=== PATIENT | female | born 1950 | race Caucasian/White ===

== ENCOUNTER 2024-09-28 15:17 | Emergency (ER) | payer MEDICARE, SELFPAY ==
[2024-09-28] VITALS (11 sets, daily range): BP systolic 123–166; BP diastolic 60–83; PULSE 79–91; RESP 11–20; TEMP 36.7; O2SAT 98–100
--- NOTE | ~2024-09-28 | CT_ITS ---
EXAMINATION: CT cervical spine wo con DATE: 09/28/2024 17:10 INDICATION: Fall. Neck/back pain TECHNIQUE: Computed tomography (CT) of the cervical spine was performed without intravenous contrast. COMPARISON: None FINDINGS: Cervical vertebral body heights and alignment are within normal limits. No compression fracture in the cervical spine. Moderate joint space narrowing at the C6-C7 level. Grade 1 anterolisthesis of C6 on C7. Bones appear osteopenic. Evaluation of the spinal canal contents and bilateral neural foramen is limited due to CT technique. Predental space is within normal limits. No prevertebral soft tissue swelling. There is an indeterminate 2.6 x 2.3 cm irregular density in the right lung apex. A chest CT is recommended for further assessment. IMPRESSION: 1. There is an indeterminate 2.6 x 2.3 cm irregular density in the right lung apex. In addition, there are a few small patchy opacities in the visualized lung apices. A chest CT is recommended for further assessment. 2. No compression fracture in the cervical spine. 3. Moderate joint space narrowing at the C6-C7 level. 4. Grade 1 anterolisthesis of C6 on C7. If symptoms persist or worsen, consider an MRI of the cervical spine for further assessment. Reviewed, dictated and finalized at location Q. IMPRESSION: 1. There is an indeterminate 2.6 x 2.3 cm irregular density in the right lung a pex. In addition, there are a few small patchy opacities in the visualized lung apices. A chest CT is recommended for further assessment. 2. No compression fracture in the cervical spine. 3. Moderate joint space narrowing at the C6-C7 level. 4. Grade 1 anterolisthesis of C6 on C7. If symptoms persist or worsen, consider an MRI of the cervical spine for furthe r assessment.
--- NOTE | ~2024-09-28 | XR_ITS ---
EXAMINATION: XR pelvis 1-2V DATE: 09/28/2024 16:41 INDICATION: Buttock pain post fall TECHNIQUE: An anteroposterior view of the pelvis was obtained. COMPARISON: None. FINDINGS: Bone alignment is normal. No fracture. Evaluation of the inferior sacrum is limited by colonic stool. Bilateral hip and sacroiliac joint spaces appear relatively preserved. 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 Surgical clips in pelvis suggestive of prior pelvic lymph node di ssection. IMPRESSION: 1. No acute osseous abnormality with limited assessment of the inferior sacrum due to superimposed colonic stool. Reviewed, dictated and finalized at location A.
--- NOTE | ~2024-09-28 | CT_ITS ---
EXAMINATION: CT brain wo con DATE: 09/28/2024 16:01 INDICATION: Fall. Hit head. TECHNIQUE: Computed tomography (CT) of the head was performed without intravenous contrast. The dose-length product was 681.00 mGy-cm. COMPARISON: None FINDINGS: Small subarachnoid hemorrhage in the left parietal lobe near the vertex. No mass effect. No midline shift. No hydrocephalus. No skull fracture. Visualized paranasal sinuses and mastoid air cells are clear. IMPRESSION: 1. Small subarachnoid hemorrhage in the left parietal lobe near the vertex. The emergency room physician taking care of the patient, Dr. Sifuentes, was identified about the findings on 09/28/2024 at 4:[address] Caraballo. Reviewed, dictated and finalized at location Q. IMPRESSION: 1. Small subarachnoid hemorrhage in the left parietal lobe near the vertex. The emergency room physician taking care of the patient, Dr. Sifuentes, was ident ified about the findings on 09/28/2024 at 4:[address] Caraballo.
--- OUTSIDE RECORDS SUMMARY | 2024-09-28 15:21 | XMS_ITS | Encounter Summary ---
Author Organization [facility] Address [address] [place] [address] Care Team Providers Care Back End Developer Name Role Phone Uriel Mott MD Primary Care Provider [phone] Encounter Details Date Type Department Care Team (Latest Contact Info) Description 11/08/2006 Outpatient Historical [facility] Medicine Christine Wang [address] [employer] [address] [employer] [facility] [address] [place] [address] [place] [address] [employer] [address] [employer] [facility] [place] [address] Other Nonspecific Abnormal Serum Enzyme Levels (Primary Dx) Social History Tobacco Use Types Packs/Day Years Used Date Smoking Tobacco: Never Assessed Comments Unknown Sex and Gender Information Value Date Recorded Sex Assigned at Not on file Legal Sex Female 3:07 AM DAY WORKER Gender Identity Not on file Sexual Orientation Not on file documented as of this encounter Plan of Treatment Upcoming Encounters Date Type Department Care Team (Late st Contact Info) Description 10/15/2024 8:00 AM CDT Appointment [facility] Medicine Christine Wang [address] [employer] [facility] [address] [place] [address] [place] [address] [facility] [place] [address] 12/07/2024 8:00 AM CDT Procedure visit [facility] Neurology [address] [facility] [address] [place] [address] Shashank Moore MD [address] [facility] [address] [place] [address] 01/17/2025 8:20 AM DAY WORKER Appointment [facility] Medicine Christine Piña [address] [facility] [address] [place] [address] [place] [address] [facility] [place] [address] 03/08/2025 8:00 AM DAY WORKER Procedure visit [facility] Neurology [address] [facility] [address] [place] [address] Shashank Moore MD [address] [facility] [address] [place] [address] documented as of this encounter Procedures Procedure Name Priority Date/Time Associated Diagnosis Comments HEPATITIS B CORE AB TOTAL Routine 11/08/2006 2:49 PM CDT HEPATITIS C AB W/CONFIRMATION Routine 11/08/2006 2:49 PM CDT HEPATITIS A IGM Routine 11/08/2006 2:49 PM CDT GGT Routine 11/08/2006 2:49 PM CDT documented in this encounter Results * HEPATITIS B CORE AB TOTAL (11/08/2006 2:49 PM CDT) HEPATITIS B CORE AB NON-REACTI VE NON-REACT JESUS INTERFACE SYSTEM Comment: Lab test performed by: [employer] [facility] [address] [place] [address] EDMUND ZHENG MD 11/08/2006 2:49 PM CDT Uriel Mott MD CHEMISTRY ORDERABLES Edited INTERFACE SYSTEM Refer to clinic/hospital department * HEPATITIS A IGM (11/08/2006 2:49 PM CDT) HEPATITIS A IGM NON-REACTI VE NON-REACT JESUS INTERFACE SYSTEM Comment: Lab test performed by: [employer] [id number] [employer] [place] [address] EDMUND ZHENG MD 11/08/2006 2:49 PM CDT Uriel Mott MD CHEMISTRY ORDERABLES Edited Performing Organization Address [facility] Phone Number INTERFACE SYSTEM Refer to clinic/hospital department * HEPATITIS C AB WITH CONFIRMATION BY RIBA (11/08/2006 2:49 PM CDT) Pathologist [facility] HEPATITIS C AB NON-REACTI VE NON-REACT JESUS INTERFACE SYSTEM SIGNAL TO CUT OFF 0.76 <1.00 INTERFACE SYSTEM Comment: Lab test performed by: [employer] [id number] [address] [employer] [place] [address] EDMUND ZHENG MD 11/08/2006 2:49 PM CDT Uriel Mott MD CHEMISTRY ORDERABLES Edited Performing Organization Address [facility] Phone Number INTERFACE SYSTEM Refer to clinic/hospital department * GGT (11/08/2006 2:49 PM CDT) Pathologist [facility] GGT 16 5 - 36 U/L INTERFACE SYSTEM 11/08/2006 2:49 PM CDT Uriel Mott MD CHEMISTRY ORDERABLES Edited Performing Organization Address [facility] Phone Number INTERFACE SYSTEM Refer to clinic/hospital department documented in this encounter Visit Diagnoses Diagnosis Other nonspecific abnormal serum enzyme levels- Primary documented in this encounter Additional Health Concerns Infection Onset Date Last Indicated Resolved Time R/O COVID-19 11/06/2019 11/06/2019 11/06/2019 8:56 AM CDT R/O COVID-19 12/29/2020 12/29/2020 12/29/2020 1:27 PM DAY WORKER COVID-19 12/29/2020 12/29/202001/18/2021 1:16 AM DAY WORKER documented as of this encounter Care Teams Back End Developer Relationship Specialty [place] [address] [facility] [place] [address] PCP - General 07/29/00 documented as of this encounter
--- OUTSIDE RECORDS SUMMARY | 2024-09-28 15:21 | XMS_ITS | Encounter Summary ---
Author Organization [facility] Address [address] [place] [address] Care Team Providers Care Hostess Party Sales Representative Name Role Phone Uriel Mott MD Primary Care Provider [phone] Encounter Details Date Type Department Care Team (Latest Contact Info) Description 09/20/2005 Outpatient Historical [facility] Medicine Christine Wang [address] [facility] [address] [place] [address] [place] [address] [address] [facility]. [address] [place] [address] Rheumatoid Arthritis (CMS/HCC) (Primary Dx) Social History Tobacco Use Types Packs/Day Years Used Date Smoking Tobacco: Never Assessed Comments Unknown Sex and Gender Information Value Date Recorded Sex Assigned at Not on file Legal Sex Female 3:07 AM WEDDING DECORATOR Gender Identity Not on file Sexual Orientation Not on file documented as of this encounter Plan of Treatment Upcoming Encounters Date Type Department Care Team (Late st Contact Info) Description 10/15/2024 8:00 AM CDT Appointment [facility] Medicine Christine Wang [address] [facility] [address] [place] [address] [place] [address] [facility] [place] [address] 12/07/2024 8:00 AM CDT Procedure visit [facility] Neurology [address] [facility] [address] [place] [address] Shashank Moore MD [address] [facility] [address] [place] [address] 01/17/2025 8:20 AM WEDDING DECORATOR Appointment [facility] Family Medicine Christine Piña [address] [place] [facility] [address] [place] [address] [place] [address] [place] [facility]. [address] [place] [address] 03/08/2025 8:00 AM WEDDING DECORATOR Procedure visit [facility] Neurology [address] [facility] [address] [place] [address] Shashank Moore MD [address] [facility] [address] [place] [address] documented as of this encounter Procedures Procedure Name Priority Date/Time Associated Diagnosis Comments CBC WITH DIFFERENTIAL Routine 09/20/2005 11:11 AM CDT CBC WITH DIFFERENTIAL Routine 09/20/2005 11:11 AM CDT LIPID PANEL Routine 09/20/2005 11:11 AM CDT documented in this encounter Results * (ABNORMAL) LIPID PANEL (09/20/2005 11:11 AM CDT) CHOLESTEROL 175 100 - 199 mg/dL INTERFACE SYSTEM TRIGLYCERIDE 72 10 - 149 mg/dL INTERFACE SYSTEM HDL 84(H) 40 - 59 mg/dL INTERFACE SYSTEM CHOL/HDL RATIO 2.1 2.0 - 5.0 INTER FACE SYSTEM LDL CALCULATED 77 <=99 mg/dL INTERFACE SYSTEM LIPID PANEL COMMENT See Below INTERFACE SYSTEM Comment: The adult ATP and pediatric NCEP classifications for lipids are available on the [facility] Intranet at: [email or web address] Select: Lab Policies and Procedures Select: Reference Ranges - Lipids 09/20/2005 11:1 1 AM CDT us Uriel Mott MD CHEMISTRY ORDERABLES Final R esult Performing Organization Address [facility] Co de Phone Number INTERFACE SYSTEM Refer to clinic/hospital department * CBC WITH DIFFERENTIAL (09/20/2005 11:11 AM CDT) NEUTROPHILS 56 45 - 70 % INTERFAC E SYSTEM LYMPHOCYTES 34 16 - 45 % INTERFAC E SYSTEM MONOCYTES 7 3 - 13 % INTERFACE SYSTEM EOSINOPHILS 3 0 - 7 % INTERFAC E SYSTEM BASOPHILS 1 0 - 2 % INTERFACE SYSTEM NEUTROPHIL ABSOLUTE 4.69 1.90 - 7.00 K/uL INTERFACE SYSTEM LYMPHOCYTE ABSOLUTE 2.84 0.70 - 4.50 K/uL INTERFACE SYSTEM MONOCYTE ABSOLUTE 0.57 0.10 - 1.30 K/uL INTERFACE SYSTEM EOSINOPHIL ABSOLUTE 0.27 0.00 - 0.70 K/uL INTERFACE SYSTEM BASOPHILS ABSOLUTE 0.04 0.00 - 0.20 K/uL INTERFACE SYSTEM 09/20/2005 11:1 1 AM CDT Uriel Mott MD HEMATOLOGY ORDERABLES Final Result Performing Organization Address [facility] de Phone Number INTERFACE SYSTEM Refer to clinic/hospital department * CBC WITH DIFFERENTIAL (09/20/2005 11:11 AM CDT) WBC 8.4 4.0 - 9.8 K/uL INTERFACE SYSTEM RBC 4.52 3.90 - 4.90 M/uL INTERFACE SYSTEM HEMOGLOBIN 13.4 11.8 - 14.8 g/dL INTERFACE SYSTEM HEMATOCRIT 39.7 35.5 - 44.0 % INTERFACE SYSTEM MCV 87.8 82.0 - 99.0 fL INTERFACE SYSTEM MCH 29.6 27.2 - 32.6 pg INTERFACE SYSTEM MCHC 33.8 31.5 - 35.5 % INTERFACE SYSTEM RDW 13.1 11.5 - 14.5 % INTERFACE SYSTEM RDW-STDEV 42.0 37.1 - 48.7 fL INTERFACE SYSTEM PLATELETS 250 140 - 350 K/uL INTERFACE SYSTEM MPV 10.6 9.3 - 12.4 fL INTERFACE SYSTEM 09/20/2005 11:1 1 AM CDT Result [facility] Uriel Mott MD HEMATOLOGY ORDERABLES Final Result INTERFACE SYSTEM Refer to clinic/hospital department documented in this encounter Visit Diagnoses Diagnosis Rheumatoid arthritis(714.0) (CMS/[facility])- Primary Rheumatoid arthritis documented in this encounter Additional Health Concerns Infection Onset Date Last Indicated Resolved Time R/O COVID-19 11/06/2019 11/06/2019 11/06/2019 8:56 AM CDT R/O COVID-19 12/29/2020 12/29/2020 12/29/2020 1:27 PM WEDDING DECORATOR COVID-19 12/29/2020 12/29/2020 01/18/2021 1:16 AM WEDDING DECORATOR documented as of this encounter Care Teams Hostess Party Sales Representative Relationship Specialty [place] [address] [facility] [address] [place] [address] PCP - General 07/29/00 documented as of this encounter
--- OUTSIDE RECORDS SUMMARY | 2024-09-28 15:21 | XMS_ITS | Encounter Summary ---
Author Organization [facility] Address [address] [place] [address] Care Team Providers Care Mortgage Loan Interviewer Name Role Phone Uriel Mott MD Primary Care Provider [phone] Encounter Details Date Type Department Care Team (Late st Contact Info) Description 03/26/2002 Outpatient Historical [facility] Medicine [place] Wang [address] [address] Ivana Quintana MD NO ADDRESS ON FILE Social History Tobacco Use Types Packs/Day Years Used Date Smoking Tobacco: Never Assessed Comments Unknown Sex and Gender Information Value Date Recorded Sex Assigned at Not on file Legal Sex Female 3:07 AM HOTEL NIGHT AUDITOR Gender Identity Not on file Sexual Orientation Not on file documented as of this encounter Plan of Treatment Upcoming Encounters Date Type Department Care Team (Late st Contact Info) Description 10/15/2024 8:00 AM CDT Appointment [facility] Christine Piña [address] [facility] [address] [place] [address] [place] [address] [facility] [place] [address] 12/07/2024 8:00 AM CDT Procedure visit [facility] Neurology [address] [facility] [address] [place] [address] Shashank Moore MD [address] [facility] [address] [place] [address] 01/17/2025 8:20 AM HOTEL NIGHT AUDITOR Appointment [facility] Wang [address] [facility] [address] [place] [address] [place] [address] [facility] [place] [address] 03/08/2025 8:00 AM HOTEL NIGHT AUDITOR Procedure visit [facility] Neurology [address] [facility] [address] [place] [address] Shashank Moore MD [address] [facility] [address] [place] [address] documented as of this encounter Visit Diagnoses Not on filedocumented in this encounter Additional Health Concerns Infection Onset Date Last Indicated Resolved Time R/O COVID-19 11/06/2019 11/06/2019 11/06/2019 8:56 AM CDT R/O COVID-19 12/29/2020 12/29/2020 12/29/2020 1:27 PM HOTEL NIGHT AUDITOR COVID-19 12/29/2020 12/29/2020 01/18/2021 1:16 AM HOTEL NIGHT AUDITOR documented as of this encounter Care Teams Mortgage Loan Interviewer Relationship Specialty [place] [address] [facility] [place] [address] PCP - General 07/29/00 documented as of this encounter
--- OUTSIDE RECORDS SUMMARY | 2024-09-28 15:21 | XMS_ITS | Encounter Summary ---
Author Organization [facility] Address [address] [place] [address] Care Team Providers Care Round Boner Name Role Phone Uriel Mott MD Primary Care Provider [phone] Encounter Details Date Type Department Care Team (Latest Contact Info) Description 05/30/2003 Inpatient Historical [facility] [place] [address] [address] [facility]. [address] [place] [address] DIS PORPHYRIN METABOLISM (Primary Dx) Social History Tobacco Use Types Packs/Day Years Used Date Smoking Tobacco: Never Assessed Comments Unknown Sex and Gender Information Value Date Recorded Sex Assigned at Not on file Legal Sex Female 3:07 AM PLANNER/SCHEDULER Gender Identity Not on file Sexual Orientation Not on file documented as of this encounter Plan of Treatment Upcoming Encounters Date Type Department Care Team (Late st Contact Info) Description 10/15/2024 8:00 AM CDT Appointment [facility] Family Medicine Christine Piña [address] [facility] [address] [place] [address] [place] [address] [facility] [place] [address] 12/07/2024 8:00 AM CDT Procedure visit [facility] Neurology [address] [facility] [address] [place] [address] Shashank Moore MD [address] [facility] [address] [place] [address] 01/17/2025 8:20 AM PLANNER/SCHEDULER Appointment [facility] Medicine Christine Piña [address] [facility] [address] [place] [address] [place] [address] [facility] [place] [address] 03/08/2025 8:00 AM PLANNER/SCHEDULER Procedure visit [facility] Neurology [address] [facility] [address] [place] [address] Shashank Moore MD [address] [facility] [address] [place] [address] documented as of this encounter Visit Diagnoses Diagnosis Disorders of porphyrin metabolism- Primary documented in this encounter Additional Health Concerns Infection Onset Date Last Indicated Resolved Time R/O COVID-19 11/06/2019 11/06/2019 11/06/2019 8:56 AM CDT R/O COVID-19 12/29/2020 12/29/2020 12/29/2020 1:27 PM PLANNER/SCHEDULER COVID-19 12/29/2020 12/29/2020 01/18/2021 1:16 AM PLANNER/SCHEDULER documented as of this encounter Care Teams Round Boner Relationship Specialty [place] [address] [facility] [address] [place] [address] PCP - General 07/29/00 documented as of this encounter
--- OUTSIDE RECORDS SUMMARY | 2024-09-28 15:21 | XMS_ITS | Encounter Summary ---
Author Organization [facility] Address [address] [place] [address] Care Team Providers Care Knitting Machine Fixer Name Role Phone Uriel Mott MD Primary Care Provider [phone] Encounter Details Date Type Department Care Team (Late st Contact Info) Description 05/30/2003 Outpatient Historical [facility] ([facility]) [address] [place] [address] Sonam Ramos MD Social History Tobacco Use Types Packs/Day Years Used Date Smoking Tobacco: Never Assessed Comments Unknown Sex and Gender Information Value Date Recorded Sex Assigned at Not on file Legal Sex Female 3:07 AM MOUNTED POLICE OFFICER Gender Identity Not on file Sexual Orientation Not on file documented as of this encounter Plan of Treatment Upcoming Encounters Date Type Department Care Team (Late st Contact Info) Description 10/15/2024 8:00 AM CDT Appointment [facility] Medicine Christine Wang [address] [facility] [address] [place] [address] [place] [address] [facility] [place] [address] 12/07/2024 8:00 AM CDT Procedure visit [facility] Neurology [address] [facility] [address] [place] [address] Shashank Moore MD [address] [facility] [address] [place] [address] 01/17/2025 8:20 AM MOUNTED POLICE OFFICER Appointment [facility] Medicine Christine Piña [address] [facility] [address] [place] [address] [place] [address] [facility] [place] [address] 03/08/2025 8:00 AM MOUNTED POLICE OFFICER Procedure visit [facility] Neurology [address] [facility] [address] [place] [address] Shashank Moore MD [address] [facility] [address] [place] [address] documented as of this encounter Visit Diagnoses Not on filedocumented in this encounter Additional Health Concerns Infection Onset Date Last Indicated Resolved Time R/O COVID-19 11/06/2019 11/06/2019 11/06/2019 8:56 AM CDT R/O COVID-19 12/29/2020 12/29/2020 12/29/2020 1:27 PM MOUNTED POLICE OFFICER COVID-19 12/29/2020 12/29/2020 01/18/2021 1:16 AM MOUNTED POLICE OFFICER documented as of this encounter Care Teams Knitting Machine Fixer Relationship Specialty [place] [address] [facility] [address] [place] [address] PCP - General 07/29/00 documented as of this encounter
--- OUTSIDE RECORDS SUMMARY | 2024-09-28 15:21 | XMS_ITS | Encounter Summary ---
Author Organization [facility] Address [address] [place] [address] Care Team Providers Care Potato Grader Name Role Phone Uriel Mott MD Primary Care Provider [phone] Encounter Details Date Type Department Care Team (Late st Contact Info) Description 06/26/2002 Outpatient Historical [facility] Christine Piña [address] [facility] [address] [place] [address] [place] [address] [facility]. [address] [address] Social History Tobacco Use Types Packs/Day Years Used Date Smoking Tobacco: Never Assessed Comments Unknown Sex and Gender Information Value Date Recorded Sex Assigned at Not on file Legal Sex Female 3:07 AM DIRECTOR OF MANUFACTURING OPERATIONS Gender Identity Not on file Sexual Orientation Not on file documented as of this encounter Plan of Treatment Upcoming Encounters Date Type Department Care Team (Late st Contact Info) Description 10/15/2024 8:00 AM CDT Appointment [facility] Christine Wang [address] [place] [facility] [address] [place] [address] [place] [address] [facility] [place] [address] 12/07/2024 8:00 AM CDT Procedure visit [facility] Neurology [address] [facility] [address] [place] [address] Shashank Moore MD [address] [facility] [address] [place] [address] 01/17/2025 8:20 AM DIRECTOR OF MANUFACTURING OPERATIONS Appointment [facility] Medicine Christine Piña [address] [facility] [address] [place] [address] [place] [address] [facility] [address] [place] [address] 03/08/2025 8:00 AM DIRECTOR OF MANUFACTURING OPERATIONS Procedure visit [facility] Neurology [address] [facility] [address] [place] [address] Shashank Moore MD [address] [address] documented as of this encounter Visit Diagnoses Not on filedocumented in this encounter Additional Health Concerns Infection Onset Date Last Indicated Resolved Time R/O COVID-19 11/06/2019 11/06/2019 11/06/2019 8:56 AM CDT R/O COVID-19 12/29/2020 12/29/2020 12/29/2020 1:27 PM DIRECTOR OF MANUFACTURING OPERATIONS COVID-19 12/29/2020 12/29/2020 01/18/2021 1:16 AM DIRECTOR OF MANUFACTURING OPERATIONS documented as of this encounter Care Teams Potato Grader Relationship Specialty [place] [address] [facility] [address] [place] [address] PCP - General 07/29/00 documented as of this encounter
--- OUTSIDE RECORDS SUMMARY | 2024-09-28 15:21 | XMS_ITS | Encounter Summary ---
Author Organization [facility] Address [address] [place] [address] Care Team Providers Care Senior Financial Accountant Name Role Phone Uriel Mott MD Primary Care Provider [phone] Encounter Details Date Type Department Care Team (Latest Contact Info) Description 10/24/2002 Outpatient Historical [place] [address] [address] [facility] [place] [address] RHEUMATOID ARTHRITIS (CMS/HCC) (Primary Dx) Social History Tobacco Use Types Packs/Day Years Used Date Smoking Tobacco: Never Assessed Comments Unknown Sex and Gender Information Value Date Recorded Sex Assigned at Not on file Legal Sex Female 3:07 AM FABRIC INSPECTOR Gender Identity Not on file Sexual Orientation Not on file documented as of this encounter Plan of Treatment Upcoming Encounters Date Type Department Care Team (Late st Contact Info) Description 10/15/2024 8:00 AM CDT Appointment [facility] Family Medicine Christine Piña [address] [facility] [address] [place] [address] [place] [address] [facility] [place] [address] 12/07/2024 8:00 AM CDT Procedure visit [facility] Neurology [address] [facility] [address] [place] [address] Shashank Moore MD [address] [facility] [address] [place] [address] 01/17/2025 8:20 AM FABRIC INSPECTOR Appointment [facility] Medicine Christine Piña [address] [facility] [address] [place] [address] [place] [address] [facility] [place] [address] 03/08/2025 8:00 AM FABRIC INSPECTOR Procedure visit [facility] [address] [facility] [address] [place] [address] Shashank Moore MD [address] [facility] [address] [place] [address] documented as of this encounter Visit Diagnoses Diagnosis Rheumatoid arthritis(714.0) (CMS/[facility])- Primary Rheumatoid arthritis documented in this encounter Additional Health Concerns Infection Onset Date Last Indicated Resolved Time R/O COVID-19 11/06/2019 11/06/2019 11/06/2019 8:56 AM CDT R/O COVID-19 12/29/2020 12/29/2020 12/29/2020 1:27 PM FABRIC INSPECTOR COVID-19 12/29/2020 12/29/2020 01/18/2021 1:16 AM FABRIC INSPECTOR documented as of this encounter Care Teams Senior Financial Accountant Relationship Specialty [place] [address] [facility] [place] [address] PCP - General 07/29/00 documented as of this encounter
--- OUTSIDE RECORDS SUMMARY | 2024-09-28 15:21 | XMS_ITS | Encounter Summary ---
Author Organization [facility] Address [address] [place] [address] Care Team Providers Care Pourer Name Role Phone Uriel Mott MD Primary Care Provider [phone] Encounter Details Date Type Department Care Team (Late st Contact Info) Description 02/02/2001 Outpatient Historical HIS [facility] DEPT [place] [address] [facility] [place] [address] Social History Tobacco Use Types Packs/Day Years Used Date Smoking Tobacco: Never Assessed Comments Unknown Sex and Gender Information Value Date Recorded Sex Assigned at Not on file Legal Sex Female 3:07 AM CONCRETE FORM SETTER AND FINISHER Gender Identity Not on file Sexual Orientation Not on file documented as of this encounter Plan of Treatment Upcoming Encounters Date Type Department Care Team (Late st Contact Info) Description 10/15/2024 8:00 AM CDT Appointment [facility] Christine Piña [address] [facility] [address] [place] [address] [place] [address] [facility] [place] [address] 12/07/2024 8:00 AM CDT Procedure visit [facility] [address] [facility] [address] [place] [address] Shashank Moore MD [address] [facility] [address] [place] [address] 01/17/2025 8:20 AM CONCRETE FORM SETTER AND FINISHER Appointment [facility] Christine Piña [address] [facility] [address] [place] [address] [place] [address] [facility] [place] [address] 03/08/2025 8:00 AM CONCRETE FORM SETTER AND FINISHER Procedure visit [facility] [address] [facility] [address] [place] [address] Shashank Moore MD [address] [facility] [address] [place] [address] documented as of this encounter Visit Diagnoses Not on filedocumented in this encounter Additional Health Concerns Infection Onset Date Last Indicated Resolved Time R/O COVID-19 11/06/2019 11/06/2019 11/06/2019 8:56 AM CDT R/O COVID-19 12/29/2020 12/29/2020 12/29/2020 1:27 PM CONCRETE FORM SETTER AND FINISHER COVID-19 12/29/2020 12/29/2020 01/18/2021 1:16 AM CONCRETE FORM SETTER AND FINISHER documented as of this encounter Care Teams Pourer Relationship Specialty [place] [address] [facility] [place] [address] PCP - General 07/29/00 documented as of this encounter
--- OUTSIDE RECORDS SUMMARY | 2024-09-28 15:21 | XMS_ITS | Encounter Summary ---
Author Organization [facility] Address [address] [place] [address] Care Team Providers Care Draw Bench Operator Helper Name Role Phone Uriel Mott MD Primary Care Provider [phone] Encounter Details Date Type Department Care Team (Late st Contact Info) Description 12/23/2000 Outpatient Historical HIS [facility] DEPT OF [place] [address] [place] [address] Social History Tobacco Use Types Packs/Day Years Used Date Smoking Tobacco: Never Assessed Comments Unknown Sex and Gender Information Value Date Recorded Sex Assigned at Not on file Legal Sex Female 3:07 AM AUTOMOBILE ASSEMBLY SUPERVISOR Gender Identity Not on file Sexual Orientation Not on file documented as of this encounter Plan of Treatment Upcoming Encounters Date Type Department Care Team (Late st Contact Info) Description 10/15/2024 8:00 AM CDT Appointment [facility] Medicine Christine Piña [address] [facility] [address] [place] [address] [place] [address] [facility]. [address] [place] [address] 12/07/2024 8:00 AM CDT Procedure visit [facility] Neurology [address] [facility] [address] [place] [address] Shashank Moore MD [address] [facility] [address] [place] [address] 01/17/2025 8:20 AM AUTOMOBILE ASSEMBLY SUPERVISOR Appointment [facility] Medicine Christine Piña [address] [facility] [address] [place] [address] [place] [address] [facility] [place] [address] 03/08/2025 8:00 AM AUTOMOBILE ASSEMBLY SUPERVISOR Procedure visit [facility] Neurology [address] [facility] [address] [place] [address] Shashank Moore MD [address] [facility] [address] [place] [address] documented as of this encounter Visit Diagnoses Not on filedocumented in this encounter Additional Health Concerns Infection Onset Date Last Indicated Resolved Time R/O COVID-19 11/06/2019 11/06/2019 11/06/2019 8:56 AM CDT R/O COVID-19 12/29/2020 12/29/2020 12/29/2020 1:27 PM AUTOMOBILE ASSEMBLY SUPERVISOR COVID-19 12/29/2020 12/29/2020 01/18/2021 1:16 AM AUTOMOBILE ASSEMBLY SUPERVISOR documented as of this encounter Care Teams Draw Bench Operator Helper Relationship Specialty [place] [address] [facility]. [address] [place] [address] PCP - General 07/29/00 documented as of this encounter
--- OUTSIDE RECORDS SUMMARY | 2024-09-28 15:21 | XMS_ITS | Encounter Summary ---
Author Organization [facility] Address [address] [place] [address] Care Team Providers Care Testing Machine Operator Name Role Phone Uriel Mott MD Primary Care Provider [phone] Encounter Details Date Type Department Care Team (Late st Contact Info) Description 04/12/2006 Outpatient Historical [facility] ([facility]) [address] [place] [address] Chance Ignacio MD NO ADDRESS ON FILE Social History Tobacco Use Types Packs/Day Years Used Date Smoking Tobacco: Never Assessed Comments Unknown Sex and Gender Information Value Date Recorded Sex Assigned at Not on file Legal Sex Female 3:07 AM REGULATORY CONSULTANT Gender Identity Not on file Sexual Orientation Not on file documented as of this encounter Plan of Treatment Upcoming Encounters Date Type Department Care Team (Late st Contact Info) Description 10/15/2024 8:00 AM CDT Appointment [facility] Family Medicine Christine Piña [address] [facility] [address] [place] [address] [place] [address] [facility] [place] [address] 12/07/2024 8:00 AM CDT Procedure visit [facility] Neurology [address] [facility] [address] [place] [address] Shashank Moore MD [address] [facility] [address] [place] [address] 01/17/2025 8:20 AM REGULATORY CONSULTANT Appointment [facility] Medicine Christine Piña [address] [facility] [address] [place] [address] [place] [address] [facility] [place] [address] 03/08/2025 8:00 AM REGULATORY CONSULTANT Procedure visit [facility] Neurology [address] [facility] [address] [place] [address] Shashank Moore MD [address] [facility] [address] [place] [address] documented as of this encounter Visit Diagnoses Not on filedocumented in this encounter Additional Health Concerns Infection Onset Date Last Indicated Resolved Time R/O COVID-19 11/06/2019 11/06/2019 11/06/2019 8:56 AM CDT R/O COVID-19 12/29/2020 12/29/2020 12/29/2020 1:27 PM REGULATORY CONSULTANT COVID-19 12/29/2020 12/29/2020 01/18/2021 1:16 AM REGULATORY CONSULTANT documented as of this encounter Care Teams Testing Machine Operator Relationship Specialty [place] [address] [facility] [place] [address] PCP - General 07/29/00 documented as of this encounter
--- OUTSIDE RECORDS SUMMARY | 2024-09-28 15:21 | XMS_ITS | Encounter Summary ---
Author Organization [facility] Address [address] [place] [address] Care Team Providers Care Correction Officer Reformatory Name Role Phone Uriel Mott MD Primary Care Provider [phone] Encounter Details Date Type Department Care Team (Latest Contact Info) Description 10/26/2004 Outpatient [place] [address] [facility] [place] [address] RHEUMATOID ARTHRITIS (CMS/HCC) (Primary Dx) Social History Tobacco Use Types Packs/Day Years Used Date Smoking Tobacco: Never Assessed Comments Unknown Sex and Gender Information Value Date Recorded Sex Assigned at Not on file Legal Sex Female 3:07 AM SUPPLIER QUALITY MANAGER Gender Identity Not on file Sexual Orientation Not on file documented as of this encounter Plan of Treatment Upcoming Encounters Date Type Department Care Team (Late st Contact Info) Description 10/15/2024 8:00 AM CDT Appointment [facility] Family Medicine Christine Piña [address] [facility] [address] [place] [address] [place] [address] [facility] [place] [address] 12/07/2024 8:00 AM CDT Procedure visit [facility] Neurology [address] [facility] [address] [place] [address] Shashank Moore MD [address] [facility] [address] [place] [address] 01/17/2025 8:20 AM SUPPLIER QUALITY MANAGER Appointment [facility] Medicine Christine Piña [address] [facility] [address] [place] [address] [place] [address] [facility] [place] [address] 03/08/2025 8:00 AM SUPPLIER QUALITY MANAGER Procedure visit [facility] [address] [facility] [address] [place] [address] Shashank Moore MD [address] [facility] [address] [place] [address] documented as of this encounter Procedures Procedure Name Priority Date/Time Associated Diagnosis Comments TSH Routine 10/26/2004 12:12 PM CDT LIPID PANEL Routine 10/26/2004 12:12 PM CDT COMPREHENSIVE METABOLIC PANEL Routine 10/26/2004 12:12 PM CDT documented in this encounter Results * TSH (10/26/2004 12:12 PM CDT) TSH 1.73 0.27 - 4.20 uU/mL INTERFACE SYSTEM 10/26/2004 12:1 2 PM CDT Uriel Mott MD CHEMISTRY ORDERABLES Final R esult INTERFACE SYSTEM Refer to clinic/hospital department * (ABNORMAL) LIPID PANEL (10/26/2004 12:12 PM CDT) CHOLESTEROL 142 100 - 199 mg/dL INTERFACE SYSTEM TRIGLYCERIDE 88 10 - 149 mg/dL INTERFACE SYSTEM HDL 71(H) 40 - 59 mg/dL INTERFACE SYSTEM LDL CALCULATED 53 <=99 mg/dL INTERFACE SYSTEM CHOL/HDL RATIO 2.0 2.0 - 5.0 INTER FACE SYSTEM Comment:See interpretive yan a section for risk classifications. LIPID PANEL COMMENT See below INTERFACE SYSTEM Comment: Adult ATP III Classifications: Cholesterol (mg/dL) Triglyceride (mg/dL) Desirable <200 Normal <150 Borderline 200 - 239 Borderline High 150 - 199 High >=240 High 200 - 499 Very High >=500 HDL Cholesterol (mg/dL) LDL (mg/dL) Low (increased risk) <40 Optimal <100 High (reduced risk) >=60 Near or above optimal 100 - 129 Borderline 130 - 159 High 160 - 189 Very High >=190 LDL calculation is not accurate if Triglycerides are greater than 400 mg /dL Pediatric NCEP Classifications: Cholesterol(<20 years),(mg/dL) Triglyceride Desirable <170 Pediatric classification Borderline 170 - 199 not defined. High >=200 HDL (<5 years) LDL (mg/dL) No Reference Range Established Desirable <110 Borderline 110 - 129 High >=130 10/26/2004 12:1 2 PM CDT Uriel Mott MD CHEMISTRY ORDERABLES Final R esult INTERFACE SYSTEM Refer to clinic/hospital department * (ABNORMAL) COMPREHENSIVE METABOLIC PANEL (10/26/2004 12:12 PM CDT) GLUCOSE 76 65 - 109 mg/dL INTERFACE SYSTEM CREATININE 0.7 0.4 - 1.2 mg/dL INTERFACE SYSTEM CALCIUM 8.7 8.6 - 10.2 mg/dL INTERFACE SYSTEM AST 19 12 - 32 U/L INTERFACE SYSTEM ALKALINE PHOSPHATASE 94 35 - 104 U/L INTERFACE SYSTEM BUN 16 6 - 20 mg/dL INTERFACE SYSTEM BILIRUBIN TOTAL 0.3 0.2 - 1.0 mg/dL INTERFACE SYSTEM ALBUMIN 4.0 3.4 - 4.8 g/dL INTERFACE SYSTEM TOTAL PROTEIN 6.8 6.3 - 8.6 g/dL INTERFACE SYSTEM ALT 16 0 - 31 U/L INTERFACE SYSTEM SODIUM 142 135 - 145 mmol/L INTERFACE SYSTEM POTASSIUM 3.7 3.5 - 4.9 mmol/L INTERFACE SYSTEM CHLORIDE 109(H) 96 - 108 mmol/L INTERFACE SYSTEM CO2 26 22 - 30 mmol/L INTERFACE SYSTEM 10/26/2004 12:1 2 PM CDT Uriel Mott MD CHEMISTRY ORDERABLES Final R esult INTERFACE SYSTEM Refer to clinic/hospital department documented in this encounter Visit Diagnoses Diagnosis Rheumatoid arthritis(714.0) (CMS/[facility])- Primary Rheumatoid arthritis documented in this encounter Additional Health Concerns Infection Onset Date Last Indicated Resolved Time R/O COVID-19 11/06/2019 11/06/2019 11/06/2019 8:56 AM CDT R/O COVID-19 12/29/2020 12/29/2020 12/29/2020 1:27 PM SUPPLIER QUALITY MANAGER COVID-19 12/29/2020 12/29/2020 01/18/2021 1:16 AM SUPPLIER QUALITY MANAGER documented as of this encounter Care Teams Correction Officer Reformatory Relationship Specialty [place] [address] [facility] [place] [address] PCP - General 07/29/00 documented as of this encounter
--- OUTSIDE RECORDS SUMMARY | 2024-09-28 15:21 | XMS_ITS | Encounter Summary ---
Author Organization [facility] Address [address] [place] [address] Care Team Providers Care Leadership Program Intern Name Role Phone Uriel Mott MD Primary Care Provider [phone] Reason for Visit * Reason Onset Date Comments Hospital Follow Up 11/07/2019 Encounter Details Date Type Department Care Team (Late st Contact Info) Description 11/07/2019 Telephone [facility] Medicine Christine Wang [address] [place] [address] [place] [address] [facility]. [address] [place] [address] Hospital Follow Up Social History Tobacco Use Types Packs/Day Years Used Date Smoking Tobacco: Former Cigarettes Q uit: 08/22/1974 Smokeless Tobacco: Never Alcohol Use Standard Drinks/Week Comments No 0 (1 standard drink = 0.6 oz pur e alcohol) Comments No Sex and Gender Information Value Date Recorded Sex Assigned at Not on file Legal Sex Female 3:07 AM RELIABILITY TECHNICIANS Gender Identity Not on file Sexual Orientation Not on file COVID-19 Exposure Response Date Recorded In the last month, have you been in contact with someone who was confirmed or suspected to have Coronavirus / COVID-19? No / Unsure 11/07/2019 2:22 PM CDT documented as of this encounter Miscellaneous Notes * Telephone Encounter - Cammy Lopez - 11/07/2019 1:46 PM CDT Patient called and was discharged from the hospital on 11/07/19 and needs a hospital FU. Please call [phone] documented in this encounter Plan of Treatment Upcoming Encounters Date Type Department Care Team (Late st Contact Info) Description 10/15/2024 8:00 AM CDT Appointment [facility] Medicine Christine Piña [address] [facility] [address] [place] [id number] [place] [address] [facility]. [address] [address] 12/07/2024 8:00 AM CDT Procedure visit [facility] Neurology [address] [facility] [address] [place] [address] Shashank Moore MD [address] [address] 01/17/2025 8:20 AM RELIABILITY TECHNICIANS Appointment [facility] Christine Piña [address] [facility] [address] [place] [address] [place] [address] [facility]. [address] [address] 03/08/2025 8:00 AM RELIABILITY TECHNICIANS Procedure visit [facility] Neurology [address] [address] Shashank Moore MD [address] [address] documented as of this encounter Visit Diagnoses Not on filedocumented in this encounter Additional Health Concerns Infection Onset Date Last Indicated Resolved Time R/O COVID-19 12/29/2020 12/29/2020 12/29/2020 1:27 PM RELIABILITY TECHNICIANS COVID-19 12/29/2020 12/29/2020 01/18/2021 1:16 AM RELIABILITY TECHNICIANS documented as of this encounter Care Teams Leadership Program Intern Relationship Specialty [place] [address] [facility]. [address] [place] [address] PCP - General 07/29/00 documented as of this encounter
--- OUTSIDE RECORDS SUMMARY | 2024-09-28 15:21 | XMS_ITS | Encounter Summary ---
Author Organization [facility] Address [address] [place] [address] Care Team Providers Care C2 Tactical Analysis Technician Name Role Phone Uriel Mott MD Primary Care Provider [phone] Encounter Details Date Type Department Care Team (Late st Contact Info) Description 03/28/2001 Outpatient Historical HIS [facility] DEPT [place] [address] [facility]. [address] [place] [address] Social History Tobacco Use Types Packs/Day Years Used Date Smoking Tobacco: Never Assessed Comments Unknown Sex and Gender Information Value Date Recorded Sex Assigned at Not on file Legal Sex Female 3:07 AM CAR BODY MECHANIC Gender Identity Not on file Sexual Orientation Not on file documented as of this encounter Plan of Treatment Upcoming Encounters Date Type Department Care Team (Late st Contact Info) Description 10/15/2024 8:00 AM CDT Appointment [facility] Family Medicine Christine Wang [address] [facility] [address] [place] [address] [place] [address] [facility] [place] [address] 12/07/2024 8:00 AM CDT Procedure visit [facility] Neurology [address] [facility] [address] [place] [address] Shashank Moore MD [address] [facility] [address] [place] [address] 01/17/2025 8:20 AM CAR BODY MECHANIC Appointment [facility] Medicine Christine Piña [address] [facility] [address] [place] [address] [place] [address] [facility] [place] [address] 03/08/2025 8:00 AM CAR BODY MECHANIC Procedure visit [facility] Neurology [address] [facility] [address] [place] [address] Shashank Moore MD [address] [facility] [address] [place] [address] documented as of this encounter Visit Diagnoses Not on filedocumented in this encounter Additional Health Concerns Infection Onset Date Last Indicated Resolved Time R/O COVID-19 11/06/2019 11/06/2019 11/06/2019 8:56 AM CDT R/O COVID-19 12/29/2020 12/29/2020 12/29/2020 1:27 PM CAR BODY MECHANIC COVID-19 12/29/2020 12/29/2020 01/18/2021 1:16 AM CAR BODY MECHANIC documented as of this encounter Care Teams C2 Tactical Analysis Technician Relationship Specialty [place] [address] [facility]. [address] [place] [address] PCP - General 07/29/00 documented as of this encounter
--- OUTSIDE RECORDS SUMMARY | 2024-09-28 15:21 | XMS_ITS | Encounter Summary ---
Author Organization [facility] Address [address] [place] [address] Care Team Providers Care News Photographer Name Role Phone Uriel Mott MD Primary Care Provider [phone] Encounter Details Date Type Department Care Team (Latest Contact Info) Description 11/03/2006 Outpatient Historical [facility] Medicine Christine Wang [address] [address] [facility] [address] [place] [address] [place] [address] [address] [facility]. [address] [place] [address] Other Malaise and Fatigue (Primary Dx) Social History Tobacco Use Types Packs/Day Years Used Date Smoking Tobacco: Never Assessed Comments Unknown Sex and Gender Information Value Date Recorded Sex Assigned at Not on file Legal Sex Female 3:07 AM FISHER MUSSEL Gender Identity Not on file Sexual Orientation Not on file documented as of this encounter Plan of Treatment Upcoming Encounters Date Type Department Care Team (Late st Contact Info) Description 10/15/2024 8:00 AM CDT Appointment [facility] Medicine Christine Wang [address] [address] [facility] [address] [place] [address] [place] [address] [facility] [place] [address] 12/07/2024 8:00 AM CDT Procedure visit [facility] Neurology [address] [facility] [address] [place] [address] Shashank Moore MD [address] [facility] [address] [place] [address] 01/17/2025 8:20 AM FISHER MUSSEL Appointment [facility] Medicine Christine Piña [address] [facility] [address] [place] [address] [place] [address] [facility] [place] [address] 03/08/2025 8:00 AM FISHER MUSSEL Procedure visit [facility] [address] [facility] [address] [place] [address] Shashank Moore MD [address] [facility] [address] [place] [address] documented as of this encounter Procedures Procedure Name Priority Date/Time Associated Diagnosis Comments CBC WITH DIFFERENTIAL Routine 11/03/2006 3:15 PM CDT CBC WITH DIFFERENTIAL Routine 11/03/2006 3:15 PM CDT MONONUCLEOSIS SCREEN Routine 11/03/2006 3:15 PM CDT FERRITIN Routine 11/03/2006 3:15 PM CDT CORTISOL LEVEL Routine 11/03/2006 3:15 PM CDT COMPREHENSIVE METABOLIC PANEL Routine 11/03/2006 3:15 PM CDT documented in this encounter Results * CBC WITH DIFFERENTIAL (11/03/2006 3:15 PM CDT) NEUTROPHILS 62 45 - 70 % INTERFAC E SYSTEM LYMPHOCYTES 29 16 - 45 % INTERFAC E SYSTEM MONOCYTES 6 3 - 13 % INTERFACE SYSTEM EOSINOPHILS 3 0 - 7 % INTERFAC E SYSTEM BASOPHILS 1 0 - 2 % INTERFACE SYSTEM NEUTROPHIL ABSOLUTE 3.81 1.90 - 7.00 K/uL INTERFACE SYSTEM LYMPHOCYTE ABSOLUTE 1.78 0.70 - 4.50 K/uL INTERFACE SYSTEM MONOCYTE ABSOLUTE 0.38 0.10 - 1.30 K/uL INTERFACE SYSTEM EOSINOPHIL ABSOLUTE 0.16 0.00 - 0.70 K/uL INTERFACE SYSTEM BASOPHILS ABSOLUTE 0.04 0.00 - 0.20 K/uL INTERFACE SYSTEM 11/03/2006 3:15 PM CDT Uriel Mott MD HEMATOLOGY ORDERABLES Edited Performing Organization Address City/[facility] de Phone Number INTERFACE SYSTEM Refer to clinic/hospital department * CBC WITH DIFFERENTIAL (11/03/2006 3:15 PM CDT) WBC 6.2 4.0 - 9.8 K/uL INTERFACE SYSTEM RBC 4.29 3.90 - 4.90 M/uL INTERFACE SYSTEM HEMOGLOBIN 12.8 11.8 - 14.8 g/dL INTERFACE SYSTEM HEMATOCRIT 37.0 35.5 - 44.0 % INTERFACE SYSTEM MCV 86.2 82.0 - 99.0 fL INTERFACE SYSTEM MCH 29.8 27.2 - 32.6 pg INTERFACE SYSTEM MCHC 34.6 31.5 - 35.5 % INTERFACE SYSTEM RDW 12.8 11.5 - 14.5 % INTERFACE SYSTEM RDW-STDEV 40.5 37.1 - 48.7 fL INTERFACE SYSTEM PLATELETS 282 140 - 350 K/uL INTERFACE SYSTEM MPV 11.9 9.3 - 12.4 fL INTERFACE SYSTEM 11/03/2006 3:15 PM CDT Uriel Mott MD HEMATOLOGY ORDERABLES Edited Performing Organization Address [facility] de Phone Number INTERFACE SYSTEM Refer to clinic/hospital department * MONONUCLEOSIS SCREEN (11/03/2006 3:15 PM CDT) MONONUCLEOSIS SCREEN Negative Negative INTERFACE SYSTEM 11/03/2006 3:15 PM CDT Uriel Mott MD HEMATOLOGY ORDERABLES Edited Performing Organization Address City/[facility] de Phone Number INTERFACE SYSTEM Refer to clinic/hospital department * CORTISOL LEVEL (11/03/2006 3:15 PM CDT) CORTISOL LEVEL 15.5 ug/dL INTER FACE SYSTEM Comment: Cortisol Reference Range: 7 - 10 AM: 6.2 - 19.4 ug/dL 4 - 8 PM: 2.3 - 11.9 ug/dL 11/03/2006 3:15 PM CDT Uriel Mott MD CHEMISTRY ORDERABLES Edited Performing Organization Address City/[facility] de Phone Number INTERFACE SYSTEM Refer to clinic/hospital department * (ABNORMAL) FERRITIN (11/03/2006 3:15 PM CDT) FERRITIN 182(H) 13 - 150 ng/mL INTERFACE SYSTEM 11/03/2006 3:15 PM CDT Uriel Mott MD CHEMISTRY ORDERABLES Edited Performing Organization Address [facility] Co de Phone Number INTERFACE SYSTEM Refer to clinic/hospital department * (ABNORMAL) COMPREHENSIVE METABOLIC PANEL (11/03/2006 3:15 PM CDT) GLUCOSE 93 65 - 99 mg/dL INTERFACE SYSTEM CREATININE 0.76 0.51 - 0.95 mg/dL INTERFACE SYSTEM CALCIUM 8.4 8.4 - 10.2 mg/dL INTERFACE SYSTEM ALKALINE PHOSPHATASE 74 35 - 104 U/L INTERFACE SYSTEM AST 52(H) 12 - 32 U/L INTERFACE SYSTEM ALT 65(H) 0 - 31 U/L INTERFACE SYSTEM TOTAL PROTEIN 6.6 6.3 - 8.6 g/dL INTERFACE SYSTEM ALBUMIN 4.0 3.4 - 4.8 g/dL INTERFACE SYSTEM BILIRUBIN TOTAL 0.3 0.2 - 1.0 mg/dL INTERFACE SYSTEM BUN 12 6 - 20 mg/dL INTERFACE SYSTEM SODIUM 144 135 - 145 mmol/L INTERFACE SYSTEM POTASSIUM 3.8 3.5 - 4.9 mmol/L INTERFACE SYSTEM CHLORIDE 108 96 - 108 mmol/L INTERFACE SYSTEM CO2 26 22 - 30 mmol/L INTERFACE SYSTEM GFR, >60 >=60 mL/min/1.7 sq meter INTERFACE SYSTEM GFR >60 >=60 mL/min/1.7 sq meter INTERFACE SYSTEM Comment: Estimated GFR rate interpretative information for both Americans and non- Americans is available on the [facility] Intranet at: [email or web address] Select: Lab Policies and Procedures Select: Reference Ranges - GFR 11/03/2006 3:15 PM CDT Uriel Mott MD CHEMISTRY ORDERABLES Edited INTERFACE SYSTEM Refer to clinic/hospital department documented in this encounter Visit Diagnoses Diagnosis Other malaise and fatigue- Primary documented in this encounter Additional Health Concerns Infection Onset Date Last Indicated Resolved Time R/O COVID-19 11/06/2019 11/06/2019 11/06/2019 8:56 AM CDT R/O COVID-19 12/29/2020 12/29/2020 12/29/2020 1:27 PM FISHER MUSSEL COVID-19 12/29/2020 12/29/2020 01/18/2021 1:16 AM FISHER MUSSEL documented as of this encounter Care Teams News Photographer Relationship Specialty [place] [address] [facility] [place] [address] PCP - General 07/29/00 documented as of this encounter
--- OUTSIDE RECORDS SUMMARY | 2024-09-28 15:21 | XMS_ITS | Encounter Summary ---
Author Organization [facility] Address [address] [place] [address] Care Team Providers Care Farm Contractor Name Role Phone Uriel Mott MD Primary Care Provider [phone] Encounter Details Date Type Department Care Team (Late Contact Info) Description 09/20/2005 Outpatient Historical [facility] Medicine Christine Piña [address] [employer] [address] [place] [address] [place] [address] [address] [place] [address] Social History Tobacco Use Types Packs/Day Years Used Date Smoking Tobacco: Never Assessed Comments Unknown Sex and Gender Information Value Date Recorded Sex Assigned at Not on file Legal Sex Female 3:07 AM INTERMEDIATE CARD TENDER Gender Identity Not on file Sexual Orientation Not on file documented as of this encounter Last Filed Vital Signs Vital Sign Reading Time Taken Comments Blood Pressure 110/84 09/20/2005 9:15 AM CDT Pulse 72 09/20/2005 9:15 AM CDT Temperature - - Respiratory Rate - - Oxygen Saturation - - Inhaled Oxygen Concentration - - Weight 67.6 kg (149 lb) 09/20/2005 9:15 AM CDT Height - - Body Mass Index - - documented in this encounter Plan of Treatment Upcoming Encounters Date Type Department Care Team (Late Contact Info) Description 10/15/2024 8:00 AM CDT Appointment [facility] Medicine Christine Wang [address] [place] [address] [place] [address] [employer] [place] [address] 12/07/2024 8:00 AM CDT Procedure visit [facility] Neurology [address] [facility] [address] [place] [address] Shashank Moore MD [address] [facility] [address] [place] [address] 01/17/2025 8:20 AM INTERMEDIATE CARD TENDER Appointment [facility] Medicine Christine Piña [address] [address] [facility] [address] [place] [address] [place] [address] [facility]. [address] [place] [address] 03/08/2025 8:00 AM INTERMEDIATE CARD TENDER Procedure visit [facility] Neurology [address] [facility] [address] [place] [address] Shashank Moore MD [address] [facility] [address] [place] [address] documented as of this encounter Visit Diagnoses Not on filedocumented in this encounter Additional Health Concerns Infection Onset Date Last Indicated Resolved Time R/O COVID-19 11/06/2019 11/06/2019 11/06/2019 8:56 AM CDT R/O COVID-19 12/29/2020 12/29/2020 12/29/2020 1:27 PM INTERMEDIATE CARD TENDER COVID-19 12/29/2020 12/29/2020 01/18/2021 1:16 AM INTERMEDIATE CARD TENDER documented as of this encounter Care Teams Farm Contractor Relationship Specialty [place] [address] [facility] [address] [place] [address] PCP - General 07/29/00 documented as of this encounter
--- OUTSIDE RECORDS SUMMARY | 2024-09-28 15:21 | XMS_ITS | Encounter Summary ---
Author Organization [facility] Address [address] [place] [address] Care Team Providers Care Photo Editor Name Role Phone Uriel Mott MD Primary Care Provider [phone] Encounter Details Date Type Department Care Team (Late st Contact Info) Description 11/25/2006 Outpatient Historical [facility] [place] [address] [address] [employer] [facility]. [address] [place] [address] Other Nonspecific Abnormal Serum Enzyme Levels (Primary Dx) Social History Tobacco Use Types Packs/Day Years Used Date Smoking Tobacco: Never Assessed Comments Unknown Sex and Gender Information Value Date Recorded Sex Assigned at Not on file Legal Sex Female 3:07 AM HUNTING GUIDE Gender Identity Not on file Sexual Orientation Not on file documented as of this encounter Plan of Treatment Upcoming Encounters Date Type Department Care Team (Late st Contact Info) Description 10/15/2024 8:00 AM CDT Appointment [facility] Family Medicine Christine Piña [address] [facility] [address] [place] [address] [place] [address] [address] [facility]. [address] [place] [address] 12/07/2024 8:00 AM CDT Procedure visit [facility] Neurology [address] [facility] [address] [place] [address] Shashank Moore MD [address] [facility] [address] [place] [address] 01/17/2025 8:20 AM HUNTING GUIDE Appointment [facility] Medicine Christine Piña [address] [facility] [address] [place] [address] [place] [address] [facility] [place] [address] 03/08/2025 8:00 AM HUNTING GUIDE Procedure visit [facility] Neurology [address] [facility] [address] [place] [address] Shashank Moore MD [address] [facility] [address] [place] [address] documented as of this encounter Visit Diagnoses Diagnosis Other nonspecific abnormal serum enzyme levels- Primary documented in this encounter Additional Health Concerns Infection Onset Date Last Indicated Resolved Time R/O COVID-19 11/06/2019 11/06/2019 11/06/2019 8:56 AM CDT R/O COVID-19 12/29/2020 12/29/2020 12/29/2020 1:27 PM HUNTING GUIDE COVID-19 12/29/2020 12/29/2020 01/18/2021 1:16 AM HUNTING GUIDE documented as of this encounter Care Teams Photo Editor Relationship Specialty [place] [address] [facility] [place] [address] PCP - General 07/29/00 documented as of this encounter
--- OUTSIDE RECORDS SUMMARY | 2024-09-28 15:21 | XMS_ITS | Encounter Summary ---
Author Organization [facility] Address [address] [place] [address] Care Team Providers Care Iv Therapy Nurse Name Role Phone Uriel Mott MD Primary Care Provider [phone] Encounter Details Date Type Department Care Team (Late st Contact Info) Description 01/09/[address] [facility] Christine Piña [address] [address] [facility] [address] [place] [address] [place] [address] [employer] [facility]. [address] [address] Social History Tobacco Use Types Packs/Day Years Used Date Smoking Tobacco: Never Assessed Comments Unknown Sex and Gender Information Value Date Recorded Sex Assigned at Not on file Legal Sex Female 3:07 AM ELECTRONIC NEWS GATHERING CAMERA PERSON Gender Identity Not on file Sexual Orientation Not on file documented as of this encounter Plan of Treatment Upcoming Encounters Date Type Department Care Team (Late st Contact Info) Description 10/15/2024 8:[address] [facility] Christine Wang [address] [place] [facility] [address] [place] [address] [place] [address] [facility] [place] [address] 12/07/2024 8:00 AM CDT Procedure visit [facility] Neurology [address] [facility] [address] [place] [address] Shashank Moore MD [address] [facility] [address] [place] [address] 01/17/2025 8:20 AM ELECTRONIC NEWS GATHERING CAMERA PERSON Appointment [facility] Medicine Christine Piña [address] [facility] [address] [place] [address] [place] [address] [facility] [address] [place] [address] 03/08/2025 8:00 AM ELECTRONIC NEWS GATHERING CAMERA PERSON Procedure visit [facility] Neurology [address] [facility] [address] [place] [address] Shashank Moore MD [address] [address] documented as of this encounter Visit Diagnoses Not on filedocumented in this encounter Additional Health Concerns Infection Onset Date Last Indicated Resolved Time R/O COVID-19 11/06/2019 11/06/2019 11/06/2019 8:56 AM CDT R/O COVID-19 12/29/2020 12/29/2020 12/29/2020 1:27 PM ELECTRONIC NEWS GATHERING CAMERA PERSON COVID-19 12/29/2020 12/29/2020 01/18/2021 1:16 AM ELECTRONIC NEWS GATHERING CAMERA PERSON documented as of this encounter Care Teams Iv Therapy Nurse Relationship Specialty [place] [address] [facility] [address] [place] [address] PCP - General 07/29/00 documented as of this encounter
--- OUTSIDE RECORDS SUMMARY | 2024-09-28 15:21 | XMS_ITS | Encounter Summary ---
Author Organization [facility] Address [address] [place] [address] Care Team Providers Care Hand Chain Maker Name Role Phone Uriel Mott MD Primary Care Provider [phone] Encounter Details Date Type Department Care Team (Late Contact Info) Description 11/30/2006 Outpatient Historical [facility] Christine Wang [address] [place] [address] [place] [address] [employer] [facility]. [address] [place] [address] Social History Tobacco Use Types Packs/Day Years Used Date Smoking Tobacco: Never Assessed Comments Unknown Sex and Gender Information Value Date Recorded Sex Assigned at Not on file Legal Sex Female 3:07 AM PAPER CARRIER Gender Identity Not on file Sexual Orientation Not on file documented as of this encounter Last Filed Vital Signs Vital Sign Reading Time Taken Comments Blood Pressure 126/72 11/30/2006 8:30 AM CDT Pulse 62 11/30/2006 8:30 AM CDT Temperature - - Respiratory Rate - - Oxygen Saturation - - Inhaled Oxygen Concentration - - Weight 70.8 kg (156 lb) 11/30/2006 8:30 AM CDT Height 154.9 cm (5' 1) 11/30/2006 8:30 AM CDT Body Mass Index 29.48 11/30/2006 8:30 AM CDT documented in this encounter Plan of Treatment Upcoming Encounters Date Type Department Care Team (Late st Contact Info) Description 10/15/2024 8:00 AM CDT Appointment [facility] Christine Piña [address] [employer] [facility] [address] [place] [address] [place] [address] [facility]. [address] [place] [address] 12/07/2024 8:00 AM CDT Procedure visit [facility] Neurology [address] [facility] [address] [place] [address] Shashank Moore MD [address] [facility] [address] [place] [address] 01/17/2025 8:20 AM PAPER CARRIER Appointment [facility] Medicine Christine Piña [address] [facility] [address] [place] [address] [place] [address] [facility]. [address] [place] [address] 03/08/2025 8:00 AM PAPER CARRIER Procedure visit [facility] [address] [facility] [address] [place] [address] Shashank Moore MD [address] [address] documented as of this encounter Visit Diagnoses Not on filedocumented in this encounter Additional Health Concerns Infection Onset Date Last Indicated Resolved Time R/O COVID-19 11/06/2019 11/06/2019 11/06/2019 8:56 AM CDT R/O COVID-19 12/29/2020 12/29/2020 12/29/2020 1:27 PM PAPER CARRIER COVID-19 12/29/2020 12/29/2020 01/18/2021 1:1 6 AM PAPER CARRIER documented as of this encounter Care Teams Hand Chain Maker Relationship Specialty [place] [address] [facility] [place] [address] PCP - General 07/29/00 documented as of this encounter
--- OUTSIDE RECORDS SUMMARY | 2024-09-28 15:21 | XMS_ITS | Encounter Summary ---
Author Organization [facility] Address [address] [place] [address] Care Team Providers Care Geochemical Manager Name Role Phone Uriel Mott MD Primary Care Provider [phone] Encounter Details Date Type Department Care Team (Late Contact Info) Description 10/23/2004 Outpatient Historical [facility] Christine Wang [address] [place] [address] [place] [address] [address] [place] [address] Social History Tobacco Use Types Packs/Day Years Used Date Smoking Tobacco: Never Assessed Comments Unknown Sex and Gender Information Value Date Recorded Sex Assigned at Not on file Legal Sex Female 3:07 AM PHOTOENGRAVING SUPERVISOR Gender Identity Not on file Sexual Orientation Not on file documented as of this encounter Last Filed Vital Signs Vital Sign Reading Time Taken Comments Blood Pressure 126/72 10/23/2004 2:45 PM CDT Pulse 97 10/23/2004 2:45 PM CDT Temperature 36.6 C (97.8 F) 10/23/2004 2:45 PM CDT Respiratory Rate - - Oxygen Saturation - - Inhaled Oxygen Concentration - - Weight 65.8 kg (145 lb) 10/23/2004 2:45 PM CDT Height - - Body Mass Index - - documented in this encounter Plan of Treatment Upcoming Encounters Date Type Department Care Team (Late Contact Info) Description 10/15/2024 8:00 AM CDT Appointment [facility] Christine Wang [address] [place] [address] [place] [address] [facility] [place] [address] 12/07/2024 8:00 AM CDT Procedure visit [facility] Neurology [address] [facility] [address] [place] [address] Shashank Moore MD [address] [facility] [address] [place] [address] 01/17/2025 8:20 AM PHOTOENGRAVING SUPERVISOR Appointment [facility] Medicine Christine Piña [address] [facility] [address] [place] [address] [place] [address] [facility]. [address] [place] [address] 03/08/2025 8:00 AM PHOTOENGRAVING SUPERVISOR Procedure visit [facility] Neurology [address] [facility] [address] [place] [address] Shashank Moore MD [address] [facility] [address] [place] [address] documented as of this encounter Visit Diagnoses Not on filedocumented in this encounter Additional Health Concerns Infection Onset Date Last Indicated Resolved Time R/O COVID-19 11/06/2019 11/06/2019 11/06/2019 8:56 AM CDT R/O COVID-19 12/29/2020 12/29/2020 12/29/2020 1:27 PM PHOTOENGRAVING SUPERVISOR COVID-19 12/29/2020 12/29/2020 01/18/2021 1:16 AM PHOTOENGRAVING SUPERVISOR documented as of this encounter Care Teams Geochemical Manager Relationship Specialty [place] [address] [facility] [address] [place] [address] PCP - General 07/29/00 documented as of this encounter
--- OUTSIDE RECORDS SUMMARY | 2024-09-28 15:21 | XMS_ITS | Encounter Summary ---
Author Organization [facility] Address [address] [place] [address] Care Team Providers Care Farmer Cash Grain Name Role Phone Uriel Mott MD Primary Care Provider [phone] Encounter Details Date Type Department Care Team (Late Contact Info) Description 04/06/[address] [facility] ([place], [place]) Christine Wang [address] [place] [address] [place] [address] [place] [address] Social History Tobacco Use Types Packs/Day Years Used Date Smoking Tobacco: Never Assessed Comments Unknown Sex and Gender Information Value Date Recorded Sex Assigned at Not on file Legal Sex Female 3:07 AM ATHLETIC TRAINER Gender Identity Not on file Sexual Orientation Not on file documented as of this encounter Last Filed Vital Signs Vital Sign Reading Time Taken Comments Blood Pressure 132/74 04/06/2006 9:45 AM ATHLETIC TRAINER Pulse 72 04/06/2006 9:45 AM ATHLETIC TRAINER Temperature - - Respiratory Rate - - Oxygen Saturation - - Inhaled Oxygen Concentration - - Weight 69.9 kg (154 lb) 04/06/2006 9:45 AM ATHLETIC TRAINER Height - - Body Mass Index - - documented in this encounter Plan of Treatment Upcoming Encounters Date Type Department Care Team (Late st Contact Info) Description 10/15/2024 8:[address] [facility] ([place], [place]) Christine Wang [address] [place] [address] [place] [address] [place] [address] 12/07/2024 8:00 AM CDT Procedure visit [facility] Neurology [address] [facility] [address] [place] [address] Shashank Moore MD [address] [facility] [address] [place] [address] 01/17/2025 8:20 AM ATHLETIC TRAINER Appointment [facility] Medicine Christine Piña [address] [facility] [address] [place] [address] [place] [address] [facility] [place] [address] 03/08/2025 8:00 AM ATHLETIC TRAINER Procedure visit [facility] Neurology [address] [facility] [address] [place] [address] Shashank Moore MD [address] [facility] [address] [place] [address] documented as of this encounter Visit Diagnoses Not on filedocumented in this encounter Additional Health Concerns Infection Onset Date Last Indicated Resolved Time R/O COVID-19 11/06/2019 11/06/2019 11/06/2019 8:56 AM CDT R/O COVID-19 12/29/2020 12/29/2020 12/29/2020 1:27 PM ATHLETIC TRAINER COVID-19 12/29/2020 12/29/2020 01/18/2021 1:16 AM ATHLETIC TRAINER documented as of this encounter Care Teams Farmer Cash Grain Relationship Specialty [place] [address] [facility] [address] [place] [address] PCP - General 07/29/00 documented as of this encounter
--- OUTSIDE RECORDS SUMMARY | 2024-09-28 15:21 | XMS_ITS | Encounter Summary ---
Author Organization [facility] Address [address] [place] [address] Care Team Providers Care Upholstery Sewer Name Role Phone Uriel Mott MD Primary Care Provider [phone] Encounter Details Date Type Department Care Team (Latest Contact Info) Description 10/26/2004 Outpatient Historical [facility] [place] [address] [facility]. [address] [place] [address] SWELLING IN HEAD & NECK (Primary Dx) Social History Tobacco Use Types Packs/Day Years Used Date Smoking Tobacco: Never Assessed Comments Unknown Sex and Gender Information Value Date Recorded Sex Assigned at Not on file Legal Sex Female 3:07 AM COUNSELOR MANAGER Gender Identity Not on file Sexual Orientation Not on file documented as of this encounter Plan of Treatment Upcoming Encounters Date Type Department Care Team (Late st Contact Info) Description 10/15/2024 8:00 AM CDT Appointment [facility] Family Medicine Christine Piña [address] [facility] [address] [place] [address] [place] [address] [address] [facility] [place] [address] 12/07/2024 8:00 AM CDT Procedure visit [facility] Neurology [address] [facility] [address] [place] [address] Shashank Moore MD [address] [facility] [address] [place] [address] 01/17/2025 8:20 AM COUNSELOR MANAGER Appointment [facility] Medicine Christine Piña [address] [facility] [address] [place] [address] [place] [address] [facility]. [address] [place] [address] 03/08/2025 8:00 AM COUNSELOR MANAGER Procedure visit [facility] Neurology [address] [facility] [address] [place] [address] Shashank Moore MD [address] [facility] [address] [place] [address] documented as of this encounter Visit Diagnoses Diagnosis Swelling, mass, or lump in head and neck- Primary documented in this encounter Additional Health Concerns Infection Onset Date Last Indicated Resolved Time R/O COVID-19 11/06/2019 11/06/2019 11/06/2019 8:56 AM CDT R/O COVID-19 12/29/2020 12/29/2020 12/29/2020 1:27 PM COUNSELOR MANAGER COVID-19 12/29/2020 12/29/2020 01/18/2021 1:16 AM COUNSELOR MANAGER documented as of this encounter Care Teams Upholstery Sewer Relationship Specialty [place] [address] [facility]. [address] [place] [address] PCP - General 07/29/00 documented as of this encounter
--- OUTSIDE RECORDS SUMMARY | 2024-09-28 15:21 | XMS_ITS | Encounter Summary ---
Author Organization [facility] Address [address] [place] [address] Care Team Providers Care Roll Threader Operator Name Role Phone Uriel oMtt MD Primary Care Provider [phone] Encounter Details Date Type Department Care Team (Late st Contact Info) Description 11/03/2006 Orders Only [facility] Family Medicine [place] [address] [place] [address] [place] [address] [address] [place] [address] Social History Tobacco Use Types Packs/Day Years Used Date Smoking Tobacco: Never Assessed Comments Unknown Sex and Gender Information Value Date Recorded Sex Assigned at Not on file Legal Sex Female 3:07 AM QUALITY ASSISTANT Gender Identity Not on file Sexual Orientation Not on file documented as of this encounter Progress Notes * Uriel Mott MD - 06/23/2007 7:09 PM CDT NURSE NAME: Charis Montoya PULSE: 70. Right Radial, Regular BLOOD PRESSURE: 112/62. Right Arm Sitting WEIGHT: 156lbs. ALLERGIES: Allergies are as listed. TOBACCO USE: Patient does not currently use tobacco. CHIEF COMPLAINT Here for follow up evaluation. est/sjl HISTORY: HISTORY: 714.0-RHEUMATOID ARTHRITIS The patient's rheumatoid arthritis is stable. Methotrexate is tolerated well with no side effects. The patient is being seen by a splunk dashboard developer. Also on orencia and prednisone. 780.79-FATIGUE The patient's malaise and fatigue have not changed. The patient's energy levels havedeclined. Currently the patient is off all medication. Recent laboratory work satisfactory. Still has LGT and fatigue and TSH and FBS were normal. Tmax 100.6 usually at night, still hair falling out,sx for past 3-4 wks. 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 Cartwright-dermatology METHOTREXATE SODIUM ORAL TABLET 5 MG, Not sure of dosage-from Dr. Osei qod CALCIUM + D ORAL TABLET 600-200 MG-UNIT, one tablet twice a day Actually I want her to take a pill with 400iu of vitamin d. this was not available on my menu of meds to choose from NASACORT AQ NASAL AEROSOL SOLUTION 55 MCG/ACT, WRITTEN BY Dr. Cutler-ENT PREDNISONE ORAL TABLET 20 MG, Take one tablet a day for 7 days SINGULAIR ORAL TABLET 10 MG, one tablet a day PREMARIN ORAL TABLET 1.25 MG, 1 Every Day TOPAMAX ORAL TABLET 50 MG, 1 Two Times A Day AUGMENTIN ORAL TABLET 875-125 MG, 1 Two Times A Day ALPRAZOLAM ORAL TABLET 1 MG, 1 Every Day At Bedtime, As Needed CURRENT ALLERGY LIST: CODEINE SULFA Patient's history reviewed; no changes. PHYSICAL EXAMINATION: CONSTITUTIONAL: GENERAL APPEARANCE: Healthy appearing patient in no distress. EYES: CONJUNCTIVAE/LIDS: Conjunctivae and lids appear normal. EARS, NOSE, MOUTH AND THROAT: EARS: Tympanic membranes shiny without retraction. Canals unremarkable. Hearing grossly normal. NOSE (AND SINUS): No abnormality of the nose or sinuses is noted. ORAL: Inspection of gums, lips, palate, and teeth normal. No scars, lesions, or masses. Oral mucosaunremarkable with non-inflamed posterior pharynx. NECK/THYROID: Trachea midline. No thyroid enlargement, tenderness, or mass. No supraclavicular or cervical adenopathy. RESPIRATORY: Clear to auscultation and percussion. Normal respiratory effort. CARDIOVASCULAR: CARDIAC: Regular rhythm. No murmurs, rubs, or gallops. ARTERIAL: No aortic bruits. EDEMA/VARICOSITIES OF EXTREMITIES: No edema or varicosities. LYMPHATICS: No lymphadenopathy in the neck, axillae, or groin. GASTROINTESTINAL: ABDOMEN: Soft, non-tender, without masses. Bowel sounds active. LIVER/SPLEEN/KIDNEY: No hepatosplenomegaly, tenderness or nodularity. Kidneys not palpable. PSYCHIATRIC: Judgment appropriate. Oriented. Normal memory. Mood and affect appropriate. ASSESSMENT/PLAN: 714.0-RHEUMATOID ARTHRITIS ASSESSMENT: The patient's rheumatoid arthritis has not changed. Will not change medication, continue to monitor for complications. Will check laboratory. 780.79-FATIGUE ASSESSMENT: The patient's malaise and fatigue have not changed. No medication currently used for malaise and fatigue. Will continue to follow for the need to intervene therapeutically. Will check laboratory. LAB ORDERS: Order number: [id number] Test Ordered: CORTISOL LEVEL 1725 Order number: [id number] Test Ordered: HETEROPHILE, MONONUCLEOSIS SCREEN 5110 Order number: [id number] Test Ordered: CBC W/ DIFFERENTIAL 3150 Order number: [id number] Test Ordered: COMPREHENSIVE METABOLIC PANEL & GFR 1112 Order number: [id number] Test Ordered: CULTURE, BLOOD 8980 Order number: [id number] Test Ordered: FERRITIN 1715 RETURN VISIT: The patient will be contacted to return after we review the labs ordered above. Electronically Signed by: Uriel Mott MD on October documented in this encounter Plan of Treatment Upcoming Encounters Date Type Department Care Team (Late st Contact Info) Description 10/15/2024 8:00 AM CDT Appointment [facility] Christine Wang [address] [facility] [address] [place] [address] [place] [address] [facility] [place] [address] 12/07/2024 8:00 AM CDT Procedure visit [facility] Neurology [address] [facility] [address] [place] [address] Shashank Moore MD [address] [facility] [address] [place] [address] 01/17/2025 8:20 AM QUALITY ASSISTANT Appointment [facility] Medicine Christine Piña [address] [facility] [address] [place] [address] [place] [address] [facility] [place] [address] 03/08/2025 8:00 AM QUALITY ASSISTANT Procedure visit [facility] Neurology [address] [facility] [address] [place] [address] Shashank Moore MD [address] [address] documented as of this encounter Visit Diagnoses Not on filedocumented in this encounter Additional Health Concerns Infection Onset Date Last Indicated Resolved Time R/O COVID-19 11/06/2019 11/06/2019 11/06/2019 8:56 AM CDT R/O COVID-19 12/29/2020 12/29/2020 12/29/2020 1:27 PM QUALITY ASSISTANT COVID-19 12/29/2020 12/29/2020 01/18/2021 1:16 AM QUALITY ASSISTANT documented as of this encounter Care Teams Roll Threader Operator Relationship Specialty [place] [address] [facility] [address] [place] [address] PCP - General 07/29/00 documented as of this encounter
--- OUTSIDE RECORDS SUMMARY | 2024-09-28 15:21 | XMS_ITS | Encounter Summary ---
Author Organization [facility] Address [address] [place] [address] Care Team Providers Care Materials Management Supervisor Name Role Phone Uriel Mott MD Primary Care Provider [phone] Encounter Details Date Type Department Care Team (Latest Contact Info) Description 06/04/2003 Outpatient Historical [place] [address] [facility]. [address] [place] [address] CYSTIC KIDN DISEASE,NOS (Primary Dx) Social History Tobacco Use Types Packs/Day Years Used Date Smoking Tobacco: Never Assessed Comments Unknown Sex and Gender Information Value Date Recorded Sex Assigned at Not on file Legal Sex Female 3:07 AM DIET TECH Gender Identity Not on file Sexual Orientation Not on file documented as of this encounter Plan of Treatment Upcoming Encounters Date Type Department Care Team (Late st Contact Info) Description 10/15/2024 8:00 AM CDT Appointment [facility] Family Medicine Christine Piña [address] [facility] [address] [place] [address] [place] [address] [facility]. [address] [place] [address] 12/07/2024 8:00 AM CDT Procedure visit [facility] Neurology [address] [facility] [address] [place] [address] Shashank Moore MD [address] [facility] [address] [place] [address] 01/17/2025 8:20 AM DIET TECH Appointment [facility] Medicine Christine Piña [address] [facility] [address] [place] [address] [place] [address] [facility] [place] [address] 03/08/2025 8:00 AM DIET TECH Procedure visit [facility] [address] [facility] [address] [place] [address] Shashank Moore MD [address] [facility] [address] [place] [address] documented as of this encounter Visit Diagnoses Diagnosis Other specified congenital cystic kidney disease- Primary documented in this encounter Additional Health Concerns Infection Onset Date Last Indicated Resolved Time R/O COVID-19 11/06/2019 11/06/2019 11/06/2019 8:56 AM CDT R/O COVID-19 12/29/2020 12/29/2020 12/29/2020 1:27 PM DIET TECH COVID-19 12/29/2020 12/29/2020 01/18/2021 1:16 AM DIET TECH documented as of this encounter Care Teams Materials Management Supervisor Relationship Specialty [place] [address] [facility] [place] [address] PCP - General 07/29/00 documented as of this encounter
--- OUTSIDE RECORDS SUMMARY | 2024-09-28 15:21 | XMS_ITS | Encounter Summary ---
Author Organization [facility] Address [address] [place] [address] Care Team Providers Care Cd Mixer Helper Name Role Phone Uriel Mott MD Primary Care Provider [phone] Encounter Details Date Type Department Care Team (Latest Contact Info) Description 11/30/2006 Outpatient Historical [facility] Medicine Christine Wang [address] [facility] [address] [place] [address] [place] [address] [address] [facility] [place] [address] Other Chronic Nonalcoholic Liver Disease (Primary Dx) Social History Tobacco Use Types Packs/Day Years Used Date Smoking Tobacco: Never Assessed Comments Unknown Sex and Gender Information Value Date Recorded Sex Assigned at Not on file Legal Sex Female 3:07 AM RN INTERNSHIP Gender Identity Not on file Sexual Orientation Not on file documented as of this encounter Plan of Treatment Upcoming Encounters Date Type Department Care Team (Late st Contact Info) Description 10/15/2024 8:00 AM CDT Appointment [facility] Medicine Christine Wang [address] [facility] [address] [place] [address] [place] [address] [facility] [place] [address] 12/07/2024 8:00 AM CDT Procedure visit [facility] Neurology [address] [facility] [address] [place] [address] Shashank Moore MD [address] [facility] [address] [place] [address] 01/17/2025 8:20 AM RN INTERNSHIP Appointment [facility] Family Medicine Christine Piña [address] [place] [address] [place] [address] [facility] [place] [address] 03/08/2025 8:00 AM RN INTERNSHIP Procedure visit [facility] Neurology [address] [facility] [address] [place] [address] Shashank Moore MD [address] [facility] [address] [place] [address] documented as of this encounter Procedures Procedure Name Priority Date/Time Associated Diagnosis Comments LIPID PANEL Routine 11/30/2006 9:33 AM CDT documented in this encounter Results * (ABNORMAL) LIPID PANEL (11/30/2006 9:33 AM CDT) CHOLESTEROL 148 100 - 199 mg/dL INTERFACE SYSTEM TRIGLYCERIDE 110 10 - 149 mg/dL INTERFACE SYSTEM HDL 63(H) 40 - 59 mg/dL INTERFACE SYSTEM CHOL/HDL RATIO 2.3 2.0 - 5.0 INTER FACE SYSTEM LDL CALCULATED 63 <=99 mg/dL INTERFACE SYSTEM LIPID PANEL COMMENT See Below INTERFACE SYSTEM Comment: The adult ATP and pediatric NCEP classifications for lipids are available on the [facility] Intranet at: [email or web address] Select: Lab Policies and Procedures,Current Select: Lipid Panel Interpretation 11/30/2006 9:33 AM CDT Uriel Mott MD CHEMISTRY ORDERABLES Edited INTERFACE SYSTEM Refer to clinic/hospital department documented in this encounter Visit Diagnoses Diagnosis Other chronic nonalcoholic liver disease- Primary documented in this encounter Additional Health Concerns Infection Onset Date Last Indicated Resolved Time R/O COVID-19 11/06/2019 11/06/2019 11/06/2019 8:56 AM CDT R/O COVID-19 12/29/2020 12/29/2020 12/29/2020 1:27 PM RN INTERNSHIP COVID-19 12/29/2020 12/29/2020 01/18/2021 1:16 AM RN INTERNSHIP documented as of this encounter Care Teams Cd Mixer Helper Relationship Specialty [place] [address] [facility] [address] [place] [address] PCP - General 07/29/00 documented as of this encounter
--- OUTSIDE RECORDS SUMMARY | 2024-09-28 15:21 | XMS_ITS | Encounter Summary ---
Author Organization [facility] Address [address] [place] [address] Care Team Providers Care Overhead Cleaner Maintainer Name Role Phone Uriel Mott MD Primary Care Provider [phone] Encounter Details Date Type Department Care Team (Late st Contact Info) Description 10/07/2014 Nurse Triage Report [facility] ABSTRACTION Divine Ochoa, RN Social History Tobacco Use Types Packs/Day Years Used Date Smoking Tobacco: Never Smokeless Tobacco: Never Alcohol Use Standard Drinks/Week Comments No 0 (1 standard drink = 0.6 oz pur e alcohol) Comments No Sex and Gender Information Value Date Recorded Sex Assigned at Not on file Legal Sex Female 3:07 AM SLAG EXPANDER Gender Identity Not on file Sexual Orientation Not on file documented as of this encounter Progress Notes * Divine Ochoa RN - 10/07/2014 8:05 PM CDT CHART DOCUMENTATION ONLY Call Type: Triage Call Addendum Date and Time [id number] Presenting Problem: I need something for nausea. Report feedback to Dr. Mott <<<<<<<< TRIAGE NOTE >>>>>>>> Triage Note: Lumber Salvager Divine Neffirez added this note on Oct 07 2014 7:54PM: She did not want to be re-evaluated. Was seen in the ED. Lumber Salvager [id number] added this note on Oct 07 2014 8:05PM Spoke with Dr. Mott with patient request for nausea. He approved her an e-scribe for zofran. I notified patient and sent to her pharmacy. She understands that she needs to call the office to inform Dr. Mott how she is doing with the dx kidney stone from the ED. She voiced and understanding. <<<<<<<< TRIAGE/OUTCOME >>>>>>>> Guideline Title: Medication Questions - Adult Recommended Disposition: Speak with Provider or Pharmacist within 24 hours Original Inclination: Seek Care in ER Intended Action: Call Provider Immediately Physician Contacted: Yes Has questions about prescribed and/or nonprescribed medications not covered by available resources ? YES documented in this encounter Plan of Treatment Upcoming Encounters Date Type Department Care Team (Late st Contact Info) Description 10/15/2024 8:00 AM CDT Appointment [facility] Christine Piña [address] [facility] [address] [place] [address] [place] [address] [facility] [place] [address] 12/07/2024 8:00 AM CDT Procedure visit [facility] Neurology [address] [facility] [address] [place] [address] Shashank Moore MD [address] [facility] [address] [place] [address] 01/17/2025 8:20 AM SLAG EXPANDER Appointment [facility] Christine Piña [address] [facility] [address] [place] [id number] [place] [address] [facility] [place] [address] 03/08/2025 8:00 AM SLAG EXPANDER Procedure visit [facility] Neurology [address] [facility] [address] [place] [address] Shashank Moore MD [address] [facility] [address] [place] [address] documented as of this encounter Visit Diagnoses Not on filedocumented in this encounter Additional Health Concerns Infection Onset Date Last Indicated Resolved Time R/O COVID-19 11/06/2019 11/06/2019 11/06/2019 8:56 AM CDT R/O COVID-19 12/29/2020 12/29/2020 12/29/2020 1:27 PM SLAG EXPANDER COVID-19 12/29/2020 12/29/2020 01/18/2021 1:16 AM SLAG EXPANDER Assessment Noted Time PHQ-9 Depression Total Score: 3 07/04/19 15 11:00 AM CDT documented as of this encounter Care Teams Overhead Cleaner Maintainer Relationship Specialty [place] [address] [facility] [place] [address] PCP - General 07/29/00 documented as of this encounter
--- OUTSIDE RECORDS SUMMARY | 2024-09-28 15:21 | XMS_ITS | Encounter Summary ---
Author Organization [facility] Address [address] [place] [address] Care Team Providers Care Computer Technology Teacher Name Role Phone Uriel Mott MD Primary Care Provider [phone] Encounter Details Date Type Department Care Team (Late st Contact Info) Description 01/24/2003 Outpatient Historical [facility] DEPT Brian Frias MD [address] [place] [address] CHRONIC SINUSITIS NOS (Primary Dx) Social History Tobacco Use Types Packs/Day Years Used Date Smoking Tobacco: Never Assessed Comments Unknown Sex and Gender Information Value Date Recorded Sex Assigned at Not on file Legal Sex Female 3:07 AM MANAGER MATH Gender Identity Not on file Sexual Orientation Not on file documented as of this encounter Plan of Treatment Upcoming Encounters Date Type Department Care Team (Late st Contact Info) Description 10/15/2024 8:00 AM CDT Appointment [facility] Family Medicine Christine Piña [address] [facility] [address] [place] [address] [place] [address] [facility]. [address] [place] [address] 12/07/2024 8:00 AM CDT Procedure visit [facility] Neurology [address] [facility] [address] [place] [address] Shashank Moore MD [address] [facility] [address] [place] [address] 01/17/2025 8:20 AM MANAGER MATH Appointment [facility] Medicine Christine Piña [address] [facility] [address] [place] [address] [place] [address] [facility]. [address] [place] [address] 03/08/2025 8:00 AM MANAGER MATH Procedure visit [facility] [address] [facility] [address] [place] [address] Shashank Moore MD [address] [facility] [address] [place] [address] documented as of this encounter Visit Diagnoses Diagnosis Unspecified sinusitis (chronic)- Primary documented in this encounter Additional Health Concerns Infection Onset Date Last Indicated Resolved Time R/O COVID-19 11/06/2019 11/06/2019 11/06/2019 8:56 AM CDT R/O COVID-19 12/29/2020 12/29/2020 12/29/2020 1:27 PM MANAGER MATH COVID-19 12/29/2020 12/29/2020 01/18/2021 1:16 AM MANAGER MATH documented as of this encounter Care Teams Computer Technology Teacher Relationship Specialty [place] [address] [facility]. [address] [place] [address] PCP - General 07/29/00 documented as of this encounter
--- OUTSIDE RECORDS SUMMARY | 2024-09-28 15:21 | XMS_ITS | Encounter Summary ---
Author Organization [facility] Address [address] [place] [address] Care Team Providers Care Stained Glass Window Designer Name Role Phone Uriel Mott MD Primary Care Provider [phone] Encounter Details Date Type Department Care Team (Late Contact Info) Description 12/13/2005 Orders Only [facility] Medicine Christine Wang [address] [facility] [address] [place] [address] [place] [address] [facility]. [address] [place] [address] Social History Tobacco Use Types Packs/Day Years Used Date Smoking Tobacco: Never Assessed Comments Unknown Sex and Gender Information Value Date Recorded Sex Assigned at Not on file Legal Sex Female 3:07 AM TOOL AND MACHINE MAINTAINER Gender Identity Not on file Sexual Orientation Not on file documented as of this encounter Plan of Treatment Upcoming Encounters Date Type Department Care Team (Late st Contact Info) Description 10/15/2024 8:[address] [facility] Christine Wang [address] [facility] [address] [place] [address] [place] [address] [facility] [place] [address] 12/07/2024 8:00 AM CDT Procedure visit [facility] Neurology [address] [facility] [address] [place] [address] Shashank Moore MD [address] [facility] [address] [place] [address] 01/17/2025 8:20 AM TOOL AND MACHINE MAINTAINER Appointment [facility] Family Medicine Christine Piña [address] [facility] [address] [place] [address] [place] [address] [facility]. [address] [place] [address] 03/08/2025 8:00 AM TOOL AND MACHINE MAINTAINER Procedure visit [facility] [address] [facility] [address] [place] [address] Shashank Moore MD [address] [facility] [address] [place] [address] documented as of this encounter Visit Diagnoses Not on filedocumented in this encounter Additional Health Concerns Infection Onset Date Last Indicated Resolved Time R/O COVID-19 11/06/2019 11/06/2019 11/06/2019 8:56 AM CDT R/O COVID-19 12/29/2020 12/29/2020 12/29/2020 1:27 PM TOOL AND MACHINE MAINTAINER COVID-19 12/29/2020 12/29/2020 01/18/2021 1:16 AM TOOL AND MACHINE MAINTAINER documented as of this encounter Care Teams Stained Glass Window Designer Relationship Specialty [place] [address] [facility] [address] [place] [address] PCP - General 07/29/00 documented as of this encounter
--- OUTSIDE RECORDS SUMMARY | 2024-09-28 15:21 | XMS_ITS | Encounter Summary ---
Author Organization [facility] Address [address] [place] [address] Care Team Providers Care Customer Account Coordinator Name Role Phone Uriel Mott MD Primary Care Provider [phone] Encounter Details Date Type Department Care Team (Late st Contact Info) Description 11/30/2006 Orders Only [facility] Family Medicine Christine Wang [address] [place] [address] [place] [address] [place] [address] Social History Tobacco Use Types Packs/Day Years Used Date Smoking Tobacco: Never Assessed Comments Unknown Sex and Gender Information Value Date Recorded Sex Assigned at Not on file Legal Sex Female 3:07 AM MANDREL PRESS HAND Gender Identity Not on file Sexual Orientation Not on file documented as of this encounter Progress Notes * Uriel Mott MD - 06/23/2007 2:03 PM CDT NURSE NAME: Charis Montoya HEIGHT: 5ft1in. PULSE: 62. Right Radial, Regular WEIGHT: 156lbs. BLOOD PRESSURE: 126/72. Right Arm Sitting BMI: 29.47 ALLERGIES: Allergies are as listed. TOBACCO USE: Patient does not currently use tobacco. CHIEF COMPLAINT Here for follow up evaluation. est/ sjl HISTORY: HISTORY: 571.8-CHRONIC LIVER DISEASE AND CIRRHOSIS has fatty liver - on ultrasound last week - s/p CCK. 790.5-ABNORMAL LIVER ENZYMES The patient's symptoms are persistent. The patient has symptoms of fatigue, has no symptoms of jaundice, has no symptoms of anorexia, has no complaints of nausea, has no symptoms of diarrhea, has no complaints of abdominal pain. The patient has no history of hyperlipidemia, has no history of diabetes, has no history of chronic hepatitis, is currently on medication (see medication list), has no history of alcohol use, has no history of IV drug use, has no history of multiple sex partners. Previous evaluations include: hepatitis B, hepatitis C, ferritin, ultrasound.The suspected cause is medications, steatosis. The patient has received no previous treatment. 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 Cartwright-dermatology METHOTREXATE SODIUM ORAL TABLET 5 MG, Not sure of dosage-from Dr. Osei qabi CALCIUM + D ORAL TABLET 600-200 MG-UNIT, one tablet twice a day Actually I want her to take a pill with 400iu of vitamin d. this was not available on my menu of meds to choose from NASACORT AQ NASAL AEROSOL SOLUTION 55 MCG/ACT, WRITTEN BY Dr. Cutler-ENT SINGULAIR ORAL TABLET 10 MG, one tablet a day PREMARIN ORAL TABLET 1.25 MG, 1 Every Day TOPAMAX ORAL TABLET 50 MG, 1 Two Times A Day ALPRAZOLAM ORAL TABLET 1 MG, 1 Every Day At Bedtime, As Needed ADVAIR DISKUS INHALATION MISCELLANEOUS 500-50 MCG/DOSE, 1 inhalation TWICE DAILY PREDNISONE ORAL TABLET 5 MG, 1 Every Day ORENCIA INTRAVENOUS SOLUTION WHEN RECONSTITUTED 250 MG, INJ ONE TIME INTRAMUSCULAR INJECTION monthly CURRENT ALLERGY LIST: CODEINE SULFA Patient's history reviewed; no changes. PHYSICAL EXAMINATION: CONSTITUTIONAL: GENERAL APPEARANCE: Healthy appearing patient in no distress. NECK/THYROID: Trachea midline. No thyroid enlargement, tenderness, or mass. No supraclavicular or cervical adenopathy. RESPIRATORY: Clear to auscultation and percussion. Normal respiratory effort. GASTROINTESTINAL: ABDOMEN: Soft, non-tender, without masses. Bowel sounds active. LIVER/SPLEEN/KIDNEY: No hepatosplenomegaly, tenderness or nodularity. Kidneys not palpable. PSYCHIATRIC: Judgment appropriate. Oriented. Normal memory. Mood and affect appropriate. ASSESSMENT/PLAN: 571.8-CHRONIC LIVER DISEASE AND CIRRHOSIS ASSESSMENT: will check lipids and consider weight loss as primary goal of tx. LAB ORDERS: Order number: [id number] Test Ordered: LIPID PANEL 2668 790.5-ABNORMAL LIVER ENZYMES ASSESSMENT: The patient's condition has worsened. The patient is attempting to follow a low saturated fat diet. The patient was advised to lose weight. Clinical guidelines reviewed. V58.97-YSMM-DZRD USE OF STEROIDS STATUS: Unchanged. RETURN VISIT: The patient will be contacted to return after we review the labs ordered above. Instructed to call if not improving. Electronically Signed by: Uriel Mott MD on Thursday, November 30, 2006 documented in this encounter Plan of Treatment Upcoming Encounters Date Type Department Care Team (Late st Contact Info) Description 10/15/2024 8:00 AM CDT Appointment [facility] Christine Piña [address] [facility] [address] [place] [address] [place] [address] [facility] [place] [address] 12/07/2024 8:00 AM CDT Procedure visit [facility] Neurology [address] [facility] [address] [place] [address] Shashank Moore MD [address] [facility] [address] [place] [address] 01/17/2025 8:20 AM MANDREL PRESS HAND Appointment [facility] Christine Wang [address] [facility] [address] [place] [address] [place] [address] [facility] [place] [address] 03/08/2025 8:00 AM MANDREL PRESS HAND Procedure visit [facility] Neurology [address] [facility] [address] [place] [address] Shashank Moore MD [address] [facility] [address] [place] [address] documented as of this encounter Visit Diagnoses Not on filedocumented in this encounter Additional Health Concerns Infection Onset Date Last Indicated Resolved Time R/O COVID-19 11/06/2019 11/06/2019 11/06/2019 8:56 AM CDT R/O COVID-19 12/29/2020 12/29/2020 12/29/2020 1:27 PM MANDREL PRESS HAND COVID-19 12/29/2020 12/29/2020 01/18/2021 1:16 AM MANDREL PRESS HAND documented as of this encounter Care Teams Customer Account Coordinator Relationship Specialty [place] [address] [facility] [address] [place] [address] PCP - General 07/29/00 documented as of this encounter
--- OUTSIDE RECORDS SUMMARY | 2024-09-28 15:21 | XMS_ITS | Encounter Summary ---
Author Organization [facility] Address [address] [place] [address] Care Team Providers Care Welding Technician Name Role Phone Uriel Mott MD Primary Care Provider [phone] Encounter Details Date Type Department Care Team (Late st Contact Info) Description 11/08/2005 Outpatient Historical [facility] [address] [facility] [address] [place] [address] Baltazar March III Social History Tobacco Use Types Packs/Day Years Used Date Smoking Tobacco: Never Assessed Comments Unknown Sex and Gender Information Value Date Recorded Sex Assigned at Not on file Legal Sex Female 3:07 AM DOUBLE END SEWER Gender Identity Not on file Sexual Orientation Not on file documented as of this encounter Plan of Treatment Upcoming Encounters Date Type Department Care Team (Late st Contact Info) Description 10/15/2024 8:00 AM CDT Appointment [facility] Medicine [facility] [address] [facility] [address] [place] [address] [place] [address] [facility] [place] [address] 12/07/2024 8:00 AM CDT Procedure visit [facility] Neurology [address] [facility] [address] [place] [address] Shashank Moore MD [address] [facility] [address] [place] [address] 01/17/2025 8:20 AM DOUBLE END SEWER Appointment [facility] Medicine [facility] [address] [facility] [address] [place] [address] [place] [address] [facility] [place] [address] 03/08/2025 8:00 AM DOUBLE END SEWER Procedure visit [facility] Neurology [address] [facility] [address] [place] [address] Shashank Moore MD [address] [facility] [address] [place] [address] documented as of this encounter Visit Diagnoses Not on filedocumented in this encounter Additional Health Concerns Infection Onset Date Last Indicated Resolved Time R/O COVID-19 11/06/2019 11/06/2019 11/06/2019 8:56 AM CDT R/O COVID-19 12/29/2020 12/29/2020 12/29/2020 1:27 PM DOUBLE END SEWER COVID-19 12/29/2020 12/29/2020 01/18/2021 1:16 AM DOUBLE END SEWER documented as of this encounter Care Teams Welding Technician Relationship Specialty [place] [address] [facility]. [address] [place] [address] PCP - General 07/29/00 documented as of this encounter
--- OUTSIDE RECORDS SUMMARY | 2024-09-28 15:21 | XMS_ITS | Encounter Summary ---
Author Organization [facility] Address [address] [place] [address] Care Team Providers Care Frame Table Operator Helper Name Role Phone Uriel Mott MD Primary Care Provider [phone] Encounter Details Date Type Department Care Team (Late Contact Info) Description 11/19/2003 [facility] Christine Wang [address] [facility] [address] [place] [address] [place] [address] [facility]. [address] [place] [address] Social History Tobacco Use Types Packs/Day Years Used Date Smoking Tobacco: Never Assessed Comments Unknown Sex and Gender Information Value Date Recorded Sex Assigned at Not on file Legal Sex Female 3:07 AM DIRECTOR GLOBAL Gender Identity Not on file Sexual Orientation Not on file documented as of this encounter Last Filed Vital Signs Vital Sign Reading Time Taken Comments Blood Pressure 130/84 11/19/2003 2:30 PM CDT Pulse 74 11/19/2003 2:30 PM CDT Temperature 36.7 C (98.1 F) 11/19/2003 2:30 PM CDT Respiratory Rate 12 11/19/2003 2:30 PM CDT Oxygen Saturation - - Inhaled Oxygen Concentration - - Weight 64.9 kg (143 lb) 11/19/2003 2:30 PM CDT Height - - Body Mass Index - - documented in this encounter Plan of Treatment Upcoming Encounters Date Type Department Care Team (Late st Contact Info) Description 10/15/2024 8:00 AM CDT [facility]ment [facility] Christine Piña [address] [facility] [address] [place] [address] [place] [address] [facility]. [address] [place] [address] 12/07/2024 8:00 AM CDT Procedure visit [facility] Neurology [address] [facility] [address] [place] [address] Shashank Moore MD [address] [facility] [address] [place] [address] 01/17/2025 8:20 AM DIRECTOR GLOBAL Appointment [facility] Medicine Christine Piña [address] [facility] [address] [place] [address] [place] [address] [facility]. [address] [place] [address] 03/08/2025 8:00 AM DIRECTOR GLOBAL Procedure visit [facility] [address] [facility] [address] [place] [address] Shashank Moore MD [address] [address] documented as of this encounter Visit Diagnoses Not on filedocumented in this encounter Additional Health Concerns Infection Onset Date Last Indicated Resolved Time R/O COVID-19 11/06/2019 11/06/2019 11/06/2019 8:56 AM CDT R/O COVID-19 12/29/2020 12/29/2020 12/29/2020 1:27 PM DIRECTOR GLOBAL COVID-19 12/29/2020 12/29/2020 01/18/2021 1:16 AM DIRECTOR GLOBAL documented as of this encounter Care Teams Frame Table Operator Helper Relationship Specialty [place] [address] [facility]. [address] [place] [address] PCP - General 07/29/00 documented as of this encounter
--- OUTSIDE RECORDS SUMMARY | 2024-09-28 15:21 | XMS_ITS | Encounter Summary ---
Author Organization [facility] Address [address] [place] [address] Care Team Providers Care High School Football Coach Name Role Phone Uriel Mott MD Primary Care Provider [phone] Encounter Details Date Type Department Care Team (Latest Contact Info) Description 04/12/2006 Outpatient Historical [place] [address] [facility]. [address] [place] [address] Other Chest Pain (Primary Dx) Social History Tobacco Use Types Packs/Day Years Used Date Smoking Tobacco: Never Assessed Comments Unknown Sex and Gender Information Value Date Recorded Sex Assigned at Not on file Legal Sex Female 3:07 AM COMMERCIAL SALES DIRECTOR Gender Identity Not on file Sexual Orientation Not on file documented as of this encounter Plan of Treatment Upcoming Encounters Date Type Department Care Team (Late st Contact Info) Description 10/15/2024 8:00 AM CDT Appointment [facility] Family Medicine Christine Piña [address] [facility] [address] [place] [address] [place] [address] [facility]. [address] [place] [address] 12/07/2024 8:00 AM CDT Procedure visit [facility] Neurology [address] [facility] [address] [place] [address] Shashank Moore MD [address] [facility] [address] [place] [address] 01/17/2025 8:20 AM COMMERCIAL SALES DIRECTOR Appointment [facility] Medicine Christine Piña [address] [facility] [address] [place] [address] [place] [address] [facility]. [address] [place] [address] 03/08/2025 8:00 AM COMMERCIAL SALES DIRECTOR Procedure visit [facility] Neurology [address] [facility] [address] [place] [address] Shashank Moore MD [address] [facility] [address] [place] [address] documented as of this encounter Visit Diagnoses Diagnosis Other chest pain- Primary documented in this encounter Additional Health Concerns Infection Onset Date Last Indicated Resolved Time R/O COVID-19 11/06/2019 11/06/2019 11/06/2019 8:56 AM CDT R/O COVID-19 12/29/2020 12/29/2020 12/29/2020 1:27 PM COMMERCIAL SALES DIRECTOR COVID-19 12/29/2020 12/29/2020 01/18/2021 1:16 AM COMMERCIAL SALES DIRECTOR documented as of this encounter Care Teams High School Football Coach Relationship Specialty [place] [address] [facility]. [address] [place] [address] PCP - General 07/29/00 documented as of this encounter
--- OUTSIDE RECORDS SUMMARY | 2024-09-28 15:21 | XMS_ITS | Encounter Summary ---
Author Organization [facility] Address [address] [place] [address] Care Team Providers Care Grinding Machine Operator Name Role Phone Uriel Mott MD Primary Care Provider [phone] Encounter Details Date Type Department Care Team (Late st Contact Info) Description 05/23/2001 Outpatient Historical [facility] [place] [address] [place] [address] Social History Tobacco Use Types Packs/Day Years Used Date Smoking Tobacco: Never Assessed Comments Unknown Sex and Gender Information Value Date Recorded Sex Assigned at Not on file Legal Sex Female 3:07 AM RESTAURANT KITCHEN MANAGER Gender Identity Not on file Sexual Orientation Not on file documented as of this encounter Plan of Treatment Upcoming Encounters Date Type Department Care Team (Late st Contact Info) Description 10/15/2024 8:00 AM CDT Appointment [facility] Medicine Christine Piña [address] [email or web address] [facility] [address] [place] [address] [place] [address] [email or web address] [facility]. [address] [place] [address] 12/07/2024 8:00 AM CDT Procedure visit [facility] Neurology [address] [facility] [address] [place] [address] Shashank Moore MD [address] [facility] [address] [place] [address] 01/17/2025 8:20 AM RESTAURANT KITCHEN MANAGER Appointment [facility] Medicine Christine Piña [address] [facility] [address] [place] [address] [place] [address] [facility] [place] [address] 03/08/2025 8:00 AM RESTAURANT KITCHEN MANAGER Procedure visit [facility] Neurology [address] [facility] [address] [place] [address] Shashank Moore MD [address] [facility] [address] [place] [address] documented as of this encounter Visit Diagnoses Not on filedocumented in this encounter Additional Health Concerns Infection Onset Date Last Indicated Resolved Time R/O COVID-19 11/06/2019 11/06/2019 11/06/2019 8:56 AM CDT R/O COVID-19 12/29/2020 12/29/2020 12/29/2020 1:27 PM RESTAURANT KITCHEN MANAGER COVID-19 12/29/2020 12/29/2020 01/18/2021 1:16 AM RESTAURANT KITCHEN MANAGER documented as of this encounter Care Teams Grinding Machine Operator Relationship Specialty [place] [address] [facility]. [address] [place] [address] PCP - General 07/29/00 documented as of this encounter
--- OUTSIDE RECORDS SUMMARY | 2024-09-28 15:21 | XMS_ITS | Encounter Summary ---
Author Organization [facility] Address [address] [place] [address] Care Team Providers Care Chairman Name Role Phone Uriel Mott MD Primary Care Provider [phone] Encounter Details Date Type Department Care Team (Late st Contact Info) Description 08/05/2004 Outpatient Historical HIS [facility] DEPT Michael Trammell MD [address] [facility] [address] [place] [address] HEADACHE (Primary Dx) Social History Tobacco Use Types Packs/Day Years Used Date Smoking Tobacco: Never Assessed Comments Unknown Sex and Gender Information Value Date Recorded Sex Assigned at Not on file Legal Sex Female 3:07 AM BISTRO ATTENDANT Gender Identity Not on file Sexual Orientation Not on file documented as of this encounter Plan of Treatment Upcoming Encounters Date Type Department Care Team (Late st Contact Info) Description 10/15/2024 8:00 AM CDT Appointment [facility] Family Medicine Christine Piña [address] [facility] [address] [place] [address] [place] [address] [facility]. [address] [place] [address] 12/07/2024 8:00 AM CDT Procedure visit [facility] Neurology [address] [facility] [address] [place] [address] Shashank Moore MD [address] [facility] [address] [place] [address] 01/17/2025 8:20 AM BISTRO ATTENDANT Appointment [facility] Medicine Christine Piña [address] [facility] [address] [place] [address] [place] [address] [facility]. [address] [place] [address] 03/08/2025 8:00 AM BISTRO ATTENDANT Procedure visit [facility] Neurology [address] [facility] [address] [place] [address] Shashank Moore MD [address] [facility] [address] [place] [address] documented as of this encounter Visit Diagnoses Diagnosis Headache(784.0)- Primary Headache documented in this encounter Additional Health Concerns Infection Onset Date Last Indicated Resolved Time R/O COVID-19 11/06/2019 11/06/2019 11/06/2019 8:56 AM CDT R/O COVID-19 12/29/2020 12/29/2020 12/29/2020 1:27 PM BISTRO ATTENDANT COVID-19 12/29/2020 12/29/2020 01/18/2021 1:16 AM BISTRO ATTENDANT documented as of this encounter Care Teams Chairman Relationship Specialty [place] [address] [facility]. [address] [place] [address] PCP - General 07/29/00 documented as of this encounter
--- OUTSIDE RECORDS SUMMARY | 2024-09-28 15:21 | XMS_ITS | Encounter Summary ---
Author Organization [facility] Address [address] [place] [address] Care Team Providers Care Base Filler Operator Name Role Phone Uriel Mott MD Primary Care Provider [phone] Encounter Details Date Type Department Care Team (Late st Contact Info) Description 08/23/2001 Outpatient Historical HIS [facility] DEPT [place] [address] [facility] [place] [address] Social History Tobacco Use Types Packs/Day Years Used Date Smoking Tobacco: Never Assessed Comments Unknown Sex and Gender Information Value Date Recorded Sex Assigned at Not on file Legal Sex Female 3:07 AM BRUSH CUTTER Gender Identity Not on file Sexual Orientation Not on file documented as of this encounter Plan of Treatment Upcoming Encounters Date Type Department Care Team (Late st Contact Info) Description 10/15/2024 8:00 AM CDT Appointment [facility] Family Medicine Christine Piña [address] [facility] [address] [place] [address] [place] [address] [facility] [place] [address] 12/07/2024 8:00 AM CDT Procedure visit [facility] Neurology [address] [facility] [address] [place] [address] Shashank Moore MD [address] [facility] [address] [place] [address] 01/17/2025 8:20 AM BRUSH CUTTER Appointment [facility] Medicine Christine Piña [address] [facility] [address] [place] [address] [place] [address] [facility]. [address] [place] [address] 03/08/2025 8:00 AM BRUSH CUTTER Procedure visit [facility] Neurology [address] [facility] [address] [place] [address] Shashank Moore MD [address] [facility] [address] [place] [address] documented as of this encounter Visit Diagnoses Not on filedocumented in this encounter Additional Health Concerns Infection Onset Date Last Indicated Resolved Time R/O COVID-19 11/06/2019 11/06/2019 11/06/2019 8:56 AM CDT R/O COVID-19 12/29/2020 12/29/2020 12/29/2020 1:27 PM BRUSH CUTTER COVID-19 12/29/2020 12/29/2020 01/18/2021 1:16 AM BRUSH CUTTER documented as of this encounter Care Teams Base Filler Operator Relationship Specialty [place] [address] [facility]. [address] [place] [address] PCP - General 07/29/00 documented as of this encounter
--- OUTSIDE RECORDS SUMMARY | 2024-09-28 15:21 | XMS_ITS | Encounter Summary ---
Author Organization [facility] Address [address] [place] [address] Care Team Providers Care Sports Marketer Name Role Phone Uriel Mott MD Primary Care Provider [phone] Encounter Details Date Type Department Care Team (Late st Contact Info) Description 09/20/2005 Orders Only [facility] Family Medicine [place] [address] [place] [address] [place] [address] [address] [place] [address] Social History Tobacco Use Types Packs/Day Years Used Date Smoking Tobacco: Never Assessed Comments Unknown Sex and Gender Information Value Date Recorded Sex Assigned at Not on file Legal Sex Female 3:07 AM DIRECTOR OF MARKETING ANALYTICS Gender Identity Not on file Sexual Orientation Not on file documented as of this encounter Progress Notes * Uriel Mott MD - 11/16/2007 10:25 PM CDT NURSE NAME: Ghazala Gordillo R WEIGHT: 149lbs. BLOOD PRESSURE: 110/84. Right Arm Sitting PULSE: 72. Right Radial, Regular ALLERGIES: Allergies are as listed. CHIEF COMPLAINT Patient here for medication management.[facility] HISTORY: HISTORY: 473.9-SINUSITIS CHRONIC The patient's chronic sinusitis has improved. No medication currently used for chronic sinusitis . Will continue to follow for the need to intervene therapeutically. 477.9-RHINITIS ALLERGIC UNSPECIFIED The allergic rhinitis symptoms have not changed. No complications noted from the medication presently being used. 714.0-RHEUMATOID ARTHRITIS The medication was discontinued by the patient, Methotrexate is tolerated well with no side effects. Stopped Enbrel due to lack of effect. V16.0-FAMILY HISTORY OF CARCINOMA OF COLON The patient has a first degree relative with colon cancer. No current treatment is being given. The patient denies recent episodes of melena. Has had some abdominal pain. Relieved with BM. GRandmother and aunts and cousin have had. 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 PHYSICAL EXAMINATION: CONSTITUTIONAL: GENERAL APPEARANCE: Healthy appearing patient in no distress. NECK/THYROID: Trachea midline. No thyroid enlargement, tenderness, or mass. No supraclavicular or cervical adenopathy. RESPIRATORY: Clear to auscultation and percussion. Normal respiratory effort. GASTROINTESTINAL: ABDOMEN: Soft, non-tender, without masses. Bowel sounds active. LIVER/SPLEEN/KIDNEY: No hepatosplenomegaly, tenderness or nodularity. Kidneys not palpable. PREVENTIVE COUNSELING The patient was counseled regarding colorectal cancer screening, routine screening interval for mammogram as recommended by the [place] [employer] and ACOG, diagnosis, treatment, and prevention of osteoporosis. ASSESSMENT/PLAN: 300.02-ANXIETY DISORDER ASSESSMENT: Will increase medication dosage. Due to poor sleep. MEDICATIONS: ALPRAZOLAM ORAL TABLET 0.5 MG, take at bedtime as directed, 30 Dispensed, 3 Fills, 30 Duration/DaysSupply, status: DISCONTINUED HISTORY, 09/20/2005. ALPRAZOLAM ORAL TABLET 1 MG, 1 Every Day At Bedtime, As Needed, 30 Dispensed, 2 Fills, status: NEW PRESCRIPTION, 09/20/2005. 714.0-RHEUMATOID ARTHRITIS ASSESSMENT: Will check laboratory to assess medication effect. LAB ORDERS: Order number: [id number] Test Ordered: CBC W/ DIFFERENTIAL 3150 Order number: [id number] Test Ordered: COMPREHENSIVE METABOLIC PANEL & GFR 1099 V16.0-FAMILY HISTORY OF CARCINOMA OF COLON ASSESSMENT: The patient has a first degree relative with colon cancer. Needs colonoscopy. V58.27-CRST-TZMQ USE OF STEROIDS LAB ORDERS: Order number: [id number] Test Ordered: BONE DENSITY (HIP & SPINE) V77.91-SCREENING FOR LIPID DISORDERS LAB ORDERS: Order number: [id number] Test Ordered: LIPID PANEL 1078 RETURN VISIT: The patient will be contacted to return after we review the labs ordered above. Electronically Signed by: Uriel Mott MD on Tuesday, September 20, 2005 documented in this encounter Plan of Treatment Upcoming Encounters Date Type Department Care Team (Late st Contact Info) Description 10/15/2024 8:00 AM CDT Appointment [facility] [place] [address] [address] [place] [address] [facility] [place] [address] 12/07/2024 8:00 AM CDT Procedure visit [facility] Neurology [address] [facility] [address] [place] [address] Shashank Moore MD [address] [facility][Note 3] [address] [place] [address] 01/17/2025 8:20 AM DIRECTOR OF MARKETING ANALYTICS Appointment [facility] [place] [address] [facility] [address] [place] [address] [place] [address] [facility] [address] 03/08/2025 8:00 AM DIRECTOR OF MARKETING ANALYTICS Procedure visit [facility] Neurology [address] [facility] [address] [place] [address] Shashank Moore MD [address] [facility][Note 3] [address] [place] [address] documented as of this encounter Visit Diagnoses Not on filedocumented in this encounter Additional Health Concerns Infection Onset Date Last Indicated Resolved Time R/O COVID-19 11/06/2019 11/06/2019 11/06/2019 8:56 AM CDT R/O COVID-19 12/29/2020 12/29/2020 12/29/2020 1:27 PM DIRECTOR OF MARKETING ANALYTICS COVID-19 12/29/2020 12/29/2020 01/18/2021 1:16 AM DIRECTOR OF MARKETING ANALYTICS documented as of this encounter Care Teams Sports Marketer Relationship Specialty [place] [address] [facility] [address] [place] [address] PCP - General 07/29/00 documented as of this encounter
--- OUTSIDE RECORDS SUMMARY | 2024-09-28 15:21 | XMS_ITS | Encounter Summary ---
Author Organization [facility] Address [address] [place] [address] Care Team Providers Care Chargemaster Analyst Name Role Phone Uriel Mott MD Primary Care Provider [phone] Encounter Details Date Type Department Care Team (Late Contact Info) Description 09/15/2005 Orders Only [facility] Medicine [place] [address] [employer] [facility] [address] [place] [address] [place] [address] [employer] [facility]. [address] [place] [address] Social History Tobacco Use Types Packs/Day Years Used Date Smoking Tobacco: Never Assessed Comments Unknown Sex and Gender Information Value Date Recorded Sex Assigned at Not on file Legal Sex Female 3:07 AM ACID OPERATOR Gender Identity Not on file Sexual Orientation Not on file documented as of this encounter Plan of Treatment Upcoming Encounters Date Type Department Care Team (Late st Contact Info) Description 10/15/2024 8:[address] [facility] [place] [address] [employer] [facility] [address] [place] [address] [place] [address] [facility]. [address] [place] [address] 12/07/2024 8:00 AM CDT Procedure visit [facility] Neurology [address] [facility] [address] [place] [address] Shashank Moore MD [address] [facility] [address] [place] [address] 01/17/2025 8:20 AM ACID OPERATOR Appointment [facility] Family Medicine Christine Piña [address] [facility] [address] [place] [address] [place] [address] [facility]. [address] [place] [address] 03/08/2025 8:00 AM ACID OPERATOR Procedure visit [facility] [address] [facility] [address] [place] [address] Shashank Moore MD [address] [facility] [address] [place] [address] documented as of this encounter Visit Diagnoses Not on filedocumented in this encounter Additional Health Concerns Infection Onset Date Last Indicated Resolved Time R/O COVID-19 11/06/2019 11/06/2019 11/06/2019 8:56 AM CDT R/O COVID-19 12/29/2020 12/29/2020 12/29/2020 1:27 PM ACID OPERATOR COVID-19 12/29/2020 12/29/2020 01/18/2021 1:16 AM ACID OPERATOR documented as of this encounter Care Teams Chargemaster Analyst Relationship Specialty [place] [address] [facility] [address] [place] [address] PCP - General 07/29/00 documented as of this encounter
--- OUTSIDE RECORDS SUMMARY | 2024-09-28 15:21 | XMS_ITS | Encounter Summary ---
Author Organization [facility] Address [address] [place] [address] Care Team Providers Care Agricultural Specialist Name Role Phone Uriel Mott MD Primary Care Provider [phone] Encounter Details Date Type Department Care Team (Latest Contact Info) Description 04/06/2001 Outpatient Historical HIS [facility] [place] [address] [facility] [place] [address] SCREENING MAMM-MAILG NEOPL-OTHER (Primary Dx) Social History Tobacco Use Types Packs/Day Years Used Date Smoking Tobacco: Never Assessed Comments Unknown Sex and Gender Information Value Date Recorded Sex Assigned at Not on file Legal Sex Female 3:07 AM DIRECTOR OF COMPLIANCE Gender Identity Not on file Sexual Orientation Not on file documented as of this encounter Plan of Treatment Upcoming Encounters Date Type Department Care Team (Late st Contact Info) Description 10/15/2024 8:00 AM CDT Appointment [facility] Family Medicine Christine Piña [address] [facility] [address] [place] [address] [place] [address] [facility] [place] [address] 12/07/2024 8:00 AM CDT Procedure visit [facility] Neurology [address] [facility] [address] [place] [address] Shashank Moore MD [address] [facility] [address] [place] [address] 01/17/2025 8:20 AM DIRECTOR OF COMPLIANCE Appointment [facility] Medicine Christine Piña [address] [facility] [address] [place] [address] [place] [address] [facility] [place] [address] 03/08/2025 8:00 AM DIRECTOR OF COMPLIANCE Procedure visit [facility] [address] [facility] [address] [place] [address] Shashank Moore MD [address] [facility] [address] [place] [address] documented as of this encounter Visit Diagnoses Diagnosis Other screening mammogram- Primary documented in this encounter Additional Health Concerns Infection Onset Date Last Indicated Resolved Time R/O COVID-19 11/06/2019 11/06/2019 11/06/2019 8:56 AM CDT R/O COVID-19 12/29/2020 12/29/2020 12/29/2020 1:27 PM DIRECTOR OF COMPLIANCE COVID-19 12/29/2020 12/29/2020 01/18/2021 1:16 AM DIRECTOR OF COMPLIANCE documented as of this encounter Care Teams Agricultural Specialist Relationship Specialty [place] [address] [facility] [place] [address] PCP - General 07/29/00 documented as of this encounter
--- OUTSIDE RECORDS SUMMARY | 2024-09-28 15:21 | XMS_ITS | Encounter Summary ---
Author Organization [facility] Address [address] [place] [address] Care Team Providers Care Explosive Operator Bomb Name Role Phone Uriel Mott MD Primary Care Provider [phone] Encounter Details Date Type Department Care Team (Latest Contact Info) Description 12/23/2000 Outpatient Historical HIS [facility] [place] [address] [facility] [place] [address] NONSPECIF SKIN ERUPT NEC (Primary Dx) Social History Tobacco Use Types Packs/Day Years Used Date Smoking Tobacco: Never Assessed Comments Unknown Sex and Gender Information Value Date Recorded Sex Assigned at Not on file Legal Sex Female 3:07 AM NEW ACCOUNTS CLERK Gender Identity Not on file Sexual Orientation Not on file documented as of this encounter Plan of Treatment Upcoming Encounters Date Type Department Care Team (Late st Contact Info) Description 10/15/2024 8:00 AM CDT Appointment [facility] Family Medicine Christine Piña [address] [facility] [address] [place] [address] [place] [address] [facility] [place] [address] 12/07/2024 8:00 AM CDT Procedure visit [facility] Neurology [address] [facility] [address] [place] [address] Shashank Moore MD [address] [facility] [address] [place] [address] 01/17/2025 8:20 AM NEW ACCOUNTS CLERK Appointment [facility] Medicine Christine Piña [address] [facility] [address] [place] [address] [place] [address] [facility] [place] [address] 03/08/2025 8:00 AM NEW ACCOUNTS CLERK Procedure visit [facility] [address] [facility] [address] [place] [address] Shashank Moore MD [address] [facility] [address] [place] [address] documented as of this encounter Visit Diagnoses Diagnosis Rash and other nonspecific skin eruption- Primary documented in this encounter Additional Health Concerns Infection Onset Date Last Indicated Resolved Time R/O COVID-19 11/06/2019 11/06/2019 11/06/2019 8:56 AM CDT R/O COVID-19 12/29/2020 12/29/2020 12/29/2020 1:27 PM NEW ACCOUNTS CLERK COVID-19 12/29/2020 12/29/2020 01/18/2021 1:16 AM NEW ACCOUNTS CLERK documented as of this encounter Care Teams Explosive Operator Bomb Relationship Specialty [place] [address] [facility] [place] [address] PCP - General 07/29/00 documented as of this encounter
--- OUTSIDE RECORDS SUMMARY | 2024-09-28 15:21 | XMS_ITS | Encounter Summary ---
Author Organization [facility] Address [address] [place] [address] Care Team Providers Care Restrictive Preparation Operator Name Role Phone Uriel Mott MD Primary Care Provider [phone] Encounter Details Date Type Department Care Team (Late Contact Info) Description 05/31/2003 Outpatient Historical [facility] Medicine [place] [address] [facility] [address] [place] [address] [place] [address] [address] [facility] [place] [address] Social History Tobacco Use Types Packs/Day Years Used Date Smoking Tobacco: Never Assessed Comments Unknown Sex and Gender Information Value Date Recorded Sex Assigned at Not on file Legal Sex Female 3:07 AM MENTAL HEALTH PROFESSIONAL Gender Identity Not on file Sexual Orientation Not on file documented as of this encounter Plan of Treatment Upcoming Encounters Date Type Department Care Team (Late st Contact Info) Description 10/15/2024 8:00 AM CDT Appointment [facility] Medicine [place] [address] [address] [facility] [address] [place] [address] [place] [address] [facility]. [address] [place] [address] 12/07/2024 8:00 AM CDT Procedure visit [facility] Neurology [address] [facility] [address] [place] [address] Shashank Moore MD [address] [facility] [address] [place] [address] 01/17/2025 8:20 AM MENTAL HEALTH PROFESSIONAL Appointment [facility] Family Medicine Christine Piña [address] [facility] [address] [place] [address] [place] [address] [facility]. [address] [place] [address] 03/08/2025 8:00 AM MENTAL HEALTH PROFESSIONAL Procedure visit [facility] [address] [facility] [address] [place] [address] Shashank Moore MD [address] [facility] [address] [place] [address] documented as of this encounter Visit Diagnoses Not on filedocumented in this encounter Additional Health Concerns Infection Onset Date Last Indicated Resolved Time R/O COVID-19 11/06/2019 11/06/2019 11/06/2019 8:56 AM CDT R/O COVID-19 12/29/2020 12/29/2020 12/29/2020 1:27 PM MENTAL HEALTH PROFESSIONAL COVID-19 12/29/2020 12/29/2020 01/18/2021 1:16 AM MENTAL HEALTH PROFESSIONAL documented as of this encounter Care Teams Restrictive Preparation Operator Relationship Specialty [place] [address] [facility] [address] [place] [address] PCP - General 07/29/00 documented as of this encounter
--- OUTSIDE RECORDS SUMMARY | 2024-09-28 15:21 | XMS_ITS | Clinical Summary ---
Author Organization [facility] Address [address] [place] [address] Care Team Providers Care Truck Washer Name Role Phone Uriel Mott MD Primary Care Provider Allergies Active Allergy Reactions Criticality Noted Date Comments Codeine Nausea only Reaction: Nausea, Latex Hives Medium 07/10/2017 Methotrexate Rash Medium 02/08/2014 porphyria Other Other (See comments) Low 04/18/2017 Tape; reaction: Skin peels Sulfa (Sulfonamide Antibiotics) Shortness of breath Reaction: SOB, Medications LORazepam (ATIVAN) 1 mg tabletIndicatio ns:anxiety Take 1 tablet (1 mg total) by mouth 3 (three) times a day as needed for anxiety ([ FOR ANXIETY/SLEEP /MUSCLE RELAXATION/ VERTIGO ]) for up to 20 days. 20 tablet 8 Active metoclopramide (REGLAN) 10 mg tablet Take 1 tablet (10 mg total) by mouth 2 (two) times a day. Take 1 tablet before meals. 10 tablet 8 Active Additional Information Patient not taking.Reported on 12/12/2017 omeprazole (PriLOSEC) 10 mg capsule 8 Active ALPRAZolam (XANAX) 2 mg tablet 2 (two) times a day as needed. 8 Active zolpidem (AMBIEN) 10 mg tabletIndicatio ns:Sleep-Onset Insomnia TAKE 1 TABLET AT BEDTIME. Active HYDROcodone-naty taminophen (NORCO) 10-325 mg per tabletIndicatio ns:Pain Take 1 tablet by mouth every 6 hours as needed. 8 Active multivitamin tabletIndicatio ns:Vitamin Deficiency Prevention Take 1 tablet by mouth. Active predniSONE (DELTASONE) 10 mg tablet Take 10 mg by mouth. 8 Active cetirizine (ZyrTEC) [address] Gracie kirkland 6 Active omega-3 fatty acids-fish oil 300-1,000 mg capsule Take 2 g by mouth daily. Active milk thistle 150 mg capsule Take by mouth daily. Active acidophilus-pec tin, citrus 100 million cell-10 mg capsule Take by mouth daily. Active gabapentin (NEURONTIN) 300 mg capsuleIndicati ons:Neuropathic Pain Take 1 capsule (300 mg total) by mouth 3 (three) times a day. Start with 1 tab qhs x1wk, increase 1 tab BID x1wk, then 1 tab TID 90 capsule 11 8 Active Additional Information Patient not taking.Reported on 12/12/2017 ALPRAZolam (XANAX) 2 mg tablet Take 2 mg by mouth every 8 hours as needed. 8 Active HYDROcodone-naty taminophen (NORCO) 10-325 mg per tabletIndicatio ns:Pain Take 1 tablet by mouth every 6 hours as needed. 8 Active Active Problems Problem Noted Date Diagnosed Date Other chronic pain 09/21/2017 Lumbar radiculopathy 09/21/2017 Spondylosis of lumbar region without myelopathy or radiculopathy 09/21/2017 Lumbar foraminal stenosis 09/21/2017 Fibrositis 04/30/2013 Overview (05/12/2016): Fibromyalgia Rheumatoid arthritis 04/30/2013 Overview (05/13/2016): RA (rheumatoid arthritis) Insomnia 04/30/2013 Overview (05/14/2016): Insomnia Immunizations Immunization Administration Dates Next Due ZOSTER LIVE 03/02/2013 Surgical History Surgery Date Site/Laterality Comments CARPAL TUNNEL RELEASE 1993 Bilateral Carpal tunnel release KIDNEY STONE SURGERY 1989 kidney stone removed SHOULDER SURGERY 1991 right shoulder surgery OTHER SURGICAL HISTORY carpal tunal surgery on right on left wrist TOTAL ABDOMINAL HYSTERECTOMY W/ BILATERAL SALPINGOOPHORECTOMY 1992 Hysterectomy, total abdominal, BSO OTHER SURGICAL HISTORY 1996 growth of lower abd: stomach surgery CHOLECYSTECTOMY Cholecystectomy LIVER BIOPSY liver biopsy PA NEUROPLASTY &/TRANSPOS ME TIA NRV CARPAL TUNNE Neuroplasty Decompression Median Nerve At Carpal Tunnel - (Added by TW Conv) PA CHOLECYSTECTOMY Cholecystectomy - (Added by TW Conv) SHOULDER SURGERY Shoulder Surgery - (Added by TW Conv) ABDOMINAL SURGERY Abdominal Surgery - (Added by TW Conv) PA TOTAL ABDOMINAL HYSTERECT W/WO RMVL TUBE OVARY Hysterectomy - (Added by TW Conv) PA TONSILLECTOMY PRIMARY/SEC ONDARY <AGE 14 Tonsillectomy - (Added by TW Conv) PA INJ LUMBAR/SACRAL,W/WO CNTRST Corticosteroid Injection Interlaminar Approach Lumbar - (Added by TW Conv) Medical History Medical History Date Comments Anxiety disorder Anxiety Hx Other Medical 1991 Right shoulder surgery Rheumatoid arthritis (HCC) Rheum atoid arthritis Fibrositis Fibromyalgia Hx Other Medical fibromyalga Arthritis Arthritis Hx Other Medical growth of lower abd; Outcome: beign Personal history of other me ntal and behavioral disorders History of anxiety - (Added by TW Conv) Personal history of other sp ecified conditions History of ataxia - (Added b y TW Conv) Stroke (HCC) Fibromyalgia Family History Medical History Relation Name Comments Hyperlipidemia Brother 1 Hyperlipidemi a; Hypertension Brother 2 Hypertension; Heart disease Father Heart disease; Cause of : Heart disease Skin cancer Mother cancer, skin; Diabetes Other 1 Family history of Diabetes mellitus; Heart disease Other 2 Family history of Heart disease; Parkinsonism Sister Parkinson's dis ease; Relation Name Status Comments Brother 1 Brother 2 Father Mother Other 1 Other 2 Sister Social History Tobacco Use Types Packs/Day Years Used Date Smoking Tobacco: Former Smokeless Tobacco: Never Alcohol Use Standard Drinks/Week Comments No 0 (1 standard drink = 0.6 oz pur e alcohol) Comments No Sex and Gender Information Value Date Recorded Sex Assigned at Not on file Legal Sex Female 3:09 AM WILDLIFE CONSERVATIONIST Gender Identity Not on file Sexual Orientation Not on file Obstetrics History Last Filed Vital Signs Vital Sign Reading Time Taken Comments Blood Pressure 125/81 12/29/2023 2:00 PM WILDLIFE CONSERVATIONIST Pulse 90 12/29/2023 2:00 PM WILDLIFE CONSERVATIONIST Temperature 36.8 C (98.3 F) 12/29/2023 2:00 PM WILDLIFE CONSERVATIONIST Respiratory Rate 20 12/29/2023 2:00 PM WILDLIFE CONSERVATIONIST Oxygen Saturation 98% 12/29/2023 2:00 PM WILDLIFE CONSERVATIONIST Inhaled Oxygen Concentration - - Weight 69 kg (152 lb 1.6 oz) 12/29/2023 2:00 PM WILDLIFE CONSERVATIONIST Height 162.6 cm (5' 4) 12/29/2023 2:00 PM WILDLIFE CONSERVATIONIST Body Mass Index 26.11 12/29/2023 2:00 PM WILDLIFE CONSERVATIONIST Plan of Treatment Health Maintenance Due Date Last Done Comments Colon Cancer Screening-Colonoscopy 1950 Depression Screening 1952 Fall Risk Assessment 1950 Hepatitis C Screening 1950 Hepatitis B Screening 1970 Zoster Vaccine (1 of 2) 04/27/2013 03/02/2013 Well Visit 65+ 2017 DTaP/Tdap/Td Vaccine (2 - Td or Tdap) 09/30/2020 09/30/2010 Covid-19 Vaccine (2 - Jansse n risk series) 03/02/2021 02/02/2021 Breast Cancer Screening-Mammogram 07/10/2024 07/11/2023, 07/11/2023, 11/19/2020, Additional history exists Influenza Vaccine (#1) 2024 , 11/19/2020, 12/09/2018, Additional history exists Osteoporosis Screening-Bone Density Scan 07/10/2025 07/11/2023, 07/11/2023, 09/29/2020, Additional history exists Pneumococcal vaccine 65+ Completed 019, 02/08/2014, 10/25/2011 Insurance [employer] MEDIC[employer] PPO Member Subscriber Plan / Payer (Ef fective 2017-Present) Name:Kirsten Roberts Relation to Subscriber:Self Name:Kirsten Roberts Payer ID:[id number] (NAIC) Type:MEDICARE RISK OTHER Address: [address] [employer] CHOICE MEDICARE PPO [employer] MEDIC[employer] PPO Member Subscriber Plan / Payer (Ef fective 2017-Present) Name:Kirsten Roberts Relation to Subscriber:Self Name:Kirsten Roberts Payer ID:[id number] (NAIC) Type:MEDICARE RISK OTHER Address: [address] MEDICARE HMO Care Teams Truck Washer Relationship Specialty [place] [id number] [address] PCP - General 04/01/17
--- OUTSIDE RECORDS SUMMARY | 2024-09-28 15:21 | XMS_ITS | Encounter Summary ---
Author Organization [facility] Address [address] [place] [address] Care Team Providers Care Duplicating Machine Mechanic Name Role Phone Uriel Mott MD Primary Care Provider [phone] Encounter Details Date Type Department Care Team (Latest Contact Info) Description 05/25/2001 Outpatient Historical [place] [address] [facility] [place] [address] CHR ETHMOIDAL SINUSITIS (Primary Dx) Social History Tobacco Use Types Packs/Day Years Used Date Smoking Tobacco: Never Assessed Comments Unknown Sex and Gender Information Value Date Recorded Sex Assigned at Not on file Legal Sex Female 3:07 AM FOOD INSPECTOR Gender Identity Not on file Sexual Orientation Not on file documented as of this encounter Plan of Treatment Upcoming Encounters Date Type Department Care Team (Late st Contact Info) Description 10/15/2024 8:00 AM CDT Appointment [facility] Family Medicine Christine Piña [address] [facility] [address] [place] [address] [place] [address] [facility] [place] [address] 12/07/2024 8:00 AM CDT Procedure visit [facility] Neurology [address] [facility] [address] [place] [address] Shashank Moore MD [address] [facility] [address] [place] [address] 01/17/2025 8:20 AM FOOD INSPECTOR Appointment [facility] Medicine Christine Piña [address] [facility] [address] [place] [address] [place] [address] [facility] [place] [address] 03/08/2025 8:00 AM FOOD INSPECTOR Procedure visit [facility] [address] [facility] [address] [place] [address] Shashank Moore MD [address] [facility] [address] [place] [address] documented as of this encounter Visit Diagnoses Diagnosis Chronic ethmoidal sinusitis- Primary documented in this encounter Additional Health Concerns Infection Onset Date Last Indicated Resolved Time R/O COVID-19 11/06/2019 11/06/2019 11/06/2019 8:56 AM CDT R/O COVID-19 12/29/2020 12/29/2020 12/29/2020 1:27 PM FOOD INSPECTOR COVID-19 12/29/2020 12/29/2020 01/18/2021 1:16 AM FOOD INSPECTOR documented as of this encounter Care Teams Duplicating Machine Mechanic Relationship Specialty [place] [address] [facility] [place] [address] PCP - General 07/29/00 documented as of this encounter
--- OUTSIDE RECORDS SUMMARY | 2024-09-28 15:21 | XMS_ITS | Encounter Summary ---
Author Organization [facility] Address [address] [place] [address] Care Team Providers Care Museum Tour Guide Name Role Phone Uriel Mott MD Primary Care Provider [phone] Encounter Details Date Type Department Care Team (Late st Contact Info) Description 11/08/2005 Inpatient Historical [facility] Baltazar Cordova MD [address] [place] [address] Brian Frias MD [address] [place] [address] Nontoxic Uninodular Goiter (Primary Dx) Social History Tobacco Use Types Packs/Day Years Used Date Smoking Tobacco: Never Assessed Comments Unknown Sex and Gender Information Value Date Recorded Sex Assigned at Not on file Legal Sex Female 3:07 AM APPLICATIONS ENGINEER Gender Identity Not on file Sexual Orientation Not on file documented as of this encounter Plan of Treatment Upcoming Encounters Date Type Department Care Team (Late st Contact Info) Description 10/15/2024 8:00 AM CDT Appointment [facility] Family Medicine Christine Piña [address] [facility] [address] [place] [address] [place] [address] [facility] [place] [address] 12/07/2024 8:00 AM CDT Procedure visit [facility] Neurology [address] [place] [address] Shashank Moore MD [address] [facility] [address] [place] [address] 01/17/2025 8:20 AM APPLICATIONS ENGINEER Appointment [facility] Medicine Christine Piña [address] [facility] [address] [place] [address] [place] [address] [facility] [place] [address] 03/08/2025 8:00 AM APPLICATIONS ENGINEER Procedure visit [facility] [address] [facility] [address] [place] [address] Shashank Moore MD [address] [facility] [address] [place] [address] documented as of this encounter Visit Diagnoses Diagnosis Nontoxic uninodular goiter- Primary documented in this encounter Additional Health Concerns Infection Onset Date Last Indicated Resolved Time R/O COVID-19 11/06/2019 11/06/2019 11/06/2019 8:56 AM CDT R/O COVID-19 12/29/2020 12/29/2020 12/29/2020 1:27 PM APPLICATIONS ENGINEER COVID-19 12/29/2020 12/29/2020 01/18/2021 1:16 AM APPLICATIONS ENGINEER documented as of this encounter Care Teams Museum Tour Guide Relationship Specialty [place] [address] [facility] [place] [address] PCP - General 07/29/00 documented as of this encounter
--- OUTSIDE RECORDS SUMMARY | 2024-09-28 15:21 | XMS_ITS | Encounter Summary ---
Author Organization [facility] Address [address] [place] [address] Care Team Providers Care Steep Tender Name Role Phone Uriel Mott MD Primary Care Provider [phone] Encounter Details Date Type Department Care Team (Late Contact Info) Description 10/29/2004 Outpatient Historical [place] [address] [address] [employer] [facility] [place] [address] NONTOX UNINODULAR GOITER (Primary Dx) Social History Tobacco Use Types Packs/Day Years Used Date Smoking Tobacco: Never Assessed Comments Unknown Sex and Gender Information Value Date Recorded Sex Assigned at Not on file Legal Sex Female 3:07 AM REWINDER OPERATOR Gender Identity Not on file Sexual Orientation Not on file documented as of this encounter Plan of Treatment Upcoming Encounters Date Type Department Care Team (Late st Contact Info) Description 10/15/2024 8:[address] [facility] Family Medicine Christine Piña [address] [facility] [address] [place] [address] [place] [address] [facility] [place] [address] 12/07/2024 8:00 AM CDT Procedure visit [facility] Neurology [address] [facility] [address] [place] [address] Shashank Moore MD [address] [facility] [address] [place] [address] 01/17/2025 8:20 AM REWINDER OPERATOR Appointment [facility] Medicine Christine Piña [address] [facility] [address] [place] [address] [place] [address] [facility] [place] [address] 03/08/2025 8:00 AM REWINDER OPERATOR Procedure visit [facility] Neurology [address] [facility] [address] [place] [address] Shashank Moore MD [address] [facility] [address] [place] [address] documented as of this encounter Visit Diagnoses Diagnosis Nontoxic uninodular goiter- Primary documented in this encounter Additional Health Concerns Infection Onset Date Last Indicated Resolved Time R/O COVID-19 11/06/2019 11/06/2019 11/06/2019 8:56 AM CDT R/O COVID-19 12/29/2020 12/29/2020 12/29/2020 1:27 PM REWINDER OPERATOR COVID-19 12/29/2020 12/29/2020 01/18/2021 1:16 AM REWINDER OPERATOR documented as of this encounter Care Teams Steep Tender Relationship Specialty [place] [address] [facility] [place] [address] PCP - General 07/29/00 documented as of this encounter
--- OUTSIDE RECORDS SUMMARY | 2024-09-28 15:21 | XMS_ITS | Encounter Summary ---
Author Organization [facility] Address [address] [place] [address] Care Team Providers Care Compensation Business Partner Name Role Phone Uriel Mott MD Primary Care Provider [phone] Encounter Details Date Type Department Care Team (Latest Contact Info) Description 10/26/2006 Outpatient Historical [facility] Medicine Christine Wang [address] [facility] [address] [place] [address] [place] [address] [address] [facility] [place] [address] Other Malaise and Fatigue (Primary Dx) Social History Tobacco Use Types Packs/Day Years Used Date Smoking Tobacco: Never Assessed Comments Unknown Sex and Gender Information Value Date Recorded Sex Assigned at Not on file Legal Sex Female 3:07 AM CAR RENTAL MANAGER Gender Identity Not on file Sexual Orientation Not on file documented as of this encounter Plan of Treatment Upcoming Encounters Date Type Department Care Team (Late st Contact Info) Description 10/15/2024 8:00 AM CDT Appointment [facility] Medicine Christine Wang [address] [facility] [address] [place] [address] [place] [address] [facility] [place] [address] 12/07/2024 8:00 AM CDT Procedure visit [facility] Neurology [address] [facility] [address] [place] [address] Shashank Moore MD [address] [facility] [address] [place] [address] 01/17/2025 8:20 AM CAR RENTAL MANAGER Appointment [facility] Family Medicine Christine Piña [address] [facility] [address] [place] [address] [place] [address] [address] [facility] [place] [address] 03/08/2025 8:00 AM CAR RENTAL MANAGER Procedure visit [facility] Neurology [address] [facility] [address] [address] [place] [address] Shashank Moore MD [address] [facility] [address] [place] [address] documented as of this encounter Procedures Procedure Name Priority Date/Time Associated Diagnosis Comments TSH WITH REFLEX FT4 AND FT3 Routine 10/26/2006 12:07 PM CDT GLUCOSE FASTING Routine 10/26/2006 12:07 PM CDT documented in this encounter Results * GLUCOSE FASTING (10/26/2006 12:07 PM CDT) GLUCOSE FASTING 84 65 - 99 mg/dL INTERFACE SYSTEM 10/26/2006 12:0 7 PM CDT us Uriel Mott MD CHEMISTRY ORDERABLES Edited Performing Organization Address City/[facility] Co de Phone Number INTERFACE SYSTEM Refer to clinic/hospital department * TSH WITH REFLEX FT4 AND FT3 (10/26/2006 12:07 PM CDT) TSH 2.85 0.27 - 4.20 uU/mL INTERFACE SYSTEM 10/26/2006 12:0 7 PM CDT Uriel Mott MD CHEMISTRY ORDERABLES Edited INTERFACE SYSTEM Refer to clinic/hospital department documented in this encounter Visit Diagnoses Diagnosis Other malaise and fatigue- Primary documented in this encounter Additional Health Concerns Infection Onset Date Last Indicated Resolved Time R/O COVID-19 11/06/2019 11/06/2019 11/06/2019 8:56 AM CDT R/O COVID-19 12/29/2020 12/29/2020 12/29/2020 1:27 PM CAR RENTAL MANAGER COVID-19 12/29/2020 12/29/2020 01/18/2021 1:16 AM CAR RENTAL MANAGER documented as of this encounter Care Teams Compensation Business Partner Relationship Specialty [place] [address] [facility] [address] [place] [address] PCP - General 07/29/00 documented as of this encounter
--- OUTSIDE RECORDS SUMMARY | 2024-09-28 15:21 | XMS_ITS | Encounter Summary ---
Author Organization [facility] Address [address] [place] [address] Care Team Providers Care Supervisor Backfilling Name Role Phone Uriel Mott MD Primary Care Provider [phone] Encounter Details Date Type Department Care Team (Late Contact Info) Description 02/11/2006 Orders Only [facility] Medicine Christine Wang [address] [employer] [facility] [address] [place] [address] [place] [address] [employer] [facility] [place] [address] Social History Tobacco Use Types Packs/Day Years Used Date Smoking Tobacco: Never Assessed Comments Unknown Sex and Gender Information Value Date Recorded Sex Assigned at Not on file Legal Sex Female 3:07 AM BOLT SORTER Gender Identity Not on file Sexual Orientation Not on file documented as of this encounter Plan of Treatment Upcoming Encounters Date Type Department Care Team (Late st Contact Info) Description 10/15/2024 8:00 AM CDT Appointment [facility] Christine Wang [address] [employer] [facility] [address] [place] [address] [place] [address] [facility] [place] [address] 12/07/2024 8:00 AM CDT Procedure visit [facility] Neurology [address] [facility] [address] [place] [address] Shashank Moore MD [address] [facility] [address] [place] [address] 01/17/2025 8:20 AM BOLT SORTER Appointment [facility] Family Medicine Christine Piña [address] [place] [address] [place] [address] [facility] [place] [address] 03/08/2025 8:00 AM BOLT SORTER Procedure visit [facility] [address] [facility] [address] [place] [address] Shashank Moore MD [address] [facility] [address] [place] [address] documented as of this encounter Visit Diagnoses Not on filedocumented in this encounter Additional Health Concerns Infection Onset Date Last Indicated Resolved Time R/O COVID-19 11/06/2019 11/06/2019 11/06/2019 8:56 AM CDT R/O COVID-19 12/29/2020 12/29/2020 12/29/2020 1:27 PM BOLT SORTER COVID-19 12/29/2020 12/29/2020 01/18/2021 1:16 AM BOLT SORTER documented as of this encounter Care Teams Supervisor Backfilling Relationship Specialty [place] [address] [facility] [address] [place] [address] PCP - General 07/29/00 documented as of this encounter
--- OUTSIDE RECORDS SUMMARY | 2024-09-28 15:21 | XMS_ITS | Encounter Summary ---
Author Organization [facility] Address [address] [place] [address] Care Team Providers Care Detasseling Crew Supervisor Name Role Phone Uriel Mott MD Primary Care Provider [phone] Encounter Details Date Type Department Care Team (Late st Contact Info) Description 04/06/2006 Orders Only [facility] Family Medicine Christine Wang [address] [place] [address] [place] [address] [place] [address] Social History Tobacco Use Types Packs/Day Years Used Date Smoking Tobacco: Never Assessed Comments Unknown Sex and Gender Information Value Date Recorded Sex Assigned at Not on file Legal Sex Female 3:07 AM CARDIOLOGY COORDINATOR Gender Identity Not on file Sexual Orientation Not on file documented as of this encounter Progress Notes * Uriel Mott MD - 06/30/2007 9:32 PM CDT NURSE NAME: Charis Montoya PULSE: 72. Right Radial, Regular WEIGHT: 154lbs. BLOOD PRESSURE: 132/74. Right Arm Sitting ALLERGIES: Allergies are as listed. CHIEF COMPLAINT Here for follow up evaluation. est/ sjl HISTORY: HISTORY: Very fatigued all the time and design assembler felt she could use a stress test. She has some chest tightness with activity, no SOB but does get tired easily. 300.02-ANXIETY DISORDER The condition remains stable. The patient denies excessive crying, a persistent feeling of sadness and hopelessness, and fatigue. Currently the patient is off all medication. 346.91-MIGRAINE stable on topamax at current dose. 714.0-RHEUMATOID ARTHRITIS The patient's rheumatoid arthritis has worsened. The patient is being seen by a design assembler. Methotrexate is tolerated well with no side effects. 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 Jp STOLLC ORAL TABLET 10 MG, prescribed by Dr. Cartwright-dermatology METHOTREXATE SODIUM ORAL TABLET 5 MG, Not sure of dosage-from Dr. Sea martins CALCIUM + D ORAL TABLET 600-200 MG-UNIT, one tablet twice a day Actually I want her to take a pill with 400iu of vitamin d. this was not available on my menu of meds to choose from NASACORT AQ NASAL AEROSOL SOLUTION 55 MCG/ACT, WRITTEN BY Dr. Cutler-ENT PREDNISONE ORAL TABLET 20 MG, Take one tablet a day for 7 days TOPAMAX ORAL TABLET 100 MG, one in the evening SINGULAIR ORAL TABLET 10 MG, one tablet a day ALPRAZOLAM ORAL TABLET 1 MG, 1 Every [...] EDEMA/VARICOSITIES OF EXTREMITIES: No edema or varicosities. GASTROINTESTINAL: ABDOMEN: Soft, non-tender, without masses. Bowel sounds active. LIVER/SPLEEN/KIDNEY: No hepatosplenomegaly, tenderness or nodularity. Kidneys not palpable. PSYCHIATRIC: Judgment appropriate. Oriented. Normal memory. Mood and affect appropriate. ASSESSMENT/PLAN: 300.02-ANXIETY DISORDER ASSESSMENT: The patient's anxiety remains stable. Will not change medication, continue to monitor for complications. MEDICATIONS: ALPRAZOLAM ORAL TABLET 1 MG, 1 Every Day At Bedtime, As Needed, 90 Dispensed, status: CONTINUED, 04/06/2006. 346.91-MIGRAINE ASSESSMENT: will continue meds. MEDICATIONS: TOPAMAX ORAL TABLET 50 MG, 1 Two Times A Day, 180 Dispensed, 3 Fills, status: NEW PRESCRIPTION, 04/06/2006. 714.0-RHEUMATOID ARTHRITIS ASSESSMENT: The patient's rheumatoid arthritis has worsened. Will not change medication, continue to monitor for complications. 786.59-CHEST PRESSURE OR TIGHTNESS ASSESSMENT: we will check stress test. LAB ORDERS: Order number: [id number] Test Ordered: STRESS ECHO V17.4-FAMILY HISTORY OF CARDIOVASCULAR DISEASE ASSESSMENT: has FH of CAD. SPECIALTY REFERRAL: ADULT CARDIOLOGY Dr. Jamaal Flores [phone] fax: [phone]. RETURN VISIT: Patient is to return after test has been completed. Electronically Signed by: Uriel Mott MD on Thursday, April 06, 2006 documented in this encounter Plan of Treatment Upcoming Encounters Date Type Department Care Team (Late st Contact Info) Description 10/15/2024 8:00 AM CDT Appointment [facility] [address] [address] [place] [address] [facility] [address] 12/07/2024 8:00 AM CDT Procedure visit [facility] Neurology [address] [facility] [address] [place] [address] Shashank Moore MD [address] [address] 01/17/2025 8:20 AM CARDIOLOGY COORDINATOR Appointment [facility] Medicine Christine Piña [address] [address] [place] [address] [facility] [address] 03/08/2025 8:00 AM CARDIOLOGY COORDINATOR Procedure visit [facility] [address] [place] [address] Shashank Moore MD [address] [address] documented as of this encounter Visit Diagnoses Not on filedocumented in this encounter Additional Health Concerns Infection Onset Date Last Indicated Resolved Time R/O COVID-19 11/06/2019 11/06/2019 11/06/2019 8:56 AM CDT R/O COVID-19 12/29/2020 12/29/2020 12/29/2020 1:27 PM CARDIOLOGY COORDINATOR COVID-19 12/29/2020 12/29/2020 01/18/2021 1:16 AM CARDIOLOGY COORDINATOR documented as of this encounter Care Teams Detasseling Crew Supervisor Relationship Specialty [place] [address] [address] PCP - General 07/29/00 documented as of this encounter
--- OUTSIDE RECORDS SUMMARY | 2024-09-28 15:21 | XMS_ITS | Encounter Summary ---
Author Organization [facility] Address [address] [place] [address] Care Team Providers Care Template Clerk Name Role Phone Uriel Mott MD Primary Care Provider [phone] Encounter Details Date Type Department Care Team (Late Contact Info) Description 07/04/2002 Outpatient Historical [facility] Medicine Christine Wang [address] [facility] [address] [place] [address] [place] [address] [facility] [place] [address] Social History Tobacco Use Types Packs/Day Years Used Date Smoking Tobacco: Never Assessed Comments Unknown Sex and Gender Information Value Date Recorded Sex Assigned at Not on file Legal Sex Female 3:07 AM SPANISH LINGUIST Gender Identity Not on file Sexual Orientation Not on file documented as of this encounter Plan of Treatment Upcoming Encounters Date Type Department Care Team (Late st Contact Info) Description 10/15/2024 8:00 AM CDT Appointment [facility] Medicine Christine Wang [address] [place] [address] [place] [address] [facility] [place] [address] 12/07/2024 8:00 AM CDT Procedure visit [facility] Neurology [address] [facility] [address] [place] [address] Shashank Moore MD [address] [facility] [address] [place] [address] 01/17/2025 8:20 AM SPANISH LINGUIST Appointment [facility] Family Medicine Christine Piña [address] [facility] [address] [place] [address] [place] [address] [facility] [place] [address] 03/08/2025 8:00 AM SPANISH LINGUIST Procedure visit [facility] [address] [facility] [address] [place] [address] Shashank Moore MD [address] [facility] [address] [place] [address] documented as of this encounter Visit Diagnoses Not on filedocumented in this encounter Additional Health Concerns Infection Onset Date Last Indicated Resolved Time R/O COVID-19 11/06/2019 11/06/2019 11/06/2019 8:56 AM CDT R/O COVID-19 12/29/2020 12/29/2020 12/29/2020 1:27 PM SPANISH LINGUIST COVID-19 12/29/2020 12/29/2020 01/18/2021 1:16 AM SPANISH LINGUIST documented as of this encounter Care Teams Template Clerk Relationship Specialty [place] [address] [address] [place] [address] PCP - General 07/29/00 documented as of this encounter
--- OUTSIDE RECORDS SUMMARY | 2024-09-28 15:21 | XMS_ITS | Clinical Summary ---
Author Organization [facility] Address [address] [facility] [place] [address] Care Team Providers Care Repack Room Worker Name Role Phone Unavailable Primary Care Provider Unavailabl e Source Comments [facility],non-owned Affiliates and Associated Physician Practices is amultiple site organization consisting of ambulatory clinics and hospital sitesin [place], [place], [place] and [place]. This disclosure is being madepursuant to the Care Everywhere program and may not contain all information available regarding this patient. Last updated 17.[facility] Social History Tobacco Use Types Packs/Day Years Used Date Smoking Tobacco: Never Assessed Comments Unknown Sex and Gender Information Value Date Recorded Sex Assigned at Not on file Legal Sex Female 5:11 AM INTERNET MARKETING STRATEGIST Gender Identity Not on file Sexual Orientation Not on file Plan of Treatment Health Maintenance Due Date Last Done Comments BONE DENSITY TESTING 1950 COLOGUARD (AGES 45-75) - COLON CA SCREENING 1952 COLON MONITORING 1952 COLONOSCOPY - COLON CA SCREENING 1952 CT COLONOGRAPHY - COLON CA SCREENING 1952 Colorectal Cancer Screening 1952 FIT - COLON CA SCREENING 1952 FLEX SIG - COLON CA SCREENING 1952 MAMMOGRAM 1952 HEPATITIS C SCREENING 03/29/1970 DTAP/TDAP/TD VACCINES (1 - Tdap) 1971 PNEUMOCOCCAL VACCINE 50+ (1 of 1 - PCV) 2002 ZOSTER VACCINE (1 of 2) 2002 COVID-19 VACCINE (1 - 2023- season) 2023 DEPRESSION SCREENING 02/08/2024 INFLUENZA VACCINE (#1) 2024 9, 11/07/2017, 12/20/2016, Additional history exists Respiratory Syncytial Virus (RSV) Vaccine Pt: or over 60 yrs (1 - 1-dose 75+ series) 2027 LIPID TESTING 12/21/2027 12/20/2022 HEPATITIS B VACCINE Aged Out No longe r eligible based on patient's age to complete this topic HIB VACCINE Aged Out No longer eligi ble based on patient's age to complete this topic HPV VACCINE Aged Out No longer eligi ble based on patient's age to complete this topic MENINGOCOCCAL (Group B) VACCINE SHARED DECISION-MAKING Aged Out No longer eligible based on patient's age to complete this topic MENINGOCOCCAL GROUPS A/C/Y/W VACCINE Aged Out No longer eligible based on patient's age to complete this topic
--- OUTSIDE RECORDS SUMMARY | 2024-09-28 15:21 | XMS_ITS | Encounter Summary ---
Author Organization [facility] Address [address] [place] [address] Care Team Providers Care Distribution Field Technician Name Role Phone Uriel Mott MD Primary Care Provider [phone] Encounter Details Date Type Department Care Team (Late Contact Info) Description 10/18/2002 Outpatient Historical [facility] Medicine Christine Wang [address] [employer] [address] [facility] [address] [place] [address] [place] [address] [employer] [facility]. [address] [place] [address] Social History Tobacco Use Types Packs/Day Years Used Date Smoking Tobacco: Never Assessed Comments Unknown Sex and Gender Information Value Date Recorded Sex Assigned at Not on file Legal Sex Female 3:07 AM SEALS ENGRAVER Gender Identity Not on file Sexual Orientation Not on file documented as of this encounter Plan of Treatment Upcoming Encounters Date Type Department Care Team (Late st Contact Info) Description 10/15/2024 8:00 AM CDT Appointment [facility] Medicine Christine Wang [address] [employer] [facility] [address] [place] [address] [place] [address] [facility]. [address] [place] [address] 12/07/2024 8:00 AM CDT Procedure visit [facility] Neurology [address] [facility] [address] [place] [address] Shashank Moore MD [address] [facility] [address] [place] [address] 01/17/2025 8:20 AM SEALS ENGRAVER Appointment [facility] Family Medicine Christine Piña [address] [facility] [address] [place] [address] [place] [address] [facility]. [address] [place] [address] 03/08/2025 8:00 AM SEALS ENGRAVER Procedure visit [facility] [address] [facility] [address] [place] [address] Shashank Moore MD [address] [facility] [address] [place] [address] documented as of this encounter Visit Diagnoses Not on filedocumented in this encounter Additional Health Concerns Infection Onset Date Last Indicated Resolved Time R/O COVID-19 11/06/2019 11/06/2019 11/06/2019 8:56 AM CDT R/O COVID-19 12/29/2020 12/29/2020 12/29/2020 1:27 PM SEALS ENGRAVER COVID-19 12/29/2020 12/29/2020 01/18/2021 1:16 AM SEALS ENGRAVER documented as of this encounter Care Teams Distribution Field Technician Relationship Specialty [place] [address] [facility] [address] [place] [address] PCP - General 07/29/00 documented as of this encounter
--- OUTSIDE RECORDS SUMMARY | 2024-09-28 15:21 | XMS_ITS | Encounter Summary ---
Author Organization [facility] Address [address] [place] [address] Care Team Providers Care Refrigeration Insulator Name Role Phone Uriel Mott MD Primary Care Provider [phone] Encounter Details Date Type Department Care Team (Late st Contact Info) Description 03/14/2006 Orders Only [facility] Medicine Christine Wang [address] [address] [facility] [address] [place] [address] [place] [address] [employer] [facility] [place] [address] Social History Tobacco Use Types Packs/Day Years Used Date Smoking Tobacco: Never Assessed Comments Unknown Sex and Gender Information Value Date Recorded Sex Assigned at Not on file Legal Sex Female 3:07 AM TELEPHONE ORDER CLERK Gender Identity Not on file Sexual Orientation Not on file documented as of this encounter Plan of Treatment Upcoming Encounters Date Type Department Care Team (Late st Contact Info) Description 10/15/2024 8:00 AM CDT Appointment [facility] Christine Wang [address] [address] [facility] [address] [place] [address] [place] [address] [facility] [place] [address] 12/07/2024 8:00 AM CDT Procedure visit [facility] Neurology [address] [facility] [address] [place] [address] Shashank Moore MD [address] [facility] [address] [place] [address] 01/17/2025 8:20 AM TELEPHONE ORDER CLERK Appointment [facility] Family Medicine Christine Piña [address] [facility] [address] [place] [address] [place] [address] [facility] [place] [address] 03/08/2025 8:00 AM TELEPHONE ORDER CLERK Procedure visit [facility] [address] [facility] [address] [place] [address] Shashank Moore MD [address] [facility] [address] [place] [address] documented as of this encounter Visit Diagnoses Not on filedocumented in this encounter Additional Health Concerns Infection Onset Date Last Indicated Resolved Time R/O COVID-19 11/06/2019 11/06/2019 11/06/2019 8:56 AM CDT R/O COVID-19 12/29/2020 12/29/2020 12/29/2020 1:27 PM TELEPHONE ORDER CLERK COVID-19 12/29/2020 12/29/2020 01/18/2021 1:16 AM TELEPHONE ORDER CLERK documented as of this encounter Care Teams Refrigeration Insulator Relationship Specialty [place] [address] [facility] [address] [place] [address] PCP - General 07/29/00 documented as of this encounter
--- OUTSIDE RECORDS SUMMARY | 2024-09-28 15:21 | XMS_ITS | Encounter Summary ---
Author Organization [facility] Address [address] [place] [address] Care Team Providers Care Batting Machine Operator Insulation Name Role Phone Uriel Mott MD Primary Care Provider [phone] Encounter Details Date Type Department Care Team (Late Contact Info) Description 11/03/2006 Outpatient Historical [facility] Medicine Christine Piña [address] [facility] [address] [place] [address] [place] [address] [address] [place] [address] Social History Tobacco Use Types Packs/Day Years Used Date Smoking Tobacco: Never Assessed Comments Unknown Sex and Gender Information Value Date Recorded Sex Assigned at Not on file Legal Sex Female 3:07 AM APPEALS REFEREE Gender Identity Not on file Sexual Orientation Not on file documented as of this encounter Last Filed Vital Signs Vital Sign Reading Time Taken Comments Blood Pressure 112/62 11/03/2006 2:30 PM CDT Pulse 70 11/03/2006 2:30 PM CDT Temperature - - Respiratory Rate - - Oxygen Saturation - - Inhaled Oxygen Concentration - - Weight 70.8 kg (156 lb) 11/03/2006 2:30 PM CDT Height - - Body Mass Index - - documented in this encounter Plan of Treatment Upcoming Encounters Date Type Department Care Team (Late Contact Info) Description 10/15/2024 8:00 AM CDT Appointment [facility] Medicine Christine Wang [address] [place] [address] [place] [address] [facility] [place] [address] 12/07/2024 8:00 AM CDT Procedure visit [facility] Neurology [address] [facility] [address] [place] [address] Shashank Moore MD [address] [facility] [address] [place] [address] 01/17/2025 8:20 AM APPEALS REFEREE Appointment [facility] Medicine Christine Piña [address] [employer] [facility] [address] [place] [address] [place] [address] [facility]. [address] [place] [address] 03/08/2025 8:00 AM APPEALS REFEREE Procedure visit [facility] Neurology [address] [facility] [address] [place] [address] Shashank Moore MD [address] [facility] [address] [place] [address] documented as of this encounter Visit Diagnoses Not on filedocumented in this encounter Additional Health Concerns Infection Onset Date Last Indicated Resolved Time R/O COVID-19 11/06/2019 11/06/2019 11/06/2019 8:56 AM CDT R/O COVID-19 12/29/2020 12/29/2020 12/29/2020 1:27 PM APPEALS REFEREE COVID-19 12/29/2020 12/29/2020 01/18/2021 1:16 AM APPEALS REFEREE documented as of this encounter Care Teams Batting Machine Operator Insulation Relationship Specialty [place] [address] [facility] [address] [place] [address] PCP - General 07/29/00 documented as of this encounter
--- OUTSIDE RECORDS SUMMARY | 2024-09-28 15:21 | XMS_ITS | Encounter Summary ---
Author Organization [facility] Address [address] [place] [address] Care Team Providers Care Electrical Inspector Name Role Phone rUiel Mott MD Primary Care Provider [phone] Encounter Details Date Type Department Care Team (Late st Contact Info) Description 07/23/2004 Outpatient Historical Division of Neurology [address] [facility], [address] [address] Michael Trammell MD [address] [facility] [address] [place] [address] Social History Tobacco Use Types Packs/Day Years Used Date Smoking Tobacco: Never Assessed Comments Unknown Sex and Gender Information Value Date Recorded Sex Assigned at Not on file Legal Sex Female 3:07 AM LEATHER PRODUCTION ARTISAN Gender Identity Not on file Sexual Orientation Not on file documented as of this encounter Plan of Treatment Upcoming Encounters Date Type Department Care Team (Late st Contact Info) Description 10/15/2024 8:00 AM CDT Appointment [facility] Family Medicine Christine Piña [address] [facility] [address] [place] [address] [place] [address] [facility] [place] [address] 12/07/2024 8:00 AM CDT Procedure visit [facility] Neurology [address] [facility] [address] [place] [address] Shashank Moore MD [address] [facility] [address] [place] [address] 01/17/2025 8:20 AM LEATHER PRODUCTION ARTISAN Appointment [facility] Family Medicine Christine Piña [address] [facility] [address] [place] [address] [place] [address] [facility] [address] [place] [address] 03/08/2025 8:00 AM LEATHER PRODUCTION ARTISAN Procedure visit [facility] [address] [facility] [address] [place] [address] Shashank Moore MD [address] [address] documented as of this encounter Visit Diagnoses Not on filedocumented in this encounter Additional Health Concerns Infection Onset Date Last Indicated Resolved Time R/O COVID-19 11/06/2019 11/06/2019 11/06/2019 8:56 AM CDT R/O COVID-19 12/29/2020 12/29/2020 12/29/2020 1:27 PM LEATHER PRODUCTION ARTISAN COVID-19 12/29/2020 12/29/2020 01/18/2021 1:16 AM LEATHER PRODUCTION ARTISAN documented as of this encounter Care Teams Electrical Inspector Relationship Specialty Start [place] [address] [facility] [address] [place] [address] PCP - General 07/29/00 documented as of this encounter
--- OUTSIDE RECORDS SUMMARY | 2024-09-28 15:22 | XMS_ITS | Encounter Summary ---
Author Organization [facility] Address [address] [place] [address] Care Team Providers Care Account Strategist Name Role Phone Uriel Mott MD Primary Care Provider [phone] Encounter Details Date Type Department Care Team (Late Contact Info) Description 10/25/2006 Outpatient Historical [facility] Er Medicine Christine Wang [address] [place] [address] [place] [address] [address] [place] [address] Social History Tobacco Use Types Packs/Day Years Used Date Smoking Tobacco: Never Assessed Comments Unknown Sex and Gender Information Value Date Recorded Sex Assigned at Not on file Legal Sex Female 3:07 AM SENIOR NURSE MANAGER Gender Identity Not on file Sexual Orientation Not on file documented as of this encounter Last Filed Vital Signs Vital Sign Reading Time Taken Comments Blood Pressure 118/76 10/25/2006 9:40 AM CDT Pulse 68 10/25/2006 9:40 AM CDT Temperature 36.3 C (97.3 F) 10/25/2006 9:40 AM CDT Respiratory Rate - - Oxygen Saturation - - Inhaled Oxygen Concentration - - Weight 71.2 kg (157 lb) 10/25/2006 9:40 AM CDT Height - - Body Mass Index - - documented in this encounter Plan of Treatment Upcoming Encounters Date Type Department Care Team (Late Contact Info) Description 10/15/2024 8:00 AM CDT Appointment [facility] [place] [address] [place] [address] [place] [address] [place] [address] 12/07/2024 8:00 AM CDT Procedure visit [facility] Neurology [address] [facility] [address] [place] [address] Shashank Moore MD [address] [facility] [address] [place] [address] 01/17/2025 8:20 AM SENIOR NURSE MANAGER Appointment [facility] Christine Piña [address] [facility] [address] [place] [address] [place] [address] [facility]. [address] [place] [address] 03/08/2025 8:00 AM SENIOR NURSE MANAGER Procedure visit [facility] [address] [facility] [address] [place] [address] Shashank Moore MD [address] [facility] [address] [place] [address] documented as of this encounter Visit Diagnoses Not on filedocumented in this encounter Additional Health Concerns Infection Onset Date Last Indicated Resolved Time R/O COVID-19 11/06/2019 11/06/2019 11/06/2019 8:56 AM CDT R/O COVID-19 12/29/2020 12/29/2020 12/29/2020 1:27 PM SENIOR NURSE MANAGER COVID-19 12/29/2020 12/29/2020 01/18/2021 1:16 AM SENIOR NURSE MANAGER documented as of this encounter Care Teams Account Strategist Relationship Specialty [place] [address] [facility] [place] [address] PCP - General 07/29/00 documented as of this encounter
--- OUTSIDE RECORDS SUMMARY | 2024-09-28 15:22 | XMS_ITS | Encounter Summary ---
Author Organization [facility] Address [address] [place] [address] Care Team Providers Care Electromechanical Equipment Assembler Name Role Phone Uriel Mott MD Primary Care Provider [phone] Encounter Details Date Type Department Care Team (Late st Contact Info) Description 12/27/2006 Outpatient Historical [facility] Medicine Christine Piña [address] [facility] [address] [place] [address] [place] [address] [address] Social History Tobacco Use Types Packs/Day Years Used Date Smoking Tobacco: Never Assessed Comments Unknown Sex and Gender Information Value Date Recorded Sex Assigned at Not on file Legal Sex Female 3:07 AM PET SUPPLIES SALESPERSON Gender Identity Not on file Sexual Orientation Not on file documented as of this encounter Plan of Treatment Upcoming Encounters Date Type Department Care Team (Late st Contact Info) Description 10/15/2024 8:00 AM CDT Appointment [facility] Christine Wang [address] [facility] [address] [place] [address] [place] [address] [facility] [place] [address] 12/07/2024 8:00 AM CDT Procedure visit [facility] Neurology [address] [facility] [address] [place] [address] Shashank Moore MD [address] [facility] [address] [place] [address] 01/17/2025 8:20 AM PET SUPPLIES SALESPERSON Appointment [facility] Medicine Christine Piña [address] [facility] [address] [place] [address] [place] [address] [facility] [address] [place] [address] 03/08/2025 8:00 AM PET SUPPLIES SALESPERSON Procedure visit [facility] Neurology [address] [facility] [address] [place] [address] Shashank Moore MD [address] [address] documented as of this encounter Visit Diagnoses Not on filedocumented in this encounter Additional Health Concerns Infection Onset Date Last Indicated Resolved Time R/O COVID-19 11/06/2019 11/06/2019 11/06/2019 8:56 AM CDT R/O COVID-19 12/29/2020 12/29/2020 12/29/2020 1:27 PM PET SUPPLIES SALESPERSON COVID-19 12/29/2020 12/29/2020 01/18/2021 1:16 AM PET SUPPLIES SALESPERSON documented as of this encounter Care Teams Electromechanical Equipment Assembler Relationship Specialty [place] [address] [facility] [address] [place] [address] PCP - General 07/29/00 documented as of this encounter
--- OUTSIDE RECORDS SUMMARY | 2024-09-28 15:22 | XMS_ITS | Encounter Summary ---
Author Organization [facility] Address [address] [place] [address] Care Team Providers Care Research Manufacturing Operator Name Role Phone Uriel Mott MD Primary Care Provider [phone] Encounter Details Date Type Department Care Team (Late Contact Info) Description 05/18/2006 Outpatient Historical [facility] Medicine Christine Piña [address] [employer] [address] [place] [address] [place] [address] [address] [place] [address] Social History Tobacco Use Types Packs/Day Years Used Date Smoking Tobacco: Never Assessed Comments Unknown Sex and Gender Information Value Date Recorded Sex Assigned at Not on file Legal Sex Female 3:07 AM SCALE SHOOTER Gender Identity Not on file Sexual Orientation Not on file documented as of this encounter Last Filed Vital Signs Vital Sign Reading Time Taken Comments Blood Pressure 108/74 05/18/2006 10:15 AM CDT Pulse 70 05/18/2006 10:15 AM CDT Temperature - - Respiratory Rate - - Oxygen Saturation - - Inhaled Oxygen Concentration - - Weight 68.5 kg (151 lb) 05/18/2006 10:15 AM CDT Height - - Body Mass Index - - documented in this encounter Plan of Treatment Upcoming Encounters Date Type Department Care Team (Late Contact Info) Description 10/15/2024 8:00 AM CDT Appointment [facility] Medicine Christine Wang [address] [address] [place] [address] [place] [address] [employer] [address] [place] [address] 12/07/2024 8:00 AM CDT Procedure visit [facility] Neurology [address] [facility] [address] [place] [address] Shashank Moore MD [address] [facility] [address] [place] [address] 01/17/2025 8:20 AM SCALE SHOOTER Appointment [facility] Medicine Christine Piña [address] [facility] [address] [place] [address] [place] [address] [facility]. [address] [place] [address] 03/08/2025 8:00 AM SCALE SHOOTER Procedure visit [facility] Neurology [address] [facility] [address] [place] [address] Shashank Moore MD [address] [facility] [address] [place] [address] documented as of this encounter Visit Diagnoses Not on filedocumented in this encounter Additional Health Concerns Infection Onset Date Last Indicated Resolved Time R/O COVID-19 11/06/2019 11/06/2019 11/06/2019 8:56 AM CDT R/O COVID-19 12/29/2020 12/29/2020 12/29/2020 1:27 PM SCALE SHOOTER COVID-19 12/29/2020 12/29/2020 01/18/2021 1:16 AM SCALE SHOOTER documented as of this encounter Care Teams Research Manufacturing Operator Relationship Specialty [place] [address] [facility] [address] [place] [address] PCP - General 07/29/00 documented as of this encounter
--- OUTSIDE RECORDS SUMMARY | 2024-09-28 15:22 | XMS_ITS | Encounter Summary ---
Author Organization [facility] Address [address] [place] [address] Care Team Providers Care Data Entry Manager Name Role Phone Uriel Mott MD Primary Care Provider [phone] Encounter Details Date Type Department Care Team (Late st Contact Info) Description 06/03/2005 Outpatient Historical [facility] Brian Frias MD [address] [place] [address] Nontoxic Uninodular Goiter (Primary Dx) Social History Tobacco Use Types Packs/Day Years Used Date Smoking Tobacco: Never Assessed Comments Unknown Sex and Gender Information Value Date Recorded Sex Assigned at Not on file Legal Sex Female 3:07 AM COMPLETIONS MANAGER Gender Identity Not on file Sexual Orientation Not on file documented as of this encounter Plan of Treatment Upcoming Encounters Date Type Department Care Team (Late st Contact Info) Description 10/15/2024 8:00 AM CDT Appointment [facility] Family Medicine Christine Piña [address] [facility] [address] [place] [address] [place] [address] [facility] [place] [address] 12/07/2024 8:00 AM CDT Procedure visit [facility] Neurology [address] [facility] [address] [place] [address] Shashank Moore MD [address] [facility] [address] [place] [address] 01/17/2025 8:20 AM COMPLETIONS MANAGER Appointment [facility] Medicine Christine Piña [address] [facility] [address] [place] [address] [place] [address] [facility] [place] [address] 03/08/2025 8:00 AM COMPLETIONS MANAGER Procedure visit [facility] Neurology [address] [facility] [place] [address] Shashank Moore MD [address] [facility] [address] [place] [address] documented as of this encounter Visit Diagnoses Diagnosis Nontoxic uninodular goiter- Primary documented in this encounter Additional Health Concerns Infection Onset Date Last Indicated Resolved Time R/O COVID-19 11/06/2019 11/06/2019 11/06/2019 8:56 AM CDT R/O COVID-19 12/29/2020 12/29/2020 12/29/2020 1:27 PM COMPLETIONS MANAGER COVID-19 12/29/2020 12/29/2020 01/18/2021 1:16 AM COMPLETIONS MANAGER documented as of this encounter Care Teams Data Entry Manager Relationship Specialty [place] [address] [facility] [place] [address] PCP - General 07/29/00 documented as of this encounter
--- OUTSIDE RECORDS SUMMARY | 2024-09-28 15:22 | XMS_ITS | Encounter Summary ---
Author Organization [facility] Address [address] [place] [address] Care Team Providers Care Utilization Management Manager Name Role Phone Uriel Mott MD Primary Care Provider [phone] Encounter Details Date Type Department Care Team (Late Contact Info) Description 08/24/2005 Outpatient Historical [facility] Medicine [place] Wang [address] [place] [address] [place] [address] [address] [place] [address] Social History Tobacco Use Types Packs/Day Years Used Date Smoking Tobacco: Never Assessed Comments Unknown Sex and Gender Information Value Date Recorded Sex Assigned at Not on file Legal Sex Female 3:07 AM ACCESS SERVICES REPRESENTATIVE Gender Identity Not on file Sexual Orientation Not on file documented as of this encounter Last Filed Vital Signs Vital Sign Reading Time Taken Comments Blood Pressure 112/74 08/24/2005 9:00 AM CDT Pulse 98 08/24/2005 9:00 AM CDT Temperature - - Respiratory Rate - - Oxygen Saturation - - Inhaled Oxygen Concentration - - Weight 68.5 kg (151 lb) 08/24/2005 9:00 AM CDT Height - - Body Mass Index - - documented in this encounter Plan of Treatment Upcoming Encounters Date Type Department Care Team (Late st Contact Info) Description 10/15/2024 8:00 AM CDT Appointment [facility] Medicine [place] Wang [address] [place] [address] [place] [address] [address] [place] [address] 12/07/2024 8:00 AM CDT Procedure visit [facility] Neurology [address] [facility] [address] [place] [address] Shashank Moore MD [address] [facility] [address] [place] [address] 01/17/2025 8:20 AM ACCESS SERVICES REPRESENTATIVE Appointment [facility] Medicine Christine Piña [address] [facility] [address] [place] [address] [place] [address] [facility] [place] [address] 03/08/2025 8:00 AM ACCESS SERVICES REPRESENTATIVE Procedure visit [facility] Neurology [address] [facility] [address] [place] [address] Shashank Moore MD [address] [facility] [address] [place] [address] documented as of this encounter Visit Diagnoses Not on filedocumented in this encounter Additional Health Concerns Infection Onset Date Last Indicated Resolved Time R/O COVID-19 11/06/2019 11/06/2019 11/06/2019 8:56 AM CDT R/O COVID-19 12/29/2020 12/29/2020 12/29/2020 1:27 PM ACCESS SERVICES REPRESENTATIVE COVID-19 12/29/2020 12/29/2020 01/18/2021 1:16 AM ACCESS SERVICES REPRESENTATIVE documented as of this encounter Care Teams Utilization Management Manager Relationship Specialty [place] [address] [facility] [address] [place] [address] PCP - General 07/29/00 documented as of this encounter
--- OUTSIDE RECORDS SUMMARY | 2024-09-28 15:22 | XMS_ITS | Encounter Summary ---
Author Organization [facility] Address [address] [place] [address] Care Team Providers Care Lumber Handler Name Role Phone Uriel Mott MD Primary Care Provider [phone] Encounter Details Date Type Department Care Team (Late st Contact Info) Description 06/02/2006 Orders Only [facility] Medicine Christine Wang [address] [facility] [address] [place] [address] [place] [address] [facility] [place] [address] Social History Tobacco Use Types Packs/Day Years Used Date Smoking Tobacco: Never Assessed Comments Unknown Sex and Gender Information Value Date Recorded Sex Assigned at Not on file Legal Sex Female 3:07 AM ENERGY CONSERVATION DIRECTOR Gender Identity Not on file Sexual Orientation Not on file documented as of this encounter Plan of Treatment Upcoming Encounters Date Type Department Care Team (Late st Contact Info) Description 10/15/2024 8:00 AM CDT Appointment [facility] Christine Wang [address] [facility] [address] [place] [address] [place] [address] [facility] [place] [address] 12/07/2024 8:00 AM CDT Procedure visit [facility] Neurology [address] [facility] [address] [place] [address] Shashank Moore MD [address] [facility] [address] [place] [address] 01/17/2025 8:20 AM ENERGY CONSERVATION DIRECTOR Appointment [facility] Family Medicine Christine Piña [address] [facility] [address] [place] [address] [place] [address] [facility] [place] [address] 03/08/2025 8:00 AM ENERGY CONSERVATION DIRECTOR Procedure visit [facility] [address] [facility] [address] [place] [address] Shashank Moore MD [address] [facility] [address] [place] [address] documented as of this encounter Visit Diagnoses Not on filedocumented in this encounter Additional Health Concerns Infection Onset Date Last Indicated Resolved Time R/O COVID-19 11/06/2019 11/06/2019 11/06/2019 8:56 AM CDT R/O COVID-19 12/29/2020 12/29/2020 12/29/2020 1:27 PM ENERGY CONSERVATION DIRECTOR COVID-19 12/29/2020 12/29/2020 01/18/2021 1:16 AM ENERGY CONSERVATION DIRECTOR documented as of this encounter Care Teams Lumber Handler Relationship Specialty [place] [address] [facility] [address] [place] [address] PCP - General 07/29/00 documented as of this encounter
--- OUTSIDE RECORDS SUMMARY | 2024-09-28 15:22 | XMS_ITS | Encounter Summary ---
Author Organization [facility] Address [address] [place] [address] Care Team Providers Care Retail Marketing Manager Name Role Phone Uriel Mott MD Primary Care Provider [phone] Encounter Details Date Type Department Care Team (Late Contact Info) Description 07/06/2006 Outpatient Historical [facility] Christine Piña [address] [facility] [address] [place] [address] [place] [address] [place] [address] Social History Tobacco Use Types Packs/Day Years Used Date Smoking Tobacco: Never Assessed Comments Unknown Sex and Gender Information Value Date Recorded Sex Assigned at Not on file Legal Sex Female 3:07 AM SATELLITE DISH INSTALLER Gender Identity Not on file Sexual Orientation Not on file documented as of this encounter Last Filed Vital Signs Vital Sign Reading Time Taken Comments Blood Pressure 116/72 07/06/2006 10:15 AM CDT Pulse 64 07/06/2006 10:15 AM CDT Temperature - - Respiratory Rate - - Oxygen Saturation - - Inhaled Oxygen Concentration - - Weight 69.4 kg (153 lb) 07/06/2006 10:15 AM CDT Height - - Body Mass Index - - documented in this encounter Plan of Treatment Upcoming Encounters Date Type Department Care Team (Late st Contact Info) Description 10/15/2024 8:00 AM CDT Appointment [facility] Christine Piña [address] [facility] [address] [place] [address] [place] [address] [employer] [place] [address] 12/07/2024 8:00 AM CDT Procedure visit [facility] Neurology [address] [facility] [address] [place] [address] Shashank Moore MD [address] [facility] [address] [place] [address] 01/17/2025 8:20 AM SATELLITE DISH INSTALLER Appointment [facility] Medicine Christine Piña [address] [facility] [address] [place] [address] [place] [address] [facility] [place] [address] 03/08/2025 8:00 AM SATELLITE DISH INSTALLER Procedure visit [facility] Neurology [address] [facility] [address] [place] [address] Shashank Moore MD [address] [address] documented as of this encounter Visit Diagnoses Not on filedocumented in this encounter Additional Health Concerns Infection Onset Date Last Indicated Resolved Time R/O COVID-19 11/06/2019 11/06/2019 11/06/2019 8:56 AM CDT R/O COVID-19 12/29/2020 12/29/2020 12/29/2020 1:27 PM SATELLITE DISH INSTALLER COVID-19 12/29/2020 12/29/2020 01/18/2021 1:16 AM SATELLITE DISH INSTALLER documented as of this encounter Care Teams Retail Marketing Manager Relationship Specialty [place] [address] [facility]. [address] [place] [address] PCP - General 07/29/00 documented as of this encounter
--- OUTSIDE RECORDS SUMMARY | 2024-09-28 15:22 | XMS_ITS | Encounter Summary ---
Author Organization [facility] Address [address] [place] [address] Care Team Providers Care Manager Fitness Name Role Phone Uriel Mott MD Primary Care Provider [phone] Encounter Details Date Type Department Care Team (Late st Contact Info) Description 12/27/2006 Outpatient Historical [facility] Medicine Christine Piña [address] [facility] [address] [place] [address] [place] [address] [address] Social History Tobacco Use Types Packs/Day Years Used Date Smoking Tobacco: Never Assessed Comments Unknown Sex and Gender Information Value Date Recorded Sex Assigned at Not on file Legal Sex Female 3:07 AM HOUSEKEEPER/LAUNDRY ASSISTANT Gender Identity Not on file Sexual Orientation Not on file documented as of this encounter Plan of Treatment Upcoming Encounters Date Type Department Care Team (Late st Contact Info) Description 10/15/2024 8:00 AM CDT Appointment [facility] Christine Wang [address] [facility] [address] [place] [address] [place] [address] [facility] [place] [address] 12/07/2024 8:00 AM CDT Procedure visit [facility] Neurology [address] [facility] [address] [place] [address] Shashank Moore MD [address] [facility] [address] [place] [address] 01/17/2025 8:20 AM HOUSEKEEPER/LAUNDRY ASSISTANT Appointment [facility] Medicine Christine Piña [address] [facility] [address] [place] [address] [place] [address] [facility] [address] [place] [address] 03/08/2025 8:00 AM HOUSEKEEPER/LAUNDRY ASSISTANT Procedure visit [facility] Neurology [address] [facility] [address] [place] [address] Shashank Moore MD [address] [address] documented as of this encounter Visit Diagnoses Not on filedocumented in this encounter Additional Health Concerns Infection Onset Date Last Indicated Resolved Time R/O COVID-19 11/06/2019 11/06/2019 11/06/2019 8:56 AM CDT R/O COVID-19 12/29/2020 12/29/2020 12/29/2020 1:27 PM HOUSEKEEPER/LAUNDRY ASSISTANT COVID-19 12/29/2020 12/29/2020 01/18/2021 1:16 AM HOUSEKEEPER/LAUNDRY ASSISTANT documented as of this encounter Care Teams Manager Fitness Relationship Specialty [place] [address] [facility] [address] [place] [address] PCP - General 07/29/00 documented as of this encounter
--- OUTSIDE RECORDS SUMMARY | 2024-09-28 15:22 | XMS_ITS | Encounter Summary ---
Author Organization [facility] Address [address] [place] [address] Care Team Providers Care Facility Attendant Name Role Phone Uriel Mott MD Primary Care Provider [phone] Encounter Details Date Type Department Care Team (Late st Contact Info) Description 05/04/2007 Outpatient Historical [facility] Medicine [place] Wang [address] [address] Ivana Quintana MD NO ADDRESS ON FILE Social History Tobacco Use Types Packs/Day Years Used Date Smoking Tobacco: Never Assessed Comments Unknown Sex and Gender Information Value Date Recorded Sex Assigned at Not on file Legal Sex Female 3:07 AM MARKETING OPERATIONS INTERN Gender Identity Not on file Sexual Orientation Not on file documented as of this encounter Plan of Treatment Upcoming Encounters Date Type Department Care Team (Late st Contact Info) Description 10/15/2024 8:00 AM CDT Appointment [facility] Christine Piña [address] [facility] [address] [place] [address] [place] [address] [facility] [place] [address] 12/07/2024 8:00 AM CDT Procedure visit [facility] Neurology [address] [facility] [address] [place] [address] Shashank Moore MD [address] [facility] [address] [place] [address] 01/17/2025 8:20 AM MARKETING OPERATIONS INTERN Appointment [place] [address] [facility] [address] [place] [address] [place] [address] [facility] [place] [address] 03/08/2025 8:00 AM MARKETING OPERATIONS INTERN Procedure visit [facility] Neurology [address] [facility] [address] [place] [address] Shashank Moore MD [address] [facility] [address] [place] [address] documented as of this encounter Visit Diagnoses Not on filedocumented in this encounter Additional Health Concerns Infection Onset Date Last Indicated Resolved Time R/O COVID-19 11/06/2019 11/06/2019 11/06/2019 8:56 AM CDT R/O COVID-19 12/29/2020 12/29/2020 12/29/2020 1:27 PM MARKETING OPERATIONS INTERN COVID-19 12/29/2020 12/29/2020 01/18/2021 1:16 AM MARKETING OPERATIONS INTERN documented as of this encounter Care Teams Facility Attendant Relationship Specialty [place] [address] [facility] [place] [address] PCP - General 07/29/00 documented as of this encounter
--- OUTSIDE RECORDS SUMMARY | 2024-09-28 15:22 | XMS_ITS | Encounter Summary ---
Author Organization [facility] Address [address] [place] [address] Care Team Providers Care Pathology Assistant Name Role Phone Uriel Mott MD Primary Care Provider [phone] Encounter Details Date Type Department Care Team (Late st Contact Info) Description 12/27/2006 Outpatient Historical [facility] Medicine Christine Piña [address] [facility] [address] [place] [address] [place] [address] [address] Social History Tobacco Use Types Packs/Day Years Used Date Smoking Tobacco: Never Assessed Comments Unknown Sex and Gender Information Value Date Recorded Sex Assigned at Not on file Legal Sex Female 3:07 AM CERTIFIED ACTIVITIES DIRECTOR Gender Identity Not on file Sexual Orientation Not on file documented as of this encounter Plan of Treatment Upcoming Encounters Date Type Department Care Team (Late st Contact Info) Description 10/15/2024 8:00 AM CDT Appointment [facility] Christine Wang [address] [place] [address] [place] [address] [place] [address] [facility]. [address] [place] [address] 12/07/2024 8:00 AM CDT Procedure visit [facility] Neurology [address] [facility] [address] [place] [address] Shashank Moore MD [address] [facility] [address] [place] [address] 01/17/2025 8:20 AM CERTIFIED ACTIVITIES DIRECTOR Appointment [facility] Medicine Christine Piña [address] [facility] [address] [place] [address] [place] [address] [facility] [address] [place] [address] 03/08/2025 8:00 AM CERTIFIED ACTIVITIES DIRECTOR Procedure visit [facility] Neurology [address] [facility] [address] [place] [address] Shashank Moore MD [address] [address] documented as of this encounter Visit Diagnoses Not on filedocumented in this encounter Additional Health Concerns Infection Onset Date Last Indicated Resolved Time R/O COVID-19 11/06/2019 11/06/2019 11/06/2019 8:56 AM CDT R/O COVID-19 12/29/2020 12/29/2020 12/29/2020 1:27 PM CERTIFIED ACTIVITIES DIRECTOR COVID-19 12/29/2020 12/29/2020 01/18/2021 1:16 AM CERTIFIED ACTIVITIES DIRECTOR documented as of this encounter Care Teams Pathology Assistant Relationship Specialty [place] [address] [facility] [address] [place] [address] PCP - General 07/29/00 documented as of this encounter
--- OUTSIDE RECORDS SUMMARY | 2024-09-28 15:22 | XMS_ITS | Encounter Summary ---
Author Organization [facility] Address [address] [place] [address] Care Team Providers Care Leadership Development Instructor Name Role Phone Uriel Mott MD Primary Care Provider [phone] Encounter Details Date Type Department Care Team (Latest Contact Info) Description 05/18/2006 [place]patient [place] [address] [facility] [place] [address] Sprain and Strain of Unspecified Site of Foot (Primary Dx) Social History Tobacco Use Types Packs/Day Years Used Date Smoking Tobacco: Never Assessed Comments Unknown Sex and Gender Information Value Date Recorded Sex Assigned at Not on file Legal Sex Female 3:07 AM SKIP LOAD DRIVER Gender Identity Not on file Sexual Orientation Not on file documented as of this encounter Plan of Treatment Upcoming Encounters Date Type Department Care Team (Late st Contact Info) Description 10/15/2024 8:00 AM CDT Appointment [facility] Family Medicine Christine Piña [address] [facility] [address] [place] [address] [place] [address] [facility] [place] [address] 12/07/2024 8:00 AM CDT Procedure visit [facility] Neurology [address] [facility] [address] [place] [address] Shashank Moore MD [address] [facility] [address] [place] [address] 01/17/2025 8:20 AM SKIP LOAD DRIVER Appointment [facility] Medicine Christine Piña [address] [facility] [address] [place] [address] [place] [address] [facility] [place] [address] 03/08/2025 8:00 AM SKIP LOAD DRIVER Procedure visit [facility] [address] [facility] [address] [place] [address] Shashank Moore MD [address] [facility] [address] [place] [address] documented as of this encounter Visit Diagnoses Diagnosis Sprain of foot, unspecified site- Primary documented in this encounter Additional Health Concerns Infection Onset Date Last Indicated Resolved Time R/O COVID-19 11/06/2019 11/06/2019 11/06/2019 8:56 AM CDT R/O COVID-19 12/29/2020 12/29/2020 12/29/2020 1:27 PM SKIP LOAD DRIVER COVID-19 12/29/2020 12/29/2020 01/18/2021 1:16 AM SKIP LOAD DRIVER documented as of this encounter Care Teams Leadership Development Instructor Relationship Specialty [place] [address] [facility] [address] [place] [address] PCP - General 07/29/00 documented as of this encounter
--- OUTSIDE RECORDS SUMMARY | 2024-09-28 15:22 | XMS_ITS | Encounter Summary ---
Author Organization [facility] Address [address] [place] [address] Care Team Providers Care Supervisor Diagnostic Name Role Phone Uriel Mott MD Primary Care Provider [phone] Encounter Details Date Type Department Care Team (Late st Contact Info) Description 10/05/2005 Outpatient Historical [facility] Fran Corley MD [address] [facility] [address] [place] [address] Abdominal Pain, Unspecified Site (Primary Dx) Social History Tobacco Use Types Packs/Day Years Used Date Smoking Tobacco: Never Assessed Comments Unknown Sex and Gender Information Value Date Recorded Sex Assigned at Not on file Legal Sex Female 3:07 AM OLIVING MACHINE OPERATOR Gender Identity Not on file Sexual Orientation Not on file documented as of this encounter Plan of Treatment Upcoming Encounters Date Type Department Care Team (Late st Contact Info) Description 10/15/2024 8:00 AM CDT Appointment [facility] Family Medicine Christine Piña [address] [facility] [address] [place] [address] [place] [address] [facility]. [address] [place] [address] 12/07/2024 8:00 AM CDT Procedure visit [facility] Neurology [address] [facility] [address] [place] [address] Shashank Moore MD [address] [facility] [address] [place] [address] 01/17/2025 8:20 AM OLIVING MACHINE OPERATOR Appointment [facility] Medicine Christine Piña [address] [facility] [address] [place] [address] [place] [address] [facility]. [address] [place] [address] 03/08/2025 8:00 AM OLIVING MACHINE OPERATOR Procedure visit [facility] Neurology [address] [facility] [place] [address] Shashank Moore MD [address] [facility] [address] [place] [address] documented as of this encounter Visit Diagnoses Diagnosis Abdominal pain, unspecified site- Primary documented in this encounter Additional Health Concerns Infection Onset Date Last Indicated Resolved Time R/O COVID-19 11/06/2019 11/06/2019 11/06/2019 8:56 AM CDT R/O COVID-19 12/29/2020 12/29/2020 12/29/2020 1:27 PM OLIVING MACHINE OPERATOR COVID-19 12/29/2020 12/29/2020 01/18/2021 1:16 AM OLIVING MACHINE OPERATOR documented as of this encounter Care Teams Supervisor Diagnostic Relationship Specialty [place] [address] [facility]. [address] [place] [address] PCP - General 07/29/00 documented as of this encounter
--- OUTSIDE RECORDS SUMMARY | 2024-09-28 15:22 | XMS_ITS | Encounter Summary ---
Author Organization [facility] Address [address] [place] [address] Care Team Providers Care Newspaper Clipper Name Role Phone Uriel Mott MD Primary Care Provider [phone] Encounter Details Date Type Department Care Team (Late Contact Info) Description 01/05/2007 Outpatient Historical [facility] Medicine Christine Wang [address] [facility] [address] [place] [address] [place] [address] [facility]. [address] [place] [address] Social History Tobacco Use Types Packs/Day Years Used Date Smoking Tobacco: Never Assessed Comments Unknown Sex and Gender Information Value Date Recorded Sex Assigned at Not on file Legal Sex Female 3:07 AM ENGINEERING PROFESSOR Gender Identity Not on file Sexual Orientation Not on file documented as of this encounter Plan of Treatment Upcoming Encounters Date Type Department Care Team (Late st Contact Info) Description 10/15/2024 8:00 AM CDT Appointment [facility] Medicine Christine Wang [address] [facility] [address] [place] [address] [place] [address] [facility] [place] [address] 12/07/2024 8:00 AM CDT Procedure visit [facility] Neurology [address] [facility] [address] [place] [address] Shashank Moore MD [address] [facility] [address] [place] [address] 01/17/2025 8:20 AM ENGINEERING PROFESSOR Appointment [facility] Family Medicine Christine Piña [address] [facility] [address] [place] [address] [place] [address] [facility] [place] [address] 03/08/2025 8:00 AM ENGINEERING PROFESSOR Procedure visit [facility] [address] [facility] [address] [place] [address] Shashank Moore MD [address] [facility] [address] [place] [address] documented as of this encounter Visit Diagnoses Not on filedocumented in this encounter Additional Health Concerns Infection Onset Date Last Indicated Resolved Time R/O COVID-19 11/06/2019 11/06/2019 11/06/2019 8:56 AM CDT R/O COVID-19 12/29/2020 12/29/2020 12/29/2020 1:27 PM ENGINEERING PROFESSOR COVID-19 12/29/2020 12/29/2020 01/18/2021 1:16 AM ENGINEERING PROFESSOR documented as of this encounter Care Teams Newspaper Clipper Relationship Specialty [place] [address] [facility] [address] [place] [address] PCP - General 07/29/00 documented as of this encounter
--- OUTSIDE RECORDS SUMMARY | 2024-09-28 15:22 | XMS_ITS | Encounter Summary ---
Author Organization [facility] Address 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 Necrosis (Primary Dx) Social History Tobacco Use Types Packs/Day Years Used Date Smoking Tobacco: Never Assessed Comments Unknown Sex and Gender Information Value Date Recorded Sex Assigned at Not on file Legal Sex Female 3:07 AM CEMENT MASON MAINTENANCE Gender Identity Not on file Sexual Orientation Not on file documented as of this encounter Plan of Treatment Upcoming Encounters Date Type Department Care Team (Late st Contact Info) Description 10/15/2024 8:00 AM CDT Appointment [facility] Medicine [place] Wang [address] [place] [facility] [address] [place] [address] [place] [address] [facility] [place] [address] 12/07/2024 8:00 AM CDT Procedure visit [facility] Neurology [address] [facility] [address] [place] [address] Shashank Moore MD [address] [place] [place] [address] 01/17/2025 8:20 AM CEMENT MASON MAINTENANCE Appointment [facility] Medicine Christine Piña [address] [facility] [address] [place] [address] [place] [address] [facility] [address] 03/08/2025 8:00 AM CEMENT MASON MAINTENANCE Procedure visit [facility] [address] [facility] [address] [place] [address] Shashank Moore MD [address] [place] [address] documented as of this encounter Visit Diagnoses Diagnosis Acute pyelonephritis without lesion of renal medullary necrosis- Primary documented in this encounter Additional Health Concerns Infection Onset Date Last Indicated Resolved Time R/O COVID-19 11/06/2019 11/06/2019 11/06/2019 8:56 AM CDT R/O COVID-19 12/29/2020 12/29/2020 12/29/2020 1:27 PM CEMENT MASON MAINTENANCE COVID-19 12/29/2020 12/29/2020 01/18/2021 1:16 AM CEMENT MASON MAINTENANCE documented as of this encounter Care Teams Standpipe Tender Relationship Specialty [place] [address] [facility] [address] [place] [address] PCP - General 07/29/00 documented as of this encounter
--- OUTSIDE RECORDS SUMMARY | 2024-09-28 15:22 | XMS_ITS | Encounter Summary ---
Author Organization [facility] Address [address] [place] [address] Care Team Providers Care Openstack Cloud Consulting Architect Name Role Phone Uriel Mott MD Primary Care Provider [phone] Encounter Details Date Type Department Care Team (Late Contact Info) Description 01/05/2007 Outpatient Historical [facility] Medicine Christine Wang [address] [facility] [address] [place] [address] [place] [address] [address] [facility]. [address] [place] [address] Social History Tobacco Use Types Packs/Day Years Used Date Smoking Tobacco: Never Assessed Comments Unknown Sex and Gender Information Value Date Recorded Sex Assigned at Not on file Legal Sex Female 3:07 AM MERCHANDISER Gender Identity Not on file Sexual Orientation Not on file documented as of this encounter Plan of Treatment Upcoming Encounters Date Type Department Care Team (Late st Contact Info) Description 10/15/2024 8:00 AM CDT Appointment [facility] Medicine Christine Wang [address] [facility] [address] [place] [address] [place] [address] [facility]. [address] [place] [address] 12/07/2024 8:00 AM CDT Procedure [facility] Neurology [address] [facility] [address] [place] [address] Shashank Moore MD [address] [facility] [address] [place] [address] 01/17/2025 8:20 AM MERCHANDISER Appointment [facility] Family Medicine Christine Piña [address] [facility] [address] [place] [address] [place] [address] [facility]. [address] [place] [address] 03/08/2025 8:00 AM MERCHANDISER Procedure visit [facility] [address] [facility] [address] [place] [address] Shashank Moore MD [address] [facility] [address] [place] [address] documented as of this encounter Visit Diagnoses Not on filedocumented in this encounter Additional Health Concerns Infection Onset Date Last Indicated Resolved Time R/O COVID-19 11/06/2019 11/06/2019 11/06/2019 8:56 AM CDT R/O COVID-19 12/29/2020 12/29/2020 12/29/2020 1:27 PM MERCHANDISER COVID-19 12/29/2020 12/29/2020 01/18/2021 1:16 AM MERCHANDISER documented as of this encounter Care Teams Openstack Cloud Consulting Architect Relationship Specialty [place] [address] [facility] [address] [place] [address] PCP - General 07/29/00 documented as of this encounter
--- OUTSIDE RECORDS SUMMARY | 2024-09-28 15:22 | XMS_ITS | Encounter Summary ---
Author Organization [facility] Address [address] [facility] Attn: Epic Prelude ADT [place] [address] Care Team Providers Care Rollway Man Name Role Phone Uriel Mott MD Primary Care Provider [phone] Encounter Details Date Type Department Care Team (Latest Contact Info) Description 10/25/2006 Orders Only Mesha Escobar MD NO ADDRESS ON FILE Social History Tobacco Use Types Packs/Day Years Used Date Smoking Tobacco: Never Assessed Comments Unknown Sex and Gender Information Value Date Recorded Sex Assigned at Not on file Legal Sex Female 3:[address] Gender Identity Not on file Sexual Orientation Not on file documented as of this encounter Progress Notes * Mesha Escobar MD - 06/23/2007 5:33 PM CDT NURSE NAME: Ngoc Arredondo Tay WEIGHT: 157lbs. BLOOD PRESSURE: 118/76. Right Arm Sitting PULSE: 68. Right Radial, Regular TEMPERATURE: 97.3??f. Tympanic ALLERGIES: Allergies are as listed. TOBACCO USE: Patient does not currently use tobacco. CHIEF COMPLAINT pt states that she is not feeling well, no energy.est.mercy HISTORY: Low grade fever off and on at night time, tired all the time, over the past 2 weeks. Tempshave been 100. No rhinorrhea, cough, abdominal pain, normal stool. Has had RA for 10 years, but this fatigue is different from usual. Weight is slowly climbing, hair is slowly falling out. Last glucose 13 months ago was normal. Family history of DM. NO symptoms of depression. Sleeping and eating as usual. Still having difficulty sleeping. Does better on Xanax qhs. ALso needs refills of xanax. UTDwith health maintenance, but due for annual prev exam. Will schedule for next month with primary/Anthonyma. ROS: GENERAL: See HISTORY OF PRESENT ILLNESS. ENT: No hearing loss, epistaxis, hoarseness or dysphagia. No sinus congestion.. ENDOCRINE: No heat or cold intolerance, no excessive thirst.. CARDIAC: No chest pain, palpitations, orthopnea, dyspnea on exertion, or paroxysmal nocturnal dyspnea.. RESPIRATORY: No dyspnea, cough, hemoptysis or wheezing.. : No frequency, urgency, hematuria or dysuria.. GI: No abdominal pain, nausea, vomiting, diarrhea, constipation, melena, or hematochezia.. PHYSICAL EXAMINATION: CONSTITUTIONAL: GENERAL APPEARANCE: Healthy appearing patient in no distress. dry skin, no pallor. NECK/THYROID: No enlargement, tenderness, or mass in the thyroid noted. Slight fullness appreciated. RESPIRATORY: Clear to auscultation and percussion. Normal respiratory effort. CARDIOVASCULAR: CARDIAC: Regular rhythm. No murmurs, rubs, or gallops. ASSESSMENT/PLAN: 300.02-ANXIETY DISORDER MEDICATIONS: ALPRAZOLAM ORAL TABLET 1 MG, 1 Every Day At Bedtime, As Needed, 30 Dispensed, status: CONTINUED, 10/25/2006. 780.79-FATIGUE Likely 2/2 viral illness vs thyroid vs RA. These discussed with pt. to return withinthe month for prev exam and continued refills on xanax. LAB ORDERS: Order number: [id number] Test Ordered: TSH (REFLEX FREE T4/FREE T3) 1727 Order number: [id number] Test Ordered: GLUCOSE LEVEL, FASTING 1098 RETURN VISIT: Patient instructed to return in 1 month. At next visit will do an annual exam. 10/25/06 10:21 a Electronically signed by Mesha Escobar MD. TEACHING PHYSICIAN COMMENTS: I have reviewed the resident's note and I agree with the resident's evaluation and plan.JLIDA Electronically Signed by: Baltazar Munoz MD on Saturday, October 28, 2006 documented in this encounter Plan of Treatment Upcoming Encounters Date Type Department Care Team (Late st Contact Info) Description 10/15/2024 8:00 AM CDT Appointment [facility] [place] Wang [address] [facility] [address] [place] [address] [place] [address] [facility]. [address] [place] [address] 12/07/2024 8:00 AM CDT Procedure visit [facility] Neurology [address] [facility] [address] [place] [address] Shashank Moore MD [address] [address] 01/17/2025 8:[address] Appointment [facility] Medicine Christine Piña [address] [address] [place] [address] [facility] [address] 03/08/2025 8:[address] Procedure visit [facility] Neurology [address] [place] [address] Shashank Moore MD [address] [place] [address] documented as of this encounter Visit Diagnoses Not on filedocumented in this encounter Additional Health Concerns Infection Onset Date Last Indicated Resolved Time R/O COVID-19 11/06/2019 11/06/2019 11/06/2019 8:56 AM CDT R/O COVID-19 12/29/2020 12/29/2020 12/29/2020 1:[address]ER COVID-19 12/29/2020 12/29/2020 01/18/2021 1:[address] documented as of this encounter Care Teams Rollway Man Relationship Specialty [place] [address] [facility]. [address] [place] [address] PCP - General 07/29/00 documented as of this encounter
--- OUTSIDE RECORDS SUMMARY | 2024-09-28 15:22 | XMS_ITS | Encounter Summary ---
Author Organization [facility] Address [address] [place] [address] Care Team Providers Care Body Builder Name Role Phone Uriel Mott MD Primary Care Provider [phone] Encounter Details Date Type Department Care Team (Late st Contact Info) Description 05/04/2007 Outpatient Historical [facility] [address] [address] [facility] [address] [place] [address] Joby Oneal, DO [address] [place] [address] Social History Tobacco Use Types Packs/Day Years Used Date Smoking Tobacco: Never Assessed Comments Unknown Sex and Gender Information Value Date Recorded Sex Assigned at Not on file Legal Sex Female 3:07 AM FUNERAL CAR DRIVER Gender Identity Not on file Sexual Orientation Not on file documented as of this encounter Last Filed Vital Signs Vital Sign Reading Time Taken Comments Blood Pressure 110/70 05/04/2007 1:30 PM CDT Pulse 66 05/04/2007 1:30 PM CDT Temperature 36.3 C (97.3 F) 05/04/2007 1:30 PM CDT Respiratory Rate - - Oxygen Saturation - - Inhaled Oxygen Concentration - - Weight 75.8 kg (167 lb) 05/04/2007 1:30 PM CDT Height - - Body Mass Index 31.55 11/30/2006 8:30 AM CDT documented in this encounter Plan of Treatment Upcoming Encounters Date Type Department Care Team (Late st Contact Info) Description 10/15/2024 8:00 AM CDT Appointment [facility] [address] [address] [facility] [address] [place] [address] [place] [address] [facility] [place] [address] 12/07/2024 8:00 AM CDT Procedure visit [facility] Neurology [address] [facility] [address] [place] [address] Shashank Moore MD [address] [facility] [address] [place] [address] 01/17/2025 8:20 AM FUNERAL CAR DRIVER Appointment [facility] Medicine Christine Piña [address] [facility] [address] [place] [address] [place] [address] [facility] [place] [address] 03/08/2025 8:00 AM FUNERAL CAR DRIVER Procedure visit [facility] [address] [facility] [address] [place] [address] Shashank Moore MD [address] [address] documented as of this encounter Visit Diagnoses Not on filedocumented in this encounter Additional Health Concerns Infection Onset Date Last Indicated Resolved Time R/O COVID-19 11/06/2019 11/06/2019 11/06/2019 8:56 AM CDT R/O COVID-19 12/29/2020 12/29/2020 12/29/2020 1:27 PM FUNERAL CAR DRIVER COVID-19 12/29/2020 12/29/2020 01/18/2021 1:16 AM FUNERAL CAR DRIVER documented as of this encounter Care Teams Body Builder Relationship Specialty [place] [address] [facility] [place] [address] PCP - General 07/29/00 documented as of this encounter
--- OUTSIDE RECORDS SUMMARY | 2024-09-28 15:22 | XMS_ITS | Encounter Summary ---
Author Organization [facility] Address [address] [place] [address] Care Team Providers Care Chargeback Specialist Name Role Phone Uriel Mtot MD Primary Care Provider [phone] Encounter Details Date Type Department Care Team (Late Contact Info) Description 04/26/2007 Outpatient Historical [facility] Medicine Christine Piña [address] [facility] [address] [place] [address] [place] [address] [place] [address] Social History Tobacco Use Types Packs/Day Years Used Date Smoking Tobacco: Never Assessed Comments Unknown Sex and Gender Information Value Date Recorded Sex Assigned at Not on file Legal Sex Female 3:07 AM CABIN CREW Gender Identity Not on file Sexual Orientation Not on file documented as of this encounter Plan of Treatment Upcoming Encounters Date Type Department Care Team (Late st Contact Info) Description 10/15/2024 8:00 AM CDT Appointment [facility] Christine Piña [address] [facility] [address] [place] [address] [place] [address] [facility] [place] [address] 12/07/2024 8:00 AM CDT Procedure visit [facility] Neurology [address] [facility] [address] [place] [address] Shashank Moore MD [address] [facility] [address] [place] [address] 01/17/2025 8:20 AM CABIN CREW Appointment [facility] Medicine Christine Piña [address] [facility] [address] [place] [address] [place] [address] [facility] [place] [address] 03/08/2025 8:00 AM CABIN CREW Procedure visit [facility] Neurology [address] [facility] [place] [address] Shashank Moore MD [address] [facility] [address] [place] [address] documented as of this encounter Visit Diagnoses Not on filedocumented in this encounter Additional Health Concerns Infection Onset Date Last Indicated Resolved Time R/O COVID-19 11/06/2019 11/06/2019 11/06/2019 8:56 AM CDT R/O COVID-19 12/29/2020 12/29/2020 12/29/2020 1:27 PM CABIN CREW COVID-19 12/29/2020 12/29/2020 01/18/2021 1:16 AM CABIN CREW documented as of this encounter Care Teams Chargeback Specialist Relationship Specialty [place] [address] [facility] [place] [address] PCP - General 07/29/00 documented as of this encounter
--- OUTSIDE RECORDS SUMMARY | 2024-09-28 15:22 | XMS_ITS | Encounter Summary ---
Author Organization [facility] Address [address] [place] [address] Care Team Providers Care Slot Tag Inserter Name Role Phone Uriel Mott MD Primary Care Provider [phone] Encounter Details Date Type Department Care Team (Latest Contact Info) Description 10/01/2005 Outpatient Historical [facility] [place] [address] [address] [place] [address] Special Screening for Osteoporosis (Primary Dx) Social History Tobacco Use Types Packs/Day Years Used Date Smoking Tobacco: Never Assessed Comments Unknown Sex and Gender Information Value Date Recorded Sex Assigned at Not on file Legal Sex Female 3:07 AM GENERAL MANAGER FARM Gender Identity Not on file Sexual Orientation Not on file documented as of this encounter Plan of Treatment Upcoming Encounters Date Type Department Care Team (Late st Contact Info) Description 10/15/2024 8:00 AM CDT Appointment [facility] Family Medicine Christine Piña [address] [address] [facility] [address] [place] [address] [place] [address] [address] [facility]. [address] [place] [address] 12/07/2024 8:00 AM CDT Procedure visit [facility] Neurology [address] [facility] [address] [place] [address] Shashank Moore MD [address] [facility] [address] [place] [address] 01/17/2025 8:20 AM GENERAL MANAGER FARM Appointment [facility] Medicine Christine Piña [address] [facility] [address] [place] [address] [place] [address] [facility] [place] [address] 03/08/2025 8:00 AM GENERAL MANAGER FARM Procedure visit [facility] Neurology [address] [facility] [place] [address] Shashank Moore MD [address] [facility] [address] [place] [address] documented as of this encounter Visit Diagnoses Diagnosis Special screening for osteoporosis- Primary documented in this encounter Additional Health Concerns Infection Onset Date Last Indicated Resolved Time R/O COVID-19 11/06/2019 11/06/2019 11/06/2019 8:56 AM CDT R/O COVID-19 12/29/2020 12/29/2020 12/29/2020 1:27 PM GENERAL MANAGER FARM COVID-19 12/29/2020 12/29/2020 01/18/2021 1:16 AM GENERAL MANAGER FARM documented as of this encounter Care Teams Slot Tag Inserter Relationship Specialty [place] [address] [facility] [place] [address] PCP - General 07/29/00 documented as of this encounter
--- OUTSIDE RECORDS SUMMARY | 2024-09-28 15:22 | XMS_ITS | Encounter Summary ---
Author Organization [facility] Address [address] [facility] Attn: Epic Prelude ADT [place] [address] Care Team Providers Care Optical Instrument Inspector Name Role Phone Uriel Mtot MD Primary Care Provider [phone] Encounter Details Date Type Department Care Team (Latest Contact Info) Description 10/13/2005 Orders Only Jeny Berman MD [address] [place] [phone] Social History Tobacco Use Types Packs/Day Years Used Date Smoking Tobacco: Never Assessed Comments Unknown Sex and Gender Information Value Date Recorded Sex Assigned at Not on file Legal Sex Female 3:07 AM SEASONAL RETAIL MERCHANDISER Gender Identity Not on file Sexual Orientation Not on file documented as of this encounter Progress Notes * Interface, Hussain Bass Conv Transcriptions - 11/21/2007 5:23 PM CDT NURSE NAME: Larry Lyon PULSE: 72. Right Radial, Regular TEMPERATURE: 97.2??f. Oral WEIGHT: 149lbs. ALLERGIES: Allergies are as listed. CHIEF COMPLAINT Patient complains of earaches, sore throat, sneezing, fever. drainage down throat. est/mercy HISTORY: Pt has had recurrent facial pain, right temporal headaches accompanied with nausea that cause her to go to bed. She has some throat irritation, drainage, subjective sense of low grade temp elevation no chills. Sneezing and rhinorrhea. Has seen neurology in the past for her migraines She takes 25 mg of topamax each day. She has more than one full blown migraine per week, but has a constant low, grade dull or sinus headache everyday. Has not connected these two processes in the past. We discussed the pathophysiology migraines and the possible connection of her right sided frontal/maxillary sinus headaches (that may become bilater al). Discussed the need for maximizing her preventive therapy and prevention of triggers (more aggressive management of allergies/parasympathetic manifestations that accompany the headaches. Currently has on a very strong perfume-does not use except on occasion. Her has severe COPDthat has an allergic component. Their home is completely scent and allergen free. Patient asks the results of her bone mineral density test taken because of longstanding steroid use. Her Lspine T score is -.6 and her femoral neck T score is -1.4. The official cutoff for osteopeniais -1.5, but will consider this osteopenia because of her risk. Will draw a 25 OH vitamin D level and have pt discuss the going on a bone mineral stabilizer with Dr. Mott at her [facility]. CURRENT MEDICATION LIST: PREDNISONE ORAL TABLET 5 [...] MG, 1 Every Day ALPRAZOLAM ORAL TABLET 1 MG, 1 Every Day At Bedtime, As Needed TOPAMAX ORAL TABLET 25 MG, one tablet a day Written by neurologist Dr. Jp ORTIZTEC ORAL TABLET 10 MG, prescribed by Dr. [...] day for 7 days TOPAMAX ORAL TABLET 25 MG, one in the evening Loratadine 10mg one each day CURRENT ALLERGY LIST: CODEINE SULFA ROS: GENERAL: Normal activity and energy level, no change in appetite. No major weight gain or loss. No malaise, chills, fever, diaphoresis. ALLERGIC/IMMUNOLOGIC: See HISTORY OF PRESENT ILLNESS. ENT: See HISTORY OF PRESENT ILLNESS. RESPIRATORY: See HISTORY OF PRESENT ILLNESS. Patient's history reviewed; no changes. SOCIAL HISTORY: TOBACCO USE: Has no significant smoking history. DISCUSSED SMOKING: Nonsmoker. PHYSICAL EXAMINATION: CONSTITUTIONAL: GENERAL APPEARANCE: Healthy appearing patient in no distress. EYES: FUNDUSCOPIC EXAM: Funduscopic exam is normal. EARS, NOSE, MOUTH AND THROAT: NOSE (AND SINUS): TURBINATES SWOLLEN BILATERALLY, TURBINATES PALE BILATERALLY. No tenderness of thehead or occiput. ORAL: OROPHARYNX ERYTHEMATOUS, ERYTHEMA NOTED ON THE POSTERIOR PHARYNX. NECK/THYROID: no LAD RESPIRATORY: Normal respiratory effort, normal to auscultation. CARDIOVASCULAR: CARDIAC: Regular rhythm. No murmurs, rubs, or gallops. NEUROLOGIC: CRANIAL NERVES: client relationship executive II-XII grossly intact. DEEP TENDON REFLEXES: Deep tendon reflexes 2+/4 and symmetrical. ASSESSMENT/PLAN: 477.9-RHINITIS ALLERGIC UNSPECIFIED ASSESSMENT: Inadequate treatment. Will add singulair. Pt may continue the zyrtec. May hold off on the loratadine with the addition of singulair. MEDICATIONS: ZYRTEC ORAL TABLET 10 MG TABLETS, prescribed by Dr. Cartwright-dermatology, 1 Dispensed, status: NEW PRESCRIPTION, 10/13/2005. NASACORT AQ NASAL AEROSOL SOLUTION 55 MCG/ACT INHALERS, WRITTEN BY Dr. Cutler- ENT, 1 Dispensed, status: NEW PRESCRIPTION, 10/13/2005. SINGULAIR ORAL TABLET 10 MG TABLETS, one tablet a day, 30 Dispensed, 1 Fills, status: NEW PRESCRIPTION, 10/13/2005. 733.90-OSTEOPENIA ASSESSMENT: See HPI. To discuss vit d results with Dr. Mott-consider med for bone mineral stabilization. MEDICATIONS: CALCIUM + D ORAL TABLET 600-200 MG-UNIT TABLETS, one tablet twice a day Actually I want her to take a pill with 400iu of vitamin d. this was not available on my menu of meds to choose from, 1 Dispensed, status: NEW PRESCRIPTION, 10/13/2005. LAB ORDERS: Order number: [id number] Test Ordered: VITAMIN D 25 HYDROXY LEVEL 1405 346.91-MIGRAINE ASSESSMENT: Pt believes she has a sinus infection. She may, but does not have evidence of anything that would require treatment with abx at this time. 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 We discussed the different therapies for CDH, but is hesitant. She and I are going to go downstairs together and get her a headache diary and anappt with Dr. March in the headache center. She does agree to a brief burst of steroid and increasing her topamax-currently not at a therapeutic dose. MEDICATIONS: PREDNISONE ORAL TABLET 20 MG TABLETS, Take one tablet a day for 7 days, 7 Dispensed, status: NEW PRESCRIPTION, 10/13/2005. TOPAMAX ORAL TABLET 100 MG TABLETS, one in the evening, 30 Dispensed, status: NEW PRESCRIPTION, 10/13/2005. SPECIALTY REFERRAL: NEUROLOGY PAIN MANAGEMENT Dr. Stevenson Flores Actually referring to Dr. March in the [facility] Center at this same number. ph: [phone]. TIME PHYSICIAN WITH PATIENT: TOTAL: 35 minutes. TIME PATIENT COUNSELED/CARE COORDINATED: 25 minutes. REGARDING: Counseling. Coordination of care. Treatment options. migraine/allergies RETURN VISIT: for [facility] with Dr. Mott 10/16/05 05:43 p Electronically signed by Jeny Berman MD. TEACHING PHYSICIAN COMMENTS: I have reviewed the resident's note and I agree with the resident's evaluation and plan. Electronically Signed by: Shon Weir MD on , October 21, 2005 documented in this encounter Plan of Treatment Upcoming Encounters Date Type Department Care Team (Late st Contact Info) Description 10/15/2024 8:00 AM CDT Appointment [facility] Family Medicine Christine Piña [address] [facility] [address] [place] [address] [place] [address] [facility] [place] [address] 12/07/2024 8:00 AM CDT Procedure visit [facility] Neurology [address] [place] [address] Shashank Moore MD [address] [facility] [address] [place] [address] 01/17/2025 8:20 AM SEASONAL RETAIL MERCHANDISER Appointment [facility] Medicine Christine Piña [address] [facility] [address] [place] [address] [place] [address] [facility] [facility] [address] [place] [address] 03/08/2025 8:00 AM SEASONAL RETAIL MERCHANDISER Procedure visit [facility] [address] [facility] [address] [place] [address] Shashank Moore MD [address] [facility] [address] [place] [address] documented as of this encounter Visit Diagnoses Not on filedocumented in this encounter Additional Health Concerns Infection Onset Date Last Indicated Resolved Time R/O COVID-19 11/06/2019 11/06/2019 11/06/2019 8:56 AM CDT R/O COVID-19 12/29/2020 12/29/2020 12/29/2020 1:27 PM SEASONAL RETAIL MERCHANDISER COVID-19 12/29/2020 12/29/2020 01/18/2021 1:16 AM SEASONAL RETAIL MERCHANDISER documented as of this encounter Care Teams Optical Instrument Inspector Relationship Specialty [place] [address] [facility] [address] [place] [address] PCP - General 07/29/00 documented as of this encounter
--- OUTSIDE RECORDS SUMMARY | 2024-09-28 15:22 | XMS_ITS | Encounter Summary ---
Author Organization [facility] Address [address] [place] [address] Care Team Providers Care Hardwood Finisher Name Role Phone Uriel Mott MD Primary Care Provider [phone] Encounter Details Date Type Department Care Team (Late st Contact Info) Description 10/13/2005 Outpatient Historical [facility] [place] [address] [place] [address] [place] [address] [address] [place] [address] Social History Tobacco Use Types Packs/Day Years Used Date Smoking Tobacco: Never Assessed Comments Unknown Sex and Gender Information Value Date Recorded Sex Assigned at Not on file Legal Sex Female 3:07 AM ORGAN TUNER ELECTRONIC Gender Identity Not on file Sexual Orientation Not on file documented as of this encounter Last Filed Vital Signs Vital Sign Reading Time Taken Comments Blood Pressure - - Pulse 72 10/13/2005 11:30 AM CDT Temperature 36.2 C (97.2 F) 10/13/2005 11:30 AM CDT Respiratory Rate - - Oxygen Saturation - - Inhaled Oxygen Concentration - - Weight 67.6 kg (149 lb) 10/13/2005 11:30 AM CDT Height - - Body Mass Index - - documented in this encounter Plan of Treatment Upcoming Encounters Date Type Department Care Team (Late st Contact Info) Description 10/15/2024 8:00 AM CDT Appointment [facility] [address] [place] [address] [place] [address] [address] [place] [address] 12/07/2024 8:00 AM CDT Procedure visit [facility] Neurology [address] [facility] [address] [place] [address] Shashank Moore MD [address] [facility] [address] [place] [address] 01/17/2025 8:20 AM ORGAN TUNER ELECTRONIC [facility]ointment [facility] Medicine Christine Piña [address] [facility] [address] [place] [address] [place] [address] [facility] [address] 03/08/2025 8:00 AM ORGAN TUNER ELECTRONIC Procedure visit [facility] Neurology [address] [address] Shashank Moore MD [address] [address] documented as of this encounter Visit Diagnoses Not on filedocumented in this encounter Additional Health Concerns Infection Onset Date Last Indicated Resolved Time R/O COVID-19 11/06/2019 11/06/2019 11/06/2019 8:56 AM CDT R/O COVID-19 12/29/2020 12/29/2020 12/29/2020 1:27 PM ORGAN TUNER ELECTRONIC COVID-19 12/29/2020 12/29/2020 01/18/2021 1:16 AM ORGAN TUNER ELECTRONIC documented as of this encounter Care Teams Hardwood Finisher Relationship Specialty [place] [address] [facility] [address] [place] [address] PCP - General 07/29/00 documented as of this encounter
--- OUTSIDE RECORDS SUMMARY | 2024-09-28 15:22 | XMS_ITS | Encounter Summary ---
Author Organization [facility] Address [address] [place] [address] Care Team Providers Care Cut Off Saw Tender Metal Name Role Phone Uriel Mott MD Primary Care Provider [phone] Encounter Details Date Type Department Care Team (Latest Contact Info) Description 01/12/2008 Outpatient [place] [address] [place] [facility]. [address] [place] [address] Other Chronic Nonalcoholic Liver Disease Social History Tobacco Use Types Packs/Day Years Used Date Smoking Tobacco: Never Alcohol Use Standard Drinks/Week Comments No 0 (1 standard drink = 0.6 oz pur e alcohol) Comments No Sex and Gender Information Value Date Recorded Sex Assigned at Not on file Legal Sex Female 3:07 AM COMBATANT SWIMMER Gender Identity Not on file Sexual Orientation Not on file documented as of this encounter Plan of Treatment Upcoming Encounters Date Type Department Care Team (Late st Contact Info) Description 10/15/2024 8:00 AM CDT Appointment [facility] Family Medicine Christine Piña [address] [place] [address] [place] [address] [facility] [place] [address] 12/07/2024 8:00 AM CDT Procedure visit [facility] Neurology [address] [facility] [address] [place] [address] Shashank Moore MD [address] [facility] [address] [place] [address] 01/17/2025 8:20 AM COMBATANT SWIMMER Appointment [facility] Medicine Christine Piña [address] [facility] [address] [place] [address] [place] [address] [facility] [place] [address] 03/08/2025 8:00 AM COMBATANT SWIMMER Procedure visit [facility] [address] [facility] [address] [place] [address] Shashank Moore MD [address] [facility] [address] [place] [address] documented as of this encounter Visit Diagnoses Diagnosis Other chronic nonalcoholic liver disease documented in this encounter Additional Health Concerns Infection Onset Date Last Indicated Resolved Time R/O COVID-19 11/06/2019 11/06/2019 11/06/2019 8:56 AM CDT R/O COVID-19 12/29/2020 12/29/2020 12/29/2020 1:27 PM COMBATANT SWIMMER COVID-19 12/29/2020 12/29/2020 01/18/2021 1:16 AM COMBATANT SWIMMER documented as of this encounter Care Teams Cut Off Saw Tender Metal Relationship Specialty [place] [address] [facility] [place] [address] PCP - General 07/29/00 documented as of this encounter
--- OUTSIDE RECORDS SUMMARY | 2024-09-28 15:22 | XMS_ITS | Encounter Summary ---
Author Organization [facility] Address [address] [place] [address] Care Team Providers Care Masking Machine Operator Name Role Phone Uriel Mott MD Primary Care Provider [phone] Encounter Details Date Type Department Care Team (Late Contact Info) Description 10/13/2005 Outpatient Historical [facility] Christine Piña [address] [facility] [address] [place] [address] Jeny Berman MD [address] [place] [address] Disorder of Bone and Cartilage, Unspecified (Primary Dx) Social History Tobacco Use Types Packs/Day Years Used Date Smoking Tobacco: Never Assessed Comments Unknown Sex and Gender Information Value Date Recorded Sex Assigned at Not on file Legal Sex Female 3:07 AM FLORIST Gender Identity Not on file Sexual Orientation Not on file documented as of this encounter Plan of Treatment Upcoming Encounters Date Type Department Care Team (Late Contact Info) Description 10/15/2024 8:00 AM CDT Appointment [facility] Christine Piña [address] [place] [address] [place] [address] [place] [address] 12/07/2024 8:00 AM CDT Procedure visit [facility] Neurology [address] [facility] [address] [place] [address] Shashank Moore MD [address] [facility] [address] [place] [address] 01/17/2025 8:20 AM FLORIST Appointment [facility] Christine Piña [address] [facility] [address] [place] [address] [place] [address] [place] [address] 03/08/2025 8:00 AM FLORIST Procedure visit [facility] Neurology [address] [facility] [address] [place] [address] Shashank Moore MD [address] [facility] [address] [place] [address] documented as of this encounter Procedures Procedure Name Priority Date/Time Associated Diagnosis Comments VITAMIN D 25 HYDROXY Routine 10/13/2005 1:08 PM CDT documented in this encounter Results * VITAMIN D 25 HYDROXY (10/13/2005 1:08 PM CDT) 25-OH VIT D 28 20 - 100 ng/mL INTERFACE SYSTEM Comment: Beginning October 18, 2005 all orders for 25-Hydroxy Vitamin D (25-OH) will be performed utilizing Liquid Chromatography Tandem Mass Spectrometry (LC/MS/MS). [facility] will no longer offer 25-OH Vit D analysis by [facility]. All orders submitted for test code 680X (7142) will be performed by LC/MS/MS (test code 14207A (99790)). Lab test performed by: [facility] [address] [place] [address] ROSENDO HOFFMAN MD 10/13/2005 1:08 PM CDT us Jeny Berman MD CHEMISTRY ORDERABLES Final Re sult INTERFACE SYSTEM Refer to clinic/hospital department documented in this encounter Visit Diagnoses Diagnosis Disorder of bone and cartilage, unspecified- Primary documented in this encounter Additional Health Concerns Infection Onset Date Last Indicated Resolved Time R/O COVID-19 11/06/2019 11/06/2019 11/06/2019 8:56 AM CDT R/O COVID-19 12/29/2020 12/29/2020 12/29/2020 1:27 PM FLORIST COVID-19 12/29/2020 12/29/2020 01/18/2021 1:16 AM FLORIST documented as of this encounter Care Teams Masking Machine Operator Relationship Specialty [place] [address] [place] [address] PCP - General 07/29/00 documented as of this encounter
--- OUTSIDE RECORDS SUMMARY | 2024-09-28 15:22 | XMS_ITS | Clinical Summary ---
Author Organization [employer] [facility] Address [address] [place] [address] Care Team Providers Care Feed House Supervisor Name Role Phone Uriel Mott MD Primary Care Provider [phone] Allergies Active Allergy Reactions Criticality Noted Date Comments Adhesive Hives High 01/18/2018 Codeine Nausea and Vomiting Low 06/25/2004 Latex Hives High 07/10/2017 Methotrexate Rash Low 02/08/2014 Sulfa (Sulfonamide Antibiotics) Swelling Low 11/07 Zoledronic Akwd-Hcopchan-Araht Fever Low 11/06 Medications multivitamin (DAILY-SIMRAN) tablet Take 1 Tablet by mouth daily. Active Sodium Fluoride (PREVIDENT 5000 BOOSTER PLUS) 1.1 % Paste BRUSH every evening and spit. Do not Swallow. 100 mL 3 06/15/19 19 8:58 AM CDT 019 Active MILK THISTLE ORAL Take 175 mg by mouth daily. Active VITAMIN E ORALIndications:2 TABLETS PO BID Take 180 mg by mouth 2 times daily. Active propylene glycoL 0.6 % DropsIndications:E ACH EYE 1 Drop by Ophthalmic route 2 times daily. Active cholecalciferol, vitamin D3, 5,000 unit Take 5,000 Units by mouth daily. Taking 2 tabs to equal 10,000 units. Active vit B12/levomefolate/v it B6/B2 (CEREFOLIN ORAL) Take by mouth. Active zinc sulfate (ZINC-15 ORAL) Take by mouth. Active onabotulinumtoxinA (Botox) 100 unit Recon SolnIndications:Timmy aceves Inject up to 100 units into the affected area in the provider's office every 90 days. Discard unused portion. 1 Each 023 Active lidocaine (LIDODERM) 5 % Adhesive Patch, Medicated Apply 1 Patch to affected area every 24 hours. 30 Patch 07/28/19 23 3:10 PM CDT 023 Active naloxone (NARCAN) 4 mg/spray Faulkner, Non-Aerosol EMERGENCY USE ONLY: Administer 1 spray (4 mg) in one nostril one time. May repeat in alternating nostrils every 2-3 min until responsive or EMS arrives. 2 Each 3 023 Active azelastine (ASTELIN) 137 mcg/actuation nasal sprayIndications:S easonal allergic rhinitis due to pollen Administer 2 Sprays in each nostril 2 times daily. 30 mL 3 08/15/19 24 9:54 AM CDT 023 Active fluticasone propionate (FLONASE) 50 mcg/spray Faulkner, Suspension nasal inhalerIndications :Chronic pansinusitis Administer 2 Sprays in each nostril daily. 16 Gram 11 08/15/19 24 9:54 AM CDT 023 Active docusate sodium (COLACE) 100 mg capsule Take 1 Capsule (100 mg) by mouth 2 times daily. 023 Active alendronate (Fosamax) 70 mg tabletIndications: Age-related osteoporosis without current pathological fracture Take 1 Tablet (70 mg) by mouth every 7 days. empty stomach before other meds,with 8oz of water, stay upright 30 min. 12 Tablet 3 05/11/19 25 10:49 AM CDT 024 Active krill oil/hyaluronic/ast axanth (MEGARED JOINT CARE ORAL) Take by mouth daily. Active RED BEET ROOT-SOUR DELUNA EXT ORAL Take by mouth daily. Active zolpidem (AMBIEN) 10 mg tabletIndications: Generalized anxiety disorder Take 1 Tablet (10 mg) by mouth nightly as needed for Insomnia. 90 Tablet 09/08/19 25 8:51 AM CDT 025 Active carbidopa-levodopa (Rytary) 48.75-195 mg Capsule, Sustained ReleaseIndications :Parkinson's disease without dyskinesia or fluctuating manifestations (CMS/HCC) Take 2 Capsules by mouth 3 times daily. 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 Max Daily Amount: 6 Tablets 120 Tablet 025 Active ALPRAZolam (XANAX) 2 mg tabletIndications: Generalized anxiety disorder Take 1 Tablet (2 mg) by mouth 3 times daily as needed for Anxiety. 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 180 Tablet 1 12/09/19 24 9:26 AM CDT 024 2024 Discontinued(R eorder) carbidopa-levodopa (SINEMET) 25-100 mg tabletIndications: Parkinson's disease without dyskinesia or fluctuating manifestations (CMS/HCC),Dystonia Take 1.5 Tablets by mouth 4 times daily at 6, 10, 2 and 6 for 7 days, THEN if not enough benefit after 1 week, increase to take 2 Tablets 4 times daily. 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 Max Daily Amount: 6 Tablets 120 Tablet 08/09/19 25 11:14 AM CDT 025 2024 Discontinued(R eorder) ALPRAZolam (XANAX) 2 mg tabletIndications: Generalized anxiety disorder Take 1 Tablet (2 mg) by mouth 3 times daily as needed for Anxiety. 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 Max Daily Amount: 6 Tablets 120 Tablet 09/08/19 8:51 AM CDT 025 2024 Discontinued(R eorder) ALPRAZolam (XANAX) 2 mg tabletIndications: Generalized anxiety disorder Take 1 Tablet (2 mg) by mouth 3 times daily as needed for Anxiety. 90 Tablet 09/11/19 9:20 AM CDT 025 2024 Discontinued(R eorder) Hospital, Clinic, or Other Facility Administered Medication Ordered Dose Route Frequency Start Date End Date Status triamcinolone acetonide (KENALOG-40) injectable suspension 100 mgIndications:acute shoulder pain due to bursitis,rheumatoid arthritis 100 mg IM ONE TIME ONLY 07/17/2024 Active Active Problems Patient Care Coordination No te Formatting of this note migh t be different from the original. [facility] full review 12-29-15 ps, 03-23-16 ps HCC review 05-12-16 lk AWV 08/29/19 Problem Noted Date Diagnosed Date Opioid use agreement exists 08/20/2024 Overview (08/20/2024): Associated Diagnosis: m05.761 Current associated controlled meds: hydrocodone Pharmacy listed in agreement: Current medication agreement date signed: 08/08/24 Controlled substance agreement signed 08/13/2024 Overview (08/13/2024): Associated Diagnosis: M50.93, M05.761, M05.762 Current associated controlled meds: [facility] listed in agreement: [facility] ([phone]) Current medication agreement date signed: 07/05/23 Associated Diagnosis: F41.1 Current associated controlled meds: Xanax Pharmacy listed in agreement: [facility] ([phone]) Current medication agreement date signed: 08/08/24 Associated Diagnosis: F41.1 Current associated controlled meds: Ambien Pharmacy listed in agreement: [facility] ([phone]) Current medication agreement date signed: 08/08/24 Dystonia 06/08/2024 Atherosclerosis of aorta 03/28/2023 Overview (02/13/2024): 12/19/22 CTA Chest/Abdomen/Pelvis: There is atherosclerotic calcification involving the thoracic aorta and coronary arteries. 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 12/15/2020 Small vessel disease, cerebrovascular 08/07/2020 Overview (08/07/2020): On MRI - The 10-year ASCVD risk score (Herber SPIVEY Jr., et al., 2013) is: 6% Values used to calculate the score: Age: 70 years Sex: Female Is Non- : No Diabetic: No Tobacco smoker: No Systolic Blood Pressure: 120 mmHg Is BP treated: No HDL Cholesterol: 60 mg/dL Total Cholesterol: 158 mg/dL Controlled substance agreement signed 01/11/2020 Overview (05/12/2020): Associated Diagnosis: JESSIE Current associated controlled meds: XANAX Pharmacy listed in agreement: [facility] Current medication agreement date signed: 03/21/20 Status post total left knee replacement using ce ment 12/03/2018 Cataract, left 06/12/2018 Cataract, right 05/29/2018 Parkinson's disease with dys kinesia and fluctuating manifestations 03/20/2018 Spinal stenosis of lumbosacral region 03/23/2017 Cervical disc disorder of cervicothoracic region 12/20/2016 Age-related osteoporosis wit hout current pathological fracture 01/08/2013 Controlled substance agreement signed 01/08/2013 Herpetic gingivostomatitis 04/26/2007 Family history of ischemic heart disease 007 NOLEN (nonalcoholic steatohepatitis) 11/30/2006 Overview (05/30/2007): fatty liver Intractable chronic migraine without aura and without status migrainosus 10/13/2005 Family history of malignant neoplasm of gastrointestinal tract 09/20/2005 Nontoxic uninodular goiter 10/27/2004 Allergic rhinitis 11/19/2003 Generalized anxiety disorder 11/19/2003 Sinusitis, chronic 11/19/2003 Rheumatoid arthritis involvi ng both knees with positive rheumatoid factor 11/19/2003 Carpal tunnel syndrome of left wrist Resolved Problems Problem Noted Date Diagnosed Date Resolved Date Acute metabolic encephalopathy 08/15/2023 10/11/2023 Generalized muscle weakness 08/11/2023 04/12/2024 UTI (urinary tract infection) 08/11/2023 10/11/2023 Closed fracture of right occipital condyle 12/19/2022 03/29/2023 SAH (subarachnoid hemorrhage) 12/19/2022 03/29/2023 Fall 12/19/2022 03/29/2023 Fever 11/06/2019 11/13/2019 General weakness 11/06/2019 11/13/2019 Pain medication agreement 10/09/2019 Overview (10/09/2019): Opioid agreement sent to the patient's home today Acute pain of both knees 12/03/2018 Primary osteoarthritis of left knee 09/04/2018 10/11/2023 Acute maxillary sinusitis 01/23/2007 Acute pyelonephritis without lesion of renal medullary necrosis 12/27/2006 09/25/2007 Other nonspecific abnormal s radha enzyme levels 11/07/2006 09/25/2007 Other malaise and fatigue 10/25/2006 Family history of other card iovascular diseases(V17.49) 04/06/2006 09/25/2007 Overview (03/04/2010): Updating IMO/ICD9 Code and Description Disorder of bone and cartilage, unspecified 10/13/2005 06/29/2010 Encounter for long-term (cur rent) use of steroids 09/20/2005 09/25/2007 Screening for lipoid disorders 09/20/2005 09/25/2007 Polyp of nasal cavity 11/19/20032016 Other specified bullous dermatosis 11/19/2003 10/05/2021 Paresthesia of bilateral legs 10/05/2021 Encounters Date Type Department Care Team Description 09/25/2024 [facility] Christine Piña [address] [facility] [address] [place] [address] Uriel Mott MD 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 (CMS/HCC); Cervical disc disorder of cervicothoracic region; Generalized anxiety disorder 09/12/2024 Abstract [facility] [address] [place] [address] Lisa Perkins LPN 09/07/2024 8:00 AM CDT Procedure visit [facility] [address] [place] [address] Shashank Moore MD Dystonia (Primary Dx); Parkinson's disease without dyskinesia or fluctuating manifestations (CMS/HCC) 09/03/2024 Refill [facility] [address] [place] [address] Shashank Moore MD Parkinson's disease without dyskinesia or fluctuating manifestations ([facility]/HCC) 09/03/2024 [facility] [address] [facility] [address] [place] [address] Uriel Mott MD 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 (CMS/HCC); Cervical disc disorder of cervicothoracic region; Generalized anxiety disorder 08/08/2024 Telephone [facility] [address] [facility] [address] [place] [address] Uriel Mott MD Paperwork (Controlled Substance Agreement Form) 08/08/2024 Abstract [facility] [address] [facility] [address] [place] [address] Uriel Mott MD 08/07/2024 External Device Data STL ABSTRACTION Provider, Abstract 08/01/2024 [facility] [address] [facility] [address] [place] [address] Uriel Mott MD 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 (CMS/HCC); Cervical disc disorder of cervicothoracic region; Generalized anxiety disorder 07/31/2024 External Device Data STL ABSTRACTION Provider, Abstract 07/17/2024 9:00 AM CDT Office Visit [facility] [address] [facility] [address] [place] [address] Uriel Mott MD Parkinson's disease with dyskinesia and fluctuating manifestations (CMS/HCC) (Primary Dx); Screening mammogram, encounter for; Rheumatoid arthritis involving multiple sites with positive rheumatoid factor (CMS/HCC); Immunodeficiency due to treatment with immunosuppressive medication; History of falling; Controlled substance agreement sent new opioid form 07/05/24 [facility] & Xanax & [facility]; care home systemic steroid user; Chronic pansinusitis; Trigger point of right shoulder region 07/03/2024 Refill [facility] [address] [facility] [address] [place] [address] Lynnette Arroyo MD 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 GOTTI: [place] [address] Hussain Pike Md from Last 3 Months Immunizations Immunization Administration Dates Next Due (ADACEL/BOOSTRIX)(10 YR UP) TDAP VACCINE, 0.5ML, IM 09/30/2010 (PNEUMOVAX 23)(50 YRS UP) PN EUMOCOCCAL POLYSACCHARIDE (PPV23) 0.5 ML, IM 07/26/2018,10/25/2011 (PREVNAR 13)(6 WKS UP) PNEUM OCOCCAL CONJUGATE (PCV13) 0.5 ML, IM 02/08/2014 INFLUENZA VACCINE HIGH DOSE QUADRIVALENT 65 YR UP PF IM 10/11/2023,11/04/2022,11/09/2021,11/19,10/10/2019 INFLUENZA VACCINE HIGH DOSE TRIVALENT SPLIT VIRUS, (65 YR UP), 0.5ML (PF), IM 10/11/2023 INFLUENZA VACCINE QUADRIVALE NT 6 MOS UP PF IM 11/07/2017,12/20/2016 Influenza Seasonal Unspecifi ed Formulation IM 12/11/2013,10/17/2012,10/29/2009 Influenza Vaccine High Dose 65+ Yrs IM 9 Influenza Vaccine Quad Split 3+ Yrs Im 5 Influenza Vaccine Split 3+ Yrs IM 10/25/2011, Skin Test TB 09/30/2010,05/10/2008 Zoster Vaccine Live SQ 03/02/2013 Family History Medical History Relation Name Comments High Cholesterol Brother 1 Hypertension Brother 1 High Cholesterol Brother 2 Hypertension Brother 2 High Cholesterol Brother 3 Hypertension Brother 3 Healthy Daughter 1 Healthy Daughter 2 Healthy Daughter 3 Healthy Daughter 4 Healthy Daughter 5 Diabetes Father Heart Disease Father Heart Failure Father High Cholesterol Father Hypertension Father High Cholesterol Maternal Grandfather Hypertension Maternal Grandfather Colon Cancer Maternal Grandmother Hypertension Mother Colon Cancer Other aunt High Cholesterol Paternal Grandfather Hypertension Paternal Grandfather High Cholesterol Paternal Grandmother Hypertension Paternal Grandmother Breast Cancer Neg Hx Fuchs' dystrophy Neg Hx Glaucoma Neg Hx Macular Degen Neg Hx Relation Name Status Comments Brother 1 Alive Brother 2 Alive Brother 3 Alive Brother 4 Daughter 1 Alive Daughter 2 Alive Daughter 3 Alive Daughter 4 Alive Daughter 5 Alive Father Maternal Grandfather Maternal Grandmother Mother Other aunt Alive Paternal Grandfather Paternal Grandmother Sister 1 Alive Sister 2 Alive Sister 3 Social History Tobacco Use Types Packs/Day Years Used Date Smoking Tobacco: Former Cigarettes Q uit: 08/22/1974 Passive Smoke Exposure: Past Smokeless Tobacco: Never Tobacco Cessation:Counseling Given: Not Answered Alcohol Use Standard Drinks/Week Comments No 0 (1 standard drink = 0.6 oz pur e alcohol) Feeling Safe Answer Date Recorded Are you in a relationship wi th someone who hurts you emotionally and/or physically? 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 Gender Identity Not on file Sexual Orientation Not on file Last Filed Vital Signs Vital Sign Reading Time Taken Comments Blood Pressure 122/74 09/07/2024 7:59 AM CDT Pulse 73 09/07/2024 7:59 AM CDT Temperature 36.4 C (97.6 F) 07/17/2024 8:53 AM CDT Respiratory Rate 14 09/07/2024 7:59 AM CDT Oxygen Saturation 96% 09/07/2024 7:59 AM CDT Inhaled Oxygen Concentration - - Weight 68.1 kg (150 lb 3.2 oz) 07/17/2024 8:53 A M CDT Height 152.4 cm (5') 09/07/2024 7:59 AM CDT Body Mass Index 29.33 07/17/2024 8:53 AM CDT Plan of Treatment Upcoming Encounters Date Type Department Care Team (Late st Contact Info) Description 10/15/2024 8:00 AM CDT Appointment [facility] Christine [address] [facility] [address] [place] [address] [place] [address] [facility] [place] [address] 12/07/2024 8:00 AM CDT Procedure visit [facility] [address] [address] Shashank Moore MD [address] [address] 01/17/2025 8:20 AM TETRYL NITRATOR OPERATOR Appointment [facility] Christine [address] [address] [facility] [address] [place] [address] [place] [address] [facility] [place] [address] 03/08/2025 8:00 AM TETRYL NITRATOR OPERATOR Procedure visit [facility] [address] [facility] [address] [place] [address] Shashank Moore MD [address] [address] Health Maintenance Due Date Last Done Comments FIT/ DNA Q 3 YEARS (AUTO ORDER) 1970 FLEX SIG/CT COLONOGRAPHY Q 5 YEARS (AUTO ORDER) 1970 FIT-DNA Q 3 years 1997 Flex Sig/CT Colonography Q 5 years 1997 RSV VACCINE (60+ or ) (1 - Risk 60-74 years 1-dose series) 2012 ZOSTER VACCINE (1 of 2) 04/27/2013 03/02/2013 DTAP/TDAP/TD VACCINES (2 - T d or Tdap) 09/30/2020 09/30/2010 COLORECTAL CANCER SCREENING (AUTO ORDER) 03/14/2024 03/14/2014 COLORECTAL SCREENING 03/14/2024 03/14/2014, 03/14/2014, 11/25/2007 BREAST CANCER SCREENING 07/10/2024 07/11/19 24, 11/19/2020, 01/29/2019 (Previously completed), Additional history exists INFLUENZA VACCINE (#1) 2024 4, 10/11/2023, 11/04/2022, Additional history exists Colorectal Cancer Screening (AUTO ORDER) 05/30/2025 Colorectal Cancer Screening 05/30/2025 FIT/FOBT Q 1 YEAR (AUTO ORDER) 05/30/2025 05/30/2024 FIT/FOBT Q 1 year 05/30/2025 05/30/2024 OSTEOPOROSIS SCREENING 07/10/2025 4, 09/29/2020, 10/16/2019, Additional history exists PNEUMOCOCCAL VACCINE 50+ YEARS Completed 0 07/26/2018, 02/08/2014, 10/25/2011 [place] Preventative Visit/Annual Wellness Visit Completed 04/12/2024, 01/10/2024, 08/23/2022, Additional history exists Medical Devices Implanted Type Area De Ionizer Operator Device Identifier Shelf Expiration Date Model / Serial / Lot Biomet Cement R Implanted:Qty : 1 on 09/04/2018 by Garfield Batista MD at [facility] Cement Left: Knee [employer] 07/07/2022 [id number] / / [id number] Description:REQUISITION 8925 234. Biomet Bone Cement R Implanted:Qty : 1 on 09/04/2018 by Garfield Batista MD at [facility] Cement Left: Knee [employer] 07/07/2022 [id number] / / [id number] Description:REQUISITION 8925 234. Lens Io Sn60wf 22.5 - [id number] Implanted:Qty : 1 on 05/30/2018 by Avery Schumacher MD at [facility] Eye Right: Eye [employer] 12/07/2022 SN60WF.225 / [id number] / Lens Io Sn60wf 23.5 - [id number] Implanted:Qty : 1 on 06/13/2018 by Avery Schumacher MD at [facility] Eye Left: Eye [employer] 11/06/2022 SN60WF.235 / [id number] / Comp Fem Vngrd Cr Intrlk Lt 65mm [id number] - [id number] Implanted:Qty : 1 on 09/04/2018 by Garfield Batista MD at [facility] Knee Left: Knee [employer] [id number] 06/03/2028 [id number] / / [id number] Patella 3peg Series A [id number] - [id number] Implanted:Qty : 1 on 09/04/2018 by Garfield Batista MD at [facility] Knee Left: Knee [employer] [id number] 08/04/2023 [id number] / / [id number] Comp Tib Cocr Finned 75mm [id number] - [id number] Implanted:Qty : 1 on 09/04/2018 by Garfield Batista MD at [facility] Knee Left: Knee [employer] 07/10/2028 [id number] / / [id number] Brng Vangrd Ant Stab 10x75 [id number] - [id number] Implanted:Qty : 1 on 09/04/2018 by Garfield Batista MD at [facility] Knee Left: Knee [employer] [id number] 06/18/2023 [id number] / / [id number] Procedures Procedure Name Priority Date/Time Associated Diagnosis Comments DC INJECTION SINGLE/CYLINDER INSPECTOR AND TESTER TRIGGER POINT 1/2 MUSCLES Routine 07/17/2024 9:00 AM CDT Trigger point of right shoulder region DC ARTHROCENTESIS ASPIR&/INJ MAJOR JT/BURSA W/O US Routine 07/17/2024 9:00 AM CDT Rheumatoid arthritis involving multiple sites with positive rheumatoid factor (CMS/HCC) DC ARTHROCENTESIS ASPIR&/INJ MAJOR JT/BURSA W/O US Routine 07/17/2024 9:00 AM CDT Rheumatoid arthritis involving multiple sites with positive rheumatoid factor (CMS/HCC) OCCULT BLOOD IMMUNOASSAY, COLORECTAL SCREEN Routine 05/30/2024 12:00 AM CDT Encounter for colorectal cancer screening MAMMO 3D LEE SCREEN BILAT W OR WO CAD Routine 07/11/2023 10:00 AM CDT Screening mammogram, encounter for XR DEXA BONE DENSITY AXIAL 1 OR MORE SITES Routine 07/11/2023 9:21 AM CDT Age-related osteoporosis without current pathological fracture from Last 3 Months or Most Recently Relevant to Health Maintenance Results * DC ARTHROCENTESIS ASPIR&/INJ MAJOR JT/BURSA W/O US (07/17/2024 9:00 AM CDT) Narrative [facility] - 07/17/2024 9:00 AM CDT Uriel Mott MD 07/17/2024 9:28 AM Large Joint Inject/Drain Date/Time: 07/17/2024 9:00 AM Authorized by: Uriel Mott MD Performed by: Uriel Mott MD Consent given by: patient Supporting Documentation Indications: pain and joint swelling Anesthesia Local anesthesia used?: local anesthesia not used Sedation Patient sedated?: patient not sedated Procedure Details Location: shoulder - L glenohumeral Needle size: 22 G Approach: posterior Triamcinolone amount: 40 mg Lidocaine 1% amount: 3 mL us Uriel Mott MD PROCEDURE/MINOR SURGICAL ORD ERABLES Edited Result - Final [id number] [address] [place] [address] * DC ARTHROCENTESIS ASPIR&/INJ MAJOR JT/BURSA W/O US (07/17/2024 9:00 AM CDT) [facility] - 07/17/2024 9:00 AM CDT Uriel Mott MD 07/17/2024 9:28 AM Large Joint Inject/Drain Date/Time: 07/17/2024 9:00 AM Authorized by: Uriel Mott MD Performed by: Uriel Mott MD Consent given by: patient Site marked: site marked Supporting Documentation Indications: pain and joint swelling Anesthesia Local anesthesia used?: local anesthesia not used Sedation Patient sedated?: patient not sedated Procedure Details Location: knee - R knee Needle size: 22 G Approach: anteromedial Triamcinolone amount: 40 mg Lidocaine 1% amount: 3 mL us Uriel Mott MD PROCEDURE/MINOR SURGICAL ORD ERABLES Edited Result - Final Performing Organization Address [facility] Co de Phone Number [facility] [id number] [address] [address] [address] * DC INJECTION SINGLE/CYLINDER INSPECTOR AND TESTER TRIGGER POINT 1/2 MUSCLES (07/17/2024 9:00 AM CDT) [facility] - 07/17/2024 9:00 AM CDT Uriel Mott MD 07/17/2024 9:28 AM Injection Trigger Point Date/Time: 07/17/2024 9:00 AM Performed by: Uriel Mott MD Authorized by: Uriel Mott MD Preparation: Patient was prepped and draped in the usual sterile fashion. Local anesthesia used: no Anesthesia: Local anesthesia used: no Sedation: Patient sedated: no Comments: A steroid injection was performed at right trapezius using 1% plain Lidocaine and 20 mg of Kenalog. This was well tolerated. us Uriel Mott MD PROCEDURE/MINOR SURGICAL ORD ERABLES Final Result Performing Organization Address [facility] Co de Phone Number [facility] [id number] [address], [address] [address] * OCCULT BLOOD IMMUNOASSAY, COLORECTAL SCREEN (05/30/2024 12:00 AM CDT) FECAL GLOBIN SEE NOTE [facility]- Susan Comment: FECAL GLOBIN BY IMMUNOCHEMISTRY Micro Number: [id number] Test Status: Final Specimen Source: Stool Specimen Quality: Adequate Fecal Globin: Not Detected Reference Range: Not Detected NOTE: Approved collection includes sample of toilet water adjacent to stool. Other methods of collection such as stool transferred from diaper, bedpan, or commode to toilet water may lead to inaccurate results. Test Performed at: [facility] [id number] [place] [address] Will Adam MD Stool STOOL SPECIMEN / Unknown 05/30/2024 06/05/2024 10:52 AM CDT Uriel Mott MD BODY FLUIDS AND STOOLS Final Result [facility] [phone] [facility] [place] [address] [place], [place] [address] [place] [address] * MAMMO 3D LEE SCREEN BILAT W OR WO CAD (07/11/2023 10:00 AM CDT) Anatomical Region Laterality Modality Breast Bilateral Mammography 07/11/2023 10:0 2 AM CDT Impressions 07/11/2023 3:14 PM CDT IMPRESSION: Stable screening mammogram. Recommend routine followup. OVERALL FINAL ASSESSMENT: BI-RADS CATEGORY 1: Negative. DICTATION LOCATION: [facility] Narrative 07/11/2023 3:14 PM CDT DIGITAL SCREENING MAMMOGRAPHY WITH CAD WITH TOMOSYNTHESIS BILATERAL 07/11/2023. HISTORY: Screening mammogram, encounter for Comparison is made to prior mammograms dated 11/19/2020 and 12/27/2016. TECHNIQUE: A bilateral screening mammogram was performed. Low-dose full-field digital breast tomosynthesis examination was performed with 2D and 3D acquisitions. Examination is read in conjunction with computer aided detection. FINDINGS: The breast parenchyma has scattered fibroglandular densities. No new dominant masses, suspicious calcifications or areas of parenchymal asymmetry or distortion are identified. CAD was utilized. Procedure Note Chasity Fulton MD - 07/11/2023 DIGITAL SCREENING MAMMOGRAPHY WITH CAD WITH TOMOSYNTHESIS BILATERAL 07/11/2023. HISTORY: Screening mammogram, encounter for Comparison is made to prior mammograms dated 11/19/2020 and 12/27/2016. TECHNIQUE: A bilateral screening mammogram was performed. Low-dose full-field digital breast tomosynthesis examination was performed with 2D and 3D acquisitions. Examination is read in conjunction with computer aided detection. FINDINGS: The breast parenchyma has scattered fibroglandular densities. No new dominant masses, suspicious calcifications or areas of parenchymal asymmetry or distortion are identified. CAD was utilized. IMPRESSION: Stable screening mammogram. Recommend routine followup. OVERALL FINAL ASSESSMENT: BI-RADS CATEGORY 1: Negative. DICTATION LOCATION: [facility] Uriel Mott MD MAMMO ORDERABLES Final Resul t * XR DEXA BONE DENSITY AXIAL 1 OR MORE SITES (07/11/2023 9:21 AM CDT) Anatomical Region Laterality Modality Digital Radiogra phy 07/11/2023 9:21 AM CDT Impressions 07/11/2023 2:39 PM CDT IMPRESSION: This is a summary page. Please refer to the complete detailed report found in the Imaging Section of the [facility] EMR, including absolute bone mineral density values. Osteoporotic BMD. Comments: Bone mineral density measured in the spine may be unreliable due to the impact of sclerotic degenerative changes. Statistical change: No significant decrease in BMD since the prior exam. A statistically significant change is defined as a change of greater than 2.5 standard deviations in the least significant difference (LSD) from the prior study. Least significant differences and statistically significant changes are defined as follows: Lumbar spine: +/- 0.010 g/cm2 LSD (+/- 0.025 g/cm2 statistically significant change) Femoral neck: +/- 0.014 g/cm2 (+/- 0.035 g/cm2) Forearm radius 33%: +/- 0.020 g/cm2 (+/- 0.050 g/cm2) FRAX FRACTURE RISK ASSESSMENT: Risk factors: Chronic corticoid use, secondary osteoporosis, rheumatoid arthritis. 10 Year Probability Of Fracture Major Osteoporotic: 32.0 % Hip: 11.8 % Comparison population: [place], Race: A major osteoporotic fracture is defined as a fracture of the spine, forearm, hip or shoulder. Definitions: Normal: T-score >= -1.0 Osteopenia T-score less than -1.0 and above -2.5 Osteoporosis: T-score <= -2.5 Follow-up Recommendations: Patients without high risk factors for osteoporosis T-score -1.0 to -1.5 - Consider repeat BMD in 5-10 years T-score -1.5 to - 2.0 - Consider repeat BMD in 3-5 years T-score -2.0 to - 2.5 - Consider repeat BMD every 2 years Patients on treatment for osteoporosis 1-2 years after initiation of treatment and every 2 years thereafter DICTATION LOCATION: Location [address] [facility] 07/11/2023 2:39 PM CDT EXAMINATION: BONE DENSITY STUDY (DXA) DATE: 07/11/2023 9:21 AM HISTORY: See Diagnosis Age-related osteoporosis without current pathological fracture PROCEDURE: Planar images of the lumbar spine and/or hip(s) using a [employer] DEXA scanner for bone mineral density determination (BMD). Prior bone density: 09/29/2020 FINDINGS: Lumbar Spine (L1-L4): T-Score: -2.5 Left Femoral Neck: T-Score: -2.7 Right Femoral Neck: T-Score: -2.5 Procedure Note Jb Weston MD - 07/11/2023 EXAMINATION: BONE DENSITY STUDY (DXA) DATE: 07/11/2023 9:21 AM HISTORY: See Diagnosis Age-related osteoporosis without current pathological fracture PROCEDURE: Planar images of the lumbar spine and/or hip(s) using a [employer] DEXA scanner for bone mineral density determination (BMD). Prior bone density: 09/29/2020 FINDINGS: Lumbar Spine (L1-L4): T-Score: -2.5 Left Femoral Neck: T-Score: -2.7 Right Femoral Neck: T-Score: -2.5 IMPRESSION: This is a summary page. Please refer to the complete detailed report found in the Imaging Section of the [facility] EMR, including absolute bone mineral density values. Osteoporotic BMD. Comments: Bone mineral density measured in the spine may be unreliable due to the impact of sclerotic degenerative changes. Statistical change: No significant decrease in BMD since the prior exam. A statistically significant change is defined as a change of greater than 2.5 standard deviations in the least significant difference (LSD) from the prior study. Least significant differences and statistically significant changes are defined as follows: Lumbar spine: +/- 0.010 g/cm2 LSD (+/- 0.025 g/cm2 statistically significant change) Femoral neck: +/- 0.014 g/cm2 (+/- 0.035 g/cm2) Forearm radius 33%: +/- 0.020 g/cm2 (+/- 0.050 g/cm2) FRAX FRACTURE RISK ASSESSMENT: Risk factors: Chronic corticoid use, secondary osteoporosis, rheumatoid arthritis. 10 Year Probability Of Fracture Major Osteoporotic: 32.0 % Hip: 11.8 % Comparison population: [place], Race: A major osteoporotic fracture is defined as a fracture of the spine, forearm, hip or shoulder. Definitions: Normal: T-score >= -1.0 Osteopenia T-score less than -1.0 and above -2.5 Osteoporosis: T-score <= -2.5 Follow-up Recommendations: Patients without high risk factors for osteoporosis T-score -1.0 to -1.5 - Consider repeat BMD in 5-10 years T-score -1.5 to - 2.0 - Consider repeat BMD in 3-5 years T-score -2.0 to - 2.5 - Consider repeat BMD every 2 years Patients on treatment for osteoporosis 1-2 years after initiation of treatment and every 2 years thereafter DICTATION LOCATION: Location 1 - [facility] Uriel Mott MD DIAGNOSTIC IMAGING ORDERABLE S Final Result from Last 3 Months or Most Recently Relevant to Health Maintenance Insurance [facility] [employer] Medicare Part D [employer] Medicare Part D Advance Directives For more information, please contact: [phone] Documents on File 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 intubation): No Mechanical Ventilation (for respiratory distress) - Non-Invasive (i.e. BiPAP, CPAP): Yes * Full Code Date Activated Date Inactivated Comments 12/19/2022 7:03 PM 12/21/2022 3:19 PM * NO CPR (In Event of Cardiopulmonary Arrest) Date Activated Date Inactivated Comments 11/06/2019 5:30 PM 11/07/2019 2:47 PM Question Answer Comments Mechanical Ventilation (for respiratory distress) - Invasive (i.e. intubation): No Mechanical Ventilation (for respiratory distress) - Non-Invasive (i.e. BiPAP, CPAP): Yes Cardioversion - (Allow prior to Cardiopulmonary Arrest): Yes Vasopressors - (Allow prior to Cardiopulmonary A rrest): Yes Inotropic Agents - (Allow prior to Cardiopulmona ry Arrest): Yes External Pacing - (Allow prior to Cardiopulmonar y Arrest): Yes Invasive Monitoring - (Allow prior to Cardiopulm onary Arrest): Yes * Full Code Date Activated Date Inactivated Comments 09/04/2018 3:38 PM 09/06/2018 3:47 PM * Full Code Date Activated Date Inactivated Comments 09/04/2018 10:14 AM 09/04/2018 3:38 PM Care Teams Feed House Supervisor Relationship Specialty [place] [id number] [facility] [address] [place] [address] PCP - General 07/29/00
--- OUTSIDE RECORDS SUMMARY | 2024-09-28 15:22 | XMS_ITS | Encounter Summary ---
Author Organization [facility] Address [address] [place] [address] Care Team Providers Care Residential Door Unit Installer Name Role Phone Uriel Mott MD Primary Care Provider [phone] Encounter Details Date Type Department Care Team (Latest Contact Info) Description 07/15/2006 Outpatient Historical [facility] Ruy Ornelas MD Other Specified Complications (Primary Dx) Social History Tobacco Use Types Packs/Day Years Used Date Smoking Tobacco: Never Assessed Comments Unknown Sex and Gender Information Value Date Recorded Sex Assigned at Not on file Legal Sex Female 3:07 AM CHEMIST STEROIDS Gender Identity Not on file Sexual Orientation Not on file documented as of this encounter Plan of Treatment Upcoming Encounters Date Type Department Care Team (Late st Contact Info) Description 10/15/2024 8:00 AM CDT Appointment [facility] Medicine Christine Piña [address] [facility] [address] [place] [address] [place] [address] [facility] [place] [address] 12/07/2024 8:00 AM CDT Procedure visit [facility] [address] [facility] [address] [place] [address] Shashank Moore MD [address] [facility] [address] [place] [address] 01/17/2025 8:20 AM CHEMIST STEROIDS Appointment [facility] Medicine Trimont Wang [address] [facility] [address] [place] [address] [place] [address] [facility] [place] [address] 03/08/2025 8:00 AM CHEMIST STEROIDS Procedure visit [facility] [address] [facility] [address] [place] [address] Shashank Moore MD [address] [facility] [address] [place] [address] documented as of this encounter Procedures Procedure Name Priority Date/Time Associated Diagnosis Comments HEMOGLOBIN AND HEMATOCRIT Routine 07/08/2006 8:43 AM CDT BASIC METABOLIC PANEL Routine 07/08/2006 8:43 AM CDT documented in this encounter Results * HEMOGLOBIN AND HEMATOCRIT (07/08/2006 8:43 AM CDT) HEMOGLOBIN 13.2 11.8 - 14.8 g/dL INTERFACE SYSTEM HEMATOCRIT 37.3 35.5 - 44.0 % INTERFACE SYSTEM 07/08/2006 8:43 AM CDT Ruy Ornelas MD HEMATOLOGY ORDERABLES Edited INTERFACE SYSTEM Refer to clinic/hospital department * (ABNORMAL) BASIC METABOLIC PANEL (07/08/2006 8:43 AM CDT) GLUCOSE 148(H) 65 - 99 mg/dL INTERFACE SYSTEM CREATININE 0.52 0.51 - 0.95 mg/dL INTERFACE SYSTEM CALCIUM 8.7 8.4 - 10.2 mg/dL INTERFACE SYSTEM BUN 9 6 - 20 mg/dL INTERFACE SYSTEM SODIUM 140 135 - 145 mmol/L INTERFACE SYSTEM POTASSIUM 3.9 3.5 - 4.9 mmol/L INTERFACE SYSTEM CHLORIDE 106 96 - 108 mmol/L INTERFACE SYSTEM CO2 21(L) 22 - 30 mmol/L INTERFACE SYSTEM GFR, >60 >=60 mL/min/1. 7 sq meter INTERFACE SYSTEM GFR >60 >=60 mL/min/1. 7 sq meter INTERFACE SYSTEM Comment: Estimated GFR rate interpretative information for both Americans and non- Americans is available on the [facility] at: [email or web address] Select: Lab Policies and Procedures Select: Reference Ranges - GFR 07/08/2006 8:43 AM CDT Ruy Ornelas MD CHEMISTRY ORDERABLES Edited INTERFACE SYSTEM Refer to clinic/hospital department documented in this encounter Visit Diagnoses Diagnosis Other specified complications- Primary documented in this encounter Additional Health Concerns Infection Onset Date Last Indicated Resolved Time R/O COVID-19 11/06/2019 11/06/2019 11/06/2019 8:56 AM CDT R/O COVID-19 12/29/2020 12/29/2020 12/29/2020 1:27 PM CHEMIST STEROIDS COVID-19 12/29/2020 12/29/2020 01/18/2021 1:16 AM CHEMIST STEROIDS documented as of this encounter Care Teams Residential Door Unit Installer Relationship Specialty [place] [address] [facility] [address] [place] [address] PCP - General 07/29/00 documented as of this encounter
--- OUTSIDE RECORDS SUMMARY | 2024-09-28 15:22 | XMS_ITS | Encounter Summary ---
Author Organization [facility] Address [address] [place] [address] Care Team Providers Care Gis Coordinator Name Role Phone Kimberly Pratt MD Primary Care Provider [phone] Encounter Details Date Type Department Care Team (Latest Contact Info) Description 11/28/2007 Outpatient Historical [facility] Milana Gu MD [address] [place] [address] [address] [place] [address] Gail Lee MD Department of Radiology [address] [place] [address] Elev Transaminase/LDH Social History Tobacco Use Types Packs/Day Years Used Date Smoking Tobacco: Never Alcohol Use Standard Drinks/Week Comments No 0 (1 standard drink = 0.6 oz pur e alcohol) Comments Unknown Sex and Gender Information Value Date Recorded Sex Assigned at Not on file Legal Sex Female 3:07 AM SENIOR GROUP MANAGER Gender Identity Not on file Sexual Orientation Not on file documented as of this encounter Plan of Treatment Upcoming Encounters Date Type Department Care Team (Late st Contact Info) Description 10/15/2024 8:00 AM CDT Appointment [facility] Family Medicine Christine Piña [address] [facility] [address] [place] [address] [place] [address] [facility] [place] [address] 12/07/2024 8:00 AM CDT Procedure visit [facility] Neurology [address] [facility] [address] [place] [address] Shashank Moore MD [address] [facility] [address] [place] [address] 01/17/2025 8:20 AM SENIOR GROUP MANAGER Appointment [facility] Medicine Christine Piña [address] [facility] [address] [place] [phone] [place] [address] [facility] [place] [address] 03/08/2025 8:00 AM SENIOR GROUP MANAGER Procedure visit [facility] Neurology [address] [facility] [address] [place] [address] Shashank Moore MD [address] [facility] [address] [place] [address] documented as of this encounter Procedures Procedure Name Priority Date/Time Associated Diagnosis Comments PATHOLOGY Routine 11/29/2007 10:47 AM CDT XR CONSULTATION Timed Study 11/29/2007 9:23 AM CDT US GUIDE NEEDLE PLACEMENT Timed Study 11/29/2007 9:23 AM CDT PT AND APTT Stat 11/29/2007 7:00 AM CDT PLATELET COUNT Stat 11/29/2007 7:00 AM CDT documented in this encounter Results * PATHOLOGY (11/29/2007 10:47 AM CDT) FINAL REPORT [facility] 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 Specimen Description: Liver. Operative Procedure: Liver biopsy. Patient Information/Histor y/Diagnosis: Fatty liver. Elevated liver enzymes. Gross: Received in one container labeled Chicho Roberts, liver is a 1.5-cm long x 0.1-cm diameter vasquez tissue core. The specimen is submitted in block A1. [facility] 11.29.2007 04:58 pm Microscopic: The slides are labeled [id number], Chicho Roberts. Sections of the needle biopsy of the liver show a single intact core of liver parenchyma with approximately ten portal tracts present for evaluation. There is approximately 20 to 25% macrovesicular steatosis in a non-zonal distribution. Ballooned hepatocytes are infrequent, and only rare, poorly formed Sabra's hyaline is identified. Glycogenated nuclei, predominantly in zone 1, are focally numerous. There is patchy, mild lobular inflammation, including lymphocytes and a few plasma cells and neutrophils. There is rare satellitosis. A few acidophil bodies are noted. The lobules also contain pigmented Kupfer cell aggregates. Some portal tracts exhibit mild mixed inflammation with lymphocytes, a few plasma cells, and eosinophils, as well as pigmented macrophages. In the most inflamed portal tract, there is mild ductular reaction and interface activity. Other protal tracts are not inflamed. The trichrome stain demonstrates several expanded portal tracts with periportal fibrosis and entrapment of zone 1 hepatocytes. There is no convincing zone 3 perisinusoidal fibrosis. The PAS-D stain highlights the numerous portal macrophages and pigmented Kupfer cell aggregates. The iron stain is negative. COMMENT: There is clearly a component of fatty liver disease/ steatohepatitis in the biopsy, however the relatively prominent portal inflammatory changes and the portal-based fibrosis would be unusual for that alone. I spoke with Dr. Gu about the case. The patient has had elevated transaminases in the 1 bd to 2 bd range for at least a year. All screening serologies are negative. Alk phos, GGT, and bilirubin are all normal. The patient was found to have fatty liver on ultrasound. She does have a history of rheumatoid arthritis and is on orencia, no other medications currently. She does not drink alcohol. In light of this information, the biopsy has changes consistent with mild NAFLD. There may have been an additional process that resulted in some mild portal inflammation and fibrosis (drug reaction?, other?). Clinical correlation is recommended. MADELIN/LALI 11.30.2007 02:47 pm Staging Form: No. ELECTRONIC SIGNATURE FOR ORLANDO PARTIDA MD- 12/01/07 04:48 pm INTERFACE SYSTEM 11/29/2007 10:4 7 AM CDT us Gail Rosa BRITOTN PATHOLOGY/CYTOLOGY ORDERABLES Fi nal Result INTERFACE SYSTEM Refer to clinic/hospital department * XR CONSULTATION (11/29/2007 9:23 AM CDT) 11/29/2007 9:23 AM CDT Narrative INTERFACE SYSTEM - 12/08/2007 9:23 AM CDT [address] [address] Admit Date: 11/29/2007 CHICHO ROBERTS Sex: F Admit Prov: MILANA GU Date: 1950 Primary Care Prov: KIMBERLY PRATT CMRN: [id number] Room: [facility] SSN: [id number] IMAGING SERVICES Ordering Prov: MILANA GU Accession Number: [id number] Interpretation SEE OTHER REPORT OF SAME DATE. Dictated by: RADIOLOGY, DEPARTMENT O Electronically signed by: RADIOLOGY, DEPARTMENT 12/08/2007 09:21 Transcribed: 12/08/2007 09:16 AMK Procedure Note Radiology, Radiologist - 12/08/[address] [address] Admit Date: 11/29/2007 CHICHO ROBERTS Sex: F Admit Prov: MILANA GU Date: 1950 Primary Care Prov: KIMBERLY PRATT CMRN: [id number] [facility] [id number] IM[facility]ING SERVICES Ordering Prov: MILANA GU Interpretation SEE OTHER REPORT OF SAME DATE. Dictated by: RADIOLOGY, DEPARTMENT O Electronically signed by: RADIOLOGY, DEPARTMENT 12/08/2007 09:21 Transcribed: 12/08/2007 09:16 AMK Milana Gu MD DIAGNOSTIC IMAGING ORDERABLES Final Result Performing Organization Address City/State/[facility] Co de Phone Number INTERFACE SYSTEM Refer to clinic/hospital department * US GUIDE NEEDLE PLACEMENT (11/29/2007 9:23 AM CDT) Anatomical Region Laterality Modality Other 11/29/2007 9:23 AM CDT Narrative 11/30/2007 10:54 AM CDT [address] [address] Admit Date: 11/29/2007 CHICHO ROBERTS Sex: F Admit Prov: MILANA GU Date: 1950 Primary Care Prov: KIMBERLY PRATT CMRN: [id number] [facility] [id number] IMAGING SERVICES Ordering Prov: N/A Accession Number: [id number] Interpretation Ultrasound Guided Liver Biopsy History: 57-year-old female with abnormally elevated liver enzymes presenting for liver biopsy. Surgeon: Gail Lee MD Medications: None Anesthesia: 1% Lidocaine locally. Informed written consent was obtained from the patient after explaining the procedure, benefits and risks (including but not limited to bleeding and infection). Procedure: Ultrasound of the right upper quadrant to determine the proper approach for a biopsy was performed. The right upper quadrant was then prepped and draped in a sterile fashion. 1% Lidocaine was infiltrated locally. A 16- gauge biopsy needle was advanced into the liver and a core was obtained. The patient tolerated the procedure well. Impression: Ultrasound-guided liver biopsy. . Dictated by: GAIL LEE 11/30/2007 10:52 Electronically signed by: GAIL LEE F 11/30/2007 10:53 Procedure Note Gail Lee MD - 11/30/2007 [facility] [address] [place], [place] [address] Admit Date: 11/29/2007 CHICHO ROBERTS Sex: F Admit Prov: MILANA GU Date: 1950 Primary Care Prov: KIMBERLY PRATT CMRN: [id number] Room: [facility] SSN: [id number] IMAGING SERVICES Ordering Prov: N/A Interpretation Ultrasound Guided Liver Biopsy History: 57-year-old female with abnormally elevated liver enzymes presenting for liver biopsy. Surgeon: Gail Lee MD Medications: None Anesthesia: 1% Lidocaine locally. Informed written consent was obtained from the patient afterexplaining the procedure, benefits and risks (including but not limited to bleedingand infection). Procedure: Ultrasound of the right upper quadrant to determine the properapproach for a biopsy was performed. The right upper quadrant was then preppedand draped in a sterile fashion. 1% Lidocaine was infiltrated locally.A 16- gauge biopsy needle was advanced into the liver and a core wasobtained. The patient tolerated the procedure well. Impression: Ultrasound-guided liver biopsy. . Dictated by: GAIL LEE 11/30/2007 10:52 Electronically signed by: GAIL LEE 11/30/2007 10:53 us Milana Gu MD ORDERABLES Final Result * PT AND APTT (11/29/2007 7:00 AM CDT) INR 1.1 0.9 - 1.1 [facility] Comment: INR Therapeutic Range: Adult: 2.0 - 3.0 for pulmonary embolism or prophylaxis against venous thrombosis or systemic embolization. 2.0 - 3.0 for patients with tissue heart valves. 2.5 - 3.5 for patients with mechanical heart valves or post NH. Pediatric (12 years and under): 1.5 - 3.0 Although the target range in children is not well established, INR values of 1.5 - 3.0 are recommended for most patients. Higher values have been used in children with prosthetic cardiac valves and hereditary clotting disorders. (<3 days) therapeutic ranges have not been established. PROTIME 14.7 12.7 - 15.1 Seconds [facility] PTT 31.1 24.4 - 36.4 Seconds [facility] Comment: PTT Therapeutic Range: Heparin Level PTT (seconds) <0.10 units/mL <53 0.10 - 0.30 units/mL 53 - 67 0.30 - 0.70 units/mL* 67 - 95* 0.70 - 1.00 units/mL 95 - 116 *corresponds to therapeutic range for unfractionated heparin Blood specimen (specimen) 11/29/2007 7:00 AM CDT 11/29/2007 7:09 AM CDT Milana Gu MD HEMATOLOGY ORDERABLES Edited Performing Organization Address City/[facility] Co de Phone Number INTERFACE SYSTEM Refer to clinic/hospital department [facility] CLIA# [id number] [address] [place] [address] * PLATELET COUNT (11/29/2007 7:00 AM CDT) PLATELETS 265 140 - 350 K/uL [facility] MPV 11.1 9.3 - 12.4 fL [facility] Blood specimen (specimen) 11/29/2007 7:00 AM CDT 11/29/2007 7:09 AM CDT Milana Gu MD HEMATOLOGY ORDERABLES Final Re sult Performing Organization Address City/[facility] Co de Phone Number INTERFACE SYSTEM Refer to clinic/hospital department [facility] CLIA# [id number] [address] [place] [address] documented in this encounter Visit Diagnoses Diagnosis Nonspecific elevation of levels of transaminase or lactic acid dehydrogenase (LDH) documented in this encounter Additional Health Concerns Infection Onset Date Last Indicated Resolved Time R/O COVID-19 11/06/2019 11/06/2019 11/06/2019 8:56 AM CDT R/O COVID-12/29/2020 12/29/2020 12/29/2020 1:27 PM SENIOR GROUP MANAGER COVID-19 12/29/2020 12/29/2020 01/18/2021 1:16 AM SENIOR GROUP MANAGER documented as of this encounter Care Teams Gis Coordinator Relationship Specialty [place] [address] [facility] [address] [place] [address] PCP - General 07/29/00 documented as of this encounter
--- OUTSIDE RECORDS SUMMARY | 2024-09-28 15:22 | XMS_ITS | Encounter Summary ---
Author Organization [facility] Address [address] [place] [address] Care Team Providers Care Airline Dispatcher Name Role Phone Uriel Mott MD Primary Care Provider [phone] Encounter Details Date Type Department Care Team (Late st Contact Info) Description 05/31/2006 Orders Only [facility] Medicine Christine Wang [address] [facility] [facility] [address] [place] [address] [place] [address] [facility] [place] [address] Social History Tobacco Use Types Packs/Day Years Used Date Smoking Tobacco: Never Assessed Comments Unknown Sex and Gender Information Value Date Recorded Sex Assigned at Not on file Legal Sex Female 3:07 AM MACHINE OPERATOR HELPER Gender Identity Not on file Sexual Orientation Not on file documented as of this encounter Plan of Treatment Upcoming Encounters Date Type Department Care Team (Late st Contact Info) Description 10/15/2024 8:00 AM CDT Appointment [facility] Christine Wang [address] [facility] [address] [place] [address] [place] [address] [facility] [place] [address] 12/07/2024 8:00 AM CDT Procedure visit [facility] Neurology [address] [facility] [address] [place] [address] Shashank Moore MD [address] [facility] [address] [place] [address] 01/17/2025 8:20 AM MACHINE OPERATOR HELPER Appointment [facility] Family Medicine Christine Piña [address] [facility] [address] [place] [address] [place] [address] [facility] [place] [address] 03/08/2025 8:00 AM MACHINE OPERATOR HELPER Procedure visit [facility] [address] [facility] [address] [place] [address] Shashank Moore MD [address] [facility] [address] [place] [address] documented as of this encounter Visit Diagnoses Not on filedocumented in this encounter Additional Health Concerns Infection Onset Date Last Indicated Resolved Time R/O COVID-19 11/06/2019 11/06/2019 11/06/2019 8:56 AM CDT R/O COVID-19 12/29/2020 12/29/2020 12/29/2020 1:27 PM MACHINE OPERATOR HELPER COVID-19 12/29/2020 12/29/2020 01/18/2021 1:16 AM MACHINE OPERATOR HELPER documented as of this encounter Care Teams Airline Dispatcher Relationship Specialty [place] [address] [facility] [address] [place] [address] PCP - General 07/29/00 documented as of this encounter
--- OUTSIDE RECORDS SUMMARY | 2024-09-28 15:22 | XMS_ITS | Encounter Summary ---
Author Organization [facility] Address [address] [place] [address] Care Team Providers Care Database Administration Project Manager Name Role Phone Uriel Mott MD Primary Care Provider [phone] Encounter Details Date Type Department Care Team (Late Contact Info) Description 06/13/2007 Orders Only [facility] Medicine Christine Wang [address] [facility] [address] [place] [address] [place] [address] [facility] [place] [address] Social History Tobacco Use Types Packs/Day Years Used Date Smoking Tobacco: Never Assessed Comments Unknown Sex and Gender Information Value Date Recorded Sex Assigned at Not on file Legal Sex Female 3:07 AM TELEGRAPHIC TYPEWRITER OPERATOR Gender Identity Not on file Sexual Orientation Not on file documented as of this encounter Plan of Treatment Upcoming Encounters Date Type Department Care Team (Late st Contact Info) Description 10/15/2024 8:00 AM CDT Appointment [facility] Christine Wang [address] [facility] [address] [place] [address] [place] [address] [facility] [place] [address] 12/07/2024 8:00 AM CDT Procedure visit [facility] Neurology [address] [facility] [address] [place] [address] Shashnak Moore MD [address] [facility] [address] [place] [address] 01/17/2025 8:20 AM TELEGRAPHIC TYPEWRITER OPERATOR Appointment [facility] Family Medicine Christine Piña [address] [facility] [address] [place] [address] [place] [address] [facility] [place] [address] 03/08/2025 8:00 AM TELEGRAPHIC TYPEWRITER OPERATOR Procedure visit [facility] [address] [facility] [address] [place] [address] Shashank Moore MD [address] [facility] [address] [place] [address] documented as of this encounter Visit Diagnoses Not on filedocumented in this encounter Additional Health Concerns Infection Onset Date Last Indicated Resolved Time R/O COVID-19 11/06/2019 11/06/2019 11/06/2019 8:56 AM CDT R/O COVID-19 12/29/2020 12/29/2020 12/29/2020 1:27 PM TELEGRAPHIC TYPEWRITER OPERATOR COVID-19 12/29/2020 12/29/2020 01/18/2021 1:16 AM TELEGRAPHIC TYPEWRITER OPERATOR documented as of this encounter Care Teams Database Administration Project Manager Relationship Specialty [place] [address] [facility] [address] [place] [address] PCP - General 07/29/00 documented as of this encounter
--- OUTSIDE RECORDS SUMMARY | 2024-09-28 15:22 | XMS_ITS | Encounter Summary ---
Author Organization [facility] Address [address] [place] [address] Care Team Providers Care Sales Associate Key Holder Name Role Phone Uriel Mott MD Primary Care Provider [phone] Encounter Details Date Type Department Care Team (Latest Contact Info) Description 10/01/2005 Outpatient Historical HIS [facility] [place] [address] [facility] [place] [address] Other Screening Mammogram (Primary Dx) Social History Tobacco Use Types Packs/Day Years Used Date Smoking Tobacco: Never Assessed Comments Unknown Sex and Gender Information Value Date Recorded Sex Assigned at Not on file Legal Sex Female 3:07 AM INSIDE SALES PROFESSIONAL Gender Identity Not on file Sexual Orientation Not on file documented as of this encounter Plan of Treatment Upcoming Encounters Date Type Department Care Team (Late st Contact Info) Description 10/15/2024 8:00 AM CDT Appointment [facility] Family Medicine Christine Piña [address] [facility] [address] [place] [address] [place] [address] [facility] [place] [address] 12/07/2024 8:00 AM CDT Procedure visit [facility] Neurology [address] [facility] [address] [place] [address] Shashank Moore MD [address] [facility] [address] [place] [address] 01/17/2025 8:20 AM INSIDE SALES PROFESSIONAL [facility] Christine Piña [address] [facility] [address] [place] [address] [place] [address] [facility] [place] [address] 03/08/2025 8:00 AM INSIDE SALES PROFESSIONAL Procedure visit [facility] [address] [facility] [address] [place] [address] Shashank Moore MD [address] [facility] [address] [place] [address] documented as of this encounter Visit Diagnoses Diagnosis Other screening mammogram- Primary documented in this encounter Additional Health Concerns Infection Onset Date Last Indicated Resolved Time R/O COVID-19 11/06/2019 11/06/2019 11/06/2019 8:56 AM CDT R/O COVID-19 12/29/2020 12/29/2020 12/29/2020 1:27 PM INSIDE SALES PROFESSIONAL COVID-19 12/29/2020 12/29/2020 01/18/2021 1:16 AM INSIDE SALES PROFESSIONAL documented as of this encounter Care Teams Sales Associate Key Holder Relationship Specialty [place] [address] [facility] [address] [place] [address] PCP - General 07/29/00 documented as of this encounter
--- OUTSIDE RECORDS SUMMARY | 2024-09-28 15:22 | XMS_ITS | Encounter Summary ---
Author Organization [facility] Address [address] [place] [address] Care Team Providers Care Behavioral Health Technician Name Role Phone Uriel Mott MD Primary Care Provider [phone] Encounter Details Date Type Department Care Team (Late st Contact Info) Description 06/09/2007 Orders Only [facility] Medicine Christine Wang [address] [facility] [address] [place] [address] [place] [address] [facility] [place] [address] Social History Tobacco Use Types Packs/Day Years Used Date Smoking Tobacco: Never Assessed Comments Unknown Sex and Gender Information Value Date Recorded Sex Assigned at Not on file Legal Sex Female 3:07 AM SAW SUPERINTENDENT Gender Identity Not on file Sexual Orientation Not on file documented as of this encounter Plan of Treatment Upcoming Encounters Date Type Department Care Team (Late st Contact Info) Description 10/15/2024 8:00 AM CDT Appointment [facility] Christine Wang [address] [facility] [address] [place] [address] [place] [address] [facility] [place] [address] 12/07/2024 8:00 AM CDT Procedure visit [facility] Neurology [address] [facility] [address] [place] [address] Shashank Moore MD [address] [facility] [address] [place] [address] 01/17/2025 8:20 AM SAW SUPERINTENDENT Appointment [facility] Family Medicine Christine Piña [address] [facility] [address] [place] [address] [place] [address] [facility] [place] [address] 03/08/2025 8:00 AM SAW SUPERINTENDENT Procedure visit [facility] [address] [facility] [address] [place] [address] Shashank Moore MD [address] [facility] [address] [place] [address] documented as of this encounter Visit Diagnoses Not on filedocumented in this encounter Additional Health Concerns Infection Onset Date Last Indicated Resolved Time R/O COVID-19 11/06/2019 11/06/2019 11/06/2019 8:56 AM CDT R/O COVID-19 12/29/2020 12/29/2020 12/29/2020 1:27 PM SAW SUPERINTENDENT COVID-19 12/29/2020 12/29/2020 01/18/2021 1:16 AM SAW SUPERINTENDENT documented as of this encounter Care Teams Behavioral Health Technician Relationship Specialty [place] [address] [facility] [address] [place] [address] PCP - General 07/29/00 documented as of this encounter
--- OUTSIDE RECORDS SUMMARY | 2024-09-28 15:22 | XMS_ITS | Encounter Summary ---
Author Organization [facility] Address [address] [place] [address] Care Team Providers Care Mobile Phone Salesperson Name Role Phone Uriel Mott MD Primary Care Provider [phone] Encounter Details Date Type Department Care Team (Late st Contact Info) Description 05/04/2007 Orders Only [facility] Family Medicine [facility] [address] [facility] [address] [place] [address] Joby Oneal DO [address] [address] Social History Tobacco Use Types Packs/Day Years Used Date Smoking Tobacco: Never Assessed Comments Unknown Sex and Gender Information Value Date Recorded Sex Assigned at Not on file Legal Sex Female 3:07 AM HOUSE CARPENTER Gender Identity Not on file Sexual Orientation Not on file documented as of this encounter Progress Notes * Joby Oneal DO - 07/13/2007 8:07 PM CDT NURSE NAME: Mesha Flores E TEMPERATURE: 97.3??f. Oral WEIGHT: 167lbs. BLOOD PRESSURE: 110/70. Right Arm Sitting PULSE: 66. Right Radial, Regular ALLERGIES: Allergies are as listed. TOBACCO USE: Patient does not currently use tobacco. CHIEF COMPLAINT Patient complains of sore throat, chest congestion.est.mercy HISTORY: Coughing, but no sputum. Throat is burning. 102 fever at 0300 am. Using chloraseptic, but only helps for a couple minutes. Using lozenges. Using aspirin for fever. No SOB, just a lot of sinus drainage. + [facility]ick contacts [facility]. cold all the time. + facial pain on right. some mildswelling. Nasal drainage is thick, yellow. Seen last week for cold sores, placed on acyclovir for this, and they are improved. No new rashes. ROS: GENERAL: HAS A FEVER. this am at home. ENT: See HISTORY OF PRESENT ILLNESS. RESPIRATORY: See HISTORY OF PRESENT ILLNESS, no shortness of breath. GI: No complaints of vomiting. PAST MEDICAL HISTORY: MEDICAL: RA. SURGICAL: tonsillectomy. PHYSICAL EXAMINATION: CONSTITUTIONAL: EYES: CONJUNCTIVAE/LIDS: Conjunctivae and lids appear normal. PUPILS: Pupils equal and reactive. EARS, NOSE, MOUTH AND THROAT: EXTERNAL/EARS AND NOSE: Overall appearance normal with no scars, lesions or masses. EARS: External auditory canal normal bilaterally, no effusion present bilaterally, normal light reflex bilaterally, no tympanic membrane inflammation in either ear, TYMPANIC MEMBRANE RETRACTION BILATERALLY. NOSE (AND SINUS): RIGHT MAXILLARY SINUS IS SWOLLEN, RIGHT MAXILLARY SINUS IS TENDER, TURBINATES SWOLLEN BILATERALLY, TURBINATES RED BILATERALLY, ULCERATION OF THE NASAL SEPTUM BILATERALLY. likely from manipulation. ORAL: ERYTHEMA NOTED ON THE POSTERIOR PHARYNX, no discharge noted from the posterior pharynx. NECK/THYROID: Trachea midline. No thyroid enlargement, tenderness, or mass. No supraclavicular or cervical adenopathy. RESPIRATORY: Clear to auscultation and percussion. Normal respiratory effort. CARDIOVASCULAR: CARDIAC: Regular rhythm. No murmurs, rubs, or gallops. ARTERIAL: No aortic bruits. ASSESSMENT/PLAN: 461.0-ACUTE SINUSITIS ASSESSMENT: With post-nasal drip. Discussed symptomatic treatment, mucinex-d bid, zinc lozenges, fluids, Viscous lidocaine for throat symptoms. States has taken augmentin with good results in the past. Chronic sinus problems. Immune compromise from RA meds. Instructed to try symptomatic treatment, to begin augmentin only if acutely worsens. MEDICATIONS: AUGMENTIN ORAL TABLET 875-125 MG, Take one tab PO BID x 10 days, 20 Dispensed, status: CONTINUED, 05/04/2007. LIDOCAINE VISCOUS MOUTH/THROAT SOLUTION 2 % BOTTLES, 5cc po q 2-4h prn throat pain. #120cc, 1 Dispensed, status: NEW PRESCRIPTION, 05/04/2007. RETURN VISIT: Patient instructed to call in 4 days if not improving. 05/06/07 10:10 p Electronically signed by Joby Oneal DO. Electronically Signed by: Ivana Quintana MD on Wednesday, May 09, 2007 documented in this encounter Plan of Treatment Upcoming Encounters Date Type Department Care Team (Late st Contact Info) Description 10/15/2024 8:00 AM CDT Appointment [facility] Christine Piña [address] [facility] [address] [place] [address] [place] [address] [facility]. [address] [place] [address] 12/07/2024 8:00 AM CDT Procedure visit [facility] Neurology [address] [facility] [address] [place] [address] Shashank Moore MD [address] [address] 01/17/2025 8:20 AM HOUSE CARPENTER Appointment [facility] Christine Piña [address] [facility] [address] [place] [address] [place] [address] [facility]. [address] [place] [address] 03/08/2025 8:00 AM HOUSE CARPENTER Procedure visit [facility] Neurology [address] [facility] [address] [place] [address] Shashank Moore MD [address] [address] documented as of this encounter Visit Diagnoses Not on filedocumented in this encounter Additional Health Concerns Infection Onset Date Last Indicated Resolved Time R/O COVID-19 11/06/2019 11/06/2019 11/06/2019 8:56 AM CDT R/O COVID-12/29/2020 12/29/2020 12/29/2020 1:27 PM HOUSE CARPENTER COVID-19 12/29/2020 12/29/2020 01/18/2021 1:16 AM HOUSE CARPENTER documented as of this encounter Care Teams Mobile Phone Salesperson Relationship Specialty [place] [address] [facility]. [address] [place] [address] PCP - General 07/29/00 documented as of this encounter
--- OUTSIDE RECORDS SUMMARY | 2024-09-28 15:23 | XMS_ITS | Encounter Summary ---
Author Organization [facility] Address [address] [place] [address] Care Team Providers Care Pump And Still Operator Name Role Phone Uriel Mott MD Primary Care Provider [phone] Encounter Details Date Type Department Care Team (Late st Contact Info) Description 02/03/1999 Outpatient Historical HIS [facility] DEPT [place] [address] [facility] [place] [address] Social History Tobacco Use Types Packs/Day Years Used Date Smoking Tobacco: Never Assessed Comments Unknown Sex and Gender Information Value Date Recorded Sex Assigned at Not on file Legal Sex Female 3:07 AM LEGAL ADMINISTRATOR Gender Identity Not on file Sexual Orientation Not on file documented as of this encounter Plan of Treatment Upcoming Encounters Date Type Department Care Team (Late st Contact Info) Description 10/15/2024 8:00 AM CDT Appointment [facility] Family Medicine Christine Wang [address] [facility] [address] [place] [address] [place] [address] [facility] [place] [address] 12/07/2024 8:00 AM CDT Procedure visit [facility] Neurology [address] [facility] [address] [place] [address] Shashank Moore MD [address] [facility] [address] [place] [address] 01/17/2025 8:20 AM LEGAL ADMINISTRATOR Appointment [facility] Medicine Christine Piña [address] [facility] [address] [place] [address] [place] [address] [facility] [place] [address] 03/08/2025 8:00 AM LEGAL ADMINISTRATOR Procedure visit [facility] Neurology [address] [facility] [address] [place] [address] Shashank Moore MD [address] [facility] [address] [place] [address] documented as of this encounter Visit Diagnoses Not on filedocumented in this encounter Additional Health Concerns Infection Onset Date Last Indicated Resolved Time R/O COVID-19 11/06/2019 11/06/2019 11/06/2019 8:56 AM CDT R/O COVID-19 12/29/2020 12/29/2020 12/29/2020 1:27 PM LEGAL ADMINISTRATOR COVID-19 12/29/2020 12/29/2020 01/18/2021 1:16 AM LEGAL ADMINISTRATOR documented as of this encounter Care Teams Pump And Still Operator Relationship Specialty [place] [address] [facility] [place] [address] PCP - General 07/29/00 documented as of this encounter
--- OUTSIDE RECORDS SUMMARY | 2024-09-28 15:23 | XMS_ITS | Encounter Summary ---
Author Organization [facility] Address [address] [place] [address] Care Team Providers Care Seafood Specialist Name Role Phone Uriel Mott MD Primary Care Provider [phone] Encounter Details Date Type Department Care Team (Latest Contact Info) Description 05/10/2008 [place]patient [place] [address] [employer] [facility]. [address] [place] [address] Unspecified Disorder of Sweat Glands Social History Tobacco Use Types Packs/Day Years Used Date Smoking Tobacco: Never Alcohol Use Standard Drinks/Week Comments No 0 (1 standard drink = 0.6 oz pur e alcohol) Comments No Sex and Gender Information Value Date Recorded Sex Assigned at Not on file Legal Sex Female 3:07 AM SALES TRAINER Gender Identity Not on file Sexual Orientation Not on file documented as of this encounter Plan of Treatment Upcoming Encounters Date Type Department Care Team (Late st Contact Info) Description 10/15/2024 8:00 AM CDT Appointment [facility] Family Medicine Christine Piña [address] [facility] [address] [place] [address] [place] [address] [facility]. [address] [place] [address] 12/07/2024 8:00 AM CDT Procedure visit [facility] Neurology [address] [facility] [address] [place] [address] Shashank Moore MD [address] [facility] [address] [place] [address] 01/17/2025 8:20 AM SALES TRAINER Appointment [facility] Medicine Christine Piña [address] [facility] [address] [place] [address] [place] [address] [facility] [place] [address] 03/08/2025 8:00 AM SALES TRAINER Procedure visit [facility] [address] [facility] [address] [place] [address] Shashank Moore MD [address] [facility] [address] [place] [address] documented as of this encounter Visit Diagnoses Diagnosis Unspecified disorder of sweat glands documented in this encounter Additional Health Concerns Infection Onset Date Last Indicated Resolved Time R/O COVID-19 11/06/2019 11/06/2019 11/06/2019 8:56 AM CDT R/O COVID-19 12/29/2020 12/29/2020 12/29/2020 1:27 PM SALES TRAINER COVID-19 12/29/2020 12/29/2020 01/18/2021 1:16 AM SALES TRAINER documented as of this encounter Care Teams Seafood Specialist Relationship Specialty [place] [address] [facility]. [address] [place] [address] PCP - General 07/29/00 documented as of this encounter
--- OUTSIDE RECORDS SUMMARY | 2024-09-28 15:23 | XMS_ITS | Encounter Summary ---
Author Organization [facility] Address [address] [place] [address] Care Team Providers Care Project Admin Name Role Phone Uriel Mott MD Primary Care Provider [phone] Encounter Details Date Type Department Care Team (Late st Contact Info) Description 04/26/2007 Outpatient Historical [facility] Medicine Christine Piña [address] [facility] [address] [place] [address] [place] [address] [place] [address] Social History Tobacco Use Types Packs/Day Years Used Date Smoking Tobacco: Never Assessed Comments Unknown Sex and Gender Information Value Date Recorded Sex Assigned at Not on file Legal Sex Female 3:07 AM MANUSCRIPTS ARCHIVIST Gender Identity Not on file Sexual Orientation Not on file documented as of this encounter Plan of Treatment Upcoming Encounters Date Type Department Care Team (Late st Contact Info) Description 10/15/2024 8:00 AM CDT Appointment [facility] Medicine Christine Piña [address] [facility] [address] [place] [address] [place] [address] [facility] [place] [address] 12/07/2024 8:00 AM CDT Procedure visit [facility] Neurology [address] [facility] [address] [place] [address] Shashank Moore MD [address] [facility] [address] [place] [address] 01/17/2025 8:20 AM MANUSCRIPTS ARCHIVIST Appointment [facility] Family Medicine Christine Piña [address] [facility] [address] [place] [address] [place] [address] [facility] [place] [address] 03/08/2025 8:00 AM MANUSCRIPTS ARCHIVIST Procedure visit [facility] [address] [facility] [address] [place] [address] Shashank Moore MD [address] [facility] [address] [place] [address] documented as of this encounter Visit Diagnoses Not on filedocumented in this encounter Additional Health Concerns Infection Onset Date Last Indicated Resolved Time R/O COVID-19 11/06/2019 11/06/2019 11/06/2019 8:56 AM CDT R/O COVID-19 12/29/2020 12/29/2020 12/29/2020 1:27 PM MANUSCRIPTS ARCHIVIST COVID-19 12/29/2020 12/29/2020 01/18/2021 1:16 AM MANUSCRIPTS ARCHIVIST documented as of this encounter Care Teams Project Admin Relationship Specialty [place] [address] [facility] [address] [place] [address] PCP - General 07/29/00 documented as of this encounter
--- OUTSIDE RECORDS SUMMARY | 2024-09-28 15:23 | XMS_ITS | Encounter Summary ---
Author Organization [facility] Address [address] [place] [address] Care Team Providers Care Ham Stringer Name Role Phone Uriel Mott MD Primary Care Provider [phone] Encounter Details Date Type Department Care Team (Late st Contact Info) Description 04/15/1999 Outpatient Historical HIS [facility] DEPT OF FAMILY MEDICINE Ivana Quintana MD NO ADDRESS ON FILE Social History Tobacco Use Types Packs/Day Years Used Date Smoking Tobacco: Never Assessed Comments Unknown Sex and Gender Information Value Date Recorded Sex Assigned at Not on file Legal Sex Female 3:07 AM FASHION STYLIST Gender Identity Not on file Sexual Orientation Not on file documented as of this encounter Plan of Treatment Upcoming Encounters Date Type Department Care Team (Late st Contact Info) Description 10/15/2024 8:00 AM CDT Appointment [facility] Medicine Christine Piña [address] [facility] [address] [place] [address] [place] [address] [facility]. [address] [place] [address] 12/07/2024 8:00 AM CDT Procedure visit [facility] Neurology [address] [facility] [address] [place] [address] Shashank Moore MD [address] [facility] [address] [place] [address] 01/17/2025 8:20 AM FASHION STYLIST Appointment [facility] Medicine [place] [address] [facility] [address] [place] [address] [place] [address] [facility]. [address] [place] [address] 03/08/2025 8:00 AM FASHION STYLIST Procedure visit [facility] Neurology [address] [facility] [address] [place] [address] Shashank Moore MD [address] [facility] [address] [place] [address] documented as of this encounter Visit Diagnoses Not on filedocumented in this encounter Additional Health Concerns Infection Onset Date Last Indicated Resolved Time R/O COVID-19 11/06/2019 11/06/2019 11/06/2019 8:56 AM CDT R/O COVID-19 12/29/2020 12/29/2020 12/29/2020 1:27 PM FASHION STYLIST COVID-19 12/29/2020 12/29/2020 01/18/2021 1:16 AM FASHION STYLIST documented as of this encounter Care Teams Ham Stringer Relationship Specialty [place] [address] [facility]. [address] [place] [address] PCP - General 07/29/00 documented as of this encounter
--- OUTSIDE RECORDS SUMMARY | 2024-09-28 15:23 | XMS_ITS | Encounter Summary ---
Author Organization [facility] Address [address] [place] [address] Care Team Providers Care Manager Of Regulatory Affairs Name Role Phone Uriel Mott MD Primary Care Provider [phone] Encounter Details Date Type Department Care Team (Late st Contact Info) Description 12/08/1998 Outpatient Historical HIS [facility] DEPT OF FAMILY MEDICINE Alex Carmichael MD [address] [place] [address] Social History Tobacco Use Types Packs/Day Years Used Date Smoking Tobacco: Never Assessed Comments Unknown Sex and Gender Information Value Date Recorded Sex Assigned at Not on file Legal Sex Female 3:07 AM PASSENGER LOCOMOTIVE ENGINEER Gender Identity Not on file Sexual Orientation Not on file documented as of this encounter Plan of Treatment Upcoming Encounters Date Type Department Care Team (Late st Contact Info) Description 10/15/2024 8:00 AM CDT Appointment [facility] Family Medicine Christine Wang [address] [facility] [address] [place] [address] [place] [address] [facility]. [address] [place] [address] 12/07/2024 8:00 AM CDT Procedure visit [facility] Neurology [address] [facility] [address] [place] [address] Shashank Moore MD [address] [facility] [address] [place] [address] 01/17/2025 8:20 AM PASSENGER LOCOMOTIVE ENGINEER Appointment [facility] Medicine Christine Piña [address] [facility] [address] [place] [address] [place] [address] [facility]. [address] [place] [address] 03/08/2025 8:00 AM PASSENGER LOCOMOTIVE ENGINEER Procedure visit [facility] Neurology [address] [facility] [address] [place] [address] Shashank Moore MD [address] [facility] [address] [place] [address] documented as of this encounter Visit Diagnoses Not on filedocumented in this encounter Additional Health Concerns Infection Onset Date Last Indicated Resolved Time R/O COVID-19 11/06/2019 11/06/2019 11/06/2019 8:56 AM CDT R/O COVID-19 12/29/2020 12/29/2020 12/29/2020 1:27 PM PASSENGER LOCOMOTIVE ENGINEER COVID-19 12/29/2020 12/29/2020 01/18/2021 1:16 AM PASSENGER LOCOMOTIVE ENGINEER documented as of this encounter Care Teams Manager Of Regulatory Affairs Relationship Specialty [place] [address] [facility]. [address] [place] [address] PCP - General 07/29/00 documented as of this encounter
--- OUTSIDE RECORDS SUMMARY | 2024-09-28 15:23 | XMS_ITS | Encounter Summary ---
Author Organization [facility] Address [address] [place] [address] Care Team Providers Care Astronomy Instructor Name Role Phone Uriel Mott MD Primary Care Provider [phone] Encounter Details Date Type Department Care Team (Late Contact Info) Description 01/23/2007 Outpatient Historical [facility] Medicine Christine Piña [address] [facility] [address] [place] [address] [place] [address] [place] [address] Social History Tobacco Use Types Packs/Day Years Used Date Smoking Tobacco: Never Assessed Comments Unknown Sex and Gender Information Value Date Recorded Sex Assigned at Not on file Legal Sex Female 3:07 AM CORRECTIONS CASEWORKER Gender Identity Not on file Sexual Orientation Not on file documented as of this encounter Plan of Treatment Upcoming Encounters Date Type Department Care Team (Late st Contact Info) Description 10/15/2024 8:00 AM CDT Appointment [facility] Medicine Christine Piña [address] [facility] [address] [place] [address] [place] [address] [facility] [place] [address] 12/07/2024 8:00 AM CDT Procedure visit [facility] Neurology [address] [facility] [address] [place] [address] Shashank Moore MD [address] [facility] [address] [place] [address] 01/17/2025 8:20 AM CORRECTIONS CASEWORKER Appointment [facility] Family Medicine Christine Piña [address] [facility] [address] [place] [address] [place] [address] [facility] [place] [address] 03/08/2025 8:00 AM CORRECTIONS CASEWORKER Procedure visit [facility] [address] [facility] [address] [place] [address] Shashank Moore MD [address] [facility] [address] [place] [address] documented as of this encounter Visit Diagnoses Not on filedocumented in this encounter Additional Health Concerns Infection Onset Date Last Indicated Resolved Time R/O COVID-19 11/06/2019 11/06/2019 11/06/2019 8:56 AM CDT R/O COVID-19 12/29/2020 12/29/2020 12/29/2020 1:27 PM CORRECTIONS CASEWORKER COVID-19 12/29/2020 12/29/2020 01/18/2021 1:16 AM CORRECTIONS CASEWORKER documented as of this encounter Care Teams Astronomy Instructor Relationship Specialty [place] [address] [facility] [address] [place] [address] PCP - General 07/29/00 documented as of this encounter
--- OUTSIDE RECORDS SUMMARY | 2024-09-28 15:23 | XMS_ITS | Encounter Summary ---
Author Organization [facility] Address [address] [place] [address] Care Team Providers Care Rocket Test Fire Worker Name Role Phone Uriel Mott MD Primary Care Provider [phone] Encounter Details Date Type Department Care Team (Late st Contact Info) Description 04/21/1998 Outpatient Historical HIS [facility] DEPT OF [place] [address] [facility]. [address] [place] [address] Social History Tobacco Use Types Packs/Day Years Used Date Smoking Tobacco: Never Assessed Comments Unknown Sex and Gender Information Value Date Recorded Sex Assigned at Not on file Legal Sex Female 3:07 AM DISTRICT SUPERINTENDENT Gender Identity Not on file Sexual Orientation Not on file documented as of this encounter Plan of Treatment Upcoming Encounters Date Type Department Care Team (Late st Contact Info) Description 10/15/2024 8:00 AM CDT Appointment [facility] Family Medicine Christine Piña [address] [facility] [address] [place] [address] [place] [address] [facility]. [address] [place] [address] 12/07/2024 8:00 AM CDT Procedure visit [facility] Neurology [address] [facility] [address] [place] [address] Shashank Moore MD [address] [facility] [address] [place] [address] 01/17/2025 8:20 AM DISTRICT SUPERINTENDENT Appointment [facility] Medicine Christine Piña [address] [facility] [address] [place] [address] [place] [address] [facility]. [address] [place] [address] 03/08/2025 8:00 AM DISTRICT SUPERINTENDENT Procedure visit [facility] Neurology [address] [facility] [address] [place] [address] Shashank Moore MD [address] [facility] [address] [place] [address] documented as of this encounter Visit Diagnoses Not on filedocumented in this encounter Additional Health Concerns Infection Onset Date Last Indicated Resolved Time R/O COVID-19 11/06/2019 11/06/2019 11/06/2019 8:56 AM CDT R/O COVID-19 12/29/2020 12/29/2020 12/29/2020 1:27 PM DISTRICT SUPERINTENDENT COVID-19 12/29/2020 12/29/2020 01/18/2021 1:16 AM DISTRICT SUPERINTENDENT documented as of this encounter Care Teams Rocket Test Fire Worker Relationship Specialty [place] [address] [facility]. [address] [place] [address] PCP - General 07/29/00 documented as of this encounter
--- OUTSIDE RECORDS SUMMARY | 2024-09-28 15:23 | XMS_ITS | Encounter Summary ---
Author Organization [facility] Address [address] [place] [address] Care Team Providers Care Respiratory Supervisor Name Role Phone Uriel Mott MD Primary Care Provider [phone] Encounter Details Date Type Department Care Team (Late st Contact Info) Description 11/29/2000 Outpatient Historical HIS [facility] DEPT [place] [address] [facility]. [address] [place] [address] Social History Tobacco Use Types Packs/Day Years Used Date Smoking Tobacco: Never Assessed Comments Unknown Sex and Gender Information Value Date Recorded Sex Assigned at Not on file Legal Sex Female 3:07 AM MANAGER SITE Gender Identity Not on file Sexual Orientation Not on file documented as of this encounter Plan of Treatment Upcoming Encounters Date Type Department Care Team (Late st Contact Info) Description 10/15/2024 8:00 AM CDT Appointment [facility] Family Medicine Christine Wang [address] [facility] [address] [place] [address] [place] [address] [facility]. [address] [place] [address] 12/07/2024 8:00 AM CDT Procedure visit [facility] Neurology [address] [facility] [address] [place] [address] Shashank Moore MD [address] [facility] [address] [place] [address] 01/17/2025 8:20 AM MANAGER SITE Appointment [facility] Medicine Christine Piña [address] [facility] [address] [place] [address] [place] [address] [facility]. [address] [place] [address] 03/08/2025 8:00 AM MANAGER SITE Procedure visit [facility] Neurology [address] [facility] [address] [place] [address] Shashank Moore MD [address] [facility] [address] [place] [address] documented as of this encounter Visit Diagnoses Not on filedocumented in this encounter Additional Health Concerns Infection Onset Date Last Indicated Resolved Time R/O COVID-19 11/06/2019 11/06/2019 11/06/2019 8:56 AM CDT R/O COVID-19 12/29/2020 12/29/2020 12/29/2020 1:27 PM MANAGER SITE COVID-19 12/29/2020 12/29/2020 01/18/2021 1:16 AM MANAGER SITE documented as of this encounter Care Teams Respiratory Supervisor Relationship Specialty [place] [address] [facility]. [address] [place] [address] PCP - General 07/29/00 documented as of this encounter
--- OUTSIDE RECORDS SUMMARY | 2024-09-28 15:23 | XMS_ITS | Encounter Summary ---
Author Organization [facility] Address [address] [place] [address] Care Team Providers Care Technician Biological Health Name Role Phone Uriel Mott MD Primary Care Provider [phone] Encounter Details Date Type Department Care Team (Late st Contact Info) Description 09/27/2000 Outpatient Historical HIS [facility] DEPT OF FAMILY MEDICINE Alex Carmichael MD [address] [place] [address] Social History Tobacco Use Types Packs/Day Years Used Date Smoking Tobacco: Never Assessed Comments Unknown Sex and Gender Information Value Date Recorded Sex Assigned at Not on file Legal Sex Female 3:07 AM TRANSPORTATION AGENT Gender Identity Not on file Sexual Orientation Not on file documented as of this encounter Plan of Treatment Upcoming Encounters Date Type Department Care Team (Late st Contact Info) Description 10/15/2024 8:00 AM CDT Appointment [facility] Family Medicine Christine Wang [address] [facility] [address] [place] [address] [place] [address] [facility] [place] [address] 12/07/2024 8:00 AM CDT Procedure visit [facility] Neurology [address] [facility] [address] [place] [address] Shashank Moore MD [address] [facility] [address] [place] [address] 01/17/2025 8:20 AM TRANSPORTATION AGENT Appointment [facility] Medicine Christine Piña [address] [facility] [address] [place] [address] [place] [address] [facility] [place] [address] 03/08/2025 8:00 AM TRANSPORTATION AGENT Procedure visit [facility] Neurology [address] [facility] [address] [place] [address] Shashank Moore MD [address] [facility] [address] [place] [address] documented as of this encounter Visit Diagnoses Not on filedocumented in this encounter Additional Health Concerns Infection Onset Date Last Indicated Resolved Time R/O COVID-19 11/06/2019 11/06/2019 11/06/2019 8:56 AM CDT R/O COVID-19 12/29/2020 12/29/2020 12/29/2020 1:27 PM TRANSPORTATION AGENT COVID-19 12/29/2020 12/29/2020 01/18/2021 1:16 AM TRANSPORTATION AGENT documented as of this encounter Care Teams Technician Biological Health Relationship Specialty [place] [address] [facility] [place] [address] PCP - General 07/29/00 documented as of this encounter
--- OUTSIDE RECORDS SUMMARY | 2024-09-28 15:23 | XMS_ITS | Encounter Summary ---
Author Organization [facility] Address [address] [place] [address] Care Team Providers Care Surgical Physician Assistant Name Role Phone Uriel Mott MD Primary Care Provider [phone] Encounter Details Date Type Department Care Team (Latest Contact Info) Description 11/29/2000 Outpatient Historical HIS [facility] [address] [facility] [place] [address] Encounter for long-term (current) use of other medications (Primary Dx) Social History Tobacco Use Types Packs/Day Years Used Date Smoking Tobacco: Never Assessed Comments Unknown Sex and Gender Information Value Date Recorded Sex Assigned at Not on file Legal Sex Female 3:07 AM SUPERVISOR DAIRY SANITATION Gender Identity Not on file Sexual Orientation Not on file documented as of this encounter Plan of Treatment Upcoming Encounters Date Type Department Care Team (Late st Contact Info) Description 10/15/2024 8:00 AM CDT Appointment [facility] Family Medicine Christine Piña [address] [facility] [address] [place] [address] [place] [address] [facility] [place] [address] 12/07/2024 8:00 AM CDT Procedure visit [facility] Neurology [address] [facility] [address] [place] [address] Shashank Moore MD [address] [facility] [address] [place] [address] 01/17/2025 8:20 AM SUPERVISOR DAIRY SANITATION Appointment [facility] Medicine Christine Piña [address] [facility] [address] [place] [address] [place] [address] [facility]. [address] [place] [address] 03/08/2025 8:00 AM SUPERVISOR DAIRY SANITATION Procedure visit [facility] Neurology [address] [facility] [address] [place] [address] Shashank Moore MD [address] [facility] [address] [place] [address] documented as of this encounter Visit Diagnoses Diagnosis Encounter for long-term (current) use of other medications- Primary documented in this encounter Additional Health Concerns Infection Onset Date Last Indicated Resolved Time R/O COVID-19 11/06/2019 11/06/2019 11/06/2019 8:56 AM CDT R/O COVID-19 12/29/2020 12/29/2020 12/29/2020 1:27 PM SUPERVISOR DAIRY SANITATION COVID-19 12/29/2020 12/29/2020 01/18/2021 1:16 AM SUPERVISOR DAIRY SANITATION documented as of this encounter Care Teams Surgical Physician Assistant Relationship Specialty [place] [address] [facility]. [address] [place] [address] PCP - General 07/29/00 documented as of this encounter
--- OUTSIDE RECORDS SUMMARY | 2024-09-28 15:23 | XMS_ITS | Encounter Summary ---
Author Organization [facility] Address [address] [place] [address] Care Team Providers Care Machinist Supervisor Name Role Phone Uriel Mott MD Primary Care Provider [phone] Encounter Details Date Type Department Care Team (Late st Contact Info) Description 09/08/1998 Outpatient Historical HIS [facility] DEPT OF FAMILY MEDICINE Robinson Fuentes MD [address] [facility] [address] [place] [address] Social History Tobacco Use Types Packs/Day Years Used Date Smoking Tobacco: Never Assessed Comments Unknown Sex and Gender Information Value Date Recorded Sex Assigned at Not on file Legal Sex Female 3:07 AM HOME HEALTH CARE WORKER Gender Identity Not on file Sexual Orientation Not on file documented as of this encounter Plan of Treatment Upcoming Encounters Date Type Department Care Team (Late st Contact Info) Description 10/15/2024 8:00 AM CDT Appointment [facility] Family Medicine Christine Piña [address] [facility] [address] [place] [address] [place] [address] [facility] [place] [address] 12/07/2024 8:00 AM CDT Procedure visit [facility] Neurology [address] [facility] [address] [place] [address] Shashank Moore MD [address] [facility] [address] [place] [address] 01/17/2025 8:20 AM HOME HEALTH CARE WORKER Appointment [facility] Medicine Christine Piña [address] [facility] [address] [place] [address] [place] [address] [facility] [place] [address] 03/08/2025 8:00 AM HOME HEALTH CARE WORKER Procedure visit [facility] Neurology [address] [facility] [address] [place] [address] Shashank Moore MD [address] [facility] [address] [place] [address] documented as of this encounter Visit Diagnoses Not on filedocumented in this encounter Additional Health Concerns Infection Onset Date Last Indicated Resolved Time R/O COVID-19 11/06/2019 11/06/2019 11/06/2019 8:56 AM CDT R/O COVID-19 12/29/2020 12/29/2020 12/29/2020 1:27 PM HOME HEALTH CARE WORKER COVID-19 12/29/2020 12/29/2020 01/18/2021 1:16 AM HOME HEALTH CARE WORKER documented as of this encounter Care Teams Machinist Supervisor Relationship Specialty [place] [address] [facility] [place] [address] PCP - General 07/29/00 documented as of this encounter
--- OUTSIDE RECORDS SUMMARY | 2024-09-28 15:23 | XMS_ITS | Encounter Summary ---
Author Organization [facility] Address [address] [place] [address] Care Team Providers Care Broach Operator Name Role Phone Uriel Mott MD Primary Care Provider [phone] Encounter Details Date Type Department Care Team (Late st Contact Info) Description 01/15/1999 Outpatient Historical HIS [facility] DEPT [place] [address] [facility]. [address] [place] [address] Social History Tobacco Use Types Packs/Day Years Used Date Smoking Tobacco: Never Assessed Comments Unknown Sex and Gender Information Value Date Recorded Sex Assigned at Not on file Legal Sex Female 3:07 AM ENGINEER PROCESS Gender Identity Not on file Sexual Orientation Not on file documented as of this encounter Plan of Treatment Upcoming Encounters Date Type Department Care Team (Late st Contact Info) Description 10/15/2024 8:00 AM CDT Appointment [facility] Family Medicine Christine Piña [address] [facility] [address] [place] [address] [place] [address] [facility] [place] [address] 12/07/2024 8:00 AM CDT Procedure visit [facility] Neurology [address] [facility] [address] [place] [address] Shashank Moore MD [address] [facility] [address] [place] [address] 01/17/2025 8:20 AM ENGINEER PROCESS Appointment [facility] Medicine Christine Piña [address] [facility] [address] [place] [address] [place] [address] [facility] [place] [address] 03/08/2025 8:00 AM ENGINEER PROCESS Procedure visit [facility] Neurology [address] [facility] [address] [place] [address] Shashank Moore MD [address] [facility] [address] [place] [address] documented as of this encounter Visit Diagnoses Not on filedocumented in this encounter Additional Health Concerns Infection Onset Date Last Indicated Resolved Time R/O COVID-19 11/06/2019 11/06/2019 11/06/2019 8:56 AM CDT R/O COVID-19 12/29/2020 12/29/2020 12/29/2020 1:27 PM ENGINEER PROCESS COVID-19 12/29/2020 12/29/2020 01/18/2021 1:16 AM ENGINEER PROCESS documented as of this encounter Care Teams Broach Operator Relationship Specialty [place] [address] [facility] [place] [address] PCP - General 07/29/00 documented as of this encounter
--- OUTSIDE RECORDS SUMMARY | 2024-09-28 15:23 | XMS_ITS | Encounter Summary ---
Author Organization [facility] Address [address] [place] [address] Care Team Providers Care Tire Repair Mechanic Name Role Phone Uriel Mott MD Primary Care Provider [phone] Encounter Details Date Type Department Care Team (Late st Contact Info) Description 07/22/1998 Outpatient Historical HIS [facility] DEPT [place] [address] [facility] [place] [address] Social History Tobacco Use Types Packs/Day Years Used Date Smoking Tobacco: Never Assessed Comments Unknown Sex and Gender Information Value Date Recorded Sex Assigned at Not on file Legal Sex Female 3:07 AM FRAME FIXER Gender Identity Not on file Sexual Orientation Not on file documented as of this encounter Plan of Treatment Upcoming Encounters Date Type Department Care Team (Late st Contact Info) Description 10/15/2024 8:00 AM CDT Appointment [facility] Family Medicine Christine Wang [address] [facility] [address] [place] [address] [place] [address] [facility] [place] [address] 12/07/2024 8:00 AM CDT Procedure visit [facility] Neurology [address] [facility] [address] [place] [address] Shashank Moore MD [address] [facility] [address] [place] [address] 01/17/2025 8:20 AM FRAME FIXER Appointment [facility] Medicine Christine Piña [address] [facility] [address] [place] [address] [place] [address] [facility] [place] [address] 03/08/2025 8:00 AM FRAME FIXER Procedure visit [facility] Neurology [address] [facility] [address] [place] [address] Shashank Moore MD [address] [facility] [address] [place] [address] documented as of this encounter Visit Diagnoses Not on filedocumented in this encounter Additional Health Concerns Infection Onset Date Last Indicated Resolved Time R/O COVID-19 11/06/2019 11/06/2019 11/06/2019 8:56 AM CDT R/O COVID-19 12/29/2020 12/29/2020 12/29/2020 1:27 PM FRAME FIXER COVID-19 12/29/2020 12/29/2020 01/18/2021 1:16 AM FRAME FIXER documented as of this encounter Care Teams Tire Repair Mechanic Relationship Specialty [place] [address] [facility] [place] [address] PCP - General 07/29/00 documented as of this encounter
--- OUTSIDE RECORDS SUMMARY | 2024-09-28 15:23 | XMS_ITS | Encounter Summary ---
Author Organization [facility] Address [address] [place] [address] Care Team Providers Care Men'S And Boys' Clothing Salesperson Name Role Phone Uriel Mott MD Primary Care Provider [phone] Encounter Details Date Type Department Care Team (Late st Contact Info) Description 07/29/2000 Outpatient Historical HIS [facility] DEPT [place] [address] [facility]. [address] [place] [address] Social History Tobacco Use Types Packs/Day Years Used Date Smoking Tobacco: Never Assessed Comments Unknown Sex and Gender Information Value Date Recorded Sex Assigned at Not on file Legal Sex Female 3:07 AM IT SECURITY CONSULTANT Gender Identity Not on file Sexual Orientation Not on file documented as of this encounter Plan of Treatment Upcoming Encounters Date Type Department Care Team (Late st Contact Info) Description 10/15/2024 8:00 AM CDT Appointment [facility] Family Medicine Christine Piña [address] [facility] [address] [place] [address] [place] [address] [facility]. [address] [place] [address] 12/07/2024 8:00 AM CDT Procedure visit [facility] Neurology [address] [facility] [address] [place] [address] Shashank Moore MD [address] [facility] [address] [place] [address] 01/17/2025 8:20 AM IT SECURITY CONSULTANT Appointment [facility] Medicine Christine Piña [address] [facility] [address] [place] [address] [place] [address] [facility]. [address] [place] [address] 03/08/2025 8:00 AM IT SECURITY CONSULTANT Procedure visit [facility] Neurology [address] [facility] [address] [place] [address] Shashank Moore MD [address] [facility] [address] [place] [address] documented as of this encounter Visit Diagnoses Not on filedocumented in this encounter Additional Health Concerns Infection Onset Date Last Indicated Resolved Time R/O COVID-19 11/06/2019 11/06/2019 11/06/2019 8:56 AM CDT R/O COVID-19 12/29/2020 12/29/2020 12/29/2020 1:27 PM IT SECURITY CONSULTANT COVID-19 12/29/2020 12/29/2020 01/18/2021 1:16 AM IT SECURITY CONSULTANT documented as of this encounter Care Teams Men'S And Boys' Clothing Salesperson Relationship Specialty [place] [address] [facility]. [address] [place] [address] PCP - General 07/29/00 documented as of this encounter
--- OUTSIDE RECORDS SUMMARY | 2024-09-28 15:23 | XMS_ITS | Encounter Summary ---
Author Organization [facility] Address [address] [place] [address] Care Team Providers Care Supervisor Phosphatic Fertilizer Name Role Phone Uriel Mott MD Primary Care Provider [phone] Encounter Details Date Type Department Care Team (Late st Contact Info) Description 06/11/[address] [facility] DEPT [place] [address] [place] [address] Social History Tobacco Use Types Packs/Day Years Used Date Smoking Tobacco: Never Assessed Comments Unknown Sex and Gender Information Value Date Recorded Sex Assigned at Not on file Legal Sex Female 3:07 AM BALANCING MACHINE OPERATOR Gender Identity Not on file Sexual Orientation Not on file documented as of this encounter Plan of Treatment Upcoming Encounters Date Type Department Care Team (Late st Contact Info) Description 10/15/2024 8:00 AM CDT Appointment [facility] Medicine Christine Piña [address] [email or web address] [address] [place] [address] [place] [address] [email or web address] [facility]. [address] [place] [address] 12/07/2024 8:00 AM CDT Procedure visit [facility] Neurology [address] [facility] [address] [place] [address] Shashank Moore MD [address] [facility] [address] [place] [address] 01/17/2025 8:20 AM BALANCING MACHINE OPERATOR Appointment [facility] Medicine Christine Piña [address] [facility] [address] [place] [address] [place] [address] [facility] [place] [address] 03/08/2025 8:00 AM BALANCING MACHINE OPERATOR Procedure visit [facility] Neurology [address] [facility] [address] [place] [address] Shashank Moore MD [address] [facility] [address] [place] [address] documented as of this encounter Visit Diagnoses Not on filedocumented in this encounter Additional Health Concerns Infection Onset Date Last Indicated Resolved Time R/O COVID-19 11/06/2019 11/06/2019 11/06/2019 8:56 AM CDT R/O COVID-19 12/29/2020 12/29/2020 12/29/2020 1:27 PM BALANCING MACHINE OPERATOR COVID-19 12/29/2020 12/29/2020 01/18/2021 1:16 AM BALANCING MACHINE OPERATOR documented as of this encounter Care Teams Supervisor Phosphatic Fertilizer Relationship Specialty [place] [address] [facility] [place] [address] PCP - General 07/29/00 documented as of this encounter
--- OUTSIDE RECORDS SUMMARY | 2024-09-28 15:23 | XMS_ITS | Encounter Summary ---
Author Organization [facility] Address [address] [place] [address] Care Team Providers Care Director Of Food And Nutrition Name Role Phone Uriel Mott MD Primary Care Provider [phone] Encounter Details Date Type Department Care Team (Late st Contact Info) Description 08/22/2000 Outpatient Historical HIS [facility] DEPT [place] [address] [facility]. [address] [place] [address] Social History Tobacco Use Types Packs/Day Years Used Date Smoking Tobacco: Never Assessed Comments Unknown Sex and Gender Information Value Date Recorded Sex Assigned at Not on file Legal Sex Female 3:07 AM UNDERGROUND MINE SUPERINTENDENT Gender Identity Not on file Sexual Orientation Not on file documented as of this encounter Plan of Treatment Upcoming Encounters Date Type Department Care Team (Late st Contact Info) Description 10/15/2024 8:00 AM CDT Appointment [facility] Family Medicine Christine Piña [address] [facility] [address] [place] [address] [place] [address] [facility]. [address] [place] [address] 12/07/2024 8:00 AM CDT Procedure visit [facility] Neurology [address] [facility] [address] [place] [address] Shashank Moore MD [address] [facility] [address] [place] [address] 01/17/2025 8:20 AM UNDERGROUND MINE SUPERINTENDENT Appointment [facility] Er Medicine Christine Piña [address] [facility] [address] [place] [address] [place] [address] [facility]. [address] [place] [address] 03/08/2025 8:00 AM UNDERGROUND MINE SUPERINTENDENT Procedure visit [facility] Neurology [address] [facility] [address] [place] [address] Shashank Moore MD [address] [facility] [address] [place] [address] documented as of this encounter Visit Diagnoses Not on filedocumented in this encounter Additional Health Concerns Infection Onset Date Last Indicated Resolved Time R/O COVID-19 11/06/2019 11/06/2019 11/06/2019 8:56 AM CDT R/O COVID-19 12/29/2020 12/29/2020 12/29/2020 1:27 PM UNDERGROUND MINE SUPERINTENDENT COVID-19 12/29/2020 12/29/2020 01/18/2021 1:16 AM UNDERGROUND MINE SUPERINTENDENT documented as of this encounter Care Teams Director Of Food And Nutrition Relationship Specialty [place] [address] [facility]. [address] [place] [address] PCP - General 07/29/00 documented as of this encounter
--- OUTSIDE RECORDS SUMMARY | 2024-09-28 15:23 | XMS_ITS | Encounter Summary ---
Author Organization [facility] Address [address] [place] [address] Care Team Providers Care Patient Representative Name Role Phone Uriel Mott MD Primary Care Provider [phone] Encounter Details Date Type Department Care Team (Latest Contact Info) Description 07/29/2000 Outpatient Historical HIS [place] [address] [facility] [place] [address] Chest pain, unspecified (Primary Dx) Social History Tobacco Use Types Packs/Day Years Used Date Smoking Tobacco: Never Assessed Comments Unknown Sex and Gender Information Value Date Recorded Sex Assigned at Not on file Legal Sex Female 3:07 AM SPECIAL EVENTS DIRECTOR Gender Identity Not on file Sexual Orientation Not on file documented as of this encounter Plan of Treatment Upcoming Encounters Date Type Department Care Team (Late st Contact Info) Description 10/15/2024 8:00 AM CDT Appointment [facility] Family Medicine Christine Piña [address] [facility] [address] [place] [address] [place] [address] [facility] [place] [address] 12/07/2024 8:00 AM CDT Procedure visit [facility] Neurology [address] [facility] [address] [place] [address] Shashank Moore MD [address] [facility] [address] [place] [address] 01/17/2025 8:20 AM SPECIAL EVENTS DIRECTOR Appointment [facility] Medicine Christine Piña [address] [facility] [address] [place] [address] [place] [address] [facility] [place] [address] 03/08/2025 8:00 AM SPECIAL EVENTS DIRECTOR Procedure visit [facility] Neurology [address] [facility] [address] [place] [address] Shashank Moore MD [address] [facility] [address] [place] [address] documented as of this encounter Visit Diagnoses Diagnosis Chest pain, unspecified- Primary documented in this encounter Additional Health Concerns Infection Onset Date Last Indicated Resolved Time R/O COVID-19 11/06/2019 11/06/2019 11/06/2019 8:56 AM CDT R/O COVID-19 12/29/2020 12/29/2020 12/29/2020 1:27 PM SPECIAL EVENTS DIRECTOR COVID-19 12/29/2020 12/29/2020 01/18/2021 1:16 AM SPECIAL EVENTS DIRECTOR documented as of this encounter Care Teams Patient Representative Relationship Specialty [place] [address] [facility] [address] [place] [address] PCP - General 07/29/00 documented as of this encounter
--- OUTSIDE RECORDS SUMMARY | 2024-09-28 15:23 | XMS_ITS | Encounter Summary ---
Author Organization [facility] Address [address] [place] [address] Care Team Providers Care Wallpaper Consultant Name Role Phone Uriel Mott MD Primary Care Provider [phone] Reason for Visit * Reason Onset Date Comments Paperwork 08/08/2024 Controlled Subst ance Agreement Form Encounter Details Date Type Department Care Team (Late st Contact Info) Description 08/08/2024 Telephone [facility] Medicine Christine Wang [address] [place] [address] [place] [address] [address] [place] [address] Paperwork (Controlled Substance Agreement Form) Social History Tobacco Use Types Packs/Day Years Used Date Smoking Tobacco: Former Cigarettes Q uit: 08/22/1974 Passive Smoke Exposure: Past Smokeless Tobacco: Never Alcohol Use Standard Drinks/Week [...] on file Legal Sex Female 3:07 AM SECURITY POLICE OFFICER Gender Identity Not on file Sexual Orientation Not on file documented as of this encounter Miscellaneous Notes * Telephone Encounter - Natalie Galloway - 08/08/2024 10:49 AM CDT Paperwork has been scanned into patient's chart and a copy placed in Dr Mott's folder documented in this encounter Plan of Treatment Upcoming Encounters Date Type Department Care Team (Late st Contact Info) Description 10/15/2024 8:00 AM CDT Appointment [facility] Medicine Christine Piña [address] [facility] [address] [place] [address] [place] [address] [facility] [place] [address] 12/07/2024 8:00 AM CDT Procedure visit [facility] Neurology [address] [address] Shashank Moore MD [address] [place] [address] 01/17/2025 8:20 AM SECURITY POLICE OFFICER Appointment [facility] Christine Piña [address] [facility] [address] [place] [address] [place] [address] [facility]. [address] [place] [address] 03/08/2025 8:00 AM SECURITY POLICE OFFICER Procedure visit [facility] Neurology [address] [facility] [address] [place] [address] Shashank Moore MD [address] [address] documented as of this encounter Visit Diagnoses Not on filedocumented in this encounter Care Teams Wallpaper Consultant Relationship Specialty [place] [address] [facility]. [address] [place] [address] PCP - General 07/29/00 documented as of this encounter
--- OUTSIDE RECORDS SUMMARY | 2024-09-28 15:23 | XMS_ITS | Encounter Summary ---
Author Organization [facility] Address [address] [place] [address] Care Team Providers Care Yarn Hauler Name Role Phone Uriel Mott MD Primary Care Provider [phone] Encounter Details Date Type Department Care Team (Late Contact Info) Description 01/23/2007 Outpatient Historical [facility] Medicine Christine Wang [address] [facility] [facility] [address] [place] [address] [place] [address] [facility] [place] [address] Social History Tobacco Use Types Packs/Day Years Used Date Smoking Tobacco: Never Assessed Comments Unknown Sex and Gender Information Value Date Recorded Sex Assigned at Not on file Legal Sex Female 3:07 AM WEBBING WEAVER Gender Identity Not on file Sexual Orientation Not on file documented as of this encounter Plan of Treatment Upcoming Encounters Date Type Department Care Team (Late st Contact Info) Description 10/15/2024 8:00 AM CDT Appointment [facility] Medicine Christine Wang [address] [facility] [facility] [address] [place] [address] [place] [address] [facility]. [address] [place] [address] 12/07/2024 8:00 AM CDT Procedure visit [facility] Neurology [address] [facility] [address] [place] [address] Shashank Moore MD [address] [facility] [address] [place] [address] 01/17/2025 8:20 AM WEBBING WEAVER Appointment [facility] Family Medicine Christine Piña [address] [facility] [address] [place] [address] [place] [address] [facility]. [address] [place] [address] 03/08/2025 8:00 AM WEBBING WEAVER Procedure visit [facility] [address] [facility] [address] [place] [address] Shashank Moore MD [address] [facility] [address] [place] [address] documented as of this encounter Visit Diagnoses Not on filedocumented in this encounter Additional Health Concerns Infection Onset Date Last Indicated Resolved Time R/O COVID-19 11/06/2019 11/06/2019 11/06/2019 8:56 AM CDT R/O COVID-19 12/29/2020 12/29/2020 12/29/2020 1:27 PM WEBBING WEAVER COVID-19 12/29/2020 12/29/2020 01/18/2021 1:16 AM WEBBING WEAVER documented as of this encounter Care Teams Yarn Hauler Relationship Specialty [place] [address] [facility] [address] [place] [address] PCP - General 07/29/00 documented as of this encounter
--- OUTSIDE RECORDS SUMMARY | 2024-09-28 15:23 | XMS_ITS | Encounter Summary ---
Author Organization [facility] Address [address] [place] [address] Care Team Providers Care Wild Oyster Harvester Name Role Phone Uriel Mott MD Primary Care Provider [phone] Encounter Details Date Type Department Care Team (Late st Contact Info) Description 03/28/1998 Outpatient Historical HIS [facility] DEPT [place] [address] [facility]. [address] [place] [address] Social History Tobacco Use Types Packs/Day Years Used Date Smoking Tobacco: Never Assessed Comments Unknown Sex and Gender Information Value Date Recorded Sex Assigned at Not on file Legal Sex Female 3:07 AM ROUTE DELIVERY MANAGER Gender Identity Not on file Sexual Orientation Not on file documented as of this encounter Plan of Treatment Upcoming Encounters Date Type Department Care Team (Late st Contact Info) Description 10/15/2024 8:00 AM CDT Appointment [facility] Family Medicine Christine Piña [address] [facility] [address] [place] [address] [place] [address] [facility]. [address] [place] [address] 12/07/2024 8:00 AM CDT Procedure visit [facility] Neurology [address] [facility] [address] [place] [address] Shashank Moore MD [address] [facility] [address] [place] [address] 01/17/2025 8:20 AM ROUTE DELIVERY MANAGER Appointment [facility] Medicine Christine Piña [address] [facility] [address] [place] [address] [place] [address] [facility]. [address] [place] [address] 03/08/2025 8:00 AM ROUTE DELIVERY MANAGER Procedure visit [facility] Neurology [address] [facility] [address] [place] [address] Shashank Moore MD [address] [facility] [address] [place] [address] documented as of this encounter Visit Diagnoses Not on filedocumented in this encounter Additional Health Concerns Infection Onset Date Last Indicated Resolved Time R/O COVID-19 11/06/2019 11/06/2019 11/06/2019 8:56 AM CDT R/O COVID-19 12/29/2020 12/29/2020 12/29/2020 1:27 PM ROUTE DELIVERY MANAGER COVID-19 12/29/2020 12/29/2020 01/18/2021 1:16 AM ROUTE DELIVERY MANAGER documented as of this encounter Care Teams Wild Oyster Harvester Relationship Specialty [place] [address] [facility] [place] [address] PCP - General 07/29/00 documented as of this encounter
--- OUTSIDE RECORDS SUMMARY | 2024-09-28 15:23 | XMS_ITS | Encounter Summary ---
Author Organization [facility] Address [address] [place] [address] Care Team Providers Care Air Bag Curer Name Role Phone rUiel Mott MD Primary Care Provider [phone] Encounter Details Date Type Department Care Team (Latest Contact Info) Description 01/07/1999 Outpatient Historical HIS LAB,[place]MIT 2[place] [address] [facility]. [address] [place] [address] Corns and callosities (Primary Dx) Social History Tobacco Use Types Packs/Day Years Used Date Smoking Tobacco: Never Assessed Comments Unknown Sex and Gender Information Value Date Recorded Sex Assigned at Not on file Legal Sex Female 3:07 AM DAY CARE HOME MOTHER Gender Identity Not on file Sexual Orientation Not on file documented as of this encounter Plan of Treatment Upcoming Encounters Date Type Department Care Team (Late st Contact Info) Description 10/15/2024 8:00 AM CDT Appointment [facility] Family Medicine Christine Piña [address] [facility] [address] [place] [address] [place] [address] [facility]. [address] [place] [address] 12/07/2024 8:00 AM CDT Procedure visit [facility] Neurology [address] [facility] [address] [place] [address] Shashank Moore MD [address] [facility] [address] [place] [address] 01/17/2025 8:20 AM DAY CARE HOME MOTHER Appointment [facility] Medicine Christine Piña [address] [facility] [address] [place] [address] [place] [address] [facility]. [address] [place] [address] 03/08/2025 8:00 AM DAY CARE HOME MOTHER Procedure visit [facility] Neurology [address] [facility] [address] [place] [address] Shashank Moore MD [address] [facility] [address] [place] [address] documented as of this encounter Visit Diagnoses Diagnosis Corns and callosities- Primary documented in this encounter Additional Health Concerns Infection Onset Date Last Indicated Resolved Time R/O COVID-19 11/06/2019 11/06/2019 11/06/2019 8:56 AM CDT R/O COVID-19 12/29/2020 12/29/2020 12/29/2020 1:27 PM DAY CARE HOME MOTHER COVID-19 12/29/2020 12/29/2020 01/18/2021 1:16 AM DAY CARE HOME MOTHER documented as of this encounter Care Teams Air Bag Curer Relationship Specialty [place] [address] [facility] [address] [place] [address] PCP - General 07/29/00 documented as of this encounter
--- OUTSIDE RECORDS SUMMARY | 2024-09-28 15:23 | XMS_ITS | Encounter Summary ---
Author Organization [facility] Address [address] [place] [address] Care Team Providers Care R D Intern Name Role Phone Uriel Mott MD Primary Care Provider [phone] Encounter Details Date Type Department Care Team (Late st Contact Info) Description 03/05/2007 Orders Only [facility] Family Medicine [place] Wang [address] [place] [address] [place] [address] [address] [place] [address] Social History Tobacco Use Types Packs/Day Years Used Date Smoking Tobacco: Never Assessed Comments Unknown Sex and Gender Information Value Date Recorded Sex Assigned at Not on file Legal Sex Female 3:07 AM FRANCHISE MANAGER Gender Identity Not on file Sexual Orientation Not on file documented as of this encounter Progress Notes * Mesha Hutchins DO - 06/21/2007 8:30 PM CDT TIME:08:23 am PATIENT`S HOME PHONE: PATIENT`S WORK PHONE: PATIENT`S INSURANCE: [facility] Note created by: Mesha Hutchins M Calls to report 1 day h/o fever to 102, sinus congestion/pressure, PND, no cough. States immunosuppressed--has RA on immunomodulator. SECTION 1: DOCTOR`S RESPONSE: marcelo 03/06/07 at 10:56 am MEDICATIONS: Call in to Pharmacy [facility]UG[facility] ORAL TABLET 875-125 MG, Take one tab PO BID x 10 days, 20 Dispensed, status: CONTINUED, 03/05/2007. szc documented in this encounter Plan of Treatment Upcoming Encounters Date Type Department Care Team (Late st Contact Info) Description 10/15/2024 8:00 AM CDT Appointment [facility] Medicine Christine Piña [address] [facility] [address] [place] [address] [place] [address] [facility] [place] [address] 12/07/2024 8:00 AM CDT Procedure visit [facility] Neurology [address] [facility] [address] [place] [address] Shashank Moore MD [address] [address] 01/17/2025 8:20 AM FRANCHISE MANAGER Appointment [facility] Christine Piña [address] [facility] [address] [place] [address] [place] [address] [facility] [address] 03/08/2025 8:00 AM FRANCHISE MANAGER Procedure visit [facility] Neurology [address] [facility] [address] [place] [address] Shashank Moore MD [address] [address] documented as of this encounter Visit Diagnoses Not on filedocumented in this encounter Additional Health Concerns Infection Onset Date Last Indicated Resolved Time R/O COVID-19 11/06/2019 11/06/2019 11/06/2019 8:56 AM CDT R/O COVID-19 12/29/2020 12/29/2020 12/29/2020 1:27 PM FRANCHISE MANAGER COVID-19 12/29/2020 12/29/2020 01/18/2021 1:16 AM FRANCHISE MANAGER documented as of this encounter Care Teams R D Intern Relationship Specialty [place] [address] [facility]. [address] [place] [address] PCP - General 07/29/00 documented as of this encounter
--- OUTSIDE RECORDS SUMMARY | 2024-09-28 15:23 | XMS_ITS | Encounter Summary ---
Author Organization [facility] Address [address] [place] [address] Care Team Providers Care Vp Construction Name Role Phone Kimberly Pratt MD Primary Care Provider [phone] Encounter Details Date Type Department Care Team (Latest Contact Info) Description 05/10/[address] [facility] [place] [address] [address] [facility]. [address] [place] [address] Other Screening Mammogram Social History Tobacco Use Types Packs/Day Years Used Date Smoking Tobacco: Never Alcohol Use Standard Drinks/Week Comments No 0 (1 standard drink = 0.6 oz pur e alcohol) Comments No Sex and Gender Information Value Date Recorded Sex Assigned at Not on file Legal Sex Female 3:07 AM BUSINESS STRATEGIST Gender Identity Not on file Sexual Orientation Not on file documented as of this encounter Plan of Treatment Upcoming Encounters Date Type Department Care Team (Late st Contact Info) Description 10/15/2024 8:00 AM CDT Appointment [facility] Christine Piña [address] [address] [facility] [address] [place] [address] [place] [address] [facility] [place] [address] 12/07/2024 8:00 AM CDT Procedure visit [facility] Neu[facility] [address] [facility] [address] [place] [address] Shashank Moore MD [address] [facility] [address] [place] [address] 01/17/2025 8:20 AM BUSINESS STRATEGIST Appointment [facility] Christine Piña [address] [facility] [address] [place] [address] [place] [address] [facility] [place] [address] 03/08/2025 8:00 AM BUSINESS STRATEGIST Procedure visit [facility] [address] [facility] [address] [place] [address] Shashank Moore MD [address] [facility] [address] [place] [address] documented as of this encounter Procedures Procedure Name Priority Date/Time Associated Diagnosis Comments MAMMO SCREEN BILAT W OR WO CAD Timed Study 05/10/2008 2:21 PM CDT documented in this encounter Results * MAMMO DIGITAL SCREEN BILAT (05/10/2008 2:21 PM CDT) Anatomical Region Laterality Modality Breast Bilateral Other 05/10/2008 2:21 PM CDT Narrative 05/13/2008 7:36 AM CDT [facility] [address], [place] [address] Admit Date: 05/10/2008 KIRSTEN STAPLETON Sex: F Admit Prov: KIMBERLY PRATT Date: 1950 Primary Care Prov: KIMBERLY PRATT CMRN: [id number] Room: AZAR SSN: [id number] IMAGING SERVICES Ordering Prov: TERENCE KIMBERLY Kerry Accession Number: [id number] Interpretation BILATERAL FULL FIELD DIGITAL SCREENING MAMMOGRAM WITH CAD. History: Routine Screening. Technique: Full field digital craniocaudal and mediolateral oblique projections of both breasts were obtained. Computer aided diagnosis was performed. Comparison: 09/2005 Breast Parenchymal Composition: Scattered fibroglandular densities. Findings: No suspicious mass, suspicious microcalcifications, or architectural distortion in either breast is identified. Since the prior study, there has been no significant interval change. The computer aided diagnosis detects no significant abnormality. Overall Assessment: BI-RADS category 1: Negative. Recommendation: Annual mammography is recommended. Assessment BIRADS: 1-Negative Recommendation: Normal interval follow-up Dictated by: TAMEKA GAINES Electronically signed by: TAMEKA GAINES 05/13/2008 07:35 Transcribed: 05/12/2008 22:10 AMK Procedure Note Tameka Gaines - 05/13/2008 [facility] [address], [place] [address] Admit Date: 05/10/2008 KIRSTEN STAPLETON Sex: F Admit Prov: FAROOQROSIBEL KIMBERLY Kerry Date: 1950 Primary Care Prov: KIMBERLY PRATT Kerry CMRN: [id number] Room: AZAR SSN: [id number] IMAGING SERVICES Ordering Prov: TERENCE KIMBERLY Kerry Interpretation BILATERAL FULL FIELD DIGITAL SCREENING MAMMOGRAM WITH CAD. History: Routine Screening. Technique: Full field digital craniocaudal and mediolateral oblique projections of both breasts were obtained. Computer aided diagnosiswas performed. Comparison: 09/2005 Breast Parenchymal Composition: Scattered fibroglandular densities. Findings: No suspicious mass, suspicious microcalcifications, or architectural distortion in either breast is identified. Since theprior study, there has been no significant interval change. The computeraided diagnosis detects no significant abnormality. Overall Assessment: BI-RADS category 1: Negative. Recommendation: Annual mammography is recommended. Assessment BIRADS: 1-Negative Recommendation: Normal interval follow-up Dictated by: TAMEKA GAINES Electronically signed by: TAMEKA GAINES 05/13/2008 07:35 Transcribed: 05/12/2008 22:10 AMK Kimberly Pratt MD MAMMO ORDERABLES Final Resul t documented in this encounter Visit Diagnoses Diagnosis Other screening mammogram documented in this encounter Additional Health Concerns Infection Onset Date Last Indicated Resolved Time R/O COVID-19 11/06/2019 11/06/2019 11/06/2019 8:56 AM CDT R/O COVID-19 12/29/2020 12/29/2020 12/29/2020 1:27 PM BUSINESS STRATEGIST COVID-12/29/2020 12/29/2020 01/18/2021 1:16 AM BUSINESS STRATEGIST documented as of this encounter Care Teams Vp Construction Relationship Specialty [place] [address] [facility]. [address] [place] [address] PCP - General 07/29/00 documented as of this encounter
--- OUTSIDE RECORDS SUMMARY | 2024-09-28 15:23 | XMS_ITS | Encounter Summary ---
Author Organization [facility] Address [address] [place] [address] Care Team Providers Care Microbiology Lab Manager Name Role Phone Uriel Mott MD Primary Care Provider [phone] Encounter Details Date Type Department Care Team (Late Contact Info) Description 06/27/1998 Outpatient Historical [place] [address] [employer] [facility]. [address] [place] [address] Unspecified sinusitis (chronic) (Primary Dx) Social History Tobacco Use Types Packs/Day Years Used Date Smoking Tobacco: Never Assessed Comments Unknown Sex and Gender Information Value Date Recorded Sex Assigned at Not on file Legal Sex Female 3:07 AM LOAD TESTER Gender Identity Not on file Sexual Orientation Not on file documented as of this encounter Plan of Treatment Upcoming Encounters Date Type Department Care Team (Late st Contact Info) Description 10/15/2024 8:00 AM CDT Appointment [facility] Family Medicine Christine Piña [address] [facility] [address] [place] [address] [place] [address] [facility] [place] [address] 12/07/2024 8:00 AM CDT Procedure visit [facility] Neurology [address] [facility] [address] [place] [address] Shashank Moore MD [address] [facility] [address] [place] [address] 01/17/2025 8:20 AM LO[address] TESTER [address] [facility] Medicine Christine Piña [address] [facility] [address] [place] [address] [place] [address] [facility] [place] [address] 03/08/2025 8:00 AM LOAD TESTER Procedure visit [facility] [address] [facility] [address] [place] [address] Shashank Moore MD [address] [facility] [address] [place] [address] documented as of this encounter Visit Diagnoses Diagnosis Unspecified sinusitis (chronic)- Primary documented in this encounter Additional Health Concerns Infection Onset Date Last Indicated Resolved Time R/O COVID-19 11/06/2019 11/06/2019 11/06/2019 8:56 AM CDT R/O COVID-19 12/29/2020 12/29/2020 12/29/2020 1:27 PM LOAD TESTER COVID-19 12/29/2020 12/29/2020 01/18/2021 1:16 AM LOAD TESTER documented as of this encounter Care Teams Microbiology Lab Manager Relationship Specialty [place] [address] [facility] [place] [address] PCP - General 07/29/00 documented as of this encounter
--- OUTSIDE RECORDS SUMMARY | 2024-09-28 15:23 | XMS_ITS | Encounter Summary ---
Author Organization [facility] Address [address] [place] [address] Care Team Providers Care Crab Steamer Name Role Phone Uriel Mott MD Primary Care Provider [phone] Encounter Details Date Type Department Care Team (Late st Contact Info) Description 04/18/2007 Orders Only [facility] Medicine Christine Wang [address] [facility] [address] [place] [address] [place] [address] [facility] [place] [address] Social History Tobacco Use Types Packs/Day Years Used Date Smoking Tobacco: Never Assessed Comments Unknown Sex and Gender Information Value Date Recorded Sex Assigned at Not on file Legal Sex Female 3:07 AM FACULTY I ON CALL MEDICAL ASSISTANT Gender Identity Not on file Sexual Orientation Not on file documented as of this encounter Plan of Treatment Upcoming Encounters Date Type Department Care Team (Late st Contact Info) Description 10/15/2024 8:00 AM CDT Appointment [facility] Christine Wang [address] [facility] [address] [place] [address] [place] [address] [facility] [place] [address] 12/07/2024 8:00 AM CDT Procedure visit [facility] Neurology [address] [facility] [address] [place] [address] Shashank Moore MD [address] [facility] [address] [place] [address] 01/17/2025 8:20 AM FACULTY I ON CALL MEDICAL ASSISTANT Appointment [facility] Family Medicine Christine Piña [address] [facility] [address] [place] [address] [place] [address] [facility] [place] [address] 03/08/2025 8:00 AM FACULTY I ON CALL MEDICAL ASSISTANT Procedure visit [facility] [address] [facility] [address] [place] [address] Shashank Moore MD [address] [facility] [address] [place] [address] documented as of this encounter Visit Diagnoses Not on filedocumented in this encounter Additional Health Concerns Infection Onset Date Last Indicated Resolved Time R/O COVID-19 11/06/2019 11/06/2019 11/06/2019 8:56 AM CDT R/O COVID-19 12/29/2020 12/29/2020 12/29/2020 1:27 PM FACULTY I ON CALL MEDICAL ASSISTANT COVID-19 12/29/2020 12/29/2020 01/18/2021 1:16 AM FACULTY I ON CALL MEDICAL ASSISTANT documented as of this encounter Care Teams Crab Steamer Relationship Specialty [place] [address] [facility] [address] [place] [address] PCP - General 07/29/00 documented as of this encounter
--- OUTSIDE RECORDS SUMMARY | 2024-09-28 15:23 | XMS_ITS | Encounter Summary ---
Author Organization [facility] Address [address] [place] [address] Care Team Providers Care Group Exercise Class Instructor Name Role Phone Uriel Mott MD Primary Care Provider [phone] Encounter Details Date Type Department Care Team (Late st Contact Info) Description 12/17/1999 Outpatient Historical HIS [facility] DEPT [place] [address] [facility] [place] [address] Social History Tobacco Use Types Packs/Day Years Used Date Smoking Tobacco: Never Assessed Comments Unknown Sex and Gender Information Value Date Recorded Sex Assigned at Not on file Legal Sex Female 3:07 AM CONSTRUCTION ELECTRICIAN Gender Identity Not on file Sexual Orientation Not on file documented as of this encounter Plan of Treatment Upcoming Encounters Date Type Department Care Team (Late st Contact Info) Description 10/15/2024 8:00 AM CDT Appointment [facility] Family Medicine Christine Piña [address] [facility] [address] [place] [address] [place] [address] [facility] [place] [address] 12/07/2024 8:00 AM CDT Procedure visit [facility] Neurology [address] [facility] [address] [place] [address] Shashank Moore MD [address] [facility] [address] [place] [address] 01/17/2025 8:20 AM CONSTRUCTION ELECTRICIAN Appointment [facility] Medicine Christine Piña [address] [facility] [address] [place] [address] [place] [address] [facility] [place] [address] 03/08/2025 8:00 AM CONSTRUCTION ELECTRICIAN Procedure visit [facility] Neurology [address] [facility] [address] [place] [address] Shashank Moore MD [address] [facility] [address] [place] [address] documented as of this encounter Visit Diagnoses Not on filedocumented in this encounter Additional Health Concerns Infection Onset Date Last Indicated Resolved Time R/O COVID-19 11/06/2019 11/06/2019 11/06/2019 8:56 AM CDT R/O COVID-19 12/29/2020 12/29/2020 12/29/2020 1:27 PM CONSTRUCTION ELECTRICIAN COVID-19 12/29/2020 12/29/2020 01/18/2021 1:16 AM CONSTRUCTION ELECTRICIAN documented as of this encounter Care Teams Group Exercise Class Instructor Relationship Specialty [place] [address] [facility] [place] [address] PCP - General 07/29/00 documented as of this encounter
--- OUTSIDE RECORDS SUMMARY | 2024-09-28 15:23 | XMS_ITS | Encounter Summary ---
Author Organization [facility] Address [address] [place] [address] Care Team Providers Care Overhead Crane Truck Loader Name Role Phone Uriel Mott MD Primary Care Provider [phone] Reason for Visit * Reason Comments Medication Refill Encounter Details Date Type Department Care Team (Late st Contact Info) Description 09/25/2024 Refill [facility] Family Medicine [place]alia [address] [facility] [address] [place] [address] [place] [address] [address] 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 Medication Agreement: For requested medication file/updated in previous 12 months: yes Patient Active Problem List Diagnosis Date Noted Opioid use agreement exists 08/20/2024 Overview Note: Associated Diagnosis: m05.761 Current associated controlled meds: hydrocodone Pharmacy listed in agreement: Current medication agreement date signed: 08/08/24 Controlled substance agreement signed 08/13/2024 Overview Note: Associated Diagnosis: M50.93, M05.761, M05.762 Current associated controlled meds: [facility] ([phone]) Current medication agreement date signed: 07/05/23 Associated Diagnosis: F41.1 Current associated controlled meds: Xanax [facility]acy listed in agreement: [facility] ([phone]) Current medication agreement date signed: 08/08/24 Associated Diagnosis: F41.1 Current associated controlled meds: Ambien Pharmacy listed in agreement: [facility] ([phone]) Current medication agreement date signed: 08/08/24 Dystonia 06/08/2024 Atherosclerosis of aorta 03/28/2023 Overview Note: 12/19/22 CTA Chest/Abdomen/Pelvis: There is atherosclerotic calcification involving the thoracic aorta and coronary arteries. History of shingles 10/05/2021 Immunodeficiency due to treatment with immunosuppressive medication 04/23/2021 [facility] systemic steroid user 12/15/2020 Carpal tunnel syndrome of left wrist Small vessel disease, cerebrovascular 08/07/2020 Overview Note: On MRI - The 10-year ASCVD risk score ([place] PATRIC Jr., et al., 2013) is: 6% Values used to calculate the score: Age: 70 years Sex: Female Is Non- : No Diabetic: No Tobacco smoker: No Systolic Blood Pressure: 120 mmHg Is BP treated: No HDL Cholesterol: 60 mg/dL Total Cholesterol: 158 mg/dL Controlled substance agreement signed 01/11/2020 Overview Note: Associated Diagnosis: JESSIE Current associated controlled meds: XANAX Pharmacy listed in agreement: [facility] Current medication agreement date signed: 03/21/20 Status post total left knee replacement using cement 12/03/2018 Cataract, left 06/12/2018 Cataract, right 05/29/2018 Parkinson's disease with dyskinesia and fluctuating manifestations ([facility]) 03/20/2018 Spinal stenosis of lumbosacral region 03/23/2017 Cervical disc disorder of cervicothoracic region 12/20/2016 Age-related osteoporosis without current pathological fracture 01/08/2013 Controlled substance agreement signed 01/08/2013 Herpetic gingivostomatitis 04/26/2007 Family history of ischemic heart disease 01/05/2007 NOLEN (nonalcoholic steatohepatitis) 11/30/2006 Overview Note: fatty liver Intractable chronic migraine without aura and without status migrainosus 10/13/2005 Family history of malignant neoplasm of gastrointestinal tract 09/20/2005 Nontoxic uninodular goiter 10/27/2004 Allergic rhinitis 11/19/2003 Generalized anxiety disorder 11/19/2003 Sinusitis, chronic 11/19/2003 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 ([facility]) 11/19/2003 (APT Adherence: Q 6MTH or Q 12MTH) Appt scheduled: yes Recent Visits Date Type Provider Dept 07/17/24 Office Visit Uriel Mott MD [facility] [place] 04/12/24 Office Visit Uriel Mott MD [facility] [place] 01/10/24 Office Visit Uriel Mott MD [facility] [place] 10/11/23 Office Visit Uriel Mott MD [facility] [place] 08/22/23 Video Visit Mesha Deras DO [facility] [place] 07/05/23 Office Visit Uriel Mott MD [facility] [place] Showing recent visits within past 540 days with a meds authorizing provider and meeting all other requirements Future Appointments Date Type Provider Dept 10/15/24 Appointment Uriel Mott MD [facility] [place] 01/17/25 Appointment Uriel Mott MD [facility] [place] Showing future appointments within next 150 days with a meds authorizing provider and meeting all other requirements Medication being requested: Requested Prescriptions Pending Prescriptions Disp Refills hydrocodone 10 mg-acetaminophen 325 mg tablet (NORCO) 120 Tablet 0 Sig: Take 1 Tablet by mouth every 4 hours as needed for break-through or severe pain. Max Daily Amount: 6 Tablets Opioid Decision Support Failed - 09/27/2024 3:46 PM Failed - Medication not refilled in past 28 days Failed - Toxicology result on file in past 12 months Passed - Active on med list Passed - Visit with authorizing provider in past 3 months Recent Visits Date Type Provider Dept 07/17/24 Office Visit Uriel Mott MD [facility] Christine Piña Showing recent visits within past 90 days and meeting all other requirements Future Appointments Date Type Provider Dept 10/15/24 Appointment Uriel Mott MD [facility] Christine Piña Showing future appointments within next 90 days and meeting all other requirements Appointments for Next 365 Days 09/27/2024 - 09/27/2025 Date Visit Type Length Department Provider 10/15/2024 8:00 AM OFFICE VISIT ESTABLISHED 20 min [facility] Uriel Johnston MD Appointment Notes: joints 12/07/2024 8:00 AM BOTOX INJECTION 30 min [facility] [address] Shashank Moore MD Appointment Notes: BOTOX JAW DYSTONIA 01/17/2025 8:20 AM OFFICE VISIT ESTABLISHED 20 min [facility] Uriel Johnston MD Appointment Notes: joints 03/08/2025 8:00 AM BOTOX INJECTION 30 min [facility] [address] Shashank Moore MD Appointment Notes: BOTOX Passed - Active opioid pain agreement [facility] Chronic Opioid Guideline Passed - Concurrent benzodiazepine Rx with evidence of naloxone Rx Passed - Opioid Risk Assessment Current ALPRAZolam 2 mg tablet (XANAX) 90 Tablet 0 Sig: Take 1 Tablet (2 mg) by mouth 3 times daily as needed for Anxiety. Controlled Substance Refill Decision Support Failed - 09/27/2024 3:46 PM Failed - Urine toxicology result on file in past 12 months Failed - Medication not refilled in past 28 days Passed - Active on med list Passed - Visit with authorizing provider in past 3 months Recent Visits Date Type Provider Dept 07/17/24 Office Visit Uriel Mott MD [facility] Christine Piña Showing recent visits within past 90 days and meeting all other requirements Future Appointments Date Type Provider Dept 10/15/24 Appointment Uriel Mott MD [facility] Family [facility] Christine Amalia Showing future appointments within next 90 days and meeting all other requirements Appointments for Next 365 Days 09/27/2024 - 09/27/2025 Date Visit Type Length Department Provider 10/15/2024 8:00 AM OFFICE VISIT ESTABLISHED 20 min [facility] Uriel Johnston MD Appointment Notes: joints 12/07/2024 8:00 AM BOTOX INJECTION 30 min [facility] [address] Shashank Moore MD Appointment Notes: BOTOX JAW DYSTONIA 01/17/2025 8:20 AM OFFICE VISIT ESTABLISHED 20 min [facility] Uriel Johnston MD Appointment Notes: joints 03/08/2025 8:00 AM BOTOX INJECTION 30 min [facility] [address] Shashank Moore MD Appointment Notes: BOTOX predniSONE 5 mg tablet (DELTASONE) 180 Tablet 1 Sig: Take 1 Tablet (5 mg) by mouth 2 times daily with meals. There is no refill protocol information for this order Last Refill Date: 09/05/24 # of Days: 30 # of Refills: 0 Pharmacy Retail/Mail Order: [facility] Patient call back number: documented in this encounter Plan of Treatment Upcoming Encounters Date Type Department Care Team (Late st Contact Info) Description 10/15/2024 8:00 AM CDT Appointment [facility] Christine Piña [address] [facility] [address] [place] [address] [place] [address] [facility] [place] [address] 12/07/2024 8:00 AM CDT Procedure visit [facility] [address] [facility] [address] [place] [address] Shashank Moore MD [address] [facility] [address] [place] [address] 01/17/2025 8:20 AM CLINICAL PSYCHOLOGY TEACHER Appointment [facility] Medicine Christine Piña [address] [facility] [address] [place] [address] [place] [address] 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 [place] [address] PCP - General 07/29/00 documented as of this encounter
--- OUTSIDE RECORDS SUMMARY | 2024-09-28 15:23 | XMS_ITS | Encounter Summary ---
Author Organization [facility] Address [address] [place] [address] Care Team Providers Care Gauger Delivery Name Role Phone Uriel Mott MD Primary Care Provider [phone] Encounter Details Date Type Department Care Team (Late st Contact Info) Description 09/27/2000 Outpatient Historical [facility] [address] Alex Carmichael MD [address] [place] [address] Laboratory examination (Primary Dx) Social History Tobacco Use Types Packs/Day Years Used Date Smoking Tobacco: Never Assessed Comments Unknown Sex and Gender Information Value Date Recorded Sex Assigned at Not on file Legal Sex Female 3:07 AM MANAGER COLLEGE Gender Identity Not on file Sexual Orientation Not on file documented as of this encounter Plan of Treatment Upcoming Encounters Date Type Department Care Team (Late st Contact Info) Description 10/15/2024 8:00 AM CDT Appointment [facility] Family Medicine Christine Wang [address] [facility] [address] [place] [address] [place] [address] [facility] [place] [address] 12/07/2024 8:00 AM CDT Procedure visit [facility] Neurology [address] [facility] [address] [place] [address] Shashank Moore MD [address] [facility] [address] [place] [address] 01/17/2025 8:20 AM MANAGER COLLEGE Appointment [facility] Medicine Christine Piña [address] [facility] [address] [place] [address] [place] [address] [facility] [place] [address] 03/08/2025 8:00 AM MANAGER COLLEGE Procedure visit [facility] [address] [facility] [address] [place] [address] Shashank Moore MD [address] [facility] [address] [place] [address] documented as of this encounter Visit Diagnoses Diagnosis Laboratory examination- Primary documented in this encounter Additional Health Concerns Infection Onset Date Last Indicated Resolved Time R/O COVID-19 11/06/2019 11/06/2019 11/06/2019 8:56 AM CDT R/O COVID-19 12/29/2020 12/29/2020 12/29/2020 1:27 PM MANAGER COLLEGE COVID-19 12/29/2020 12/29/2020 01/18/2021 1:16 AM MANAGER COLLEGE documented as of this encounter Care Teams Gauger Delivery Relationship Specialty [place] [address] [facility] [place] [address] PCP - General 07/29/00 documented as of this encounter
--- OUTSIDE RECORDS SUMMARY | 2024-09-28 15:23 | XMS_ITS | Encounter Summary ---
Author Organization [facility] Address [address] [place] [address] Care Team Providers Care Executive Relations Specialist Name Role Phone Uriel Mott MD Primary Care Provider [phone] Encounter Details Date Type Department Care Team (Late st Contact Info) Description 01/02/1999 Outpatient Historical [facility] DEPT OF FAMILY MEDICINE Alex Carmichael MD [address] [place] [address] Social History Tobacco Use Types Packs/Day Years Used Date Smoking Tobacco: Never Assessed Comments Unknown Sex and Gender Information Value Date Recorded Sex Assigned at Not on file Legal Sex Female 3:07 AM AD OPERATIONS INTERN Gender Identity Not on file Sexual Orientation Not on file documented as of this encounter Plan of Treatment Upcoming Encounters Date Type Department Care Team (Late st Contact Info) Description 10/15/2024 8:00 AM CDT Appointment [facility] Family Medicine [place] [address] [facility] [address] [place] [address] [place] [address] [facility] [place] [address] 12/07/2024 8:00 AM CDT Procedure visit [facility] Neurology [address] [facility] [address] [place] [address] Shashank Moore MD [address] [facility] [address] [place] [address] 01/17/2025 8:20 AM AD OPERATIONS INTERN Appointment [facility] Medicine Christine Piña [address] [facility] [address] [place] [address] [place] [address] [facility] [place] [address] 03/08/2025 8:00 AM AD OPERATIONS INTERN Procedure visit [facility] Neurology [address] [facility] [address] [place] [address] Shashank Moore MD [address] [facility] [address] [place] [address] documented as of this encounter Visit Diagnoses Not on filedocumented in this encounter Additional Health Concerns Infection Onset Date Last Indicated Resolved Time R/O COVID-19 11/06/2019 11/06/2019 11/06/2019 8:56 AM CDT R/O COVID-19 12/29/2020 12/29/2020 12/29/2020 1:27 PM AD OPERATIONS INTERN COVID-19 12/29/2020 12/29/2020 01/18/2021 1:16 AM AD OPERATIONS INTERN documented as of this encounter Care Teams Executive Relations Specialist Relationship Specialty [place] [address] [facility] [place] [address] PCP - General 07/29/00 documented as of this encounter
--- OUTSIDE RECORDS SUMMARY | 2024-09-28 15:23 | XMS_ITS | Encounter Summary ---
Author Organization [facility] Address [address] [place] [address] Care Team Providers Care Etymology Teacher Name Role Phone Uriel Mott MD Primary Care Provider [phone] Encounter Details Date Type Department Care Team (Late st Contact Info) Description 07/01/2000 Outpatient Historical [facility] DEPT [place] [address] [place] [address] Social History Tobacco Use Types Packs/Day Years Used Date Smoking Tobacco: Never Assessed Comments Unknown Sex and Gender Information Value Date Recorded Sex Assigned at Not on file Legal Sex Female 3:07 AM QUILLER HAND Gender Identity Not on file Sexual Orientation Not on file documented as of this encounter Plan of Treatment Upcoming Encounters Date Type Department Care Team (Late st Contact Info) Description 10/15/2024 8:00 AM CDT Appointment [facility] Medicine Christine Piña [address] [address] [facility] [address] [place] [address] [place] [address] [address] [facility] [place] [address] 12/07/2024 8:00 AM CDT Procedure visit [facility] Neurology [address] [facility] [address] [place] [address] Shashank Moore MD [address] [facility] [address] [place] [address] 01/17/2025 8:20 AM QUILLER HAND Appointment [facility] Medicine Christine Piña [address] [facility] [address] [place] [address] [place] [address] [facility] [place] [address] 03/08/2025 8:00 AM QUILLER HAND Procedure visit [facility] Neurology [address] [facility] [address] [place] [address] Shashank Moore MD [address] [facility] [address] [place] [address] documented as of this encounter Visit Diagnoses Not on filedocumented in this encounter Additional Health Concerns Infection Onset Date Last Indicated Resolved Time R/O COVID-19 11/06/2019 11/06/2019 11/06/2019 8:56 AM CDT R/O COVID-19 12/29/2020 12/29/2020 12/29/2020 1:27 PM QUILLER HAND COVID-19 12/29/2020 12/29/2020 01/18/2021 1:16 AM QUILLER HAND documented as of this encounter Care Teams Etymology Teacher Relationship Specialty [place] [address] [facility] [place] [address] PCP - General 07/29/00 documented as of this encounter
--- OUTSIDE RECORDS SUMMARY | 2024-09-28 15:23 | XMS_ITS | Encounter Summary ---
Author Organization [facility] Address [address] [place] [address] Care Team Providers Care Site Foreman Name Role Phone Uriel Mott MD Primary Care Provider [phone] Encounter Details Date Type Department Care Team (Latest Contact Info) Description 04/15/1999 Outpatient Historical HIS [facility] [place] [address] [facility] [place] [address] Abdominal pain, unspecified site (Primary Dx) Social History Tobacco Use Types Packs/Day Years Used Date Smoking Tobacco: Never Assessed Comments Unknown Sex and Gender Information Value Date Recorded Sex Assigned at Not on file Legal Sex Female 3:07 AM HR PAYROLL COORDINATOR Gender Identity Not on file Sexual Orientation Not on file documented as of this encounter Plan of Treatment Upcoming Encounters Date Type Department Care Team (Late st Contact Info) Description 10/15/2024 8:00 AM CDT Appointment [facility] Family Medicine Christine Piña [address] [facility] [address] [place] [address] [place] [address] [facility] [place] [address] 12/07/2024 8:00 AM CDT Procedure visit [facility] Neurology [address] [facility] [address] [place] [address] Shashank Moore MD [address] [facility] [address] [place] [address] 01/17/2025 8:20 AM HR PAYROLL COORDINATOR Appointment [facility] Medicine Christine Piña [address] [facility] [address] [place] [address] [place] [address] [facility] [place] [address] 03/08/2025 8:00 AM HR PAYROLL COORDINATOR Procedure visit [facility] [address] [facility] [address] [place] [address] Shashank Moore MD [address] [facility] [address] [place] [address] documented as of this encounter Visit Diagnoses Diagnosis Abdominal pain, unspecified site- Primary documented in this encounter Additional Health Concerns Infection Onset Date Last Indicated Resolved Time R/O COVID-19 11/06/2019 11/06/2019 11/06/2019 8:56 AM CDT R/O COVID-19 12/29/2020 12/29/2020 12/29/2020 1:27 PM HR PAYROLL COORDINATOR COVID-19 12/29/2020 12/29/2020 01/18/2021 1:16 AM HR PAYROLL COORDINATOR documented as of this encounter Care Teams Site Foreman Relationship Specialty [place] [address] [facility] [place] [address] PCP - General 07/29/00 documented as of this encounter
--- OUTSIDE RECORDS SUMMARY | 2024-09-28 15:23 | XMS_ITS | Patient Health Record ---
Author Organization [facility] Address [address] [place], [place] [address] Care Team Providers Care Manager Law Name Role Phone KIMBERLY PRATT Primary Care Provider Alex Barnes Unavailable [phone] ALLERGIES Allergen (clinical drug ingredient) Drug/Non Drug Allergy documented on EMR Reaction Allergy Type Onset Date Status latex rash Drug Allergy Active sulfa Unknown Drug Allergy Active codeine codeine Unknown Drug Allergy Active duloxetine cymbalta (uncoded) nausea Allergy Active REASON FOR REFERRAL No Information MEDICATIONS Medication SIG (Take, Route, Fr equency, Duration) Notes Start Date End Date Status tramadol 50.0 Milligram 2 TAB orally MEDINA RY 8 HRS for 30 10/12/2012 Active Xanax 2 mg 1 tab(s) orally bid prn Active Actemra 8.0mg/kg [id number] Act florecita predniSONE 5 mg 1 tab(s) orally once a day Active Ambien 10 mg 1 tab(s) orally prn Active PROBLEMS Problem Type ICD Code Onset Dates Problem Status W/U Status Risk SNOMED Code Notes Problem Muscle Cramps (729.82) Active confirmed Muscle cramps (51832020) Problem Abnormal liver function study (794.8) Active confirmed Abnormal liver function (51584359) Problem MONITOR MED (V58.69) Active confirmed Long-term drug therapy (103777544) Problem Rheumatoid Arthritis (714.0) Active confirmed Rheumatoid arthritis (33444684) PLAN OF TREATMENT Pending Test Test Name Order Date LIPID PANEL 09/16/2011 Insurance Providers Payer Name Payer Address Payer Phone Subscriber Number Group Number Insured Name Patient Relationship to Insured Coverage Start Date Coverage End Date MEDICARE ASSIGNMENT [address] [place] [address] [phone] [id number] CHICHO STAPLETON Self - patient is the insured 8 MEDICAL (GENERAL) HISTORY Medical History History ICD Code rheumatoid arthritis Surgical History Surgery Date(Month/Year) Tonsillectomy age 32 Carpal tunnel release both hands Tumor excised from abdomen 2001 Right shoulder sugery to repair nerves a nd tendons 1991 Cholecystectomy 1986 [facility] 1977 Hospitalization History Reason Date(Month/Year) chest pain
--- NOTE | 2024-09-28 15:49 | ED_ITS ---
HPI - Head Injury General Chief complaint: Head Injury Stated complaint: fall-hit head-lac Time Seen by Provider: 09/28/24 15:28 History of Present Illness HPI Narrative: This is a 74-year-old female with history of Parkinson's disease, rheumatoid arthritis who presents to the ED for fall and head lack. Patient states that she was in her yd gardening when she lost her balance fell backwards hitting a metal table. No loss consciousness. She did sustain a laceration to her posterior scalp, left lai, and a skin tear to her left arm. She is not on any blood thinners. Denies any other pain at this time. No preceding symptoms including chest pain, shortness of breath, palpitations, lightheadedness, dizziness. Related Data Allergies Allergy/AdvReac Type Severity Reaction Status Date / Time codeine Allergy Mild Unknown Verified 09/28/24 15:47 Sulfa (Sulfonamide Allergy Mild Unknown Verified 09/28/24 15:47 Antibiotics) Review of Systems 2 Review of Systems: Gen.: Denies fevers or chills Eyes: Denies eye pain or visual change ENT: Denies congestion Respiratory: Denies shortness of breath or cough CV: Denies chest pain or palpitations GI: Denies abdominal pain nausea, emesis or diarrhea denies burning, urgency, frequency or hematuria Musculoskeletal: Denies back pain or muscle pain Neuro: Denies numbness, tingling, weakness or focal weakness Skin: Denies rash Except as documented, all other systems reviewed and negative Exam 2 Narrative: APPEARANCE: No acute distress, nontoxic, resting in bed EYES: EOMI HEENT: Normocephalic, laceration to the posterior scalp, bleeding controlled. RESPIRATORY: No respiratory distress Clear to auscultation bilaterally with no rhonchi wheezing or rales. CARDIOVASCULAR: Regular rate and rhythm without murmurs rubs or gallops. ABDOMINAL: Soft, nontender, nondistended, no rebound or guarding MUSCULOSKELETAl: Moves all extremities. No clubbing, cyanosis or edema. NEURO: Awake and alert. Following commands, speech normal, no focal deficits SKIN:: Small abrasion to the superior portion of the left lai. Small skin tear to the left forearm. PSYCHIATRIC: Normal affect/mood, Course Vital Signs Vital signs: Vital Signs Temperature 98.1 F 09/28/24 15:40 Pulse Rate 91 09/28/24 15:40 Respiratory Rate 20 09/28/24 15:40 Blood Pressure 123/74 09/28/24 15:40 Pulse Oximetry 100 09/28/24 15:40 Oxygen Delivery Room Air 09/28/24 15:40 Temperature 98.1 F 09/28/24 15:40 Pulse Rate 80 09/28/24 18:17 Respiratory Rate 12 09/28/24 18:17 Blood Pressure 147/78 H 09/28/24 18:17 Pulse Oximetry 99 09/28/24 18:17 Oxygen Delivery Room Air 09/28/24 15:40 Procedures Laceration Laceration 1: Date: 09/28/24 Time: 17:15 Site: scalp Side (If applicable): left Size (cm): 3 Description: linear Depth: simple, single layer Local Anesthetic: none Pre-repair: irrigated ====== Skin Level ====== Skin layer closed with: sergio Number of sutures: 5 ====== Subcutaneous Layer ====== ====== Muscle Layer ====== ====== Tendon Layer ====== MDM - Head Injury MDM Narrative Medical decision making narrative: 74-year-old female that presented to the ED for fall and head injury. On initial evaluation, patient was in no acute distress, afebrile, hemodynamically stable. She did have a laceration to the occipital region of her scalp with some oozing. Nonfocal neuro exam. CT head was obtained and showed a subarachnoid hemorrhage. Because of this, patient will require transfer to tertiary care center. Patient gets most of her care [facility] so she requested to go there. I spoke with the transfer center they will accept patient in the ED to ED transfer accepted by Dr. Mallory, Neurosurgery. Patient and family were agreeable to this plan. Scalp laceration was repaired using sergio, refer to procedure note above. Tdap was updated. Patient was transferred in a stable condition. Differential Diagnosis Differential diagnosis: Likely subdural hematoma and other (laceration, skin tear, abrasion) Medical Records Attestation: I reviewed the patient's medical records. Lab Data Attestation: I reviewed the patient's lab results. 09/28/24 16:51 09/28/24 16:51 Labs: Lab Results 09/28/24 Range/Units 16:51 WBC 9.4 (4.5-10.0) K/mm3 RBC 4.28 (4.2-5.4) M/mm3 Hgb 12.8 (12.0-15.0) g/dL Hct 39.2 (37.0-47.0) % MCV 91.6 (80-100) fl MCH 29.9 (26-34) pg MCHC 32.7 (32-36) g/dl RDW 13.5 (11.5-14.5) % Plt Count 225 (150-375) k/mm3 MPV 9.1 (7.4-10.4) fl Immature Gran % (Auto) 0.4 (0-0.5) % Neut % (Auto) 79.2 H (45.5-73.1) % Lymph % (Auto) 13.8 L (18.3-44.2) % Preston % (Auto) 5.8 (2.6-8.5) % Eos % (Auto) 0.5 (0-4.4) % Baso % (Auto) 0.3 (0.2-1.2) % Lymph # (Auto) 1.30 (0.9-3.2) K/mm3 Preston # (Auto) 0.6 (0.1-0.6) K/mm3 Eos # (Auto) 0.1 (0-0.3) K/mm3 Baso # (Auto) 0.0 (0.0-0.1) K/mm3 Abs Immat Gran (auto) 0.04 H (0.00-0.031) K/mm3 Absolute Neuts (auto) 7.4 H (1.3-6.7) K/mm3 Absolute Nucleated RBC 0.000 (0.0-0.012) K/mm3 Nucleated RBC % 0.0 (0.0-0.2) % Sodium 139 (137-145) mmol/L Potassium 3.9 (3.4-5.0) mmol/L Chloride 103 (98-107) mmol/L Carbon Dioxide 27 (22-30) mmol/L Anion Gap 9 (4-12) mmol/L BUN 15 (7-17) mg/dL Creatinine 0.65 L (0.7-1.0) mg/dL Estim Creat Clear Calc 48 ml/min Estimated GFR > 60 (59 - ) Glucose 111 H (65-110) mg/dL Calcium 9.8 (8.4-10.2) mg/dL Total Bilirubin 0.5 (0.2-1.3) mg/dL AST 33 (14-36) U/L ALT 10 (6-35) U/L Alkaline Phosphatase 61 (38-126) U/L Total Protein 7.3 (6.3-8.2) g/dL Albumin 4.5 (3.5-5.1) g/dL Imaging Data Attestation: I personally reviewed and interpreted this imaging study as follows: Radiologist's impression: Impressions Head CT 09/28/24 16:05 IMPRESSION: 1. Small subarachnoid hemorrhage in the left parietal lobe near the vertex. The emergency room physician taking care of the patient, Dr. Sifuentes, was identified about the findings on 09/28/2024 at 4:[address] Caraballo. Pelvis X-Ray 09/28/24 16:54 IMPRESSION: 1. No acute osseous abnormality with limited assessment of the inferior sacrum due to superimposed colonic stool. Cervical Spine CT 09/28/24 17:14 IMPRESSION: 1. There is an indeterminate 2.6 x 2.3 cm irregular density in the right lung apex. In addition, there are a few small patchy opacities in the visualized lung apices. A chest CT is recommended for further assessment. 2. No compression fracture in the cervical spine. 3. Moderate joint space narrowing at the C6-C7 level. 4. Grade 1 anterolisthesis of C6 on C7. If symptoms persist or worsen, consider an MRI of the cervical spine for further assessment. ECG Data EKG #1: ECG completion date: 09/28/24 ECG completion time: 16:46 Interpretation: Sinus rhythm with first-degree AV axis deviation, normal QTC, no acute ST or T- wave changes Discharge Plan Discharge Clinical Impression: Subarachnoid hemorrhage, Laceration of occipital scalp Patient Disposition: Acute Care Hospital Condition: Stable Patient Language: Chinese Follow-up/Referrals: PHYSICIAN NOT ON STAFF,NONSTAFF [Non-Staff]
[2024-09-28] MEDS: TETANUS,DIPHTHERIA,AC PERTUSSIS ADULT (0.5 ML) BOOSTRIX IM (16:07)
--- NOTE | 2024-09-28 16:18 | ECG_ITS ---
Test Date: 2024-09-28 16:46:46 Measurements Intervals [place] Rate: 81 P: 15 KS: 210 QRS: -30 QRSD: 92 T: 37 QT: 387 QTc: 452 Interpretive Statements SINUS RHYTHM WITH FIRST DEGREE AV BLOCK VOLTAGE CRITERIA FOR LVH BASELINE ARTIFACT- I, II, III, AVR, AVL, AVF, V1 BORDERLINE ECG No previous ECG available for comparison Electronically Signed On 09-28-2024 17:32:44 CDT by Raimundo Deutsch D.O.
[2024-09-28 16:57] LABS: Hematocrit 39.2 % (37.0-47.0); Hemoglobin 12.8 g/dL (12.0-15.0); Immature Granulocyte Percent A 0.4 % (0-0.5); Lymphocytes Absolute Auto 1.30 K/mm3 (0.9-3.2); Mean Corpuscular HGB Conc 32.7 g/dl (32-36); Mean Corpuscular Hemoglobin 29.9 pg (26-34); Mean Corpuscular Volume 91.6 fl (80-100); Nucleated Red Blood Cells Absolute Auto 0.000 K/mm3 (0.0-0.012); Nucleated Red Blood Cells Perc 0.0 % (0.0-0.2); Platelet Count Result 225 k/mm3 (150-375); Red Blood Count 4.28 M/mm3 (4.2-5.4); White Blood Count 9.4 K/mm3 (4.5-10.0)
[2024-09-28] MEDS: MORPHINE SULFATE (*CRX) 4 MG/ML INJ IV PUSH (17:06)
--- OUTSIDE RECORDS SUMMARY | 2024-09-28 17:09 | XMS_ITS | Encounter Summary ---
Author Organization [facility] Address [address] [place] [address] Care Team Providers Care Blacksmith Supervisor Name Role Phone Uriel Mott MD Primary Care Provider [phone] Encounter Details Date Type Department Care Team (Latest Contact Info) Description 10/26/2006 Outpatient Historical [facility] Medicine Christine Wang [address] [employer] [facility] [address] [place] [address] [place] [address] [employer] [facility]. [address] [place] [address] Other Malaise and Fatigue (Primary Dx) Social History Tobacco Use Types Packs/Day Years Used Date Smoking Tobacco: Never Assessed Comments Unknown Sex and Gender Information Value Date Recorded Sex Assigned at Not on file Legal Sex Female 3:07 AM RUNNING INSTRUCTOR Gender Identity Not on file Sexual Orientation Not on file documented as of this encounter Plan of Treatment Upcoming Encounters Date Type Department Care Team (Late st Contact Info) Description 10/15/2024 8:00 AM CDT Appointment [facility] Medicine Christine Wang [address] [employer] [facility] [address] [place] [address] [place] [address] [facility] [place] [address] 12/07/2024 8:00 AM CDT Procedure visit [facility] Neurology [address] [facility] [address] [place] [address] Shashank Moore MD [address] [facility] [address] [place] [address] 01/17/2025 8:20 AM RUNNING INSTRUCTOR Appointment [facility] Christine Piña [address] [place] [facility] [address] [place] [address] [place] [address] [place] [facility]. [address] [place] [address] 03/08/2025 8:00 AM RUNNING INSTRUCTOR Procedure visit [facility] Neurology [address] [facility] [address] [place] [address] Shashank Moore MD [address] [facility] [address] [place] [address] documented as of this encounter [...] MD CHEMISTRY ORDERABLES Edited Performing Organization Address City/[facility] Co de Phone Number INTERFACE SYSTEM Refer [...] R/O COVID-19 12/29/2020 12/29/2020 12/29/2020 1:27 PM RUNNING INSTRUCTOR COVID-19 12/29/2020 12/29/2020 01/18/2021 1:16 AM RUNNING INSTRUCTOR documented as of this encounter Care Teams Blacksmith Supervisor Relationship Specialty [place] [address] [facility] [address] [place] [address] PCP - General 07/29/00 documented as of this encounter
--- OUTSIDE RECORDS SUMMARY | 2024-09-28 17:09 | XMS_ITS | Clinical Summary ---
Author Organization [facility] Address [address] [place] [address] Care Team Providers Care Rouge Presser Name Role Phone Uriel Mott MD Primary [...] on file Legal Sex Female 3:09 AM MOBILE DEVELOPER Gender Identity Not on file Sexual Orientation Not on file Obstetrics History Last Filed Vital Signs Vital Sign Reading Time Taken Comments Blood Pressure 125/81 12/29/2023 2:00 PM MOBILE DEVELOPER Pulse 90 12/29/2023 2:00 PM MOBILE DEVELOPER Temperature 36.8 C (98.3 F) 12/29/2023 2:00 PM MOBILE DEVELOPER Respiratory Rate 20 12/29/2023 2:00 PM MOBILE DEVELOPER Oxygen Saturation 98% 12/29/2023 2:00 PM MOBILE DEVELOPER Inhaled Oxygen Concentration - - Weight 69 kg (152 lb 1.6 oz) 12/29/2023 2:00 PM MOBILE DEVELOPER Height 162.6 cm (5' 4) 12/29/2023 2:00 PM MOBILE DEVELOPER Body Mass Index 26.11 12/29/2023 2:00 PM MOBILE DEVELOPER Plan of Treatment Health Maintenance Due Date [...] Payer ID:[id number] (NAIC) Type:MEDICARE RISK OTHER Address: [address] [employer]ICE MEDICARE PPO [employer]ICE MEDICARE PPO Member Subscriber Plan / Payer (Ef fective 2017-Present) Name:Kirsten Roberts Relation to Subscriber:Self Name:Kirsten Roberts Payer ID:[id number] (NAIC) Type:MEDICARE RISK OTHER Address: [address] MEDICARE HMO Care Teams Rouge Presser Relationship Specialty [place] [id number] [address] PCP - General 04/01/17
--- OUTSIDE RECORDS SUMMARY | 2024-09-28 17:09 | XMS_ITS | Encounter Summary ---
Author Organization [facility] Address [address] [place] [address] Care Team Providers Care Neuroscientist Name Role Phone Uriel Mott MD Primary Care Provider [phone] Encounter Details Date Type Department Care Team (Late Contact Info) Description 11/30/[address] [facility] Christine Wang [address] [place] [address] [place] [address] [facility] [place] [address] Social History Tobacco Use Types Packs/Day Years Used Date Smoking Tobacco: Never Assessed Comments Unknown Sex and Gender Information Value Date Recorded Sex Assigned at Not on file Legal Sex Female 3:07 AM INPATIENT SERVICES RN Gender Identity Not on file Sexual Orientation [...] Description 10/15/2024 8:[address] [facility] Christine iPña [address] [facility] [address] [facility] [address] [place] [address] [place] [address] [facility] [place] [address] 12/07/2024 8:00 AM CDT Procedure visit [facility] Neurology [address] [facility] [address] [place] [address] Shashank Moore MD [address] [facility] [address] [place] [address] 01/17/2025 8:20 AM INPATIENT SERVICES RN Appointment [facility] Medicine Christine Piña [address] [facility] [address] [place] [address] [place] [address] [facility] [place] [address] 03/08/2025 8:00 AM INPATIENT SERVICES RN Procedure visit [facility] [address] [facility] [address] [place] [address] Shashank Moore MD [address] [address] documented as of this encounter Visit Diagnoses Not on filedocumented in this encounter Additional Health Concerns Infection Onset Date Last Indicated Resolved Time R/O COVID-19 11/06/2019 11/06/2019 11/06/2019 8:56 AM CDT R/O COVID-19 12/29/2020 12/29/2020 12/29/2020 1:27 PM INPATIENT SERVICES RN COVID-19 12/29/2020 12/29/2020 01/18/2021 1:1 6 AM INPATIENT SERVICES RN documented as of this encounter Care Teams Neuroscientist Relationship Specialty [place] [address] [facility] [place] [address] PCP - General 07/29/00 documented as of this encounter
--- OUTSIDE RECORDS SUMMARY | 2024-09-28 17:09 | XMS_ITS | Encounter Summary ---
Author Organization [facility] Address [address] [place] [address] Care Team Providers Care Intervention Manager Name Role Phone Uriel Mott MD Primary Care Provider [phone] Encounter Details Date Type Department Care Team (Latest Contact Info) Description 11/03/2006 Outpatient Historical [facility] Medicine Christine Wang [address] [address] [facility] [address] [place] [address] [place] [address] [address] [facility]. [address] [place] [address] Other Malaise and Fatigue (Primary Dx) Social History Tobacco Use Types Packs/Day Years Used Date Smoking Tobacco: Never Assessed Comments Unknown Sex and Gender Information Value Date Recorded Sex Assigned at Not on file Legal Sex Female 3:07 AM TIGHT BARREL INSPECTOR Gender Identity Not on file Sexual Orientation Not on file documented as of this encounter Plan of Treatment Upcoming Encounters Date Type Department Care Team (Late st Contact Info) Description 10/15/2024 8:00 AM CDT Appointment [facility] Medicine Christine Wang [address] [address] [facility] [address] [place] [address] [place] [address] [facility] [place] [address] 12/07/2024 8:00 AM CDT Procedure visit [facility] Neurology [address] [facility] [address] [place] [address] Shashank Moore MD [address] [facility] [address] [place] [address] 01/17/2025 8:20 AM TIGHT BARREL INSPECTOR Appointment [facility] Medicine Christine Piña [address] [facility] [address] [place] [address] [place] [address] [facility] [place] [address] 03/08/2025 8:00 AM TIGHT BARREL INSPECTOR Procedure visit [facility] [address] [facility] [address] [place] [address] Shashank Moore MD [address] [facility] [address] [place] [address] documented as of this encounter [...] MD HEMATOLOGY ORDERABLES Edited Performing Organization Address City/[facility] de Phone Number INTERFACE SYSTEM Refer [...] MD HEMATOLOGY ORDERABLES Edited Performing Organization Address [facility] de Phone Number INTERFACE SYSTEM Refer to clinic/hospital department * MONONUCLEOSIS SCREEN (11/03/2006 3:15 PM CDT) MONONUCLEOSIS SCREEN Negative Negative INTERFACE SYSTEM 11/03/2006 3:15 PM CDT Uriel Mott MD HEMATOLOGY ORDERABLES Edited Performing Organization Address City/[facility] de Phone Number INTERFACE SYSTEM Refer to clinic/hospital department * CORTISOL LEVEL (11/03/2006 3:15 PM CDT) CORTISOL LEVEL 15.5 ug/dL INTER FACE SYSTEM Comment: Cortisol Reference Range: 7 - 10 AM: 6.2 - 19.4 ug/dL 4 - 8 PM: 2.3 - 11.9 ug/dL 11/03/2006 3:15 PM CDT Uriel Mott MD CHEMISTRY ORDERABLES Edited Performing Organization Address City/[facility] Co de Phone Number INTERFACE SYSTEM Refer to clinic/hospital department * (ABNORMAL) FERRITIN (11/03/2006 3:15 PM CDT) FERRITIN 182(H) 13 - 150 ng/mL INTERFACE SYSTEM 11/03/2006 3:15 PM CDT Uriel Mott MD CHEMISTRY ORDERABLES Edited Performing Organization Address [facility] Co de Phone Number INTERFACE SYSTEM [...] and non- Americans is available on the [facility] at: [email or web address] Select: Lab Policies and Procedures Select: Reference [...] R/O COVID-19 12/29/2020 12/29/2020 12/29/2020 1:27 PM TIGHT BARREL INSPECTOR COVID-19 12/29/2020 12/29/2020 01/18/2021 1:16 AM TIGHT BARREL INSPECTOR documented as of this encounter Care Teams Intervention Manager Relationship Specialty [place] [address] [facility] [place] [address] PCP - General 07/29/00 documented as of this encounter
--- OUTSIDE RECORDS SUMMARY | 2024-09-28 17:09 | XMS_ITS | Encounter Summary ---
Author Organization [facility] Address [address] [place] [address] Care Team Providers Care Early Childhood Assistant Name Role Phone Uriel Mott MD Primary Care Provider [phone] Encounter Details Date Type Department Care Team (Late Contact Info) Description 11/03/2006 Outpatient Historical [facility] Medicine Christine Piña [address] [place] [address] [place] [address] [address] [place] [address] Social History Tobacco Use Types Packs/Day Years Used Date Smoking Tobacco: Never Assessed Comments Unknown Sex and Gender Information Value Date Recorded Sex Assigned at Not on file Legal Sex Female 3:07 AM AEGIS CONSOLE OPERATOR TRACK Gender Identity Not on file Sexual Orientation [...] 10/15/2024 8:00 AM CDT Appointment [facility] Medicine Christine Wang [address] [place] [address] [place] [address] [address] [place] [address] 12/07/2024 8:00 AM CDT Procedure visit [facility] Neurology [address] [facility] [address] [place] [address] Shashank Moore MD [address] [facility] [address] [place] [address] 01/17/2025 8:20 AM AEGIS CONSOLE OPERATOR TRACK Appointment [facility] Medicine Christine Piña [address] [address] [facility] [address] [place] [address] [place] [address] [facility]. [address] [place] [address] 03/08/2025 8:00 AM AEGIS CONSOLE OPERATOR TRACK Procedure visit [facility] Neurology [address] [facility] [address] [place] [address] Shashank Moore MD [address] [facility] [address] [place] [address] documented as of this encounter Visit Diagnoses Not on filedocumented in this encounter Additional Health Concerns Infection Onset Date Last Indicated Resolved Time R/O COVID-19 11/06/2019 11/06/2019 11/06/2019 8:56 AM CDT R/O COVID-19 12/29/2020 12/29/2020 12/29/2020 1:27 PM AEGIS CONSOLE OPERATOR TRACK COVID-19 12/29/2020 12/29/2020 01/18/2021 1:16 AM AEGIS CONSOLE OPERATOR TRACK documented as of this encounter Care Teams Early Childhood Assistant Relationship Specialty [place] [address] [facility] [address] [place] [address] PCP - General 07/29/00 documented as of this encounter
--- OUTSIDE RECORDS SUMMARY | 2024-09-28 17:09 | XMS_ITS | Encounter Summary ---
Author Organization [facility] [place] [facility] Address [address] [place] [address] Care Team Providers Care Gauge Operator Name Role Phone Uriel Mott MD Primary Care Provider [phone] Encounter Details Date Type Department Care Team (Late st Contact Info) Description 11/30/2006 Orders Only [facility] Family Medicine Christine Wang [address] [place] [address] [place] [address] [place] [address] Social History Tobacco Use Types Packs/Day Years Used Date Smoking Tobacco: Never Assessed Comments Unknown Sex and Gender Information Value Date Recorded Sex Assigned at Not on file Legal Sex Female 3:07 AM POST ACUTE CARE REGISTERED NURSE Gender Identity Not on file Sexual Orientation [...] goal of tx. LAB ORDERS: Order number: [id number] Test Ordered: LIPID PANEL 2498 790.5-ABNORMAL LIVER ENZYMES ASSESSMENT: The patient's condition has worsened. The patient is attempting to follow a low saturated fat diet. The patient was advised to lose weight. Clinical guidelines reviewed. V58.38-GXMH-BRXN USE OF STEROIDS STATUS: Unchanged. RETURN VISIT: The patient will be contacted to return after we review the labs ordered above. Instructed to call if not improving. Electronically Signed by: rUiel Mott MD on Thursday, November 30, 2006 documented in this encounter Plan of Treatment Upcoming Encounters Date Type Department Care Team (Late st Contact Info) Description 10/15/2024 8:00 AM CDT Appointment [facility] Christine Piña [address] [facility] [address] [place] [address] [place] [address] [facility] [place] [address] 12/07/2024 8:00 AM CDT Procedure visit [facility] Neurology [address] [facility] [address] [place] [address] Shashank Moore MD [address] [facility] [address] [place] [address] 01/17/2025 8:20 AM POST ACUTE CARE REGISTERED NURSE Appointment [facility] Christine Wang [address] [facility] [address] [place] [address] [place] [address] [facility] [place] [phone] 03/08/2025 8:00 AM POST ACUTE CARE REGISTERED NURSE Procedure visit [facility] Neurology [address] [facility] [address] [place] [address] Shashank Moore MD [address] [facility] [address] [place] [address] documented as of this encounter Visit Diagnoses Not on filedocumented in this encounter Additional Health Concerns Infection Onset Date Last Indicated Resolved Time R/O COVID-19 11/06/2019 11/06/2019 11/06/2019 8:56 AM CDT R/O COVID-19 12/29/2020 12/29/2020 12/29/2020 1:27 PM POST ACUTE CARE REGISTERED NURSE COVID-19 12/29/2020 12/29/2020 01/18/2021 1:16 AM POST ACUTE CARE REGISTERED NURSE documented as of this encounter Care Teams Gauge Operator Relationship Specialty [place] [address] [facility] [address] [place] [address] PCP - General 07/29/00 documented as of this encounter
--- OUTSIDE RECORDS SUMMARY | 2024-09-28 17:09 | XMS_ITS | Encounter Summary ---
Author Organization [facility] Address [address] [place] [address] Care Team Providers Care Pressurizer Name Role Phone Uriel Mott MD Primary Care Provider [phone] Encounter Details Date Type Department Care Team (Late st Contact Info) Description 11/03/2006 Orders Only [facility] Family Medicine [place] [address] [place] [address] [place] [address] [place] [address] Social History Tobacco Use Types Packs/Day Years Used Date Smoking Tobacco: Never Assessed Comments Unknown Sex and Gender Information Value Date Recorded Sex Assigned at Not on file Legal Sex Female 3:07 AM HEMATOLOGIST Gender Identity Not on file Sexual Orientation [...] The patient is being seen by a steward/stewardess economy class. Also on orencia and prednisone. 780.79-FATIGUE The [...] Will check laboratory. LAB ORDERS: Order number: [id number] Test Ordered: CORTISOL LEVEL 1725 Order number: [id number] Test Ordered: HETEROPHILE, MONONUCLEOSIS SCREEN 5110 Order number: [id number] Test Ordered: CBC W/ DIFFERENTIAL 3150 Order number: [id number] Test Ordered: COMPREHENSIVE METABOLIC PANEL & GFR 1112 Order number: [id number] Test Ordered: CULTURE, BLOOD 8980 Order number: [id number] Test Ordered: FERRITIN 1715 RETURN VISIT: The patient will be contacted to return after we review the labs ordered above. Electronically Signed by: Uriel Mott MD on October documented in this encounter Plan of Treatment Upcoming Encounters Date Type Department Care Team (Late st Contact Info) Description 10/15/2024 8:00 AM CDT Appointment [facility] Christine Wang [address] [facility] [address] [place] [address] [place] [address] [facility] [place] [address] 12/07/2024 8:00 AM CDT Procedure visit [facility] Neurology [address] [facility] [address] [place] [address] Shashank Moore MD [address] [facility] [address] [place] [address] 01/17/2025 8:20 AM HEMATOLOGIST Appointment [facility] Medicine Christine Piña [address] [facility] [address] [place] [address] [place] [address] [facility]. [address] [place] [address] 03/08/2025 8:00 AM HEMATOLOGIST Procedure visit [facility] Neurology [address] [facility] [address] [place] [address] Shashank Moore MD [address] [address] documented as of this encounter Visit Diagnoses Not on filedocumented in this encounter Additional Health Concerns Infection Onset Date Last Indicated Resolved Time R/O COVID-19 11/06/2019 11/06/2019 11/06/2019 8:56 AM CDT R/O COVID-19 12/29/2020 12/29/2020 12/29/2020 1:27 PM HEMATOLOGIST COVID-19 12/29/2020 12/29/2020 01/18/2021 1:16 AM HEMATOLOGIST documented as of this encounter Care Teams Pressurizer Relationship Specialty [place] [address] [facility] [address] [place] [address] PCP - General 07/29/00 documented as of this encounter
--- OUTSIDE RECORDS SUMMARY | 2024-09-28 17:09 | XMS_ITS | Encounter Summary ---
Author Organization [facility] Address [address] [place] [address] Care Team Providers Care Car Wiper Name Role Phone Uriel Mott MD Primary Care Provider [phone] Reason for Visit * Reason Onset Date Comments Hospital Follow Up 11/07/2019 Encounter Details Date Type Department Care Team (Late st Contact Info) Description 11/07/2019 Telephone [facility] Medicine Christine Wang [address] [place] [address] [place] [address] [address] [facility]. [address] [place] [address] Hospital Follow Up Social History Tobacco Use Types Packs/Day Years Used Date Smoking Tobacco: Former Cigarettes Q uit: 08/22/1974 Smokeless Tobacco: Never Alcohol Use Standard Drinks/Week Comments No 0 (1 standard drink = 0.6 oz pur e alcohol) Comments No Sex and Gender Information Value Date Recorded Sex Assigned at Not on file Legal Sex Female 3:07 AM OPHTHALMOLOGY TECHNICIAN Gender Identity Not on file Sexual Orientation [...] and needs a hospital FU. Please call [phone] documented in this encounter Plan of Treatment Upcoming Encounters Date Type Department Care Team (Late st Contact Info) Description 10/15/2024 8:00 AM CDT Appointment [facility] Medicine Christine Piña [address] [facility] [address] [place] [phone] [place] [address] [facility] [address] 12/07/2024 8:00 AM CDT Procedure visit [facility] Neurology [address] [facility] [address] [place] [address] Shashank Moore MD [address] [address] 01/17/2025 8:20 AM OPHTHALMOLOGY TECHNICIAN Appointment [facility] Christine Piña [address] [facility] [address] [place] [address] [place] [address] [facility] [address] 03/08/2025 8:00 AM OPHTHALMOLOGY TECHNICIAN Procedure visit [facility] Neurology [address] [address] Shashank Moore MD [address] [address] documented as of this encounter Visit Diagnoses Not on filedocumented in this encounter Additional Health Concerns Infection Onset Date Last Indicated Resolved Time R/O COVID-19 12/29/2020 12/29/2020 12/29/2020 1:27 PM OPHTHALMOLOGY TECHNICIAN COVID-19 12/29/2020 12/29/2020 01/18/2021 1:16 AM OPHTHALMOLOGY TECHNICIAN documented as of this encounter Care Teams Car Wiper Relationship Specialty [place] [address] [facility] [place] [address] PCP - General 07/29/00 documented as of this encounter
--- OUTSIDE RECORDS SUMMARY | 2024-09-28 17:09 | XMS_ITS | Encounter Summary ---
Author Organization [facility] Address [address] [place] [address] Care Team Providers Care Dry Clipper Tender Name Role Phone Uriel Mott MD Primary Care Provider [phone] Encounter Details Date Type Department Care Team (Latest Contact Info) Description 11/30/2006 Outpatient Historical [facility] Medicine Christine Wang [address] [address] [facility] [address] [place] [address] [place] [address] [address] [facility] [place] [address] Other Chronic Nonalcoholic Liver Disease (Primary Dx) Social History Tobacco Use Types Packs/Day Years Used Date Smoking Tobacco: Never Assessed Comments Unknown Sex and Gender Information Value Date Recorded Sex Assigned at Not on file Legal Sex Female 3:07 AM CUSTOMER ENGAGEMENT MANAGER Gender Identity Not on file Sexual Orientation Not on file documented as of this encounter Plan of Treatment Upcoming Encounters Date Type Department Care Team (Late st Contact Info) Description 10/15/2024 8:00 AM CDT Appointment [facility] Medicine Christine Wang [address] [address] [facility] [address] [place] [address] [place] [address] [facility] [place] [address] 12/07/2024 8:00 AM CDT Procedure visit [facility] Neurology [address] [facility] [address] [place] [address] Shashank Moore MD [address] [facility] [address] [place] [address] 01/17/2025 8:20 AM CUSTOMER ENGAGEMENT MANAGER Appointment [facility] Family Medicine Christine Piña [address] [place] [address] [place] [address] [address] [facility] [place] [address] 03/08/2025 8:00 AM CUSTOMER ENGAGEMENT MANAGER Procedure visit [facility] Neurology [address] [facility] [address] [place] [address] Shashank Moore MD [address] [facility] [address] [place] [address] documented as of this encounter [...] classifications for lipids are available on the [facility] Intranet at: [email or web address] Select: Lab Policies and Procedures,Current Select: [...] R/O COVID-19 12/29/2020 12/29/2020 12/29/2020 1:27 PM CUSTOMER ENGAGEMENT MANAGER COVID-19 12/29/2020 12/29/2020 01/18/2021 1:16 AM CUSTOMER ENGAGEMENT MANAGER documented as of this encounter Care Teams Dry Clipper Tender Relationship Specialty [place] [address] [facility] [address] [place] [address] PCP - General 07/29/00 documented as of this encounter
--- OUTSIDE RECORDS SUMMARY | 2024-09-28 17:09 | XMS_ITS | Encounter Summary ---
Author Organization [facility] Address [address] [place] [address] Care Team Providers Care Detective Youth Bureau Name Role Phone Uriel Mott MD Primary Care Provider [phone] Encounter Details Date Type Department Care Team (Late st Contact Info) Description 11/25/2006 Outpatient Historical [place] [address] [facility] [place] [address] Other Nonspecific Abnormal Serum Enzyme Levels (Primary Dx) Social History Tobacco Use Types Packs/Day Years Used Date Smoking Tobacco: Never Assessed Comments Unknown Sex and Gender Information Value Date Recorded Sex Assigned at Not on file Legal Sex Female 3:07 AM MAT CLEANING MACHINE OPERATOR Gender Identity Not on file Sexual Orientation Not on file documented as of this encounter Plan of Treatment Upcoming Encounters Date Type Department Care Team (Late st Contact Info) Description 10/15/2024 8:00 AM CDT Appointment [facility] Family Medicine Christine Piña [address] [facility] [address] [place] [address] [place] [address] [facility] [place] [address] 12/07/2024 8:00 AM CDT Procedure visit [facility] Neurology [address] [facility] [address] [place] [address] Shashank Moore MD [address] [facility] [address] [place] [address] 01/17/2025 8:20 AM MAT CLEANING MACHINE OPERATOR Appointment [facility] Medicine Christine Piña [address] [facility] [address] [place] [address] [place] [address] [facility] [place] [address] 03/08/2025 8:00 AM MAT CLEANING MACHINE OPERATOR Procedure visit [facility] Neurology [address] [facility] [address] [place] [address] Shashank Moore MD [address] [facility] [address] [place] [address] documented as of this encounter Visit Diagnoses Diagnosis Other nonspecific abnormal serum enzyme levels- Primary documented in this encounter Additional Health Concerns Infection Onset Date Last Indicated Resolved Time R/O COVID-19 11/06/2019 11/06/2019 11/06/2019 8:56 AM CDT R/O COVID-19 12/29/2020 12/29/2020 12/29/2020 1:27 PM MAT CLEANING MACHINE OPERATOR COVID-19 12/29/2020 12/29/2020 01/18/2021 1:16 AM MAT CLEANING MACHINE OPERATOR documented as of this encounter Care Teams Detective Youth Bureau Relationship Specialty [place] [address] [facility] [place] [address] PCP - General 07/29/00 documented as of this encounter
--- OUTSIDE RECORDS SUMMARY | 2024-09-28 17:10 | XMS_ITS | Encounter Summary ---
Author Organization [facility] Address [address] [facility] Attn: Epic Prelude ADT [place] [address] Care Team Providers Care Buying Intern Name Role Phone Uriel Mott MD Primary Care Provider [phone] Encounter Details Date Type Department Care Team (Latest Contact Info) Description 10/13/2005 Orders Only Jeny Berman MD [address] [place] [phone] Social History Tobacco Use Types Packs/Day Years Used Date Smoking Tobacco: Never Assessed Comments Unknown Sex and Gender Information Value Date Recorded Sex Assigned at Not on file Legal Sex Female 3:07 AM HEADING SAW OPERATOR Gender Identity Not on file Sexual [...] murmurs, rubs, or gallops. NEUROLOGIC: CRANIAL NERVES: oyster grader II-XII grossly intact. DEEP TENDON REFLEXES: Deep [...] NEW PRESCRIPTION, 10/13/2005. LAB ORDERS: Order number: [id number] Test Ordered: VITAMIN D 25 HYDROXY LEVEL [...] [facility] at this same number. ph: [phone]. TIME PHYSICIAN WITH PATIENT: TOTAL: 35 minutes. [...] Info) Description 10/15/2024 8:00 AM CDT Appointment [facility] Family Medicine Christine Piña [address] [facility] [address] [place] [address] [place] [address] [facility] [place] [address] 12/07/2024 8:00 AM CDT Procedure visit [facility] Neurology [address] [place] [address] Shashank Moore MD [address] [facility] [address] [place] [address] 01/17/2025 8:20 AM HEADING SAW OPERATOR Appointment [facility] Medicine Christine Piña [address] [facility] [address] [place] [address] [place] [address] [facility] [facility] [address] [place] [address] 03/08/2025 8:00 AM HEADING SAW OPERATOR Procedure visit [facility] [address] [facility] [address] [place] [address] Shashank Moore MD [address] [facility] [address] [place] [address] documented as of this encounter Visit Diagnoses Not on filedocumented in this encounter Additional Health Concerns Infection Onset Date Last Indicated Resolved Time R/O COVID-19 11/06/2019 11/06/2019 11/06/2019 8:56 AM CDT R/O COVID-19 12/29/2020 12/29/2020 12/29/2020 1:27 PM HEADING SAW OPERATOR COVID-19 12/29/2020 12/29/2020 01/18/2021 1:16 AM HEADING SAW OPERATOR documented as of this encounter Care Teams Buying Intern Relationship Specialty [place] [address] [facility] [address] [place] [address] PCP - General 07/29/00 documented as of this encounter
--- OUTSIDE RECORDS SUMMARY | 2024-09-28 17:10 | XMS_ITS | Encounter Summary ---
Author Organization [facility] Address [address] [place] [address] Care Team Providers Care Curing Press Operator Name Role Phone Uriel Mott MD Primary Care Provider [phone] Encounter Details Date Type Department Care Team (Latest Contact Info) Description 12/23/2000 Outpatient Historical [facility] [place] [address] [facility] [place] [address] NONSPECIF SKIN ERUPT NEC (Primary Dx) Social History Tobacco Use Types Packs/Day Years Used Date Smoking Tobacco: Never Assessed Comments Unknown Sex and Gender Information Value Date Recorded Sex Assigned at Not on file Legal Sex Female 3:07 AM MANAGER MORTGAGE Gender Identity Not on file Sexual Orientation Not on file documented as of this encounter Plan of Treatment Upcoming Encounters Date Type Department Care Team (Late st Contact Info) Description 10/15/2024 8:00 AM CDT Appointment [facility] Family Medicine Christine Piña [address] [facility] [address] [place] [address] [place] [address] [facility] [place] [address] 12/07/2024 8:00 AM CDT Procedure visit [facility] Neurology [address] [facility] [address] [place] [address] Shashank Moore MD [address] [facility] [address] [place] [address] 01/17/2025 8:20 AM MANAGER MORTGAGE Appointment [facility] Medicine Christine Piña [address] [facility] [address] [place] [address] [place] [address] [facility] [place] [address] 03/08/2025 8:00 AM MANAGER MORTGAGE Procedure visit [facility] [address] [facility] [address] [place] [address] Shashank Moore MD [address] [facility] [address] [place] [address] documented as of this encounter Visit Diagnoses Diagnosis Rash and other nonspecific skin eruption- Primary documented in this encounter Additional Health Concerns Infection Onset Date Last Indicated Resolved Time R/O COVID-19 11/06/2019 11/06/2019 11/06/2019 8:56 AM CDT R/O COVID-19 12/29/2020 12/29/2020 12/29/2020 1:27 PM MANAGER MORTGAGE COVID-19 12/29/2020 12/29/2020 01/18/2021 1:16 AM MANAGER MORTGAGE documented as of this encounter Care Teams Curing Press Operator Relationship Specialty [place] [address] [facility] [place] [address] PCP - General 07/29/00 documented as of this encounter
--- OUTSIDE RECORDS SUMMARY | 2024-09-28 17:10 | XMS_ITS | Encounter Summary ---
Author Organization [facility] Address [address] [place] [address] Care Team Providers Care Web Marketing Intern Name Role Phone Uriel Mott MD Primary Care Provider [phone] Encounter Details Date Type Department Care Team (Latest Contact Info) Description 05/25/2001 Outpatient Historical [place] [address] [facility] [place] [address] CHR ETHMOIDAL SINUSITIS (Primary Dx) Social History Tobacco Use Types Packs/Day Years Used Date Smoking Tobacco: Never Assessed Comments Unknown Sex and Gender Information Value Date Recorded Sex Assigned at Not on file Legal Sex Female 3:07 AM ASSISTANT IN NURSING Gender Identity Not on file Sexual Orientation Not on file documented as of this encounter Plan of Treatment Upcoming Encounters Date Type Department Care Team (Late st Contact Info) Description 10/15/2024 8:00 AM CDT Appointment [facility] Family Medicine Christine Piña [address] [facility] [address] [place] [address] [place] [address] [facility] [place] [address] 12/07/2024 8:00 AM CDT Procedure visit [facility] Neurology [address] [facility] [address] [place] [address] Shashank Moore MD [address] [facility] [address] [place] [address] 01/17/2025 8:20 AM ASSISTANT IN NURSING Appointment [facility] Medicine Christine Piña [address] [facility] [address] [place] [address] [place] [address] [facility] [place] [address] 03/08/2025 8:00 AM ASSISTANT IN NURSING Procedure visit [facility] [address] [facility] [address] [place] [address] Shashank Moore MD [address] [facility] [address] [place] [address] documented as of this encounter Visit Diagnoses Diagnosis Chronic ethmoidal sinusitis- Primary documented in this encounter Additional Health Concerns Infection Onset Date Last Indicated Resolved Time R/O COVID-19 11/06/2019 11/06/2019 11/06/2019 8:56 AM CDT R/O COVID-19 12/29/2020 12/29/2020 12/29/2020 1:27 PM ASSISTANT IN NURSING COVID-19 12/29/2020 12/29/2020 01/18/2021 1:16 AM ASSISTANT IN NURSING documented as of this encounter Care Teams Web Marketing Intern Relationship Specialty [place] [address] [facility] [place] [address] PCP - General 07/29/00 documented as of this encounter
--- OUTSIDE RECORDS SUMMARY | 2024-09-28 17:10 | XMS_ITS | Encounter Summary ---
Author Organization [facility] Address [address] [place] [address] Care Team Providers Care Automobile Tester Name Role Phone Uriel Mott MD Primary Care Provider [phone] Encounter Details Date Type Department Care Team (Late Contact Info) Description 08/24/2005 Outpatient Historical [facility] Medicine [place] Wang [address] [place] [address] [place] [address] [address] [place] [address] Social History Tobacco Use Types Packs/Day Years Used Date Smoking Tobacco: Never Assessed Comments Unknown Sex and Gender Information Value Date Recorded Sex Assigned at Not on file Legal Sex Female 3:07 AM SUPERVISOR METALIZING Gender Identity Not on file Sexual Orientation [...] Info) Description 10/15/2024 8:00 AM CDT Appointment [facility] Medicine [place] Wang [address] [place] [address] [place] [address] [address] [place] [address] 12/07/2024 8:00 AM CDT Procedure visit [facility] Neurology [address] [facility] [address] [place] [address] Shashank Moore MD [address] [facility] [address] [place] [address] 01/17/2025 8:20 AM SUPERVISOR METALIZING Appointment [facility] Medicine Christine Piña [address] [facility] [address] [place] [address] [place] [address] [facility] [place] [address] 03/08/2025 8:00 AM SUPERVISOR METALIZING Procedure visit [facility] Neurology [address] [facility] [address] [place] [address] Shashank Moore MD [address] [facility] [address] [place] [address] documented as of this encounter Visit Diagnoses Not on filedocumented in this encounter Additional Health Concerns Infection Onset Date Last Indicated Resolved Time R/O COVID-19 11/06/2019 11/06/2019 11/06/2019 8:56 AM CDT R/O COVID-19 12/29/2020 12/29/2020 12/29/2020 1:27 PM SUPERVISOR METALIZING COVID-19 12/29/2020 12/29/2020 01/18/2021 1:16 AM SUPERVISOR METALIZING documented as of this encounter Care Teams Automobile Tester Relationship Specialty [place] [address] [facility] [address] [place] [address] PCP - General 07/29/00 documented as of this encounter
--- OUTSIDE RECORDS SUMMARY | 2024-09-28 17:10 | XMS_ITS | Encounter Summary ---
Author Organization [facility] Address [address] [place] [address] Care Team Providers Care Community Artist Name Role Phone Uriel Mott MD Primary Care Provider [phone] Encounter Details Date Type Department Care Team (Late st Contact Info) Description 06/26/2002 Outpatient Historical [facility] Christine Piña [address] [address] [facility] [address] [place] [address] [place] [address] [address] [facility]. [address] [address] Social History Tobacco Use Types Packs/Day Years Used Date Smoking Tobacco: Never Assessed Comments Unknown Sex and Gender Information Value Date Recorded Sex Assigned at Not on file Legal Sex Female 3:07 AM SHELTER CASE MANAGER Gender Identity Not on file Sexual Orientation Not on file documented as of this encounter Plan of Treatment Upcoming Encounters Date Type Department Care Team (Late st Contact Info) Description 10/15/2024 8:00 AM CDT Appointment [facility] Christine Wang [address] [place] [facility] [address] [place] [address] [place] [address] [facility] [place] [address] 12/07/2024 8:00 AM CDT Procedure visit [facility] Neurology [address] [facility] [address] [place] [address] Shashank Moore MD [address] [facility] [address] [place] [address] 01/17/2025 8:20 AM SHELTER CASE MANAGER Appointment [facility] Medicine Christine Piña [address] [facility] [address] [place] [address] [place] [address] [facility] [address] [place] [address] 03/08/2025 8:00 AM SHELTER CASE MANAGER Procedure visit [facility] Neurology [address] [facility] [address] [place] [address] Shashank Moore MD [address] [address] documented as of this encounter Visit Diagnoses Not on filedocumented in this encounter Additional Health Concerns Infection Onset Date Last Indicated Resolved Time R/O COVID-19 11/06/2019 11/06/2019 11/06/2019 8:56 AM CDT R/O COVID-19 12/29/2020 12/29/2020 12/29/2020 1:27 PM SHELTER CASE MANAGER COVID-19 12/29/2020 12/29/2020 01/18/2021 1:16 AM SHELTER CASE MANAGER documented as of this encounter Care Teams Community Artist Relationship Specialty [place] [address] [facility] [address] [place] [address] PCP - General 07/29/00 documented as of this encounter
--- OUTSIDE RECORDS SUMMARY | 2024-09-28 17:10 | XMS_ITS | Encounter Summary ---
Author Organization [facility] Address [address] [place] [address] Care Team Providers Care Funeral Sales Manager Name Role Phone Uriel Mott MD Primary Care Provider [phone] Encounter Details Date Type Department Care Team (Late st Contact Info) Description 05/30/2003 Outpatient Historical [facility]. (Adt Cardiology-[facility]) [address] [place] [address] Sonam Ramos MD Social History Tobacco Use Types Packs/Day Years Used Date Smoking Tobacco: Never Assessed Comments Unknown Sex and Gender Information Value Date Recorded Sex Assigned at Not on file Legal Sex Female 3:07 AM SALES EXEC Gender Identity Not on file Sexual Orientation Not on file documented as of this encounter Plan of Treatment Upcoming Encounters Date Type Department Care Team (Late st Contact Info) Description 10/15/2024 8:00 AM CDT Appointment [facility] Medicine Christine Wang [address] [facility] [address] [place] [address] [place] [address] [facility]. [address] [place] [address] 12/07/2024 8:00 AM CDT Procedure visit [facility] Neurology [address] [facility] [address] [place] [address] Shashank Moore MD [address] [facility] [address] [place] [address] 01/17/2025 8:20 AM SALES EXEC Appointment [facility] Medicine Christine Piña [address] [facility] [address] [place] [address] [place] [address] [facility]. [address] [place] [address] 03/08/2025 8:00 AM SALES EXEC Procedure visit [facility] Neurology [address] [facility] [address] [place] [address] Shashank Moore MD [address] [facility] [address] [place] [address] documented as of this encounter Visit Diagnoses Not on filedocumented in this encounter Additional Health Concerns Infection Onset Date Last Indicated Resolved Time R/O COVID-19 11/06/2019 11/06/2019 11/06/2019 8:56 AM CDT R/O COVID-19 12/29/2020 12/29/2020 12/29/2020 1:27 PM SALES EXEC COVID-19 12/29/2020 12/29/2020 01/18/2021 1:16 AM SALES EXEC documented as of this encounter Care Teams Funeral Sales Manager Relationship Specialty [place] [address] [facility] [address] [place] [address] PCP - General 07/29/00 documented as of this encounter
--- OUTSIDE RECORDS SUMMARY | 2024-09-28 17:10 | XMS_ITS | Encounter Summary ---
Author Organization [facility] Address [address] [place] [address] Care Team Providers Care Detail Sergeant Name Role Phone Uriel Mott MD Primary Care Provider [phone] Encounter Details Date Type Department Care Team (Late st Contact Info) Description 11/08/2005 Outpatient Historical [facility] [address] [employer] [facility] [address] [place] [address] Baltazar March III Social History Tobacco Use Types Packs/Day Years Used Date Smoking Tobacco: Never Assessed Comments Unknown Sex and Gender Information Value Date Recorded Sex Assigned at Not on file Legal Sex Female 3:07 AM FRUIT II FARMWORKER Gender Identity Not on file Sexual Orientation Not on file documented as of this encounter Plan of Treatment Upcoming Encounters Date Type Department Care Team (Late st Contact Info) Description 10/15/2024 8:00 AM CDT Appointment [facility] Medicine [facility] [address] [facility] [address] [place] [address] [place] [address] [facility]. [address] [place] [address] 12/07/2024 8:00 AM CDT Procedure visit [facility] Neurology [address] [facility] [address] [place] [address] Shashank Moore MD [address] [facility] [address] [place] [address] 01/17/2025 8:20 AM FRUIT II FARMWORKER Appointment [facility] Medicine [facility] [address] [facility] [address] [place] [address] [place] [address] [facility]. [address] [place] [address] 03/08/2025 8:00 AM FRUIT II FARMWORKER Procedure visit [facility] Neurology [address] [facility] [address] [place] [address] Shashank Moore MD [address] [facility] [address] [place] [address] documented as of this encounter Visit Diagnoses Not on filedocumented in this encounter Additional Health Concerns Infection Onset Date Last Indicated Resolved Time R/O COVID-19 11/06/2019 11/06/2019 11/06/2019 8:56 AM CDT R/O COVID-19 12/29/2020 12/29/2020 12/29/2020 1:27 PM FRUIT II FARMWORKER COVID-19 12/29/2020 12/29/2020 01/18/2021 1:16 AM FRUIT II FARMWORKER documented as of this encounter Care Teams Detail Sergeant Relationship Specialty [place] [address] [facility]. [address] [place] [address] PCP - General 07/29/00 documented as of this encounter
--- OUTSIDE RECORDS SUMMARY | 2024-09-28 17:10 | XMS_ITS | Encounter Summary ---
Author Organization [facility] Address [address] [place] [address] Care Team Providers Care Surgical Garment Assembler Name Role Phone Uriel Mott MD Primary Care Provider [phone] Encounter Details Date Type Department Care Team (Late Contact Info) Description 04/06/2006 Outpatient Historical [facility] Christine Wang [address] [place] [address] [place] [address] [address] [place] [address] Social History Tobacco Use Types Packs/Day Years Used Date Smoking Tobacco: Never Assessed Comments Unknown Sex and Gender Information Value Date Recorded Sex Assigned at Not on file Legal Sex Female 3:07 AM SENIOR ASIC ENGINEER Gender Identity Not on file Sexual Orientation Not on file documented as of this encounter Last Filed Vital Signs Vital Sign Reading Time Taken Comments Blood Pressure 132/74 04/06/2006 9:45 AM SENIOR ASIC ENGINEER Pulse 72 04/06/2006 9:45 AM SENIOR ASIC ENGINEER Temperature - - Respiratory Rate - - Oxygen Saturation - - Inhaled Oxygen Concentration - - Weight 69.9 kg (154 lb) 04/06/2006 9:45 AM SENIOR ASIC ENGINEER Height - - Body Mass Index - - documented in this encounter Plan of Treatment Upcoming Encounters Date Type Department Care Team (Late st Contact Info) Description 10/15/2024 8:00 AM CDT Appointment [facility] Christine Wang [address] [place] [address] [place] [address] [address] [place] [address] 12/07/2024 8:00 AM CDT Procedure visit [facility] Neurology [address] [facility] [address] [place] [address] Shashank Moore MD [address] [facility] [address] [place] [address] 01/17/2025 8:20 AM SENIOR ASIC ENGINEER Appointment [facility] Medicine Christine Piña [address] [facility] [address] [place] [address] [place] [address] [facility]. [address] [place] [address] 03/08/2025 8:00 AM SENIOR ASIC ENGINEER Procedure visit [facility] Neurology [address] [facility] [address] [place] [address] Shashank Moore MD [address] [facility] [address] [place] [address] documented as of this encounter Visit Diagnoses Not on filedocumented in this encounter Additional Health Concerns Infection Onset Date Last Indicated Resolved Time R/O COVID-19 11/06/2019 11/06/2019 11/06/2019 8:56 AM CDT R/O COVID-19 12/29/2020 12/29/2020 12/29/2020 1:27 PM SENIOR ASIC ENGINEER COVID-19 12/29/2020 12/29/2020 01/18/2021 1:16 AM SENIOR ASIC ENGINEER documented as of this encounter Care Teams Surgical Garment Assembler Relationship Specialty [place] [address] [facility] [address] [place] [address] PCP - General 07/29/00 documented as of this encounter
--- OUTSIDE RECORDS SUMMARY | 2024-09-28 17:10 | XMS_ITS | Encounter Summary ---
Author Organization [facility] Address [address] [place] [address] Care Team Providers Care Integrated Logistics Operations Manager Name Role Phone Uriel Mott MD Primary Care Provider [phone] Encounter Details Date Type Department Care Team (Latest Contact Info) Description 10/26/2004 [place]patient [place] [address] [facility] [place] [address] RHEUMATOID ARTHRITIS (CMS/HCC) (Primary Dx) Social History Tobacco Use Types Packs/Day Years Used Date Smoking Tobacco: Never Assessed Comments Unknown Sex and Gender Information Value Date Recorded Sex Assigned at Not on file Legal Sex Female 3:07 AM AUTOMATIC LATHE TENDER Gender Identity Not on file Sexual Orientation Not on file documented as of this encounter Plan of Treatment Upcoming Encounters Date Type Department Care Team (Late st Contact Info) Description 10/15/2024 8:00 AM CDT Appointment [facility] Family Medicine Christine Piña [address] [facility] [address] [place] [address] [place] [address] [facility] [place] [address] 12/07/2024 8:00 AM CDT Procedure visit [facility] Neurology [address] [facility] [address] [place] [address] Shashank Moore MD [address] [facility] [address] [place] [address] 01/17/2025 8:20 AM AUTOMATIC LATHE TENDER Appointment [facility] Medicine Christine Piña [address] [facility] [address] [place] [address] [place] [address] [facility] [place] [address] 03/08/2025 8:00 AM AUTOMATIC LATHE TENDER Procedure visit [facility] Neurology [address] [facility] [address] [address] [place] [address] Shashank Moore MD [address] [facility] [address] [place] [address] documented as of this encounter [...] this encounter Visit Diagnoses Diagnosis Rheumatoid arthritis(714.0) (CMS/[facility])- Primary Rheumatoid arthritis documented in this encounter Additional Health Concerns Infection Onset Date Last Indicated Resolved Time R/O COVID-19 11/06/2019 11/06/2019 11/06/2019 8:56 AM CDT R/O COVID-19 12/29/2020 12/29/2020 12/29/2020 1:27 PM AUTOMATIC LATHE TENDER COVID-19 12/29/2020 12/29/2020 01/18/2021 1:16 AM AUTOMATIC LATHE TENDER documented as of this encounter Care Teams Integrated Logistics Operations Manager Relationship Specialty [place] [address] [facility] [place] [address] PCP - General 07/29/00 documented as of this encounter
--- OUTSIDE RECORDS SUMMARY | 2024-09-28 17:10 | XMS_ITS | Encounter Summary ---
Author Organization [facility] Address [address] [place] [address] Care Team Providers Care Garment Parts Cutter Machine Name Role Phone Uriel Mott MD Primary Care Provider [phone] Encounter Details Date Type Department Care Team (Late st Contact Info) Description 11/08/2005 Inpatient Historical [facility] Baltazar Cordova MD [address] [place] [address] Brian Frias MD [address] [place] [address] Nontoxic Uninodular Goiter (Primary Dx) Social History Tobacco Use Types Packs/Day Years Used Date Smoking Tobacco: Never Assessed Comments Unknown Sex and Gender Information Value Date Recorded Sex Assigned at Not on file Legal Sex Female 3:07 AM CHIEF DEPUTY SHERIFF Gender Identity Not on file Sexual Orientation Not on file documented as of this encounter Plan of Treatment Upcoming Encounters Date Type Department Care Team (Late st Contact Info) Description 10/15/2024 8:00 AM CDT Appointment [facility] Family Medicine Christine Piña [address] [facility] [address] [place] [address] [place] [address] [facility]. [address] [place] [address] 12/07/2024 8:00 AM CDT Procedure visit [facility] Neurology [address] [place] [address] Shashank Moore MD [address] [facility] [address] [place] [address] 01/17/2025 8:20 AM CHIEF DEPUTY SHERIFF Appointment [facility] Medicine Christine Piña [address] [facility] [address] [place] [address] [place] [address] [facility]. [address] [place] [address] 03/08/2025 8:00 AM CHIEF DEPUTY SHERIFF Procedure visit [facility] [address] [facility] [address] [place] [address] Shashank Moore MD [address] [facility] [address] [place] [address] documented as of this encounter Visit Diagnoses Diagnosis Nontoxic uninodular goiter- Primary documented in this encounter Additional Health Concerns Infection Onset Date Last Indicated Resolved Time R/O COVID-19 11/06/2019 11/06/2019 11/06/2019 8:56 AM CDT R/O COVID-19 12/29/2020 12/29/2020 12/29/2020 1:27 PM CHIEF DEPUTY SHERIFF COVID-19 12/29/2020 12/29/2020 01/18/2021 1:16 AM CHIEF DEPUTY SHERIFF documented as of this encounter Care Teams Garment Parts Cutter Machine Relationship Specialty [place] [address] [facility]. [address] [place] [address] PCP - General 07/29/00 documented as of this encounter
--- OUTSIDE RECORDS SUMMARY | 2024-09-28 17:10 | XMS_ITS | Encounter Summary ---
Author Organization [facility] Address [address] [place] [address] Care Team Providers Care Crime Lab Analyst Name Role Phone Uriel Mott MD Primary Care Provider [phone] Encounter Details Date Type Department Care Team (Latest Contact Info) Description 04/12/2006 Outpatient Historical [place] [address] [facility] [place] [address] Other Chest Pain (Primary Dx) Social History Tobacco Use Types Packs/Day Years Used Date Smoking Tobacco: Never Assessed Comments Unknown Sex and Gender Information Value Date Recorded Sex Assigned at Not on file Legal Sex Female 3:07 AM PACKER Gender Identity Not on file Sexual Orientation Not on file documented as of this encounter Plan of Treatment Upcoming Encounters Date Type Department Care Team (Late st Contact Info) Description 10/15/2024 8:00 AM CDT Appointment [facility] Family Medicine Christine Piña [address] [facility] [address] [place] [address] [place] [address] [facility] [place] [address] 12/07/2024 8:00 AM CDT Procedure visit [facility] Neurology [address] [facility] [address] [place] [address] Shashank Moore MD [address] [facility] [address] [place] [address] 01/17/2025 8:20 AM PACKER Appointment [facility] Medicine Christine Piña [address] [facility] [address] [place] [address] [place] [address] [facility] [place] [address] 03/08/2025 8:00 AM PACKER Procedure visit [facility] Neurology [address] [facility] [address] [place] [address] Shashank Moore MD [address] [facility] [address] [place] [address] documented as of this encounter Visit Diagnoses Diagnosis Other chest pain- Primary documented in this encounter Additional Health Concerns Infection Onset Date Last Indicated Resolved Time R/O COVID-19 11/06/2019 11/06/2019 11/06/2019 8:56 AM CDT R/O COVID-19 12/29/2020 12/29/2020 12/29/2020 1:27 PM PACKER COVID-19 12/29/2020 12/29/2020 01/18/2021 1:16 AM PACKER documented as of this encounter Care Teams Crime Lab Analyst Relationship Specialty [place] [address] [facility] [place] [address] PCP - General 07/29/00 documented as of this encounter
--- OUTSIDE RECORDS SUMMARY | 2024-09-28 17:10 | XMS_ITS | Encounter Summary ---
Author Organization [facility] Address [address] [place] [address] Care Team Providers Care Prototype Machinist Name Role Phone Uriel Mott MD Primary Care Provider [phone] Encounter Details Date Type Department Care Team (Late st Contact Info) Description 03/26/2002 Outpatient Historical [facility] [place] [address] [address] Ivana Quintana MD NO ADDRESS ON FILE Social History Tobacco Use Types Packs/Day Years Used Date Smoking Tobacco: Never Assessed Comments Unknown Sex and Gender Information Value Date Recorded Sex Assigned at Not on file Legal Sex Female 3:07 AM POOL NURSE Gender Identity Not on file Sexual Orientation Not on file documented as of this encounter Plan of Treatment Upcoming Encounters Date Type Department Care Team (Late st Contact Info) Description 10/15/2024 8:[address] [facility] Christine Piña [address] [facility] [address] [place] [address] [place] [address] [facility]. [address] [place] [address] 12/07/2024 8:00 AM CDT Procedure visit [facility] Neurology [address] [facility] [address] [place] [address] Shashank Moore MD [address] [facility] [address] [place] [address] 01/17/2025 8:20 AM POOL NURSE [address] [facility] [place] [address] [facility] [address] [place] [address] [place] [address] [facility]. [address] [place] [address] 03/08/2025 8:00 AM POOL NURSE Procedure visit [facility] Neurology [address] [facility] [address] [place] [address] Shashank Moore MD [address] [facility] [address] [place] [address] documented as of this encounter Visit Diagnoses Not on filedocumented in this encounter Additional Health Concerns Infection Onset Date Last Indicated Resolved Time R/O COVID-19 11/06/2019 11/06/2019 11/06/2019 8:56 AM CDT R/O COVID-19 12/29/2020 12/29/2020 12/29/2020 1:27 PM POOL NURSE COVID-19 12/29/2020 12/29/2020 01/18/2021 1:16 AM POOL NURSE documented as of this encounter Care Teams Prototype Machinist Relationship Specialty [place] [address] [facility]. [address] [place] [address] PCP - General 07/29/00 documented as of this encounter
--- OUTSIDE RECORDS SUMMARY | 2024-09-28 17:10 | XMS_ITS | Encounter Summary ---
Author Organization [facility] Address [address] [place] [address] Care Team Providers Care Geotechnical Laboratory Technician Name Role Phone Uriel Mott MD Primary Care Provider [phone] Encounter Details Date Type Department Care Team (Late st Contact Info) Description 07/23/2004 Outpatient Historical Division of Neurology 1 [facility], [address] [address] Michael Trammell MD [address] [facility] [address] [place] [address] Social History Tobacco Use Types Packs/Day Years Used Date Smoking Tobacco: Never Assessed Comments Unknown Sex and Gender Information Value Date Recorded Sex Assigned at Not on file Legal Sex Female 3:07 AM PARTITION ASSEMBLY MACHINE OPERATOR Gender Identity Not on file Sexual Orientation Not on file documented as of this encounter Plan of Treatment Upcoming Encounters Date Type Department Care Team (Late st Contact Info) Description 10/15/2024 8:00 AM CDT Appointment [facility] Family Medicine Christine Piña [address] [facility] [address] [place] [address] [place] [address] [facility] [place] [address] 12/07/2024 8:00 AM CDT Procedure visit [facility] Neurology [address] [facility] [address] [place] [address] Shashank Moore MD [address] [facility] [address] [place] [address] 01/17/2025 8:20 AM PARTITION ASSEMBLY MACHINE OPERATOR Appointment [facility] Family Medicine Christine Piña [address] [facility] [address] [place] [address] [place] [address] [facility] [address] [place] [address] 03/08/2025 8:00 AM PARTITION ASSEMBLY MACHINE OPERATOR Procedure visit [facility] [address] [facility] [address] [place] [address] Shashank Moore MD [address] [address] documented as of this encounter Visit Diagnoses Not on filedocumented in this encounter Additional Health Concerns Infection Onset Date Last Indicated Resolved Time R/O COVID-19 11/06/2019 11/06/2019 11/06/2019 8:56 AM CDT R/O COVID-19 12/29/2020 12/29/2020 12/29/2020 1:27 PM PARTITION ASSEMBLY MACHINE OPERATOR COVID-19 12/29/2020 12/29/2020 01/18/2021 1:16 AM PARTITION ASSEMBLY MACHINE OPERATOR documented as of this encounter Care Teams Geotechnical Laboratory Technician Relationship Specialty [place] [address] [facility] [address] [place] [address] PCP - General 07/29/00 documented as of this encounter
--- OUTSIDE RECORDS SUMMARY | 2024-09-28 17:10 | XMS_ITS | Encounter Summary ---
Author Organization [facility] Address [address] [place] [address] Care Team Providers Care Shell Coremaker Name Role Phone Uriel Mott MD Primary Care Provider [phone] Encounter Details Date Type Department Care Team (Late st Contact Info) Description 04/06/2006 Orders Only [facility] Family Medicine Christine Wang [address] [employer] [address] [place] [address] [place] [address] [employer] [place] [address] Social History Tobacco Use Types Packs/Day Years Used Date Smoking Tobacco: Never Assessed Comments Unknown Sex and Gender Information Value Date Recorded Sex Assigned at Not on file Legal Sex Female 3:07 AM DIRECTOR OF TECHNOLOGY Gender Identity Not on file Sexual Orientation [...] HISTORY: Very fatigued all the time and director industrial felt she could use a stress test. [...] The patient is being seen by a director industrial. Methotrexate is tolerated well with no side [...] check stress test. LAB ORDERS: Order number: [id number] Test Ordered: STRESS ECHO V17.4-FAMILY HISTORY OF CARDIOVASCULAR DISEASE ASSESSMENT: has FH of CAD. SPECIALTY REFERRAL: ADULT CARDIOLOGY Dr. Jamaal Flores [phone] fax: [phone]. RETURN VISIT: Patient is to return after test has been completed. Electronically Signed by: Uriel Mott MD on Thursday, April 06, 2006 documented in this encounter Plan of Treatment Upcoming Encounters Date Type Department Care Team (Late st Contact Info) Description 10/15/2024 8:00 AM CDT Appointment [facility] [address] [address] [place] [address] [facility]. [address] [address] 12/07/2024 8:00 AM CDT Procedure visit [facility] Neurology [address] [facility] [address] [place] [address] Shashank Moore MD [address] [address] 01/17/2025 8:20 AM DIRECTOR OF TECHNOLOGY Appointment [facility] Medicine Christine Piña [address] [address] [place] [address] [facility]. [address] [address] 03/08/2025 8:00 AM DIRECTOR OF TECHNOLOGY Procedure visit [facility] [address] [place] [address] Shashank Moore MD [address] [address] documented as of this encounter Visit Diagnoses Not on filedocumented in this encounter Additional Health Concerns Infection Onset Date Last Indicated Resolved Time R/O COVID-19 11/06/2019 11/06/2019 11/06/2019 8:56 AM CDT R/O COVID-19 12/29/2020 12/29/2020 12/29/2020 1:27 PM DIRECTOR OF TECHNOLOGY COVID-19 12/29/2020 12/29/2020 01/18/2021 1:16 AM DIRECTOR OF TECHNOLOGY documented as of this encounter Care Teams Shell Coremaker Relationship Specialty [place] [address] [address] PCP - General 07/29/00 documented as of this encounter
--- OUTSIDE RECORDS SUMMARY | 2024-09-28 17:10 | XMS_ITS | Encounter Summary ---
Author Organization [facility] Address [address] [place] [address] Care Team Providers Care Appeals Board Referee Name Role Phone Uriel Mott MD Primary Care Provider [phone] Encounter Details Date Type Department Care Team (Late st Contact Info) Description 08/23/2001 Outpatient Historical [facility] DEPT [place] [address] [facility]. [address] [place] [address] Social History Tobacco Use Types Packs/Day Years Used Date Smoking Tobacco: Never Assessed Comments Unknown Sex and Gender Information Value Date Recorded Sex Assigned at Not on file Legal Sex Female 3:07 AM ELECTRICIAN BUS Gender Identity Not on file Sexual Orientation Not on file documented as of this encounter Plan of Treatment Upcoming Encounters Date Type Department Care Team (Late st Contact Info) Description 10/15/2024 8:00 AM CDT Appointment [facility] Family Medicine Christine Piña [address] [facility] [address] [place] [address] [place] [address] [facility] [place] [address] 12/07/2024 8:00 AM CDT Procedure visit [facility] Neurology [address] [facility] [place] [address] Shashank Moore MD [address] [facility] [address] [place] [address] 01/17/2025 8:20 AM ELECTRICIAN BUS Appointment [facility] Medicine Christine Piña [address] [facility] [address] [place] [address] [place] [address] [facility] [place] [address] 03/08/2025 8:00 AM ELECTRICIAN BUS Procedure visit [facility] Neurology [address] [facility] [address] [place] [address] Shashank Moore MD [address] [facility] [address] [place] [address] documented as of this encounter Visit Diagnoses Not on filedocumented in this encounter Additional Health Concerns Infection Onset Date Last Indicated Resolved Time R/O COVID-19 11/06/2019 11/06/2019 11/06/2019 8:56 AM CDT R/O COVID-19 12/29/2020 12/29/2020 12/29/2020 1:27 PM ELECTRICIAN BUS COVID-19 12/29/2020 12/29/2020 01/18/2021 1:16 AM ELECTRICIAN BUS documented as of this encounter Care Teams Appeals Board Referee Relationship Specialty [place] [address] [facility] [place] [address] PCP - General 07/29/00 documented as of this encounter
--- OUTSIDE RECORDS SUMMARY | 2024-09-28 17:10 | XMS_ITS | Encounter Summary ---
Author Organization [facility] Address [address] [place] [address] Care Team Providers Care Hl7 Interface Developer Name Role Phone Uriel Mott MD Primary Care Provider [phone] Encounter Details Date Type Department Care Team (Late st Contact Info) Description 09/20/2005 Orders Only [facility] Family Medicine [place] [address] [employer] [address] [place] [address] [place] [address] [employer] [place] [address] Social History Tobacco Use Types Packs/Day Years Used Date Smoking Tobacco: Never Assessed Comments Unknown Sex and Gender Information Value Date Recorded Sex Assigned at Not on file Legal Sex Female 3:07 AM IV RN Gender Identity Not on file Sexual Orientation Not on file documented as of this encounter Progress Notes * Uriel Mott MD - 11/16/2007 10:25 PM CDT NURSE NAME: Ghazala Gordillo R WEIGHT: 149lbs. BLOOD PRESSURE: 110/84. Right Arm Sitting PULSE: 72. Right Radial, Regular ALLERGIES: Allergies are as listed. 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 LAB ORDERS: Order number: [id number] Test Ordered: CBC W/ DIFFERENTIAL 3150 Order number: [id number] Test Ordered: COMPREHENSIVE METABOLIC PANEL & GFR 1099 V16.0-FAMILY HISTORY OF CARCINOMA OF COLON ASSESSMENT: The patient has a first degree relative with colon cancer. Needs colonoscopy. V58.40-TKNB-EYTA USE OF STEROIDS LAB ORDERS: Order number: [id number] Test Ordered: BONE DENSITY (HIP & SPINE) V77.91-SCREENING FOR LIPID DISORDERS LAB ORDERS: Order number: [id number] Test Ordered: LIPID PANEL 1078 RETURN VISIT: The patient will be contacted to return after we review the labs ordered above. Electronically Signed by: Uriel Mott MD on Tuesday, September 20, 2005 documented in this encounter Plan of Treatment Upcoming Encounters Date Type Department Care Team (Late st Contact Info) Description 10/15/2024 8:00 AM CDT Appointment [facility] [place] [address] [address] [place] [address] [facility]. [address] [place] [address] 12/07/2024 8:00 AM CDT Procedure visit [facility] Neurology [address] [facility] [address] [place] [address] Shashank Moore MD [address] [facility] [address] [place] [address] 01/17/2025 8:20 AM IV RN Appointment [facility] [place] [address] [facility] [address] [place] [address] [place] [address] [facility] [address] 03/08/2025 8:00 AM IV RN Procedure visit [facility] Neurology [address] [facility] [address] [address] [place] [address] Shashank Moore MD [address] [facility] [address] [place] [address] documented as of this encounter Visit Diagnoses Not on filedocumented in this encounter Additional Health Concerns Infection Onset Date Last Indicated Resolved Time R/O COVID-19 11/06/2019 11/06/2019 11/06/2019 8:56 AM CDT R/O COVID-19 12/29/2020 12/29/2020 12/29/2020 1:27 PM IV RN COVID-19 12/29/2020 12/29/2020 01/18/2021 1:16 AM IV RN documented as of this encounter Care Teams Hl7 Interface Developer Relationship Specialty [place] [address] [facility] [address] [place] [address] PCP - General 07/29/00 documented as of this encounter
--- OUTSIDE RECORDS SUMMARY | 2024-09-28 17:10 | XMS_ITS | Encounter Summary ---
Author Organization [facility] Address [address] [place] [address] Care Team Providers Care Oyster Washer Name Role Phone Uriel Mott MD Primary Care Provider [phone] Encounter Details Date Type Department Care Team (Latest Contact Info) Description 09/20/2005 Outpatient Historical [facility] Medicine [place] Wang [address] [facility] [address] [place] [address] [place] [address] [facility]. [address] [place] [address] Rheumatoid Arthritis (CMS/HCC) (Primary Dx) Social History Tobacco Use Types Packs/Day Years Used Date Smoking Tobacco: Never Assessed Comments Unknown Sex and Gender Information Value Date Recorded Sex Assigned at Not on file Legal Sex Female 3:07 AM PORTER LUGGAGE Gender Identity Not on file Sexual Orientation Not on file documented as of this encounter Plan of Treatment Upcoming Encounters Date Type Department Care Team (Late st Contact Info) Description 10/15/2024 8:00 AM CDT Appointment [facility] Medicine Christine Wang [address] [facility] [address] [place] [address] [place] [address] [facility] [place] [address] 12/07/2024 8:00 AM CDT Procedure visit [facility] Neurology [address] [facility] [address] [place] [address] Shashank Moore MD [address] [facility] [address] [place] [address] 01/17/2025 8:20 AM PORTER LUGGAGE Appointment [facility] Family Medicine Christine Piña [address] [facility] [address] [place] [address] [place] [address] [facility]. [address] [place] [address] 03/08/2025 8:00 AM PORTER LUGGAGE Procedure visit [facility] Neurology [address] [facility] [address] [place] [address] Shashank Moore MD [address] [facility] [address] [place] [address] documented as of this encounter [...] classifications for lipids are available on the [facility] Intran[facility] at: [email or web address] Select: Lab Policies and Procedures Select: Reference Ranges - Lipids 09/20/2005 11:1 1 AM CDT us Uriel Mott MD CHEMISTRY ORDERABLES Final R esult Performing Organization Address City/[facility] Co de Phone Number INTERFACE SYSTEM [...] HEMATOLOGY ORDERABLES Final Result Performing Organization Address [facility] de Phone Number INTERFACE SYSTEM Refer to [...] SYSTEM 09/20/2005 11:1 1 AM CDT Result [facility] Uriel Mott MD HEMATOLOGY ORDERABLES Final Result INTERFACE SYSTEM Refer to clinic/hospital department documented in this encounter Visit Diagnoses Diagnosis Rheumatoid arthritis(714.0) (CMS/[facility])- Primary Rheumatoid arthritis documented in this encounter Additional Health Concerns Infection Onset Date Last Indicated Resolved Time R/O COVID-19 11/06/2019 11/06/2019 11/06/2019 8:56 AM CDT R/O COVID-19 12/29/2020 12/29/2020 12/29/2020 1:27 PM PORTER LUGGAGE COVID-19 12/29/2020 12/29/2020 01/18/2021 1:16 AM PORTER LUGGAGE documented as of this encounter Care Teams Oyster Washer Relationship Specialty [place] [address] [facility] [address] [place] [address] PCP - General 07/29/00 documented as of this encounter
--- OUTSIDE RECORDS SUMMARY | 2024-09-28 17:10 | XMS_ITS | Encounter Summary ---
Author Organization [facility] Address [address] [place] [address] Care Team Providers Care Wad Blanking Press Adjuster Name Role Phone Uriel Mott MD Primary Care Provider [phone] Encounter Details Date Type Department Care Team (Late Contact Info) Description 10/18/2002 Outpatient Historical [facility] Medicine Christine Wang [address] [facility] [address] [place] [address] [place] [address] [facility] [place] [address] Social History Tobacco Use Types Packs/Day Years Used Date Smoking Tobacco: Never Assessed Comments Unknown Sex and Gender Information Value Date Recorded Sex Assigned at Not on file Legal Sex Female 3:07 AM INSTRUMENT TECHNICIAN Gender Identity Not on file Sexual Orientation Not on file documented as of this encounter Plan of Treatment Upcoming Encounters Date Type Department Care Team (Late st Contact Info) Description 10/15/2024 8:00 AM CDT Appointment [facility] Medicine Christine Wang [address] [facility] [address] [place] [address] [place] [address] [facility]. [address] [place] [address] 12/07/2024 8:00 AM CDT Procedure visit [facility] Neurology [address] [facility] [address] [place] [address] Shashank Moore MD [address] [facility] [address] [place] [address] 01/17/2025 8:20 AM INSTRUMENT TECHNICIAN Appointment [facility] Family Medicine Christine Piña [address] [facility] [address] [place] [address] [place] [address] [facility]. [address] [place] [address] 03/08/2025 8:00 AM INSTRUMENT TECHNICIAN Procedure visit [facility] [address] [facility] [address] [place] [address] Shashank Moore MD [address] [facility] [address] [place] [address] documented as of this encounter Visit Diagnoses Not on filedocumented in this encounter Additional Health Concerns Infection Onset Date Last Indicated Resolved Time R/O COVID-19 11/06/2019 11/06/2019 11/06/2019 8:56 AM CDT R/O COVID-19 12/29/2020 12/29/2020 12/29/2020 1:27 PM INSTRUMENT TECHNICIAN COVID-19 12/29/2020 12/29/2020 01/18/2021 1:16 AM INSTRUMENT TECHNICIAN documented as of this encounter Care Teams Wad Blanking Press Adjuster Relationship Specialty [place] [address] [facility] [address] [place] [address] PCP - General 07/29/00 documented as of this encounter
--- OUTSIDE RECORDS SUMMARY | 2024-09-28 17:10 | XMS_ITS | Encounter Summary ---
Author Organization [facility] Address [address] [place] [address] Care Team Providers Care Fun House Attendant Name Role Phone Uriel Mott MD Primary Care Provider [phone] Encounter Details Date Type Department Care Team (Late st Contact Info) Description 06/03/2005 Outpatient Historical [facility] Brian Frias MD [address] [place] [address] Nontoxic Uninodular Goiter (Primary Dx) Social History Tobacco Use Types Packs/Day Years Used Date Smoking Tobacco: Never Assessed Comments Unknown Sex and Gender Information Value Date Recorded Sex Assigned at Not on file Legal Sex Female 3:07 AM WIRE INSULATOR Gender Identity Not on file Sexual Orientation Not on file documented as of this encounter Plan of Treatment Upcoming Encounters Date Type Department Care Team (Late st Contact Info) Description 10/15/2024 8:00 AM CDT Appointment [facility] Family Medicine Christine Piña [address] [facility] [address] [place] [address] [place] [address] [facility] [place] [address] 12/07/2024 8:00 AM CDT Procedure visit [facility] Neurology [address] [facility] [address] [place] [address] Shashank Moore MD [address] [facility] [address] [place] [address] 01/17/2025 8:20 AM WIRE INSULATOR Appointment [facility] Medicine Christine Piña [address] [facility] [address] [place] [address] [place] [address] [facility] [place] [address] 03/08/2025 8:00 AM WIRE INSULATOR Procedure visit [facility] Neurology [address] [facility] [address] [place] [address] Shashank Moore MD [address] [facility] [address] [place] [address] documented as of this encounter Visit Diagnoses Diagnosis Nontoxic uninodular goiter- Primary documented in this encounter Additional Health Concerns Infection Onset Date Last Indicated Resolved Time R/O COVID-19 11/06/2019 11/06/2019 11/06/2019 8:56 AM CDT R/O COVID-19 12/29/2020 12/29/2020 12/29/2020 1:27 PM WIRE INSULATOR COVID-19 12/29/2020 12/29/2020 01/18/2021 1:16 AM WIRE INSULATOR documented as of this encounter Care Teams Fun House Attendant Relationship Specialty [place] [address] [facility] [place] [address] PCP - General 07/29/00 documented as of this encounter
--- OUTSIDE RECORDS SUMMARY | 2024-09-28 17:10 | XMS_ITS | Encounter Summary ---
Author Organization [facility] Address [address] [place] [address] Care Team Providers Care Astrophysics Teacher Name Role Phone Uriel Mott MD Primary Care Provider [phone] Encounter Details Date Type Department Care Team (Late st Contact Info) Description 12/23/2000 Outpatient Historical HIS [facility] [place] [address] [place] [address] Social History Tobacco Use Types Packs/Day Years Used Date Smoking Tobacco: Never Assessed Comments Unknown Sex and Gender Information Value Date Recorded Sex Assigned at Not on file Legal Sex Female 3:07 AM LOGISTICS MANAGEMENT SPECIALIST Gender Identity Not on file Sexual Orientation Not on file documented as of this encounter Plan of Treatment Upcoming Encounters Date Type Department Care Team (Late st Contact Info) Description 10/15/2024 8:00 AM CDT Appointment [facility] Medicine Christine Piña [address] [employer] [facility] [address] [place] [address] [place] [address] [employer] [facility]. [address] [place] [address] 12/07/2024 8:00 AM CDT Procedure visit [facility] Neurology [address] [facility] [address] [place] [address] Shashank Moore MD [address] [facility] [address] [place] [address] 01/17/2025 8:20 AM LOGISTICS MANAGEMENT SPECIALIST Appointment [facility] Medicine Christine Piña [address] [facility] [address] [place] [address] [place] [address] [facility] [place] [address] 03/08/2025 8:00 AM LOGISTICS MANAGEMENT SPECIALIST Procedure visit [facility] Neurology [address] [facility] [address] [place] [address] Shashank Moore MD [address] [facility] [address] [place] [address] documented as of this encounter Visit Diagnoses Not on filedocumented in this encounter Additional Health Concerns Infection Onset Date Last Indicated Resolved Time R/O COVID-19 11/06/2019 11/06/2019 11/06/2019 8:56 AM CDT R/O COVID-19 12/29/2020 12/29/2020 12/29/2020 1:27 PM LOGISTICS MANAGEMENT SPECIALIST COVID-19 12/29/2020 12/29/2020 01/18/2021 1:16 AM LOGISTICS MANAGEMENT SPECIALIST documented as of this encounter Care Teams Astrophysics Teacher Relationship Specialty [place] [address] [facility] [place] [address] PCP - General 07/29/00 documented as of this encounter
--- OUTSIDE RECORDS SUMMARY | 2024-09-28 17:10 | XMS_ITS | Encounter Summary ---
Author Organization [facility] Address [address] [place] [address] Care Team Providers Care Transfer Coordinator Name Role Phone Uriel Mott MD Primary Care Provider [phone] Encounter Details Date Type Department Care Team (Late st Contact Info) Description 03/14/[address] [facility] Medicine Christine Wang [address] [address] [facility] [address] [place] [address] [place] [address] [address] [facility]. [address] [place] [address] Social History Tobacco Use Types Packs/Day Years Used Date Smoking Tobacco: Never Assessed Comments Unknown Sex and Gender Information Value Date Recorded Sex Assigned at Not on file Legal Sex Female 3:07 AM RADIO HOST Gender Identity Not on file Sexual Orientation Not on file documented as of this encounter Plan of Treatment Upcoming Encounters Date Type Department Care Team (Late st Contact Info) Description 10/15/2024 8:00 AM CDT Appointment [facility] Christine Wang [address] [facility] [address] [place] [address] [place] [address] [facility] [place] [address] 12/07/2024 8:00 AM CDT Procedure visit [facility] Neurology [address] [facility] [address] [place] [address] Shashank Moore MD [address] [facility] [address] [place] [address] 01/17/2025 8:20 AM RADIO HOST Appointment [facility] Family Medicine Christine Piña [address] [facility] [address] [place] [address] [place] [address] [facility] [place] [address] 03/08/2025 8:00 AM RADIO HOST Procedure visit [facility] [address] [facility] [address] [place] [address] Shashank Moore MD [address] [facility] [address] [place] [address] documented as of this encounter Visit Diagnoses Not on filedocumented in this encounter Additional Health Concerns Infection Onset Date Last Indicated Resolved Time R/O COVID-19 11/06/2019 11/06/2019 11/06/2019 8:56 AM CDT R/O COVID-19 12/29/2020 12/29/2020 12/29/2020 1:27 PM RADIO HOST COVID-19 12/29/2020 12/29/2020 01/18/2021 1:16 AM RADIO HOST documented as of this encounter Care Teams Transfer Coordinator Relationship Specialty [place] [address] [facility] [address] [place] [address] PCP - General 07/29/00 documented as of this encounter
--- OUTSIDE RECORDS SUMMARY | 2024-09-28 17:10 | XMS_ITS | Encounter Summary ---
Author Organization [facility] Address [address] [place] [address] Care Team Providers Care Launch Leader Name Role Phone Uriel Mott MD Primary Care Provider [phone] Encounter Details Date Type Department Care Team (Late st Contact Info) Description 05/23/2001 Outpatient Historical HIS [facility] DEPT OF [place] [address] [place] [address] Social History Tobacco Use Types Packs/Day Years Used Date Smoking Tobacco: Never Assessed Comments Unknown Sex and Gender Information Value Date Recorded Sex Assigned at Not on file Legal Sex Female 3:07 AM MACHINE FEATHEREDGER AND REDUCER Gender Identity Not on file Sexual Orientation Not on file documented as of this encounter Plan of Treatment Upcoming Encounters Date Type Department Care Team (Late st Contact Info) Description 10/15/2024 8:00 AM CDT Appointment [facility] Medicine Christine Piña [address] [employer] [facility] [address] [place] [address] [place] [address] [employer]. [address] [place] [address] 12/07/2024 8:00 AM CDT Procedure visit [facility] Neurology [address] [facility] [address] [place] [address] Shashank Moore MD [address] [facility] [address] [place] [address] 01/17/2025 8:20 AM MACHINE FEATHEREDGER AND REDUCER Appointment [facility] Medicine Christine Piña [address] [facility] [address] [place] [address] [place] [address] [facility]. [address] [place] [address] 03/08/2025 8:00 AM MACHINE FEATHEREDGER AND REDUCER Procedure visit [facility] Neurology [address] [facility] [address] [place] [address] Shashank Moore MD [address] [facility] [address] [place] [address] documented as of this encounter Visit Diagnoses Not on filedocumented in this encounter Additional Health Concerns Infection Onset Date Last Indicated Resolved Time R/O COVID-19 11/06/2019 11/06/2019 11/06/2019 8:56 AM CDT R/O COVID-19 12/29/2020 12/29/2020 12/29/2020 1:27 PM MACHINE FEATHEREDGER AND REDUCER COVID-19 12/29/2020 12/29/2020 01/18/2021 1:16 AM MACHINE FEATHEREDGER AND REDUCER documented as of this encounter Care Teams Launch Leader Relationship Specialty [place] [address] [facility]. [address] [place] [address] PCP - General 07/29/00 documented as of this encounter
--- OUTSIDE RECORDS SUMMARY | 2024-09-28 17:10 | XMS_ITS | Encounter Summary ---
Author Organization [facility] Address [address] [address] [place] [address] Care Team Providers Care Hadoop Analyst Name Role Phone Uriel Mott MD Primary Care Provider [phone] Encounter Details Date Type Department Care Team (Late Contact Info) Description 12/13/2005 Orders Only [facility] Medicine Christine Wang [address] [employer] [facility] [address] [place] [address] [place] [address] [employer] [facility]. [address] [place] [address] Social History Tobacco Use Types Packs/Day Years Used Date Smoking Tobacco: Never Assessed Comments Unknown Sex and Gender Information Value Date Recorded Sex Assigned at Not on file Legal Sex Female 3:07 AM PHOTOGRAMMETRIC STEREO COMPILER Gender Identity Not on file Sexual Orientation Not on file documented as of this encounter Plan of Treatment Upcoming Encounters Date Type Department Care Team (Late st Contact Info) Description 10/15/2024 8:00 AM CDT Appointment [facility] Christine Wang [address] [employer] [facility] [address] [place] [address] [place] [address] [facility] [place] [address] 12/07/2024 8:00 AM CDT Procedure visit [facility] Neurology [address] [facility] [address] [place] [address] Shashank Moore MD [address] [facility] [address] [place] [address] 01/17/2025 8:20 AM PHOTOGRAMMETRIC STEREO COMPILER Appointment [facility] Family Medicine Christine Piña [address] [facility] [address] [place] [address] [place] [address] [facility] [place] [address] 03/08/2025 8:00 AM PHOTOGRAMMETRIC STEREO COMPILER Procedure visit [facility] [address] [facility] [address] [place] [address] Shashank Moore MD [address] [facility] [address] [place] [address] documented as of this encounter Visit Diagnoses Not on filedocumented in this encounter Additional Health Concerns Infection Onset Date Last Indicated Resolved Time R/O COVID-19 11/06/2019 11/06/2019 11/06/2019 8:56 AM CDT R/O COVID-19 12/29/2020 12/29/2020 12/29/2020 1:27 PM PHOTOGRAMMETRIC STEREO COMPILER COVID-19 12/29/2020 12/29/2020 01/18/2021 1:16 AM PHOTOGRAMMETRIC STEREO COMPILER documented as of this encounter Care Teams Hadoop Analyst Relationship Specialty [place] [address] [facility] [address] [place] [address] PCP - General 07/29/00 documented as of this encounter
--- OUTSIDE RECORDS SUMMARY | 2024-09-28 17:10 | XMS_ITS | Clinical Summary ---
Author Organization [facility] [employer] Address [address] [facility] [place] [address] Care Team Providers Care Machine Lacer Name Role Phone Unavailable Primary Care Provider Unavailabl e Source Comments [facility],non-owned Affiliates and Associated Physician Practices is amultiple site organization consisting of ambulatory clinics and hospital sitesin [place], [place], [place] and [place]. This disclosure is being madepursuant to the Care Everywhere program and may not contain all information available regarding this patient. Last updated 17.[facility] [employer] Social History Tobacco Use Types Packs/Day Years Used Date Smoking Tobacco: Never Assessed Comments Unknown Sex and Gender Information Value Date Recorded Sex Assigned at Not on file Legal Sex Female 5:11 AM R DEVELOPER Gender Identity Not on file Sexual [...]
--- OUTSIDE RECORDS SUMMARY | 2024-09-28 17:10 | XMS_ITS | Encounter Summary ---
Author Organization [facility] Address [address] [place] [address] Care Team Providers Care Power Cutting Machine Operator Name Role Phone Uriel Mott MD Primary Care Provider [phone] Encounter Details Date Type Department Care Team (Late Contact Info) Description 02/11/2006 Orders Only [facility] Medicine Christine Wang [address] [employer] [facility] [address] [place] [address] [place] [address] [employer] [facility]. [address] [place] [address] Social History Tobacco Use Types Packs/Day Years Used Date Smoking Tobacco: Never Assessed Comments Unknown Sex and Gender Information Value Date Recorded Sex Assigned at Not on file Legal Sex Female 3:07 AM TURNER IN Gender Identity Not on file Sexual Orientation Not on file documented as of this encounter Plan of Treatment Upcoming Encounters Date Type Department Care Team (Late st Contact Info) Description 10/15/2024 8:00 AM CDT Appointment [facility] Christine Wang [address] [employer] [facility] [address] [place] [address] [place] [address] [facility]. [address] [place] [address] 12/07/2024 8:00 AM CDT Procedure visit [facility] Neurology [address] [facility] [address] [place] [address] Shashank Moore MD [address] [facility] [address] [place] [address] 01/17/2025 8:20 AM TURNER IN Appointment [facility] Family Medicine Christine Piña [address] [facility] [address] [place] [address] [place] [address] [facility] [place] [address] 03/08/2025 8:00 AM TURNER IN Procedure visit [facility] [address] [facility] [address] [place] [address] Shashank Moore MD [address] [facility] [address] [place] [address] documented as of this encounter Visit Diagnoses Not on filedocumented in this encounter Additional Health Concerns Infection Onset Date Last Indicated Resolved Time R/O COVID-19 11/06/2019 11/06/2019 11/06/2019 8:56 AM CDT R/O COVID-19 12/29/2020 12/29/2020 12/29/2020 1:27 PM TURNER IN COVID-19 12/29/2020 12/29/2020 01/18/2021 1:16 AM TURNER IN documented as of this encounter Care Teams Power Cutting Machine Operator Relationship Specialty [place] [address] [facility] [address] [place] [address] PCP - General 07/29/00 documented as of this encounter
--- OUTSIDE RECORDS SUMMARY | 2024-09-28 17:10 | XMS_ITS | Encounter Summary ---
Author Organization [facility] Address [address] [place] [address] Care Team Providers Care Analog Device Designer Name Role Phone Uriel Mott MD Primary Care Provider [phone] Encounter Details Date Type Department Care Team (Late st Contact Info) Description 03/28/2001 Outpatient Historical HIS [facility] DEPT [place] [address] [facility] [place] [address] Social History Tobacco Use Types Packs/Day Years Used Date Smoking Tobacco: Never Assessed Comments Unknown Sex and Gender Information Value Date Recorded Sex Assigned at Not on file Legal Sex Female 3:07 AM CRATE MAKER Gender Identity Not on file Sexual Orientation Not on file documented as of this encounter Plan of Treatment Upcoming Encounters Date Type Department Care Team (Late st Contact Info) Description 10/15/2024 8:00 AM CDT Appointment [facility] Family Medicine Christine Wang [address] [facility] [address] [place] [address] [place] [address] [facility] [place] [address] 12/07/2024 8:00 AM CDT Procedure visit [facility] Neurology [address] [facility] [address] [place] [address] Shashank Moore MD [address] [facility] [address] [place] [address] 01/17/2025 8:20 AM CRATE MAKER Appointment [facility] Medicine Christine Piña [address] [facility] [address] [place] [address] [place] [address] [facility] [place] [address] 03/08/2025 8:00 AM CRATE MAKER Procedure visit [facility] Neurology [address] [facility] [address] [place] [address] Shashank Moore MD [address] [facility] [address] [place] [address] documented as of this encounter Visit Diagnoses Not on filedocumented in this encounter Additional Health Concerns Infection Onset Date Last Indicated Resolved Time R/O COVID-19 11/06/2019 11/06/2019 11/06/2019 8:56 AM CDT R/O COVID-19 12/29/2020 12/29/2020 12/29/2020 1:27 PM CRATE MAKER COVID-19 12/29/2020 12/29/2020 01/18/2021 1:16 AM CRATE MAKER documented as of this encounter Care Teams Analog Device Designer Relationship Specialty [place] [address] [facility] [place] [address] PCP - General 07/29/00 documented as of this encounter
--- OUTSIDE RECORDS SUMMARY | 2024-09-28 17:10 | XMS_ITS | Encounter Summary ---
Author Organization [facility] Address [address] [place] [address] Care Team Providers Care Fastener Technologist Name Role Phone Uriel Mott MD Primary Care Provider [phone] Encounter Details Date Type Department Care Team (Latest Contact Info) Description 05/30/2003 Inpatient Historical HIS [place] [address] [address] [facility] [place] [address] DIS PORPHYRIN METABOLISM (Primary Dx) Social History Tobacco Use Types Packs/Day Years Used Date Smoking Tobacco: Never Assessed Comments Unknown Sex and Gender Information Value Date Recorded Sex Assigned at Not on file Legal Sex Female 3:07 AM UNDERWRITING SUPPORT MANAGER Gender Identity Not on file Sexual Orientation Not on file documented as of this encounter Plan of Treatment Upcoming Encounters Date Type Department Care Team (Late st Contact Info) Description 10/15/2024 8:00 AM CDT Appointment [facility] Family Medicine Christine Piña [address] [facility] [address] [place] [address] [place] [address] [facility] [place] [address] 12/07/2024 8:00 AM CDT Procedure visit [facility] Neurology [address] [facility] [address] [place] [address] Shashank Moore MD [address] [facility] [address] [place] [address] 01/17/2025 8:20 AM UNDERWRITING SUPPORT MANAGER Appointment [facility] Medicine Christine Piña [address] [facility] [address] [place] [address] [place] [address] [facility] [place] [address] 03/08/2025 8:00 AM UNDERWRITING SUPPORT MANAGER Procedure visit [facility] Neurology [address] [facility] [address] [place] [address] Shashank Moore MD [address] [facility] [address] [place] [address] documented as of this encounter Visit Diagnoses Diagnosis Disorders of porphyrin metabolism- Primary documented in this encounter Additional Health Concerns Infection Onset Date Last Indicated Resolved Time R/O COVID-19 11/06/2019 11/06/2019 11/06/2019 8:56 AM CDT R/O COVID-19 12/29/2020 12/29/2020 12/29/2020 1:27 PM UNDERWRITING SUPPORT MANAGER COVID-19 12/29/2020 12/29/2020 01/18/2021 1:16 AM UNDERWRITING SUPPORT MANAGER documented as of this encounter Care Teams Fastener Technologist Relationship Specialty [place] [address] [facility] [address] [place] [address] PCP - General 07/29/00 documented as of this encounter
--- OUTSIDE RECORDS SUMMARY | 2024-09-28 17:10 | XMS_ITS | Encounter Summary ---
Author Organization [facility] Address [address] [place] [address] Care Team Providers Care Cobol Developer Name Role Phone Uriel Mott MD Primary Care Provider [phone] Encounter Details Date Type Department Care Team (Late st Contact Info) Description 10/13/2005 Outpatient Historical [facility] [place] [address] [address] [employer] [address] [place] [address] [place] [address] [employer] [place] [address] Social History Tobacco Use Types Packs/Day Years Used Date Smoking Tobacco: Never Assessed Comments Unknown Sex and Gender Information Value Date Recorded Sex Assigned at Not on file Legal Sex Female 3:07 AM PIPE CREW FOREMAN Gender Identity Not on file Sexual Orientation [...] AM CDT Appointment [facility] [address] [employer] [address] [place] [address] [place] [address] [employer] [place] [address] 12/07/2024 8:00 AM CDT Procedure visit [facility] Neurology [address] [facility] [address] [place] [address] Shashank Moore MD [address] [facility] [address] [place] [address] 01/17/2025 8:20 AM PIPE CREW FOREMAN Appointment [facility] Medicine Christine Piña [address] [facility] [address] [place] [address] [place] [address] [facility] [address] 03/08/2025 8:00 AM PIPE CREW FOREMAN Procedure visit [facility] Neurology [address] [address] Shashank Moore MD [address] [address] documented as of this encounter Visit Diagnoses Not on filedocumented in this encounter Additional Health Concerns Infection Onset Date Last Indicated Resolved Time R/O COVID-19 11/06/2019 11/06/2019 11/06/2019 8:56 AM CDT R/O COVID-19 12/29/2020 12/29/2020 12/29/2020 1:27 PM PIPE CREW FOREMAN COVID-19 12/29/2020 12/29/2020 01/18/2021 1:16 AM PIPE CREW FOREMAN documented as of this encounter Care Teams Cobol Developer Relationship Specialty [place] [address] [facility] [address] [place] [address] PCP - General 07/29/00 documented as of this encounter
--- OUTSIDE RECORDS SUMMARY | 2024-09-28 17:10 | XMS_ITS | Encounter Summary ---
Author Organization [facility] Address [address] [place] [address] Care Team Providers Care Systems Technologist Name Role Phone Uriel Mott MD Primary Care Provider [phone] Encounter Details Date Type Department Care Team (Late Contact Info) Description 10/23/2004 Outpatient Historical [facility] Christine Wang [address] [place] [address] [place] [address] [place] [address] Social History Tobacco Use Types Packs/Day Years Used Date Smoking Tobacco: Never Assessed Comments Unknown Sex and Gender Information Value Date Recorded Sex Assigned at Not on file Legal Sex Female 3:07 AM AIRCONDITIONING DRAFTING OFFICER Gender Identity Not on file Sexual [...] Info) Description 10/15/2024 8:00 AM CDT Appointment [facility] Christine Wang [address] [place] [address] [place] [address] [facility]. [address] [place] [address] 12/07/2024 8:00 AM CDT Procedure visit [facility] Neurology [address] [facility] [address] [place] [address] Shashank Moore MD [address] [facility] [address] [place] [address] 01/17/2025 8:20 AM AIRCONDITIONING DRAFTING OFFICER Appointment [facility] Medicine Christine Piña [address] [facility] [address] [place] [address] [place] [address] [facility]. [address] [place] [address] 03/08/2025 8:00 AM AIRCONDITIONING DRAFTING OFFICER Procedure visit [facility] Neurology [address] [facility] [address] [place] [address] Shashank Moore MD [address] [facility] [address] [place] [address] documented as of this encounter Visit Diagnoses Not on filedocumented in this encounter Additional Health Concerns Infection Onset Date Last Indicated Resolved Time R/O COVID-19 11/06/2019 11/06/2019 11/06/2019 8:56 AM CDT R/O COVID-19 12/29/2020 12/29/2020 12/29/2020 1:27 PM AIRCONDITIONING DRAFTING OFFICER COVID-19 12/29/2020 12/29/2020 01/18/2021 1:16 AM AIRCONDITIONING DRAFTING OFFICER documented as of this encounter Care Teams Systems Technologist Relationship Specialty [place] [address] [facility] [address] [place] [address] PCP - General 07/29/00 documented as of this encounter
--- OUTSIDE RECORDS SUMMARY | 2024-09-28 17:10 | XMS_ITS | Encounter Summary ---
Author Organization [facility] Address [address] [place] [address] Care Team Providers Care Appeals Specialist Name Role Phone Uriel Mott MD Primary Care Provider [phone] Encounter Details Date Type Department Care Team (Late st Contact Info) Description 08/05/2004 Outpatient Historical [facility] MRI DEPT Michael Trammell MD [address] [facility] [address] [place] [address] HEADACHE (Primary Dx) Social History Tobacco Use Types Packs/Day Years Used Date Smoking Tobacco: Never Assessed Comments Unknown Sex and Gender Information Value Date Recorded Sex Assigned at Not on file Legal Sex Female 3:07 AM COVERSTITCH BINDER Gender Identity Not on file Sexual Orientation Not on file documented as of this encounter Plan of Treatment Upcoming Encounters Date Type Department Care Team (Late st Contact Info) Description 10/15/2024 8:00 AM CDT Appointment [facility] Family Medicine Christine Piña [address] [facility] [address] [place] [address] [place] [address] [facility]. [address] [place] [address] 12/07/2024 8:00 AM CDT Procedure visit [facility] Neurology [address] [facility] [place] [address] Shashank Mooer MD [address] [facility] [address] [place] [address] 01/17/2025 8:20 AM COVERSTITCH BINDER Appointment [facility] Medicine Christine Piña [address] [facility] [address] [place] [address] [place] [address] [facility] [place] [address] 03/08/2025 8:00 AM COVERSTITCH BINDER Procedure visit [facility] Neurology [address] [facility] [address] [place] [address] Shashank Moore MD [address] [facility] [address] [place] [address] documented as of this encounter Visit Diagnoses Diagnosis Headache(784.0)- Primary Headache documented in this encounter Additional Health Concerns Infection Onset Date Last Indicated Resolved Time R/O COVID-19 11/06/2019 11/06/2019 11/06/2019 8:56 AM CDT R/O COVID-19 12/29/2020 12/29/2020 12/29/2020 1:27 PM COVERSTITCH BINDER COVID-19 12/29/2020 12/29/2020 01/18/2021 1:16 AM COVERSTITCH BINDER documented as of this encounter Care Teams Appeals Specialist Relationship Specialty [place] [address] [facility]. [address] [place] [address] PCP - General 07/29/00 documented as of this encounter
--- OUTSIDE RECORDS SUMMARY | 2024-09-28 17:10 | XMS_ITS | Encounter Summary ---
Author Organization [facility] Address [address] [place] [address] Care Team Providers Care Rehab Nursing Tech Name Role Phone Uriel Mott MD Primary Care Provider [phone] Encounter Details Date Type Department Care Team (Latest Contact Info) Description 10/26/2004 Outpatient Historical [place] [address] [facility] [place] [address] SWELLING IN HEAD & NECK (Primary Dx) Social History Tobacco Use Types Packs/Day Years Used Date Smoking Tobacco: Never Assessed Comments Unknown Sex and Gender Information Value Date Recorded Sex Assigned at Not on file Legal Sex Female 3:07 AM HOTEL SERVICES SUPERVISOR Gender Identity Not on file Sexual Orientation Not on file documented as of this encounter Plan of Treatment Upcoming Encounters Date Type Department Care Team (Late st Contact Info) Description 10/15/2024 8:00 AM CDT Appointment [facility] Medicine Christine Piña [address] [facility] [address] [place] [address] [place] [address] [facility]. [address] [place] [address] 12/07/2024 8:00 AM CDT Procedure visit [facility] Neurology [address] [facility] [address] [place] [address] Shashank Moore MD [address] [facility] [address] [place] [address] 01/17/2025 8:20 AM HOTEL SERVICES SUPERVISOR Appointment [facility] Medicine Christine Piña [address] [facility] [address] [place] [address] [place] [address] [facility]. [address] [place] [address] 03/08/2025 8:00 AM HOTEL SERVICES SUPERVISOR Procedure visit [facility] Neurology [address] [facility] [address] [place] [address] Shashank Moore MD [address] [facility] [address] [place] [address] documented as of this encounter Visit Diagnoses Diagnosis Swelling, mass, or lump in head and neck- Primary documented in this encounter Additional Health Concerns Infection Onset Date Last Indicated Resolved Time R/O COVID-19 11/06/2019 11/06/2019 11/06/2019 8:56 AM CDT R/O COVID-19 12/29/2020 12/29/2020 12/29/2020 1:27 PM HOTEL SERVICES SUPERVISOR COVID-19 12/29/2020 12/29/2020 01/18/2021 1:16 AM HOTEL SERVICES SUPERVISOR documented as of this encounter Care Teams Rehab Nursing Tech Relationship Specialty [place] [address] [facility] [place] [address] PCP - General 07/29/00 documented as of this encounter
--- OUTSIDE RECORDS SUMMARY | 2024-09-28 17:10 | XMS_ITS | Encounter Summary ---
Author Organization [facility] Address [address] [place] [address] Care Team Providers Care Web Worker Name Role Phone Uriel Mott MD Primary Care Provider [phone] Encounter Details Date Type Department Care Team (Latest Contact Info) Description 11/08/2006 Outpatient Historical [facility] Medicine Christine Wang [address] [facility] [address] [place] [address] [place] [address] [facility] [place] [address] Other Nonspecific Abnormal Serum Enzyme Levels (Primary Dx) Social History Tobacco Use Types Packs/Day Years Used Date Smoking Tobacco: Never Assessed Comments Unknown Sex and Gender Information Value Date Recorded Sex Assigned at Not on file Legal Sex Female 3:07 AM METALS ANALYST Gender Identity Not on file Sexual Orientation Not on file documented as of this encounter Plan of Treatment Upcoming Encounters Date Type Department Care Team (Late st Contact Info) Description 10/15/2024 8:00 AM CDT Appointment [facility] Medicine Christine Wang [address] [facility] [address] [place] [address] [place] [address] [facility] [place] [address] 12/07/2024 8:00 AM CDT Procedure visit [facility] Neurology [address] [facility] [address] [place] [address] Shashank Moore MD [address] [facility] [address] [place] [address] 01/17/2025 8:20 AM METALS ANALYST Appointment [facility] Medicine Christine Piña [address] [facility] [address] [place] [address] [place] [address] [facility]. [address] [place] [address] 03/08/2025 8:00 AM METALS ANALYST Procedure visit [facility] Neurology [address] [facility] [address] [place] [address] Shashank Moore MD [address] [facility] [address] [place] [address] documented as of this encounter [...] INTERFACE SYSTEM Comment: Lab test performed by: [employer] [address] [place] [address] EDMUND ZHENG MD 11/08/2006 2:49 PM CDT Uriel Mott MD CHEMISTRY ORDERABLES Edited INTERFACE SYSTEM Refer to clinic/hospital department * HEPATITIS A IGM (11/08/2006 2:49 PM CDT) HEPATITIS A IGM NON-REACTI VE NON-REACT JESUS INTERFACE SYSTEM Comment: Lab test performed by: [employer] [id number] [address] [employer] [place] [address] EDMUND ZHENG MD 11/08/2006 2:49 PM CDT Uriel Mott MD CHEMISTRY ORDERABLES Edited Performing Organization Address [facility] Phone Number INTERFACE SYSTEM Refer to clinic/hospital department * HEPATITIS C AB WITH CONFIRMATION BY RIBA (11/08/2006 2:49 PM CDT) Pathologist [facility] HEPATITIS C AB NON-REACTI VE NON-REACT JESUS INTERFACE SYSTEM SIGNAL TO CUT OFF 0.76 <1.00 INTERFACE SYSTEM Comment: Lab test performed by: [employer] [id number] [address] [employer] [place] [address] EDMUND ZHENG MD 11/08/2006 2:49 PM CDT Uriel Mott MD CHEMISTRY ORDERABLES Edited Performing Organization Address [facility] Phone Number INTERFACE SYSTEM Refer to clinic/hospital department * GGT (11/08/2006 2:49 PM CDT) Pathologist [facility] GGT 16 5 - 36 U/L INTERFACE SYSTEM 11/08/2006 2:49 PM CDT Uriel Mott MD CHEMISTRY ORDERABLES Edited Performing Organization Address [facility] Phone Number INTERFACE SYSTEM Refer to clinic/hospital department documented in this encounter Visit Diagnoses Diagnosis Other nonspecific abnormal serum enzyme levels- Primary documented in this encounter Additional Health Concerns Infection Onset Date Last Indicated Resolved Time R/O COVID-19 11/06/2019 11/06/2019 11/06/2019 8:56 AM CDT R/O COVID-19 12/29/2020 12/29/2020 12/29/2020 1:27 PM METALS ANALYST COVID-19 12/29/2020 12/29/202001/18/2021 1:16 AM METALS ANALYST documented as of this encounter Care Teams Web Worker Relationship Specialty [place] [address] [facility] [place] [address] PCP - General 07/29/00 documented as of this encounter
--- OUTSIDE RECORDS SUMMARY | 2024-09-28 17:10 | XMS_ITS | Encounter Summary ---
Author Organization [facility] Address [address] [place] [address] Care Team Providers Care Relocation Manager Name Role Phone Uriel Mott MD Primary Care Provider [phone] Encounter Details Date Type Department Care Team (Late st Contact Info) Description 01/09/2002 Outpatient Historical [facility] Christine Piña [address] [facility] [address] [place] [address] [place] [address] [facility]. [address] [address] Social History Tobacco Use Types Packs/Day Years Used Date Smoking Tobacco: Never Assessed Comments Unknown Sex and Gender Information Value Date Recorded Sex Assigned at Not on file Legal Sex Female 3:07 AM KENNEL MANAGER Gender Identity Not on file Sexual Orientation Not on file documented as of this encounter Plan of Treatment Upcoming Encounters Date Type Department Care Team (Late st Contact Info) Description 10/15/2024 8:00 AM CDT Appointment [facility] Christine Wang [address] [facility] [address] [place] [address] [place] [address] [facility]. [address] [place] [address] 12/07/2024 8:00 AM CDT Procedure visit [facility] Neurology [address] [facility] [address] [place] [address] Shashank Moore MD [address] [facility] [address] [place] [address] 01/17/2025 8:20 AM KENNEL MANAGER Appointment [facility] Medicine Christine Piña [address] [facility] [address] [place] [address] [place] [address] [facility] [address] [place] [address] 03/08/2025 8:00 AM KENNEL MANAGER Procedure visit [facility] Neurology [address] [facility] [address] [place] [address] Shashank Moore MD [address] [address] documented as of this encounter Visit Diagnoses Not on filedocumented in this encounter Additional Health Concerns Infection Onset Date Last Indicated Resolved Time R/O COVID-19 11/06/2019 11/06/2019 11/06/2019 8:56 AM CDT R/O COVID-19 12/29/2020 12/29/2020 12/29/2020 1:27 PM KENNEL MANAGER COVID-19 12/29/2020 12/29/2020 01/18/2021 1:16 AM KENNEL MANAGER documented as of this encounter Care Teams Relocation Manager Relationship Specialty [place] [address] [facility] [address] [place] [address] PCP - General 07/29/00 documented as of this encounter
--- OUTSIDE RECORDS SUMMARY | 2024-09-28 17:10 | XMS_ITS | Encounter Summary ---
Author Organization [facility] Address [address] [place] [address] Care Team Providers Care Standards Analyst Name Role Phone Uriel Mott MD Primary Care Provider [phone] Encounter Details Date Type Department Care Team (Late Contact Info) Description 07/04/2002 Outpatient Historical [facility] Medicine Christine Wang [address] [facility] [address] [place] [address] [place] [address] [facility]. [address] [place] [address] Social History Tobacco Use Types Packs/Day Years Used Date Smoking Tobacco: Never Assessed Comments Unknown Sex and Gender Information Value Date Recorded Sex Assigned at Not on file Legal Sex Female 3:07 AM STEEL ESTIMATOR Gender Identity Not on file Sexual Orientation Not on file documented as of this encounter Plan of Treatment Upcoming Encounters Date Type Department Care Team (Late st Contact Info) Description 10/15/2024 8:00 AM CDT Appointment [facility] Medicine Christine Wang [address] [facility] [address] [place] [address] [place] [address] [facility]. [address] [place] [address] 12/07/2024 8:00 AM CDT Procedure visit [facility] Neurology [address] [facility] [address] [place] [address] Shashank Moore MD [address] [facility] [address] [place] [address] 01/17/2025 8:20 AM STEEL ESTIMATOR Appointment [facility] Family Medicine Christine Piña [address] [facility] [address] [place] [address] [place] [address] [facility]. [address] [place] [address] 03/08/2025 8:00 AM STEEL ESTIMATOR Procedure visit [facility] [address] [facility] [address] [place] [address] Shashank Moore MD [address] [facility] [address] [place] [address] documented as of this encounter Visit Diagnoses Not on filedocumented in this encounter Additional Health Concerns Infection Onset Date Last Indicated Resolved Time R/O COVID-19 11/06/2019 11/06/2019 11/06/2019 8:56 AM CDT R/O COVID-19 12/29/2020 12/29/2020 12/29/2020 1:27 PM STEEL ESTIMATOR COVID-19 12/29/2020 12/29/2020 01/18/2021 1:16 AM STEEL ESTIMATOR documented as of this encounter Care Teams Standards Analyst Relationship Specialty [place] [address] [facility] [address] [place] [address] PCP - General 07/29/00 documented as of this encounter
--- OUTSIDE RECORDS SUMMARY | 2024-09-28 17:10 | XMS_ITS | Encounter Summary ---
Author Organization [facility] Address [address] [place] [address] Care Team Providers Care Rheumatologist Name Role Phone Uriel Mott MD Primary Care Provider [phone] Encounter Details Date Type Department Care Team (Late st Contact Info) Description 01/24/2003 Outpatient Historical [facility] MRI DEPT Brian Frias MD [address] [place] [address] CHRONIC SINUSITIS NOS (Primary Dx) Social History Tobacco Use Types Packs/Day Years Used Date Smoking Tobacco: Never Assessed Comments Unknown Sex and Gender Information Value Date Recorded Sex Assigned at Not on file Legal Sex Female 3:07 AM PLANT SPECIALIST Gender Identity Not on file Sexual Orientation Not on file documented as of this encounter Plan of Treatment Upcoming Encounters Date Type Department Care Team (Late st Contact Info) Description 10/15/2024 8:00 AM CDT Appointment [facility] Family Medicine Christine Piña [address] [facility] [address] [place] [address] [place] [address] [facility] [place] [address] 12/07/2024 8:00 AM CDT Procedure visit [facility] Neurology [address] [facility] [address] [place] [address] Shashank Moore MD [address] [facility] [address] [place] [address] 01/17/2025 8:20 AM PLANT SPECIALIST Appointment [facility] Medicine Christine Piña [address] [facility] [address] [place] [address] [place] [address] [facility] [place] [address] 03/08/2025 8:00 AM PLANT SPECIALIST Procedure visit [facility] [address] [facility] [address] [place] [address] Shashank Moore MD [address] [facility] [address] [place] [address] documented as of this encounter Visit Diagnoses Diagnosis Unspecified sinusitis (chronic)- Primary documented in this encounter Additional Health Concerns Infection Onset Date Last Indicated Resolved Time R/O COVID-19 11/06/2019 11/06/2019 11/06/2019 8:56 AM CDT R/O COVID-19 12/29/2020 12/29/2020 12/29/2020 1:27 PM PLANT SPECIALIST COVID-19 12/29/2020 12/29/2020 01/18/2021 1:16 AM PLANT SPECIALIST documented as of this encounter Care Teams Rheumatologist Relationship Specialty [place] [address] [facility] [place] [address] PCP - General 07/29/00 documented as of this encounter
--- OUTSIDE RECORDS SUMMARY | 2024-09-28 17:10 | XMS_ITS | Encounter Summary ---
Author Organization [facility] Address [address] [place] [address] Care Team Providers Care Plc Engineer Name Role Phone Uriel Mott MD Primary Care Provider [phone] Encounter Details Date Type Department Care Team (Late st Contact Info) Description 04/12/2006 Outpatient Historical [facility] [address] [place] [address] Chance Ignacio MD NO ADDRESS ON FILE Social History Tobacco Use Types Packs/Day Years Used Date Smoking Tobacco: Never Assessed Comments Unknown Sex and Gender Information Value Date Recorded Sex Assigned at Not on file Legal Sex Female 3:07 AM TRIAGE ASSISTANT Gender Identity Not on file Sexual Orientation Not on file documented as of this encounter Plan of Treatment Upcoming Encounters Date Type Department Care Team (Late st Contact Info) Description 10/15/2024 8:00 AM CDT Appointment [facility] Family Medicine Christine Piña [address] [facility] [address] [place] [address] [place] [address] [facility] [place] [address] 12/07/2024 8:00 AM CDT Procedure visit [facility] Neurology [address] [facility] [address] [place] [address] Shashank Moore MD [address] [facility] [address] [place] [address] 01/17/2025 8:20 AM TRIAGE ASSISTANT Appointment [facility] Medicine Christine Piña [address] [facility] [address] [place] [address] [place] [address] [facility] [place] [address] 03/08/2025 8:00 AM TRIAGE ASSISTANT Procedure visit [facility] Neurology [address] [facility] [address] [place] [address] Shashank Moore MD [address] [facility] [address] [place] [address] documented as of this encounter Visit Diagnoses Not on filedocumented in this encounter Additional Health Concerns Infection Onset Date Last Indicated Resolved Time R/O COVID-19 11/06/2019 11/06/2019 11/06/2019 8:56 AM CDT R/O COVID-19 12/29/2020 12/29/2020 12/29/2020 1:27 PM TRIAGE ASSISTANT COVID-19 12/29/2020 12/29/2020 01/18/2021 1:16 AM TRIAGE ASSISTANT documented as of this encounter Care Teams Plc Engineer Relationship Specialty [place] [address] [facility] [place] [address] PCP - General 07/29/00 documented as of this encounter
--- OUTSIDE RECORDS SUMMARY | 2024-09-28 17:10 | XMS_ITS | Encounter Summary ---
Author Organization [facility] Address [address] [place] [address] Care Team Providers Care Composer Teaching Artist Name Role Phone Uriel Mott MD Primary Care Provider [phone] Encounter Details Date Type Department Care Team (Late Contact Info) Description 10/13/2005 Outpatient Historical [facility] Medicine Christine Piña [address] [facility] [address] [place] [address] Jeny Berman MD [address] [place] [address] Disorder of Bone and Cartilage, Unspecified (Primary Dx) Social History Tobacco Use Types Packs/Day Years Used Date Smoking Tobacco: Never Assessed Comments Unknown Sex and Gender Information Value Date Recorded Sex Assigned at Not on file Legal Sex Female 3:07 AM PRINCIPAL LIBRARIAN Gender Identity Not on file Sexual Orientation Not on file documented as of this encounter Plan of Treatment Upcoming Encounters Date Type Department Care Team (Late Contact Info) Description 10/15/2024 8:00 AM CDT Appointment [facility] Christine Piña [address] [facility] [place] [facility] [address] [place] [address] [place] [address] [facility] [place] [facility] [place] [address] 12/07/2024 8:00 AM CDT Procedure visit [facility] Neurology [address] [facility] [address] [place] [address] Shashank Moore MD [address] [facility] [address] [place] [address] 01/17/2025 8:20 AM PRINCIPAL LIBRARIAN Appointment [facility] Medicine Christine Piña [address] [facility] [address] [place] [address] [place] [address] [facility] [place] [facility] [place] [address] 03/08/2025 8:00 AM PRINCIPAL LIBRARIAN Procedure visit [facility] Neurology [address] [facility] [address] [place] [address] Shashank Moore MD [address] [facility] [address] [place] [address] documented as of this encounter [...] utilizing Liquid Chromatography Tandem Mass Spectrometry (LC/MS/MS). [facility] will no longer offer 25-OH Vit D analysis by [facility]. All orders submitted for test code 680X (7142) will be performed by LC/MS/MS (test code 21380B (23309)). Lab test performed by: [facility] [address] [place] [address] ROSENDO HOFFMAN MD 10/13/2005 1:08 PM CDT [...] R/O COVID-19 12/29/2020 12/29/2020 12/29/2020 1:27 PM PRINCIPAL LIBRARIAN COVID-19 12/29/2020 12/29/2020 01/18/2021 1:16 AM PRINCIPAL LIBRARIAN documented as of this encounter Care Teams Composer Teaching Artist Relationship Specialty [place] [address] [facility] [place] [facility] [place] [address] PCP - General 07/29/00 documented as of this encounter
--- OUTSIDE RECORDS SUMMARY | 2024-09-28 17:10 | XMS_ITS | Encounter Summary ---
Author Organization [facility] Address [address] [place] [address] Care Team Providers Care Human Relations Teacher Name Role Phone Uriel Mott MD Primary Care Provider [phone] Encounter Details Date Type Department Care Team (Late Contact Info) Description 09/15/2005 Orders Only [facility] Medicine Christine Wang [address] [facility] [address] [place] [address] [place] [address] [facility] [place] [address] Social History Tobacco Use Types Packs/Day Years Used Date Smoking Tobacco: Never Assessed Comments Unknown Sex and Gender Information Value Date Recorded Sex Assigned at Not on file Legal Sex Female 3:07 AM MANAGER STRATEGY & ACCOUNT Gender Identity Not on file Sexual Orientation Not on file documented as of this encounter Plan of Treatment Upcoming Encounters Date Type Department Care Team (Late st Contact Info) Description 10/15/2024 8:00 AM CDT Appointment [facility] Christine Wang [address] [facility] [address] [place] [address] [place] [address] [facility] [place] [address] 12/07/2024 8:00 AM CDT Procedure visit [facility] Neurology [address] [facility] [address] [place] [address] Shashank Moore MD [address] [facility] [address] [place] [address] 01/17/2025 8:20 AM MANAGER STRATEGY & ACCOUNT Appointment [facility] Family Medicine Christine Piña [address] [facility] [address] [place] [address] [place] [address] [facility] [place] [address] 03/08/2025 8:00 AM MANAGER STRATEGY & ACCOUNT Procedure visit [facility] Medicine [address] [facility] [address] [place] [address] Shashank Moore MD [address] [facility] [address] [place] [address] documented as of this encounter Visit Diagnoses Not on filedocumented in this encounter Additional Health Concerns Infection Onset Date Last Indicated Resolved Time R/O COVID-19 11/06/2019 11/06/2019 11/06/2019 8:56 AM CDT R/O COVID-19 12/29/2020 12/29/2020 12/29/2020 1:27 PM MANAGER STRATEGY & ACCOUNT COVID-19 12/29/2020 12/29/2020 01/18/2021 1:16 AM MANAGER STRATEGY & ACCOUNT documented as of this encounter Care Teams Human Relations Teacher Relationship Specialty [place] [address] [facility] [address] [place] [address] PCP - General 07/29/00 documented as of this encounter
--- OUTSIDE RECORDS SUMMARY | 2024-09-28 17:10 | XMS_ITS | Encounter Summary ---
Author Organization [facility] Address [address] [place] [address] Care Team Providers Care Ortho Nurse Name Role Phone Uriel Mott MD Primary Care Provider [phone] Encounter Details Date Type Department Care Team (Late Contact Info) Description 05/31/2003 Outpatient Historical [facility] Medicine Christine Wang [address] [employer] [facility] [address] [place] [address] [place] [address] [employer] [facility]. [address] [place] [address] Social History Tobacco Use Types Packs/Day Years Used Date Smoking Tobacco: Never Assessed Comments Unknown Sex and Gender Information Value Date Recorded Sex Assigned at Not on file Legal Sex Female 3:07 AM REAL ESTATE ASSESSOR Gender Identity Not on file Sexual Orientation Not on file documented as of this encounter Plan of Treatment Upcoming Encounters Date Type Department Care Team (Late st Contact Info) Description 10/15/2024 8:00 AM CDT Appointment [facility] Medicine Christine Wang [address] [employer] [facility] [address] [place] [address] [place] [address] [facility] [place] [address] 12/07/2024 8:00 AM CDT Procedure visit [facility] Neurology [address] [facility] [address] [place] [address] Shashank Moore MD [address] [facility] [address] [place] [address] 01/17/2025 8:20 AM REAL ESTATE ASSESSOR Appointment [facility] Family Medicine Christine Piña [address] [facility] [address] [place] [address] [place] [address] [facility] [place] [address] 03/08/2025 8:00 AM REAL ESTATE ASSESSOR Procedure visit [facility] [address] [facility] [address] [place] [address] Shashank Moore MD [address] [facility] [address] [place] [address] documented as of this encounter Visit Diagnoses Not on filedocumented in this encounter Additional Health Concerns Infection Onset Date Last Indicated Resolved Time R/O COVID-19 11/06/2019 11/06/2019 11/06/2019 8:56 AM CDT R/O COVID-19 12/29/2020 12/29/2020 12/29/2020 1:27 PM REAL ESTATE ASSESSOR COVID-19 12/29/2020 12/29/2020 01/18/2021 1:16 AM REAL ESTATE ASSESSOR documented as of this encounter Care Teams Ortho Nurse Relationship Specialty [place] [address] [facility] [address] [place] [address] PCP - General 07/29/00 documented as of this encounter
--- OUTSIDE RECORDS SUMMARY | 2024-09-28 17:10 | XMS_ITS | Encounter Summary ---
Author Organization [facility] Address [address] [place] [address] Care Team Providers Care Wireless Sales Representative Name Role Phone Uriel Mott MD Primary Care Provider [phone] Encounter Details Date Type Department Care Team (Late Contact Info) Description 09/20/2005 Outpatient Historical [facility] Medicine Christine Piña [address] [employer] [address] [place] [address] [place] [address] [employer] [place] [address] Social History Tobacco Use Types Packs/Day Years Used Date Smoking Tobacco: Never Assessed Comments Unknown Sex and Gender Information Value Date Recorded Sex Assigned at Not on file Legal Sex Female 3:07 AM COMPETITIVE SHOPPER Gender Identity Not on file Sexual Orientation [...] Info) Description 10/15/2024 8:00 AM CDT Appointment [facility] Medicine Christine Wang [address] [employer] [address] [place] [address] [place] [address] [employer] [place] [address] 12/07/2024 8:00 AM CDT Procedure visit [facility] Neurology [address] [facility] [address] [place] [address] Shashank Moore MD [address] [facility] [address] [place] [address] 01/17/2025 8:20 AM COMPETITIVE SHOPPER Appointment [facility] Medicine Christine Piña [address] [email or web address] [address] [place] [address] [place] [address] [facility]. [address] [place] [address] 03/08/2025 8:00 AM COMPETITIVE SHOPPER Procedure visit [facility] Neurology [address] [facility] [address] [place] [address] Shashank Moore MD [address] [facility] [address] [place] [address] documented as of this encounter Visit Diagnoses Not on filedocumented in this encounter Additional Health Concerns Infection Onset Date Last Indicated Resolved Time R/O COVID-19 11/06/2019 11/06/2019 11/06/2019 8:56 AM CDT R/O COVID-19 12/29/2020 12/29/2020 12/29/2020 1:27 PM COMPETITIVE SHOPPER COVID-19 12/29/2020 12/29/2020 01/18/2021 1:16 AM COMPETITIVE SHOPPER documented as of this encounter Care Teams Wireless Sales Representative Relationship Specialty [place] [address] [facility] [address] [place] [address] PCP - General 07/29/00 documented as of this encounter
--- OUTSIDE RECORDS SUMMARY | 2024-09-28 17:10 | XMS_ITS | Encounter Summary ---
Author Organization [facility] Address [address] [place] [address] Care Team Providers Care Complex Human Resources Manager Name Role Phone Uriel Mott MD Primary Care Provider [phone] Encounter Details Date Type Department Care Team (Late Contact Info) Description 10/29/2004 Outpatient Historical [place] [address] [employer] [facility]. [address] [place] [address] NONTOX UNINODULAR GOITER (Primary Dx) Social History Tobacco Use Types Packs/Day Years Used Date Smoking Tobacco: Never Assessed Comments Unknown Sex and Gender Information Value Date Recorded Sex Assigned at Not on file Legal Sex Female 3:07 AM DIRECT SUPPORT WORKER Gender Identity Not on file Sexual Orientation Not on file documented as of this encounter Plan of Treatment Upcoming Encounters Date Type Department Care Team (Late st Contact Info) Description 10/15/2024 8:00 AM CDT Appointment [facility] Family Medicine Christine Piña [address] [facility] [address] [place] [address] [place] [address] [facility]. [address] [place] [address] 12/07/2024 8:00 AM CDT Procedure visit [facility] Neurology [address] [facility] [address] [place] [address] Shashank Moore MD [address] [facility] [address] [place] [address] 01/17/2025 8:20 AM DIRECT SUPPORT WORKER Appointment [facility] Medicine Christine Piña [address] [facility] [address] [place] [address] [place] [address] [facility]. [address] [place] [address] 03/08/2025 8:00 AM DIRECT SUPPORT WORKER Procedure visit [facility] Neurology [address] [facility] [address] [place] [address] Shashank Moore MD [address] [facility] [address] [place] [address] documented as of this encounter Visit Diagnoses Diagnosis Nontoxic uninodular goiter- Primary documented in this encounter Additional Health Concerns Infection Onset Date Last Indicated Resolved Time R/O COVID-19 11/06/2019 11/06/2019 11/06/2019 8:56 AM CDT R/O COVID-19 12/29/2020 12/29/2020 12/29/2020 1:27 PM DIRECT SUPPORT WORKER COVID-19 12/29/2020 12/29/2020 01/18/2021 1:16 AM DIRECT SUPPORT WORKER documented as of this encounter Care Teams Complex Human Resources Manager Relationship Specialty [place] [address] [facility]. [address] [place] [address] PCP - General 07/29/00 documented as of this encounter
--- OUTSIDE RECORDS SUMMARY | 2024-09-28 17:10 | XMS_ITS | Encounter Summary ---
Author Organization [facility] Address [address] [place] [address] Care Team Providers Care Lead Pony Rider Name Role Phone Uriel Mott MD Primary Care Provider [phone] Encounter Details Date Type Department Care Team (Late Contact Info) Description 11/19/2003 Outpatient Historical [facility] Christine Wang [address] [facility] [address] [place] [address] [place] [address] [employer] [facility]. [address] [place] [address] Social History Tobacco Use Types Packs/Day Years Used Date Smoking Tobacco: Never Assessed Comments Unknown Sex and Gender Information Value Date Recorded Sex Assigned at Not on file Legal Sex Female 3:07 AM HAND PACKER Gender Identity Not on file Sexual [...] Description 10/15/2024 8:00 AM CDT Appointment [facility] Christine Piña [address] [employer] [facility] [address] [place] [address] [place] [address] [facility] [place] [address] 12/07/2024 8:00 AM CDT Procedure visit [facility] Neurology [address] [facility] [address] [place] [address] Shashank Moore MD [address] [facility] [address] [place] [address] 01/17/2025 8:20 AM HAND PACKER Appointment [facility] Medicine Christine Piña [address] [facility] [address] [place] [address] [place] [address] [facility]. [address] [place] [address] 03/08/2025 8:00 AM HAND PACKER Procedure visit [facility] [address] [facility] [address] [place] [address] Shashank Moore MD [address] [address] documented as of this encounter Visit Diagnoses Not on filedocumented in this encounter Additional Health Concerns Infection Onset Date Last Indicated Resolved Time R/O COVID-19 11/06/2019 11/06/2019 11/06/2019 8:56 AM CDT R/O COVID-19 12/29/2020 12/29/2020 12/29/2020 1:27 PM HAND PACKER COVID-19 12/29/2020 12/29/2020 01/18/2021 1:16 AM HAND PACKER documented as of this encounter Care Teams Lead Pony Rider Relationship Specialty [place] [address] [facility] [place] [address] PCP - General 07/29/00 documented as of this encounter
--- OUTSIDE RECORDS SUMMARY | 2024-09-28 17:10 | XMS_ITS | Encounter Summary ---
Author Organization [facility] Address [address] [place] [address] Care Team Providers Care Excavator Operator Name Role Phone Uriel Mott MD Primary Care Provider [phone] Encounter Details Date Type Department Care Team (Late st Contact Info) Description 02/02/2001 Outpatient Historical [facility] DEPT [facility] [place] [address] [facility] [place] [address] Social History Tobacco Use Types Packs/Day Years Used Date Smoking Tobacco: Never Assessed Comments Unknown Sex and Gender Information Value Date Recorded Sex Assigned at Not on file Legal Sex Female 3:07 AM LAND EXAMINER Gender Identity Not on file Sexual Orientation Not on file documented as of this encounter Plan of Treatment Upcoming Encounters Date Type Department Care Team (Late st Contact Info) Description 10/15/2024 8:00 AM CDT Appointment [facility] Medicine Christine Piña [address] [facility] [address] [place] [address] [place] [address] [facility] [place] [address] 12/07/2024 8:00 AM CDT Procedure visit [facility] Neurology [address] [facility] [address] [place] [address] Shashank Moore MD [address] [facility] [address] [place] [address] 01/17/2025 8:20 AM LAND EXAMINER Appointment [facility] Medicine Christine Piña [address] [facility] [address] [place] [address] [place] [address] [facility] [place] [address] 03/08/2025 8:00 AM LAND EXAMINER Procedure visit [facility] Neurology [address] [facility] [address] [place] [address] Shashank Moore MD [address] [facility] [address] [place] [address] documented as of this encounter Visit Diagnoses Not on filedocumented in this encounter Additional Health Concerns Infection Onset Date Last Indicated Resolved Time R/O COVID-19 11/06/2019 11/06/2019 11/06/2019 8:56 AM CDT R/O COVID-19 12/29/2020 12/29/2020 12/29/2020 1:27 PM LAND EXAMINER COVID-19 12/29/2020 12/29/2020 01/18/2021 1:16 AM LAND EXAMINER documented as of this encounter Care Teams Excavator Operator Relationship Specialty [place] [address] [facility] [place] [address] PCP - General 07/29/00 documented as of this encounter
--- OUTSIDE RECORDS SUMMARY | 2024-09-28 17:10 | XMS_ITS | Encounter Summary ---
Author Organization [facility] Address [address] [place] [address] Care Team Providers Care Delimber Operator Name Role Phone Uriel Mott MD Primary Care Provider [phone] Encounter Details Date Type Department Care Team (Latest Contact Info) Description 10/24/2002 Outpatient Historical [place] [address] [employer] [facility]. [address] [place] [address] RHEUMATOID ARTHRITIS (CMS/HCC) (Primary Dx) Social History Tobacco Use Types Packs/Day Years Used Date Smoking Tobacco: Never Assessed Comments Unknown Sex and Gender Information Value Date Recorded Sex Assigned at Not on file Legal Sex Female 3:07 AM NAVAL AIRCREWMAN OPERATOR Gender Identity Not on file Sexual Orientation Not on file documented as of this encounter Plan of Treatment Upcoming Encounters Date Type Department Care Team (Late st Contact Info) Description 10/15/2024 8:00 AM CDT Appointment [facility] Family Medicine Christine Piña [address] [facility] [address] [place] [address] [place] [address] [place] [facility]. [address] [place] [address] 12/07/2024 8:00 AM CDT Procedure visit [facility] Neurology [address] [facility] [address] [place] [address] Shashank Moore MD [address] [facility] [address] [place] [address] 01/17/2025 8:20 AM NAVAL AIRCREWMAN OPERATOR Appointment [facility] Medicine Christine Piña [address] [facility] [address] [place] [address] [place] [address] [facility]. [address] [place] [address] 03/08/2025 8:00 AM NAVAL AIRCREWMAN OPERATOR Procedure visit [facility] [address] [facility] [address] [place] [address] Shashank Moore MD [address] [facility] [address] [place] [address] documented as of this encounter Visit Diagnoses Diagnosis Rheumatoid arthritis(714.0) (CMS/[facility])- Primary Rheumatoid arthritis documented in this encounter Additional Health Concerns Infection Onset Date Last Indicated Resolved Time R/O COVID-19 11/06/2019 11/06/2019 11/06/2019 8:56 AM CDT R/O COVID-19 12/29/2020 12/29/2020 12/29/2020 1:27 PM NAVAL AIRCREWMAN OPERATOR COVID-19 12/29/2020 12/29/2020 01/18/2021 1:16 AM NAVAL AIRCREWMAN OPERATOR documented as of this encounter Care Teams Delimber Operator Relationship Specialty [place] [address] [facility]. [address] [place] [address] PCP - General 07/29/00 documented as of this encounter
--- OUTSIDE RECORDS SUMMARY | 2024-09-28 17:10 | XMS_ITS | Encounter Summary ---
Author Organization [facility] Address [address] [place] [address] Care Team Providers Care Sheet Metal Smith Name Role Phone Uriel Mott MD Primary Care Provider [phone] Encounter Details Date Type Department Care Team (Latest Contact Info) Description 06/04/2003 Outpatient Historical [place] [address] [address] [facility] [place] [address] CYSTIC KIDN DISEASE,NOS (Primary Dx) Social History Tobacco Use Types Packs/Day Years Used Date Smoking Tobacco: Never Assessed Comments Unknown Sex and Gender Information Value Date Recorded Sex Assigned at Not on file Legal Sex Female 3:07 AM IT MANAGER Gender Identity Not on file Sexual Orientation Not on file documented as of this encounter Plan of Treatment Upcoming Encounters Date Type Department Care Team (Late st Contact Info) Description 10/15/2024 8:00 AM CDT Appointment [facility] Family Medicine Christine Piña [address] [facility] [address] [place] [address] [place] [address] [address] [facility]. [address] [place] [address] 12/07/2024 8:00 AM CDT Procedure visit [facility] Neurology [address] [facility] [address] [place] [address] Shashank Moore MD [address] [facility] [address] [place] [address] 01/17/2025 8:20 AM IT MANAGER Appointment [facility] Medicine Christine Piña [address] [facility] [address] [place] [address] [place] [address] [facility] [place] [address] 03/08/2025 8:00 AM IT MANAGER Procedure visit [facility] [address] [facility] [address] [place] [address] Shashank Moore MD [address] [facility] [address] [place] [address] documented as of this encounter Visit Diagnoses Diagnosis Other specified congenital cystic kidney disease- Primary documented in this encounter Additional Health Concerns Infection Onset Date Last Indicated Resolved Time R/O COVID-19 11/06/2019 11/06/2019 11/06/2019 8:56 AM CDT R/O COVID-19 12/29/2020 12/29/2020 12/29/2020 1:27 PM IT MANAGER COVID-19 12/29/2020 12/29/2020 01/18/2021 1:16 AM IT MANAGER documented as of this encounter Care Teams Sheet Metal Smith Relationship Specialty [place] [address] [facility] [place] [address] PCP - General 07/29/00 documented as of this encounter
--- OUTSIDE RECORDS SUMMARY | 2024-09-28 17:10 | XMS_ITS | Encounter Summary ---
Author Organization [facility] Address [address] [place] [address] Care Team Providers Care Exterminator Helper Name Role Phone Uriel Mott MD Primary Care Provider [phone] Encounter Details Date Type Department Care Team (Latest Contact Info) Description 04/06/2001 Outpatient Historical HIS [facility] [place] [address] [facility] [place] [address] SCREENING MAMM-MAILG NEOPL-OTHER (Primary Dx) Social History Tobacco Use Types Packs/Day Years Used Date Smoking Tobacco: Never Assessed Comments Unknown Sex and Gender Information Value Date Recorded Sex Assigned at Not on file Legal Sex Female 3:07 AM HEAD OF MEASUREMENT & INSIGHTS Gender Identity Not on file Sexual Orientation Not on file documented as of this encounter Plan of Treatment Upcoming Encounters Date Type Department Care Team (Late st Contact Info) Description 10/15/2024 8:00 AM CDT Appointment [facility] Family Medicine Christine Piña [address] [facility] [address] [place] [address] [place] [address] [facility] [place] [address] 12/07/2024 8:00 AM CDT Procedure visit [facility] Neurology [address] [facility] [address] [place] [address] Shashank Moore MD [address] [facility] [address] [place] [address] 01/17/2025 8:20 AM HEAD OF MEASUREMENT & INSIGHTS Appointment [facility] Medicine Christine Piña [address] [facility] [address] [place] [address] [place] [address] [facility] [place] [address] 03/08/2025 8:00 AM HEAD OF MEASUREMENT & INSIGHTS Procedure visit [facility] [address] [facility] [address] [place] [address] Shashank Moore MD [address] [facility] [address] [place] [address] documented as of this encounter Visit Diagnoses Diagnosis Other screening mammogram- Primary documented in this encounter Additional Health Concerns Infection Onset Date Last Indicated Resolved Time R/O COVID-19 11/06/2019 11/06/2019 11/06/2019 8:56 AM CDT R/O COVID-19 12/29/2020 12/29/2020 12/29/2020 1:27 PM HEAD OF MEASUREMENT & INSIGHTS COVID-19 12/29/2020 12/29/2020 01/18/2021 1:16 AM HEAD OF MEASUREMENT & INSIGHTS documented as of this encounter Care Teams Exterminator Helper Relationship Specialty [place] [address] [facility] [place] [address] PCP - General 07/29/00 documented as of this encounter
--- OUTSIDE RECORDS SUMMARY | 2024-09-28 17:11 | XMS_ITS | Encounter Summary ---
Author Organization [facility] Address [address] [place] [address] Care Team Providers Care Senior Officer Name Role Phone Uriel Mott MD Primary Care Provider [phone] Encounter Details Date Type Department Care Team (Latest Contact Info) Description 05/18/2006 [place]patient [place] [address] [facility] [place] [address] Sprain and Strain of Unspecified Site of Foot (Primary Dx) Social History Tobacco Use Types Packs/Day Years Used Date Smoking Tobacco: Never Assessed Comments Unknown Sex and Gender Information Value Date Recorded Sex Assigned at Not on file Legal Sex Female 3:07 AM BUSINESS RELATIONS MANAGER Gender Identity Not on file Sexual Orientation Not on file documented as of this encounter Plan of Treatment Upcoming Encounters Date Type Department Care Team (Late st Contact Info) Description 10/15/2024 8:00 AM CDT Appointment [facility] Family Medicine Christine Piña [address] [facility] [address] [place] [address] [place] [address] [facility] [place] [address] 12/07/2024 8:00 AM CDT Procedure visit [facility] Neurology [address] [facility] [address] [place] [address] Shashank Moore MD [address] [facility] [address] [place] [address] 01/17/2025 8:20 AM BUSINESS RELATIONS MANAGER Appointment [facility] Medicine Christine Piña [address] [facility] [address] [place] [address] [place] [address] [facility] [place] [address] 03/08/2025 8:00 AM BUSINESS RELATIONS MANAGER Procedure visit [facility] [address] [facility] [address] [place] [address] Shashank Moore MD [address] [facility] [address] [place] [address] documented as of this encounter Visit Diagnoses Diagnosis Sprain of foot, unspecified site- Primary documented in this encounter Additional Health Concerns Infection Onset Date Last Indicated Resolved Time R/O COVID-19 11/06/2019 11/06/2019 11/06/2019 8:56 AM CDT R/O COVID-19 12/29/2020 12/29/2020 12/29/2020 1:27 PM BUSINESS RELATIONS MANAGER COVID-19 12/29/2020 12/29/2020 01/18/2021 1:16 AM BUSINESS RELATIONS MANAGER documented as of this encounter Care Teams Senior Officer Relationship Specialty [place] [address] [facility] [address] [place] [address] PCP - General 07/29/00 documented as of this encounter
--- OUTSIDE RECORDS SUMMARY | 2024-09-28 17:11 | XMS_ITS | Encounter Summary ---
Author Organization [facility] Address [address] [place] [address] Care Team Providers Care Power Mule Operator Name Role Phone Kimberly Pratt MD Primary Care Provider [phone] Encounter Details Date Type Department Care Team (Latest Contact Info) Description 05/10/2008 Outpatient Historical HIS [facility] [place] [address] [address] [facility] [place] [address] Other Screening Mammogram Social History Tobacco Use Types Packs/Day Years Used Date Smoking Tobacco: Never Alcohol Use Standard Drinks/Week Comments No 0 (1 standard drink = 0.6 oz pur e alcohol) Comments No Sex and Gender Information Value Date Recorded Sex Assigned at Not on file Legal Sex Female 3:07 AM CRYOLITE RECOVERY OPERATOR Gender Identity Not on file Sexual Orientation Not on file documented as of this encounter Plan of Treatment Upcoming Encounters Date Type Department Care Team (Late st Contact Info) Description 10/15/2024 8:00 AM CDT Appointment [facility] Family Medicine Christine Piña [address] [facility] [address] [place] [address] [place] [address] [facility] [place] [address] 12/07/2024 8:00 AM CDT Procedure visit [facility] Neurology [address] [facility] [address] [place] [address] Shashank Moore MD [address] [facility] [address] [place] [address] 01/17/2025 8:20 AM CRYOLITE RECOVERY OPERATOR Appointment [facility] Family Medicine Christine Piña [address] [facility] [address] [place] [address] [place] [address] [facility] [place] [address] 03/08/2025 8:00 AM CRYOLITE RECOVERY OPERATOR Procedure visit [facility] [address] [facility] [address] [place] [address] Shashank Moore MD [address] [facility] [address] [place] [address] documented as of this encounter Procedures Procedure Name Priority Date/Time Associated Diagnosis Comments MAMMO SCREEN BILAT W OR WO CAD Timed Study 05/10/2008 2:21 PM CDT documented in this encounter Results * MAMMO DIGITAL SCREEN BILAT (05/10/2008 2:21 PM CDT) Anatomical Region Laterality Modality Breast Bilateral Other 05/10/2008 2:21 PM CDT Narrative 05/13/2008 7:36 AM CDT [facility] [address], [place] [address] Admit Date: 05/10/2008 KIRSTEN STAPLETON Sex: F Admit Prov: KIMBERLY PRATT Date: 1950 Primary Care Prov: KIMBERLY PRATT CMRN: [id number] Room: AZAR SSN: [id number] IMAGING SERVICES Ordering Prov: TERENCE KIMBERLY Kerry Accession Number: [id number] Interpretation BILATERAL FULL FIELD DIGITAL SCREENING MAMMOGRAM [...] AMK Procedure Note Tameka Gaines - 05/13/2008 [facility] [address], [place] [address] Admit Date: 05/10/2008 KIRSTEN STAPLETON Sex: F Admit Prov: FAROOQROSIBEL KIMBERLY Kerry Date: 1950 Primary Care Prov: KIMBERLY PRATT Kerry CMRN: [id number] Room: AZAR SSN: [id number] IMAGING SERVICES Ordering Prov: TERENCE KIMBERLY Kerry [...] R/O COVID-19 12/29/2020 12/29/2020 12/29/2020 1:27 PM CRYOLITE RECOVERY OPERATOR COVID-12/29/2020 12/29/2020 01/18/2021 1:16 AM CRYOLITE RECOVERY OPERATOR documented as of this encounter Care Teams Power Mule Operator Relationship Specialty [place] [address] [facility] [place] [address] PCP - General 07/29/00 documented as of this encounter
--- OUTSIDE RECORDS SUMMARY | 2024-09-28 17:11 | XMS_ITS | Clinical Summary ---
Author Organization [employer] Address [address] [place] [address] Care Team Providers Care Director Hedis Name Role Phone Uriel Mott MD Primary Care Provider [phone] Allergies Active Allergy Reactions Criticality Noted Date Comments Adhesive Hives High 01/18/2018 Codeine Nausea and Vomiting Low 06/25/2004 Latex Hives High 07/10/2017 Methotrexate Rash Low 02/08/2014 Sulfa (Sulfonamide Antibiotics) Swelling Low 11/07 Zoledronic Aiol-Pplhfdpd-Tspel Fever Low 11/06 Medications multivitamin (DAILY-SIMRAN) tablet [...] CDT 023 Active naloxone (NARCAN) 4 mg/spray [place], Non-Aerosol EMERGENCY USE ONLY: Administer 1 spray [...] 023 Active fluticasone propionate (FLONASE) 50 mcg/spray [place], Suspension nasal inhalerIndications :Chronic pansinusitis Administer 2 [...] involving both knees with positive rheumatoid factor ([facility]),Cervical disc disorder of cervicothoracic region Take 1 [...] migh t be different from the original. [facility] full review 12-29-15 ps, 03-23-16 ps HCC review 05-12-16 lk AWV 08/29/19 Problem Noted Date Diagnosed Date Opioid use agreement exists 08/20/2024 Overview (08/20/2024): Associated Diagnosis: m05.761 Current associated controlled meds: hydrocodone Pharmacy listed in agreement: Current medication agreement date signed: 08/08/24 Controlled substance agreement signed 08/13/2024 Overview (08/13/2024): Associated Diagnosis: M50.93, M05.761, M05.762 Current associated controlled meds: [facility] listed in agreement: [facility] ([phone]) Current medication agreement date signed: 07/05/23 Associated Diagnosis: F41.1 Current associated controlled meds: Xanax Pharmacy listed in agreement: [facility] ([phone]) Current medication agreement date signed: 08/08/24 Associated Diagnosis: F41.1 Current associated controlled meds: Ambien Pharmacy listed in agreement: [facility] ([phone]) Current medication agreement date signed: 08/08/24 Dystonia 06/08/2024 Atherosclerosis of aorta 03/28/2023 Overview (02/13/2024): 12/19/22 CTA Chest/Abdomen/Pelvis: There is atherosclerotic calcification involving the thoracic aorta and coronary arteries. 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 04/23/2021 long term systemic steroid user 12/15/2020 Small vessel disease, [...] Family history of ischemic heart disease 007 ONLEN (nonalcoholic steatohepatitis) 11/30/2006 Overview (05/30/2007): fatty liver [...] Encounters Date Type Department Care Team Description 09/28/2024 Emergency [facility] Emergency Department [address] [place] [address] 09/[facility] [address] [place] [address] Uriel Mott MD 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 ([facility]/HCC); Cervical disc disorder of cervicothoracic region; Generalized anxiety disorder 09/12/2024 Abstract [facility] [address] [place] [address] Lisa Perkins LPN 09/07/2024 8:00 AM CDT Procedure visit [facility] [address] [place] [address] Shashank Moore MD Dystonia (Primary Dx); Parkinson's disease without dyskinesia or fluctuating manifestations (CMS/HCC) 09/03/2024 Refill [facility] [address] [place] [address] Shashank Moore MD Parkinson's disease without dyskinesia or fluctuating manifestations ([facility]/HCC) [facility] [address] [place] [address] Uriel Mott MD 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 (CMS/HCC); Cervical disc disorder of cervicothoracic region; Generalized anxiety disorder 08/08/2024 Telephone [facility] [address] [place] [address] Uriel Mott MD Paperwork (Controlled Substance Agreement Form) 08/08/2024 Abstract [facility] [address] [place] [address] Uriel Mott MD 08/07/2024 External Device Data [facility] ABSTRACTION Provider, Abstract 08/01/2024 [facility] [address] [place] [address] Uriel Mott MD 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 Christine Piña [address] [place] [address] Uriel Mott MD Parkinson's disease with dyskinesia and fluctuating manifestations (CMS/HCC) (Primary Dx); Screening mammogram, encounter for; Rheumatoid arthritis involving multiple sites with positive rheumatoid factor (CMS/HCC); Immunodeficiency due to treatment with immunosuppressive medication; History of falling; Controlled substance agreement sent new opioid form 07/05/24 Ambien & Xanax & [place]; long term systemic steroid user; Chronic pansinusitis; Trigger point of right shoulder region 07/03/[address] 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 Christine Piña [address] [address] [place] [address] [address] [place] [address] 12/07/2024 8:00 AM CDT Procedure visit [facility] [address] [place] [address] Shashank Moore MD [address] [address] 01/17/2025 8:20 AM WASTE DISPOSAL PLANT OPERATOR Appointment [facility] Christine Piña [address] [address] [place] [address] [facility] [address] 03/08/2025 8:00 AM WASTE DISPOSAL PLANT OPERATOR Procedure visit [facility] [address] [place] [address] Shashank Moore MD [address] [address] Health Maintenance Due Date Last Done Comments [...] Completed 0 07/26/2018, 02/08/2014, 10/25/2011 Medicare Ad[place]) Preventative Visit/Annual Wellness Visit Completed 04/12/2024, 01/10/2024, 08/23/2022, Additional history exists Medical Devices Implanted Type Area Cardiology Consultant Device Identifier Shelf Expiration Date Model / Serial / Lot Biomet Cement R Implanted:Qty : 1 on 09/04/2018 by Garfield Batista MD at [facility] Cement Left: Knee [employer] 07/07/2022 [id number] / / [id number] Description:REQUISITION 8925 234. Biomet Bone Cement R Implanted:Qty : 1 on 09/04/2018 by Garfield Batista MD at [facility] Cement Left: Knee [employer] 07/07/2022 [id number] / / [id number] Description:REQUISITION 8925 234. Lens Io Sn60wf 22.5 - [id number] Implanted:Qty : 1 on 05/30/2018 by Avery Schumacher MD at [facility] Eye Right: Eye [employer] 12/07/2022 SN60WF.225 / [id number] / Lens Io Sn60wf 23.5 - [id number] Implanted:Qty : 1 on 06/13/2018 by Avery Schumacher MD at [facility] Eye Left: Eye [employer] 11/06/2022 SN60WF.235 / [id number] / Comp Fem Vngrd Cr Intrlk Lt 65mm [id number] - [id number] Implanted:Qty : 1 on 09/04/2018 by Garfield Batista MD at [facility] Knee Left: Knee [employer] [id number] 06/03/2028 [id number] / / [id number] Patella 3peg Series A [id number] - [id number] Implanted:Qty : 1 on 09/04/2018 by Garfield Batista MD at [facility] Knee Left: Knee [employer] [id number] 08/04/2023 [id number] / / [id number] Comp Tib Cocr Finned 75mm [id number] - [id number] Implanted:Qty : 1 on 09/04/2018 by Garfield Batista MD at [facility] Knee Left: Knee [employer] 07/10/2028 [id number] / / [id number] Brng Vangrd Ant Stab 10x75 [id number] - [id number] Implanted:Qty : 1 on 09/04/2018 by Garfield Batista MD at [facility] Knee Left: Knee [employer]IA [employer] [id number] 06/18/2023 [id number] / / [id number] Procedures Procedure Name Priority Date/Time Associated Diagnosis Comments MS INJECTION SINGLE/DIGITAL RECRUITER TRIGGER POINT 1/2 MUSCLES Routine 07/17/2024 9:00 AM CDT Trigger point of right shoulder region MS ARTHROCENTESIS ASPIR&/INJ MAJOR JT/BURSA W/O US Routine 07/17/2024 9:00 AM CDT Rheumatoid arthritis involving multiple sites with positive rheumatoid factor (CMS/HCC) MS ARTHROCENTESIS ASPIR&/INJ MAJOR JT/BURSA W/O US Routine [...] Recently Relevant to Health Maintenance Results * MS ARTHROCENTESIS ASPIR&/INJ MAJOR JT/BURSA W/O US (07/17/2024 9:00 AM CDT) [facility] MEDICINE - 07/17/2024 9:00 AM CDT Uriel Mott [...] Edited Result - Final Performing Organization Address [facility] Co de Phone Number [facility] [id number], [facility] [address] [place] [address] * MS ARTHROCENTESIS ASPIR&/INJ MAJOR JT/BURSA W/O US (07/17/2024 9:00 AM CDT) Narrative [facility] - 07/17/2024 9:00 AM CDT Uriel Mott [...] Edited Result - Final Performing Organization Address [facility] Co de Phone Number [facility]# [id number] [address] [address] [facility] [address] [place] [address] * MS INJECTION SINGLE/DIGITAL RECRUITER TRIGGER POINT 1/2 MUSCLES (07/17/2024 9:00 AM CDT) [facility] - 07/17/2024 9:00 AM CDT [...] mg of Kenalog. This was well tolerated. Uriel Mott MD PROCEDURE/MINOR SURGICAL ORD ERABLES Final Result [facility] CLIA# [id number] [address] [address], [address] [place] [address] * OCCULT BLOOD IMMUNOASSAY, COLORECTAL SCREEN (05/30/2024 12:00 AM CDT) FECAL GLOBIN SEE NOTE QuVIS- CEYX Comment: FECAL GLOBIN BY IMMUNOCHEMISTRY Micro Number: [id number] Test Status: Final Specimen Source: Stool Specimen Quality: Adequate Fecal Globin: Not Detected Reference Range: Not Detected NOTE: Approved collection includes sample of toilet water adjacent to stool. Other methods of collection such as stool transferred from diaper, bedpan, or commode to toilet water may lead to inaccurate results. Test Performed at: [facility] [address] [place] [address] Will Adam MD Stool STOOL SPECIMEN / Unknown 05/30/2024 06/05/2024 10:52 AM CDT Uriel Mott MD BODY FLUIDS AND STOOLS Final Result [facility] [phone] [facility] [address] [place] [address] * MAMMO 3D LEE SCREEN BILAT W OR WO CAD (07/11/2023 10:00 AM CDT) Anatomical Region Laterality Modality Breast Bilateral Mammography 07/11/2023 10:0 2 AM CDT Impressions 07/11/2023 3:14 PM CDT IMPRESSION: Stable screening mammogram. Recommend routine followup. OVERALL FINAL ASSESSMENT: BI-RADS CATEGORY 1: Negative. DICTATION LOCATION: [facility] Narrative 07/11/2023 3:14 PM CDT DIGITAL SCREENING [...] ASSESSMENT: BI-RADS CATEGORY 1: Negative. DICTATION LOCATION: [facility] Uriel Mott MD MAMMO ORDERABLES Final Resul t * XR DEXA BONE DENSITY AXIAL 1 OR MORE SITES (07/11/2023 9:21 AM CDT) Anatomical Region Laterality Modality Digital Radiogra phy 07/11/2023 9:21 AM CDT Impressions 07/11/2023 2:39 PM CDT IMPRESSION: This is a summary page. Please refer to the complete detailed report found in the Imaging Section of the [facility] EMR, including absolute bone mineral density [...] years thereafter DICTATION LOCATION: Location 1 - [facility] 07/11/2023 2:39 PM CDT EXAMINATION: BONE DENSITY STUDY (DXA) DATE: 07/11/2023 9:21 AM HISTORY: See Diagnosis Age-related osteoporosis without current pathological fracture PROCEDURE: Planar images of the lumbar spine and/or hip(s) using a LUNAR DEXA scanner for bone mineral density determination [...] the lumbar spine and/or hip(s) using a LUNAR DEXA scanner for bone mineral density determination (BMD). Prior bone density: 09/29/2020 FINDINGS: Lumbar Spine (L1-L4): T-Score: -2.5 Left Femoral Neck: T-Score: -2.7 Right Femoral Neck: T-Score: -2.5 IMPRESSION: This is a summary page. Please refer to the complete detailed report found in the Imaging Section of the [facility] EMR, including absolute bone mineral density [...] years thereafter DICTATION LOCATION: Location 1 - [facility] Uriel Mott MD DIAGNOSTIC IMAGING ORDERABLE S Final Result from Last 3 Months or Most Recently Relevant to Health Maintenance Insurance [employer] [facility] RX [employer] Medicare Part D [employer] Medicare Part D Advance Directives For more information, please contact: [phone] Documents on File Type Date Recorded Patient Manager [employer] Advance Directive Living Will 09/08/2018 [...] 10:14 AM 09/04/2018 3:38 PM Care Teams Director Hedis Relationship Specialty [place] [address] [facility] [address] [place] [address] PCP - General 07/29/00
--- OUTSIDE RECORDS SUMMARY | 2024-09-28 17:11 | XMS_ITS | Encounter Summary ---
Author Organization [facility] Address [address] [place] [address] Care Team Providers Care Cash Analyst Name Role Phone Uriel Mott MD Primary Care Provider [phone] Encounter Details Date Type Department Care Team (Latest Contact Info) Description 10/01/2005 Outpatient Historical [facility] [place] [address] [address] [place] [address] Special Screening for Osteoporosis (Primary Dx) Social History Tobacco Use Types Packs/Day Years Used Date Smoking Tobacco: Never Assessed Comments Unknown Sex and Gender Information Value Date Recorded Sex Assigned at Not on file Legal Sex Female 3:07 AM PROCESS MANAGER Gender Identity Not on file Sexual Orientation Not on file documented as of this encounter Plan of Treatment Upcoming Encounters Date Type Department Care Team (Late st Contact Info) Description 10/15/2024 8:[address] [facility] Family Medicine Christine Piña [address] [facility] [address] [place] [address] [place] [address] [facility] [place] [address] 12/07/2024 8:00 AM CDT Procedure visit [facility] [address] [facility] [address] [place] [address] Shashank Moore MD [address] [facility] [address] [place] [address] 01/17/2025 8:20 AM PROCESS MANAGER Appointment [facility] Medicine Christine Piña [address] [facility] [address] [place] [address] [place] [address] [facility] [place] [address] 03/08/2025 8:00 AM PROCESS MANAGER Procedure visit [facility] [address] [facility] [address] [place] [address] Shashank Moore MD [address] [facility] [address] [place] [address] documented as of this encounter Visit Diagnoses Diagnosis Special screening for osteoporosis- Primary documented in this encounter Additional Health Concerns Infection Onset Date Last Indicated Resolved Time R/O COVID-19 11/06/2019 11/06/2019 11/06/2019 8:56 AM CDT R/O COVID-19 12/29/2020 12/29/2020 12/29/2020 1:27 PM PROCESS MANAGER COVID-19 12/29/2020 12/29/2020 01/18/2021 1:16 AM PROCESS MANAGER documented as of this encounter Care Teams Cash Analyst Relationship Specialty [place] [address] [facility] [place] [address] PCP - General 07/29/00 documented as of this encounter
--- OUTSIDE RECORDS SUMMARY | 2024-09-28 17:11 | XMS_ITS | Encounter Summary ---
Author Organization [facility] Address [address] [place] [address] Care Team Providers Care Icer Air Conditioning Name Role Phone Uriel Mott MD Primary Care Provider [phone] Encounter Details Date Type Department Care Team (Late Contact Info) Description 01/23/2007 Outpatient Historical [facility] Medicine Christine Wang [address] [employer] [facility] [address] [place] [address] [place] [address] [facility] [place] [address] Social History Tobacco Use Types Packs/Day Years Used Date Smoking Tobacco: Never Assessed Comments Unknown Sex and Gender Information Value Date Recorded Sex Assigned at Not on file Legal Sex Female 3:07 AM TENTS ASSEMBLER Gender Identity Not on file Sexual Orientation Not on file documented as of this encounter Plan of Treatment Upcoming Encounters Date Type Department Care Team (Late st Contact Info) Description 10/15/2024 8:00 AM CDT Appointment [facility] Medicine Christine Wang [address] [address] [employer] [facility] [address] [place] [address] [place] [address] [facility] [place] [address] 12/07/2024 8:00 AM CDT Procedure visit [facility] Neurology [address] [facility] [address] [address] Shashank Moore MD [address] [facility] [address] [place] [address] 01/17/2025 8:20 AM TENTS ASSEMBLER Appointment [facility] Family Medicine Christine Piña [address] [facility] [address] [place] [address] [place] [address] [facility] [place] [address] 03/08/2025 8:00 AM TENTS ASSEMBLER Procedure visit [facility] [address] [facility] [address] [address] Shashank Moore MD [address] [facility] [address] [place] [address] documented as of this encounter Visit Diagnoses Not on filedocumented in this encounter Additional Health Concerns Infection Onset Date Last Indicated Resolved Time R/O COVID-19 11/06/2019 11/06/2019 11/06/2019 8:56 AM CDT R/O COVID-19 12/29/2020 12/29/2020 12/29/2020 1:27 PM TENTS ASSEMBLER COVID-19 12/29/2020 12/29/2020 01/18/2021 1:16 AM TENTS ASSEMBLER documented as of this encounter Care Teams Icer Air Conditioning Relationship Specialty [place] [address] [facility] [address] [place] [address] PCP - General 07/29/00 documented as of this encounter
--- OUTSIDE RECORDS SUMMARY | 2024-09-28 17:11 | XMS_ITS | Encounter Summary ---
Author Organization [facility] Address [address] [place] [address] Care Team Providers Care Sand Temperer Name Role Phone Uriel Mott MD Primary Care Provider [phone] Encounter Details Date Type Department Care Team (Late Contact Info) Description 06/27/1998 Outpatient Historical [place] [address] [address] [facility] [place] [address] Unspecified sinusitis (chronic) (Primary Dx) Social History Tobacco Use Types Packs/Day Years Used Date Smoking Tobacco: Never Assessed Comments Unknown Sex and Gender Information Value Date Recorded Sex Assigned at Not on file Legal Sex Female 3:07 AM PROFESSOR OF ENVIRONMENTAL STUDIES Gender Identity Not on file Sexual Orientation Not on file documented as of this encounter Plan of Treatment Upcoming Encounters Date Type Department Care Team (Late st Contact Info) Description 10/15/2024 8:00 AM CDT Appointment [facility] Family Medicine Christine Piña [address] [facility] [address] [place] [address] [place] [address] [facility] [place] [address] 12/07/2024 8:00 AM CDT Procedure visit [facility] Neurology [address] [facility] [address] [place] [address] Shashank Moore MD [address] [facility] [address] [place] [address] 01/17/2025 8:20 AM PROFESSOR OF ENVIRONMENTAL STUDIES Appointment [facility] Medicine Christine Piña [address] [facility] [address] [place] [address] [place] [address] [facility] [place] [address] 03/08/2025 8:00 AM PROFESSOR OF ENVIRONMENTAL STUDIES Procedure visit [facility] Medicine [address] [facility] [address] [place] [address] Shashank Moore MD [address] [facility] [address] [place] [address] documented as of this encounter Visit Diagnoses Diagnosis Unspecified sinusitis (chronic)- Primary documented in this encounter Additional Health Concerns Infection Onset Date Last Indicated Resolved Time R/O COVID-19 11/06/2019 11/06/2019 11/06/2019 8:56 AM CDT R/O COVID-19 12/29/2020 12/29/2020 12/29/2020 1:27 PM PROFESSOR OF ENVIRONMENTAL STUDIES COVID-19 12/29/2020 12/29/2020 01/18/2021 1:16 AM PROFESSOR OF ENVIRONMENTAL STUDIES documented as of this encounter Care Teams Sand Temperer Relationship Specialty [place] [address] [facility] [place] [address] PCP - General 07/29/00 documented as of this encounter
--- OUTSIDE RECORDS SUMMARY | 2024-09-28 17:11 | XMS_ITS | Encounter Summary ---
Author Organization [facility] Address [address] [place] [address] Care Team Providers Care Ironer Sock Name Role Phone Uriel Mott MD Primary Care Provider [phone] Encounter Details Date Type Department Care Team (Late st Contact Info) Description 05/31/2006 Orders Only [facility] Medicine Christine Wang [address] [facility] [address] [place] [address] [place] [address] 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 [place] [address] 12/07/2024 8:00 AM CDT Procedure visit [facility] Neurology [address] [facility] [address] [place] [address] Shashank Moore MD [address] [facility] [address] [place] [address] 01/17/2025 8:20 AM GREENHOUSE SUPERINTENDENT Appointment [facility]3] Family Medicine Christine Piña [address] [facility] [address] [place] [address] [place] [address] [facility] [place] [address] 03/08/2025 8:00 AM GREENHOUSE SUPERINTENDENT [facility] [address] [facility] [address] [place] [address] Shashank Moore MD [address] [facility]Note 2] [address] [place] [address] documented as of this encounter Visit Diagnoses Not on filedocumented in this encounter Additional Health Concerns Infection Onset Date Last Indicated Resolved Time R/O COVID-19 11/06/2019 11/06/2019 11/06/2019 8:56 AM CDT R/O COVID-19 12/29/2020 12/29/2020 12/29/2020 1:27 PM GREENHOUSE SUPERINTENDENT COVID-19 12/29/2020 12/29/2020 01/18/2021 1:16 AM GREENHOUSE SUPERINTENDENT documented as of this encounter Care Teams Ironer Sock Relationship Specialty [place] [address] [facility] [address] [place] [address] PCP - General 07/29/00 documented as of this encounter
--- OUTSIDE RECORDS SUMMARY | 2024-09-28 17:11 | XMS_ITS | Encounter Summary ---
Author Organization [facility] Address [address] [place] [address] Care Team Providers Care Territory Service Representative Name Role Phone Uriel Mott MD Primary Care Provider [phone] Encounter Details Date Type Department Care Team (Latest Contact Info) Description 01/12/2008 Outpatient [place] [address] [facility]. [address] [place] [address] Other Chronic Nonalcoholic Liver Disease Social History Tobacco Use Types Packs/Day Years Used Date Smoking Tobacco: Never Alcohol Use Standard Drinks/Week Comments No 0 (1 standard drink = 0.6 oz pur e alcohol) Comments No Sex and Gender Information Value Date Recorded Sex Assigned at Not on file Legal Sex Female 3:07 AM SUPERVISING CHEF Gender Identity Not on file Sexual Orientation Not on file documented as of this encounter Plan of Treatment Upcoming Encounters Date Type Department Care Team (Late st Contact Info) Description 10/15/2024 8:00 AM CDT Appointment [facility] Family Medicine Christine Piña [address] [facility] [address] [place] [address] [place] [address] [facility] [place] [facility]. [address] [place] [address] 12/07/2024 8:00 AM CDT Procedure visit [facility] Neurology [address] [facility] [address] [place] [address] Shashank Moore MD [address] [facility] [address] [place] [address] 01/17/2025 8:20 AM SUPERVISING CHEF Appointment [facility] Medicine Christine Piña [address] [facility] [address] [place] [address] [place] [address] [facility] [place] [facility]. [address] [place] [address] 03/08/2025 8:00 AM SUPERVISING CHEF Procedure visit [facility] [address] [facility] [address] [place] [address] Shashank Moore MD [address] [facility] [address] [place] [address] documented as of this encounter Visit Diagnoses Diagnosis Other chronic nonalcoholic liver disease documented in this encounter Additional Health Concerns Infection Onset Date Last Indicated Resolved Time R/O COVID-19 11/06/2019 11/06/2019 11/06/2019 8:56 AM CDT R/O COVID-19 12/29/2020 12/29/2020 12/29/2020 1:27 PM SUPERVISING CHEF COVID-19 12/29/2020 12/29/2020 01/18/2021 1:16 AM SUPERVISING CHEF documented as of this encounter Care Teams Territory Service Representative Relationship Specialty [place] [address] [facility] [place] [facility]. [address] [place] [address] PCP - General 07/29/00 documented as of this encounter
--- OUTSIDE RECORDS SUMMARY | 2024-09-28 17:11 | XMS_ITS | Encounter Summary ---
Author Organization [facility] Address [address] [place] [address] Care Team Providers Care Doctor Of Nurse Anesthesia Name Role Phone Uriel Mott MD Primary Care Provider [phone] Encounter Details Date Type Department Care Team (Late st Contact Info) Description 05/04/2007 Outpatient Historical [facility] Medicine [place] [address] [address] Ivana Quintana MD NO ADDRESS ON FILE Social History Tobacco Use Types Packs/Day Years Used Date Smoking Tobacco: Never Assessed Comments Unknown Sex and Gender Information Value Date Recorded Sex Assigned at Not on file Legal Sex Female 3:07 AM RAILROAD BRAKEMAN Gender Identity Not on file Sexual Orientation Not on file documented as of this encounter Plan of Treatment Upcoming Encounters Date Type Department Care Team (Late st Contact Info) Description 10/15/2024 8:[address] [facility] Christine Piña [address] [facility] [address] [place] [address] [place] [address] [facility] [place] [address] 12/07/2024 8:00 AM CDT Procedure visit [facility] Neurology [address] [facility] [address] [place] [address] Shashank Moore MD [address] [facility] [address] [place] [address] 01/17/2025 8:20 AM RAILROAD BRAKEMAN Appointment [facility] Wang [address] [facility] [address] [place] [address] [place] [address] [facility] [place] [address] 03/08/2025 8:00 AM RAILROAD BRAKEMAN Procedure visit [facility] Neurology [address] [facility] [place] [address] Shashank Moore MD [address] [facility] [address] [place] [address] documented as of this encounter Visit Diagnoses Not on filedocumented in this encounter Additional Health Concerns Infection Onset Date Last Indicated Resolved Time R/O COVID-19 11/06/2019 11/06/2019 11/06/2019 8:56 AM CDT R/O COVID-19 12/29/2020 12/29/2020 12/29/2020 1:27 PM RAILROAD BRAKEMAN COVID-19 12/29/2020 12/29/2020 01/18/2021 1:16 AM RAILROAD BRAKEMAN documented as of this encounter Care Teams Doctor Of Nurse Anesthesia Relationship Specialty [place] [address] [facility] [place] [address] PCP - General 07/29/00 documented as of this encounter
--- OUTSIDE RECORDS SUMMARY | 2024-09-28 17:11 | XMS_ITS | Encounter Summary ---
Author Organization [facility] Address [address] [place] [address] Care Team Providers Care Shake Splitter Name Role Phone Uriel Mott MD Primary Care Provider [phone] Encounter Details Date Type Department Care Team (Late st Contact Info) Description 12/27/2006 Outpatient Historical [facility] Medicine Christine Piña [address] [facility] [address] [place] [address] [place] [address] [address] Social History Tobacco Use Types Packs/Day Years Used Date Smoking Tobacco: Never Assessed Comments Unknown Sex and Gender Information Value Date Recorded Sex Assigned at Not on file Legal Sex Female 3:07 AM PASTE PLANT SUPERVISOR Gender Identity Not on file Sexual Orientation Not on file documented as of this encounter Plan of Treatment Upcoming Encounters Date Type Department Care Team (Late st Contact Info) Description 10/15/2024 8:[address] [facility] Christine Wang [address] [facility] [address] [place] [address] [place] [address] [facility] [place] [address] 12/07/2024 8:00 AM CDT Procedure visit [facility] Neurology [address] [facility] [address] [place] [address] Shashank Moore MD [address] [facility] [address] [place] [address] 01/17/2025 8:20 AM PASTE PLANT SUPERVISOR Appointment [facility] Medicine Christine Piña [address] [facility] [address] [place] [address] [place] [address] [facility] [address] [place] [address] 03/08/2025 8:00 AM PASTE PLANT SUPERVISOR Procedure visit [facility] Neurology [address] [facility] [address] [place] [address] Shashank Moore MD [address] [address] documented as of this encounter Visit Diagnoses Not on filedocumented in this encounter Additional Health Concerns Infection Onset Date Last Indicated Resolved Time R/O COVID-19 11/06/2019 11/06/2019 11/06/2019 8:56 AM CDT R/O COVID-19 12/29/2020 12/29/2020 12/29/2020 1:27 PM PASTE PLANT SUPERVISOR COVID-19 12/29/2020 12/29/2020 01/18/2021 1:16 AM PASTE PLANT SUPERVISOR documented as of this encounter Care Teams Shake Splitter Relationship Specialty [place] [address] [facility] [address] [place] [address] PCP - General 07/29/00 documented as of this encounter
--- OUTSIDE RECORDS SUMMARY | 2024-09-28 17:11 | XMS_ITS | Encounter Summary ---
Author Organization [facility] Address [address] [place] [address] Care Team Providers Care Ic Design Manager Name Role Phone Uriel Mott MD Primary Care Provider [phone] Encounter Details Date Type Department Care Team (Late Contact Info) Description 07/06/2006 Outpatient Historical [facility] Christine Piña [address] [facility] [address] [place] [address] [place] [address] [place] [address] Social History Tobacco Use Types Packs/Day Years Used Date Smoking Tobacco: Never Assessed Comments Unknown Sex and Gender Information Value Date Recorded Sex Assigned at Not on file Legal Sex Female 3:07 AM COMMISSION FOR THE BLIND DIRECTOR Gender Identity Not on file Sexual [...] AM CDT Appointment [facility] Christine Piña [address] [facility] [address] [place] [address] [place] [address] [address] [place] [address] 12/07/2024 8:00 AM CDT Procedure visit [facility] Neurology [address] [facility] [address] [place] [address] Shashank Moore MD [address] [facility] [address] [place] [address] 01/17/2025 8:20 AM COMMISSION FOR THE BLIND DIRECTOR Appointment [facility] Medicine Christine Piña [address] [facility] [address] [place] [address] [place] [address] [facility] [place] [address] 03/08/2025 8:00 AM COMMISSION FOR THE BLIND DIRECTOR Procedure visit [facility] Neurology [address] [facility] [address] [place] [address] Shashank Moore MD [address] [address] documented as of this encounter Visit Diagnoses Not on filedocumented in this encounter Additional Health Concerns Infection Onset Date Last Indicated Resolved Time R/O COVID-19 11/06/2019 11/06/2019 11/06/2019 8:56 AM CDT R/O COVID-19 12/29/2020 12/29/2020 12/29/2020 1:27 PM COMMISSION FOR THE BLIND DIRECTOR COVID-19 12/29/2020 12/29/2020 01/18/2021 1:16 AM COMMISSION FOR THE BLIND DIRECTOR documented as of this encounter Care Teams Ic Design Manager Relationship Specialty [place] [address] [facility] [place] [address] PCP - General 07/29/00 documented as of this encounter
--- OUTSIDE RECORDS SUMMARY | 2024-09-28 17:11 | XMS_ITS | Encounter Summary ---
Author Organization [facility] Address [address] [place] [address] Care Team Providers Care Shipping Track Supervisor Name Role Phone Uriel Mott MD Primary Care Provider [phone] Encounter Details Date Type Department Care Team (Latest Contact Info) Description 10/01/2005 Outpatient Historical [facility] [place] [address] [facility] [place] [address] Other Screening Mammogram (Primary Dx) Social History Tobacco Use Types Packs/Day Years Used Date Smoking Tobacco: Never Assessed Comments Unknown Sex and Gender Information Value Date Recorded Sex Assigned at Not on file Legal Sex Female 3:07 AM BABY SITTER Gender Identity Not on file Sexual Orientation Not on file documented as of this encounter Plan of Treatment Upcoming Encounters Date Type Department Care Team (Late st Contact Info) Description 10/15/2024 8:00 AM CDT Appointment [facility] Family Medicine Christine Piña [address] [facility] [address] [place] [address] [place] [address] [facility] [place] [address] 12/07/2024 8:00 AM CDT Procedure visit [facility] Neurology [address] [facility] [address] [place] [address] Sahshank Moore MD [address] [facility] [address] [place] [address] 01/17/2025 8:20 AM BABY SITTER Appointment [facility] Medicine Christine Piña [address] [facility] [address] [place] [address] [place] [address] [facility] [place] [address] 03/08/2025 8:00 AM BABY SITTER Procedure visit [facility] [address] [facility] [address] [place] [address] Shashank Moore MD [address] [facility] [address] [place] [address] documented as of this encounter Visit Diagnoses Diagnosis Other screening mammogram- Primary documented in this encounter Additional Health Concerns Infection Onset Date Last Indicated Resolved Time R/O COVID-19 11/06/2019 11/06/2019 11/06/2019 8:56 AM CDT R/O COVID-19 12/29/2020 12/29/2020 12/29/2020 1:27 PM BABY SITTER COVID-19 12/29/2020 12/29/2020 01/18/2021 1:16 AM BABY SITTER documented as of this encounter Care Teams Shipping Track Supervisor Relationship Specialty [place] [address] [facility] [address] [place] [address] PCP - General 07/29/00 documented as of this encounter
--- OUTSIDE RECORDS SUMMARY | 2024-09-28 17:11 | XMS_ITS | Encounter Summary ---
Author Organization [facility] Address [address] [place] [address] Care Team Providers Care Telemetry Registered Nurse Name Role Phone Kimberly Pratt MD Primary Care Provider [phone] Encounter Details Date Type Department Care Team (Latest Contact Info) Description 11/28/2007 Outpatient Historical [facility] Milana Gu MD [address] [place] [address] [address] [place] [address] Gail Lee MD Department of Radiology [address] [place] [address] Elev Transaminase/LDH Social History Tobacco Use Types Packs/Day Years Used Date Smoking Tobacco: Never Alcohol Use Standard Drinks/Week Comments No 0 (1 standard drink = 0.6 oz pur e alcohol) Comments Unknown Sex and Gender Information Value Date Recorded Sex Assigned at Not on file Legal Sex Female 3:07 AM MEDICAL LIBRARY ASSISTANT Gender Identity Not on file Sexual Orientation Not on file documented as of this encounter Plan of Treatment Upcoming Encounters Date Type Department Care Team (Late st Contact Info) Description 10/15/2024 8:00 AM CDT Appointment [facility] Family Medicine Christine Piña [address] [facility] [address] [place] [address] [place] [address] [facility] [place] [address] 12/07/2024 8:00 AM CDT Procedure visit [facility] Neurology [address] [facility] [address] [place] [address] Shashank Moore MD [address] [facility] [address] [place] [address] 01/17/2025 8:20 AM MEDICAL LIBRARY ASSISTANT Appointment [facility] Medicine Christine Piña [address] [facility] [address] [place] [address] [place] [address] [facility] [place] [address] 03/08/2025 8:00 AM MEDICAL LIBRARY ASSISTANT Procedure visit [facility] Neurology [address] [facility] [address] [place] [address] Shashank Moore MD [address] [facility] [address] [place] [address] documented as of this encounter [...] PATHOLOGY (11/29/2007 10:47 AM CDT) FINAL REPORT [facility] [address], [place] [address] Patient: CHICHO ROBERTS : 1950 Procedure Date: 11/29/2007 Accession Date: 11/29/2007 Case No: 1- [id number] Ordering Dr: GAIL LEE Case types AW, BW, FW, NW and SH are performed by [facility], [place], [place] SURGICAL PATHOLOGY & NON-GYNECOLOGIC CYTOPATHOLOGY REPORT [...] is submitted in block A1. [facility] 11.29.2007 04:58 pm Microscopic: The slides are labeled [id number], Chicho Roberts. Sections of the needle biopsy [...] 10:4 7 AM CDT us Gail Rosa [facility] PATHOLOGY/CYTOLOGY ORDERABLES Fi nal Result INTERFACE SYSTEM Refer to clinic/hospital department * XR CONSULTATION (11/29/2007 9:23 AM CDT) 11/29/2007 9:23 AM CDT Narrative INTERFACE SYSTEM - 12/08/2007 9:23 AM CDT [address] [address] Admit Date: 11/29/2007 CHICHO ROBERTS Sex: F Admit Prov: MILANA GU Date: 1950 Primary Care Prov: KIMBERLY PRATT CMRN: [id number] Room: [facility] SSN: [id number] IMAGING SERVICES Ordering Prov: MILANA GU Accession Number: [id number] Interpretation SEE OTHER REPORT OF SAME DATE. Dictated by: RADIOLOGY, DEPARTMENT O Electronically signed by: RADIOLOGY, DEPARTMENT 12/08/2007 09:21 Transcribed: 12/08/2007 09:16 AMK Procedure Note Radiology, Radiologist - 12/08/[address] [address] Admit Date: 11/29/2007 CHICHO ROBERTS Sex: F Admit Prov: MILANA GU Date: 1950 Primary Care Prov: KIMBERLY PRATT CMRN: [id number] [facility] [id number] IMAGING SERVICES Ordering Prov: MILNAA GU Interpretation SEE OTHER REPORT OF SAME DATE. Dictated by: RADIOLOGY, DEPARTMENT O Electronically signed by: RADIOLOGY, DEPARTMENT 12/08/2007 09:21 Transcribed: 12/08/2007 09:16 AMK Milana Gu MD DIAGNOSTIC IMAGING ORDERABLES Final Result Performing Organization Address City/State/[facility] Co de Phone Number INTERFACE SYSTEM Refer to clinic/hospital department * US GUIDE NEEDLE PLACEMENT (11/29/2007 9:23 AM CDT) Anatomical Region Laterality Modality Other 11/29/2007 9:23 AM CDT Narrative 11/30/2007 10:54 AM CDT [address] [address] Admit Date: 11/29/2007 CHICHO ROBERTS Sex: F Admit Prov: MILANA GU Date: 1950 Primary Care Prov: KIMBERLY PRATT CMRN: [id number] [facility] [id number] IMAGING SERVICES Ordering Prov: N/A Accession Number: [id number] Interpretation Ultrasound Guided Liver Biopsy History: 57-year-old [...] Procedure Note Gail Lee MD - 11/30/2007 [facility] [address] [place], [place] [address] Admit Date: 11/29/2007 CHICHO ROBERTS Sex: F Admit Prov: MILANA GU Date: 1950 Primary Care Prov: KIMBERLY PRATT CMRN: [id number] Room: [facility] SSN: [id number] IMAGING SERVICES Ordering Prov: N/A Interpretation Ultrasound [...] AM CDT) INR 1.1 0.9 - 1.1 [facility] Comment: INR Therapeutic Range: Adult: 2.0 - 3.0 for pulmonary embolism or prophylaxis against venous thrombosis or systemic embolization. 2.0 - 3.0 for patients with tissue heart valves. 2.5 - 3.5 for patients with mechanical heart valves or post PR. Pediatric (12 years and under): 1.5 - 3.0 Although the target range in children is not well established, INR values of 1.5 - 3.0 are recommended for most patients. Higher values have been used in children with prosthetic cardiac valves and hereditary clotting disorders. (<3 days) therapeutic ranges have not been established. PROTIME 14.7 12.7 - 15.1 Seconds [facility] PTT 31.1 24.4 - 36.4 Seconds [facility] Comment: PTT Therapeutic Range: Heparin Level PTT (seconds) <0.10 units/mL <53 0.10 - 0.30 units/mL 53 - 67 0.30 - 0.70 units/mL* 67 - 95* 0.70 - 1.00 units/mL 95 - 116 *corresponds to therapeutic range for unfractionated heparin Blood specimen (specimen) 11/29/2007 7:00 AM CDT 11/29/2007 7:09 AM CDT Milana Gu MD HEMATOLOGY ORDERABLES Edited Performing Organization Address City/[facility] Co de Phone Number INTERFACE SYSTEM Refer to clinic/hospital department [facility] CLIA# [id number] [address] [place] [address] * PLATELET COUNT (11/29/2007 7:00 AM CDT) PLATELETS 265 140 - 350 K/uL [facility] MPV 11.1 9.3 - 12.4 fL [facility] Blood specimen (specimen) 11/29/2007 7:00 AM CDT 11/29/2007 7:09 AM CDT Milana Gu MD HEMATOLOGY ORDERABLES Final Re sult Performing Organization Address City/[facility] Co de Phone Number INTERFACE SYSTEM Refer to clinic/hospital department [facility] CLIA# [id number] [address] [place] [address] documented in this encounter Visit Diagnoses Diagnosis Nonspecific elevation of levels of transaminase or lactic acid dehydrogenase (LDH) documented in this encounter Additional Health Concerns Infection Onset Date Last Indicated Resolved Time R/O COVID-19 11/06/2019 11/06/2019 11/06/2019 8:56 AM CDT R/O COVID-12/29/2020 12/29/2020 12/29/2020 1:27 PM MEDICAL LIBRARY ASSISTANT COVID-19 12/29/2020 12/29/2020 01/18/2021 1:16 AM MEDICAL LIBRARY ASSISTANT documented as of this encounter Care Teams Telemetry Registered Nurse Relationship Specialty Start [place] [address] [facility] [address] [place] [address] PCP - General 07/29/00 documented as of this encounter
--- OUTSIDE RECORDS SUMMARY | 2024-09-28 17:11 | XMS_ITS | Encounter Summary ---
Author Organization [facility] Address [address] [place] [address] Care Team Providers Care Cardiology Consultants Name Role Phone Uriel Mott MD Primary Care Provider [phone] Encounter Details Date Type Department Care Team (Latest Contact Info) Description 01/07/1999 Outpatient Historical HIS LAB,[place] 2[place] [address] [facility] [place] [address] Corns and callosities (Primary Dx) Social History Tobacco Use Types Packs/Day Years Used Date Smoking Tobacco: Never Assessed Comments Unknown Sex and Gender Information Value Date Recorded Sex Assigned at Not on file Legal Sex Female 3:07 AM AUTOMATED TELLER MANAGER Gender Identity Not on file Sexual Orientation Not on file documented as of this encounter Plan of Treatment Upcoming Encounters Date Type Department Care Team (Late st Contact Info) Description 10/15/2024 8:00 AM CDT Appointment [facility] Family Medicine Christine Piña [address] [facility] [address] [place] [address] [place] [address] [facility] [place] [address] 12/07/2024 8:00 AM CDT Procedure visit [facility] Neurology [address] [facility] [address] [place] [address] Shashank Moore MD [address] [facility] [address] [place] [address] 01/17/2025 8:20 AM AUTOMATED TELLER MANAGER Appointment [facility] Medicine Christine Piña [address] [facility] [address] [place] [address] [place] [address] [facility] [place] [address] 03/08/2025 8:00 AM AUTOMATED TELLER MANAGER Procedure visit [facility] Neurology [address] [facility] [address] [place] [address] Shashank Moore MD [address] [facility] [address] [place] [address] documented as of this encounter Visit Diagnoses Diagnosis Corns and callosities- Primary documented in this encounter Additional Health Concerns Infection Onset Date Last Indicated Resolved Time R/O COVID-19 11/06/2019 11/06/2019 11/06/2019 8:56 AM CDT R/O COVID-19 12/29/2020 12/29/2020 12/29/2020 1:27 PM AUTOMATED TELLER MANAGER COVID-19 12/29/2020 12/29/2020 01/18/2021 1:16 AM AUTOMATED TELLER MANAGER documented as of this encounter Care Teams Cardiology Consultants Relationship Specialty [place] [address] [facility] [address] [place] [address] PCP - General 07/29/00 documented as of this encounter
--- OUTSIDE RECORDS SUMMARY | 2024-09-28 17:11 | XMS_ITS | Encounter Summary ---
Author Organization [facility] Address [address] [place] [address] Care Team Providers Care Box Toe Stitcher Name Role Phone Uriel Mott MD Primary Care Provider [phone] Encounter Details Date Type Department Care Team (Late st Contact Info) Description 09/08/1998 Outpatient Historical HIS [facility] DEPT OF FAMILY MEDICINE Robinson Fuentes MD [address] [facility] [address] [place] [address] Social History Tobacco Use Types Packs/Day Years Used Date Smoking Tobacco: Never Assessed Comments Unknown Sex and Gender Information Value Date Recorded Sex Assigned at Not on file Legal Sex Female 3:07 AM SHOE MAKER Gender Identity Not on file Sexual Orientation Not on file documented as of this encounter Plan of Treatment Upcoming Encounters Date Type Department Care Team (Late st Contact Info) Description 10/15/2024 8:00 AM CDT Appointment [facility] Family Medicine Christine Piña [address] [facility] [address] [place] [address] [place] [address] [facility] [place] [address] 12/07/2024 8:00 AM CDT Procedure visit [facility] Neurology [address] [facility] [address] [place] [address] Shashank Moore MD [address] [facility] [address] [place] [address] 01/17/2025 8:20 AM SHOE MAKER Appointment [facility] Medicine Christine Piña [address] [facility] [address] [place] [address] [place] [address] [facility] [place] [address] 03/08/2025 8:00 AM SHOE MAKER Procedure visit [facility] Neurology [address] [facility] [address] [place] [address] Shashank Moore MD [address] [facility] [address] [place] [address] documented as of this encounter Visit Diagnoses Not on filedocumented in this encounter Additional Health Concerns Infection Onset Date Last Indicated Resolved Time R/O COVID-19 11/06/2019 11/06/2019 11/06/2019 8:56 AM CDT R/O COVID-19 12/29/2020 12/29/2020 12/29/2020 1:27 PM SHOE MAKER COVID-19 12/29/2020 12/29/2020 01/18/2021 1:16 AM SHOE MAKER documented as of this encounter Care Teams Box Toe Stitcher Relationship Specialty [place] [address] [facility]. [address] [place] [address] PCP - General 07/29/00 documented as of this encounter
--- OUTSIDE RECORDS SUMMARY | 2024-09-28 17:11 | XMS_ITS | Encounter Summary ---
Author Organization [facility] Address [address] [place] [address] Care Team Providers Care Disc Pad Plate Filler Name Role Phone Uriel Mott MD Primary Care Provider [phone] Encounter Details Date Type Department Care Team (Late st Contact Info) Description 05/04/2007 Outpatient Historical [facility] [address] [facility] [address] [place] [address] Joby Oneal, DO [address] [place] [address] Social History Tobacco Use Types Packs/Day Years Used Date Smoking Tobacco: Never Assessed Comments Unknown Sex and Gender Information Value Date Recorded Sex Assigned at Not on file Legal Sex Female 3:07 AM QUALITY INTERN Gender Identity Not on file Sexual [...] Description 10/15/2024 8:00 AM CDT Appointment [facility] [address] [facility] [address] [place] [address] [place] [address] [facility] [place] [address] 12/07/2024 8:00 AM CDT Procedure visit [facility] Neurology [address] [facility] [address] [place] [address] Shashank Moore MD [address] [facility][Note 2] [address] [place] [address] 01/17/2025 8:20 AM QUALITY INTERN Appointment [facility] Medicine Christine Piña [address] [facility] [address] [place] [address] [place] [address] [facility]. [address] [place] [address] 03/08/2025 8:00 AM QUALITY INTERN Procedure visit [facility] [address] [facility] [address] [place] [address] Shashank Moore MD [address] [address] documented as of this encounter Visit Diagnoses Not on filedocumented in this encounter Additional Health Concerns Infection Onset Date Last Indicated Resolved Time R/O COVID-19 11/06/2019 11/06/2019 11/06/2019 8:56 AM CDT R/O COVID-19 12/29/2020 12/29/2020 12/29/2020 1:27 PM QUALITY INTERN COVID-19 12/29/2020 12/29/2020 01/18/2021 1:16 AM QUALITY INTERN documented as of this encounter Care Teams Disc Pad Plate Filler Relationship Specialty [place] [address] [facility] [place] [address] PCP - General 07/29/00 documented as of this encounter
--- OUTSIDE RECORDS SUMMARY | 2024-09-28 17:11 | XMS_ITS | Encounter Summary ---
Author Organization [facility] Address [address] [place] [address] Care Team Providers Care Operations Advisor Name Role Phone Uriel Mott MD Primary Care Provider [phone] Encounter Details Date Type Department Care Team (Late st Contact Info) Description 06/02/2006 Orders Only [facility] Medicine Christine Wang [address] [facility] [address] [place] [address] [place] [address] [facility] [place] [address] Social History Tobacco Use Types Packs/Day Years Used Date Smoking Tobacco: Never Assessed Comments Unknown Sex and Gender Information Value Date Recorded Sex Assigned at Not on file Legal Sex Female 3:07 AM PROGRAMMING INSTRUCTOR Gender Identity Not on file Sexual Orientation Not on file documented as of this encounter Plan of Treatment Upcoming Encounters Date Type Department Care Team (Late st Contact Info) Description 10/15/2024 8:00 AM CDT Appointment [facility] Christine Wang [address] [facility] [address] [place] [address] [place] [address] [facility] [place] [address] 12/07/2024 8:00 AM CDT Procedure visit [facility] Neurology [address] [facility] [address] [place] [address] Shashank Moore MD [address] [facility] [address] [place] [address] 01/17/2025 8:20 AM PROGRAMMING INSTRUCTOR Appointment [facility] Family Medicine Christine Piña [address] [facility] [address] [place] [address] [place] [address] [facility] [place] [address] 03/08/2025 8:00 AM PROGRAMMING INSTRUCTOR Procedure visit [facility] [address] [facility] [address] [place] [address] Shashank Moore MD [address] [facility] [address] [place] [address] documented as of this encounter Visit Diagnoses Not on filedocumented in this encounter Additional Health Concerns Infection Onset Date Last Indicated Resolved Time R/O COVID-19 11/06/2019 11/06/2019 11/06/2019 8:56 AM CDT R/O COVID-19 12/29/2020 12/29/2020 12/29/2020 1:27 PM PROGRAMMING INSTRUCTOR COVID-19 12/29/2020 12/29/2020 01/18/2021 1:16 AM PROGRAMMING INSTRUCTOR documented as of this encounter Care Teams Operations Advisor Relationship Specialty [place] [address] [facility] [address] [place] [address] PCP - General 07/29/00 documented as of this encounter
--- OUTSIDE RECORDS SUMMARY | 2024-09-28 17:11 | XMS_ITS | Encounter Summary ---
Author Organization [facility] Address [address] [address] [place] [address] Care Team Providers Care Veterans' Counselor Name Role Phone Uriel Mott MD Primary Care Provider [phone] Encounter Details Date Type Department Care Team (Late st Contact Info) Description 04/15/1999 Outpatient Historical HIS [facility] DEPT OF FAMILY MEDICINE Ivana Quintana MD NO ADDRESS ON FILE Social History Tobacco Use Types Packs/Day Years Used Date Smoking Tobacco: Never Assessed Comments Unknown Sex and Gender Information Value Date Recorded Sex Assigned at Not on file Legal Sex Female 3:07 AM STORYBOARD ARTIST Gender Identity Not on file Sexual Orientation Not on file documented as of this encounter Plan of Treatment Upcoming Encounters Date Type Department Care Team (Late st Contact Info) Description 10/15/2024 8:00 AM CDT Appointment [facility] Medicine Christine Piña [address] [facility] [address] [place] [address] [place] [address] [facility]. [address] [place] [address] 12/07/2024 8:00 AM CDT Procedure visit [facility] Neurology [address] [facility] [address] [place] [address] Shashank Moore MD [address] [facility] [address] [place] [address] 01/17/2025 8:20 AM STORYBOARD ARTIST Appointment [facility] [place] [address] [facility] [address] [place] [address] [place] [address] [facility] [place] [address] 03/08/2025 8:00 AM STORYBOARD ARTIST Procedure visit [facility] Neurology [address] [facility] [address] [place] [address] Shashank Moore MD [address] [facility] [address] [place] [address] documented as of this encounter Visit Diagnoses Not on filedocumented in this encounter Additional Health Concerns Infection Onset Date Last Indicated Resolved Time R/O COVID-19 11/06/2019 11/06/2019 11/06/2019 8:56 AM CDT R/O COVID-19 12/29/2020 12/29/2020 12/29/2020 1:27 PM STORYBOARD ARTIST COVID-19 12/29/2020 12/29/2020 01/18/2021 1:16 AM STORYBOARD ARTIST documented as of this encounter Care Teams Veterans' Counselor Relationship Specialty [place] [address] [facility] [place] [address] PCP - General 07/29/00 documented as of this encounter
--- OUTSIDE RECORDS SUMMARY | 2024-09-28 17:11 | XMS_ITS | Encounter Summary ---
Author Organization [facility] Address [address] [place] [address] Care Team Providers Care Special Education Secretary Name Role Phone Uriel Mott MD Primary Care Provider [phone] Encounter Details Date Type Department Care Team (Late Contact Info) Description 01/23/2007 Outpatient Historical [facility] Medicine Christine Piña [address] [facility] [address] [place] [address] [place] [address] [place] [address] Social History Tobacco Use Types Packs/Day Years Used Date Smoking Tobacco: Never Assessed Comments Unknown Sex and Gender Information Value Date Recorded Sex Assigned at Not on file Legal Sex Female 3:07 AM CISTERN ROOM WORKING SUPERVISOR Gender Identity Not on file Sexual Orientation Not on file documented as of this encounter Plan of Treatment Upcoming Encounters Date Type Department Care Team (Late st Contact Info) Description 10/15/2024 8:00 AM CDT Appointment [facility] Medicine Christine Piña [address] [facility] [address] [place] [address] [place] [address] [facility] [place] [address] 12/07/2024 8:00 AM CDT Procedure visit [facility] Neurology [address] [facility] [address] [place] [address] Shashank Moore MD [address] [facility] [address] [place] [address] 01/17/2025 8:20 AM CISTERN ROOM WORKING SUPERVISOR Appointment [facility] Family Medicine Christine Piña [address] [facility] [address] [place] [address] [place] [address] [facility] [place] [address] 03/08/2025 8:00 AM CISTERN ROOM WORKING SUPERVISOR Procedure visit [facility] [address] [facility] [address] [place] [address] Shashank Moore MD [address] [facility] [address] [place] [address] documented as of this encounter Visit Diagnoses Not on filedocumented in this encounter Additional Health Concerns Infection Onset Date Last Indicated Resolved Time R/O COVID-19 11/06/2019 11/06/2019 11/06/2019 8:56 AM CDT R/O COVID-19 12/29/2020 12/29/2020 12/29/2020 1:27 PM CISTERN ROOM WORKING SUPERVISOR COVID-19 12/29/2020 12/29/2020 01/18/2021 1:16 AM CISTERN ROOM WORKING SUPERVISOR documented as of this encounter Care Teams Special Education Secretary Relationship Specialty [place] [address] [facility] [address] [place] [address] PCP - General 07/29/00 documented as of this encounter
--- OUTSIDE RECORDS SUMMARY | 2024-09-28 17:11 | XMS_ITS | Encounter Summary ---
Author Organization [facility] Address [address] [place] [address] Care Team Providers Care Seaman Name Role Phone Uriel Mott MD Primary Care Provider [phone] Encounter Details Date Type Department Care Team (Late st Contact Info) Description 06/09/[address] [facility] Medicine Christine Awng [address] [address] [facility] [address] [place] [address] [place] [address] [address] [facility] [place] [address] Social History Tobacco Use Types Packs/Day Years Used Date Smoking Tobacco: Never Assessed Comments Unknown Sex and Gender Information Value Date Recorded Sex Assigned at Not on file Legal Sex Female 3:07 AM PARTNER INTEGRATION PLANNER Gender Identity Not on file Sexual Orientation Not on file documented as of this encounter Plan of Treatment Upcoming Encounters Date Type Department Care Team (Late st Contact Info) Description 10/15/2024 8:[address] [facility] Christine Wang [address] [address] [facility] [address] [place] [address] [place] [address] [facility] [place] [address] 12/07/2024 8:00 AM CDT Procedure visit [facility] Neurology [address] [facility] [address] [place] [address] Shashank Moore MD [address] [facility] [address] [place] [address] 01/17/2025 8:20 AM PARTNER INTEGRATION PLANNER Appointment [facility] Family Medicine Christine Piña [address] [facility] [address] [place] [address] [place] [address] [facility] [place] [address] 03/08/2025 8:00 AM PARTNER INTEGRATION PLANNER Procedure visit [facility] [address] [facility] [address] [place] [address] Shashank Moore MD [address] [facility] [address] [place] [address] documented as of this encounter Visit Diagnoses Not on filedocumented in this encounter Additional Health Concerns Infection Onset Date Last Indicated Resolved Time R/O COVID-19 11/06/2019 11/06/2019 11/06/2019 8:56 AM CDT R/O COVID-19 12/29/2020 12/29/2020 12/29/2020 1:27 PM PARTNER INTEGRATION PLANNER COVID-19 12/29/2020 12/29/2020 01/18/2021 1:16 AM PARTNER INTEGRATION PLANNER documented as of this encounter Care Teams Seaman Relationship Specialty [place] [address] [facility] [address] [place] [address] PCP - General 07/29/00 documented as of this encounter
--- OUTSIDE RECORDS SUMMARY | 2024-09-28 17:11 | XMS_ITS | Encounter Summary ---
Author Organization [facility] Address [address] [place] [address] Care Team Providers Care Hand I Blocker Name Role Phone Uriel Mott MD Primary Care Provider [phone] Encounter Details Date Type Department Care Team (Late Contact Info) Description 06/13/2007 Orders Only [facility] Medicine Christine Wang [address] [facility] [address] [place] [address] [place] [address] [facility] [place] [address] Social History Tobacco Use Types Packs/Day Years Used Date Smoking Tobacco: Never Assessed Comments Unknown Sex and Gender Information Value Date Recorded Sex Assigned at Not on file Legal Sex Female 3:07 AM RHYTHMIC GYMNASTICS COACH Gender Identity Not on file Sexual Orientation Not on file documented as of this encounter Plan of Treatment Upcoming Encounters Date Type Department Care Team (Late st Contact Info) Description 10/15/2024 8:00 AM CDT Appointment [facility] Christine Wang [address] [facility] [address] [place] [address] [place] [address] [facility]. [address] [place] [address] 12/07/2024 8:00 AM CDT Procedure visit [facility] Neurology [address] [facility] [address] [place] [address] Shashank Moore MD [address] [facility] [address] [place] [address] 01/17/2025 8:20 AM RHYTHMIC GYMNASTICS COACH Appointment [facility] Family Medicine Christine Piña [address] [facility] [address] [place] [address] [place] [address] [facility]. [address] [place] [address] 03/08/2025 8:00 AM RHYTHMIC GYMNASTICS COACH Procedure visit [facility] [address] [facility] [address] [place] [address] Shashank Moore MD [address] [facility] [address] [place] [address] documented as of this encounter Visit Diagnoses Not on filedocumented in this encounter Additional Health Concerns Infection Onset Date Last Indicated Resolved Time R/O COVID-19 11/06/2019 11/06/2019 11/06/2019 8:56 AM CDT R/O COVID-19 12/29/2020 12/29/2020 12/29/2020 1:27 PM RHYTHMIC GYMNASTICS COACH COVID-19 12/29/2020 12/29/2020 01/18/2021 1:16 AM RHYTHMIC GYMNASTICS COACH documented as of this encounter Care Teams Hand I Blocker Relationship Specialty [place] [address] [facility] [address] [place] [address] PCP - General 07/29/00 documented as of this encounter
--- OUTSIDE RECORDS SUMMARY | 2024-09-28 17:11 | XMS_ITS | Encounter Summary ---
Author Organization [facility] Address [address] [place] [address] Care Team Providers Care Phlebotomy Technologist Name Role Phone Uriel Mott MD Primary Care Provider [phone] Encounter Details Date Type Department Care Team (Late st Contact Info) Description 07/22/1998 Outpatient Historical HIS [facility] DEPT [place] [address] [facility]. [address] [place] [address] Social History Tobacco Use Types Packs/Day Years Used Date Smoking Tobacco: Never Assessed Comments Unknown Sex and Gender Information Value Date Recorded Sex Assigned at Not on file Legal Sex Female 3:07 AM STEAM FITTER SUPERVISOR Gender Identity Not on file Sexual Orientation Not on file documented as of this encounter Plan of Treatment Upcoming Encounters Date Type Department Care Team (Late st Contact Info) Description 10/15/2024 8:00 AM CDT Appointment [facility] Family Medicine Christine Wang [address] [facility] [address] [place] [address] [place] [address] [facility] [place] [address] 12/07/2024 8:00 AM CDT Procedure visit [facility] Neurology [address] [facility] [address] [place] [address] Shashank Moore MD [address] [facility] [address] [place] [address] 01/17/2025 8:20 AM STEAM FITTER SUPERVISOR Appointment [facility] Medicine Christine Piña [address] [facility] [address] [place] [address] [place] [address] [facility] [place] [address] 03/08/2025 8:00 AM STEAM FITTER SUPERVISOR Procedure visit [facility] Neurology [address] [facility] [address] [place] [address] Shashank Moore MD [address] [facility] [address] [place] [address] documented as of this encounter Visit Diagnoses Not on filedocumented in this encounter Additional Health Concerns Infection Onset Date Last Indicated Resolved Time R/O COVID-19 11/06/2019 11/06/2019 11/06/2019 8:56 AM CDT R/O COVID-19 12/29/2020 12/29/2020 12/29/2020 1:27 PM STEAM FITTER SUPERVISOR COVID-19 12/29/2020 12/29/2020 01/18/2021 1:16 AM STEAM FITTER SUPERVISOR documented as of this encounter Care Teams Phlebotomy Technologist Relationship Specialty [place] [address] [facility]. [address] [place] [address] PCP - General 07/29/00 documented as of this encounter
--- OUTSIDE RECORDS SUMMARY | 2024-09-28 17:11 | XMS_ITS | Encounter Summary ---
Author Organization [facility] Address [address] [place] [address] Care Team Providers Care Press Cleaner Name Role Phone Uriel Mott MD Primary Care Provider [phone] Encounter Details Date Type Department Care Team (Late Contact Info) Description 10/25/2006 Outpatient Historical [facility] Medicine Christine Wang [address] [place] [address] [place] [address] [place] [address] Social History Tobacco Use Types Packs/Day Years Used Date Smoking Tobacco: Never Assessed Comments Unknown Sex and Gender Information Value Date Recorded Sex Assigned at Not on file Legal Sex Female 3:07 AM PROFESSOR OF PATHOLOGY Gender Identity Not on file Sexual Orientation [...] AM CDT Appointment [facility] [place] [address] [place] [address] [place] [address] [place] [address] 12/07/2024 8:00 AM CDT Procedure visit [facility] Neurology [address] [facility] [address] [place] [address] Shashank Moore MD [address] [facility] [address] [place] [address] 01/17/2025 8:20 AM PROFESSOR OF PATHOLOGY Appointment [facility] Christine Piña [address] [facility] [address] [place] [address] [place] [address] [facility]. [address] [place] [address] 03/08/2025 8:00 AM PROFESSOR OF PATHOLOGY Procedure visit [place] [address] [facility] [address] [place] [address] Shashank Moore MD [address] [facility] [address] [place] [address] documented as of this encounter Visit Diagnoses Not on filedocumented in this encounter Additional Health Concerns Infection Onset Date Last Indicated Resolved Time R/O COVID-19 11/06/2019 11/06/2019 11/06/2019 8:56 AM CDT R/O COVID-19 12/29/2020 12/29/2020 12/29/2020 1:27 PM PROFESSOR OF PATHOLOGY COVID-19 12/29/2020 12/29/2020 01/18/2021 1:16 AM PROFESSOR OF PATHOLOGY documented as of this encounter Care Teams Press Cleaner Relationship Specialty [place] [address] [facility] [place] [address] PCP - General 07/29/00 documented as of this encounter
--- OUTSIDE RECORDS SUMMARY | 2024-09-28 17:11 | XMS_ITS | Encounter Summary ---
Author Organization [facility] Address [address] [place] [address] Care Team Providers Care Retail Pharmacist Name Role Phone Uriel Mott MD Primary Care Provider [phone] Encounter Details Date Type Department Care Team (Late Contact Info) Description 05/18/2006 Outpatient Historical [facility] Medicine Christine Piña [address] [place] [address] [place] [address] [address] [place] [address] Social History Tobacco Use Types Packs/Day Years Used Date Smoking Tobacco: Never Assessed Comments Unknown Sex and Gender Information Value Date Recorded Sex Assigned at Not on file Legal Sex Female 3:07 AM LINE SERVICE PERSON Gender Identity Not on file Sexual [...] 10/15/2024 8:00 AM CDT Appointment [facility] Medicine Christine Wang [address] [place] [address] [place] [address] [place] [address] 12/07/2024 8:00 AM CDT Procedure visit [facility] Neurology [address] [facility] [address] [place] [address] Shashank Moore MD [address] [facility] [address] [place] [address] 01/17/2025 8:20 AM LINE SERVICE PERSON Appointment [facility] Medicine Christine Piña [address] [facility] [facility] [address] [place] [address] [place] [address] [facility]. [address] [place] [address] 03/08/2025 8:00 AM LINE SERVICE PERSON Procedure visit [facility] Neurology [address] [facility] [address] [place] [address] Shashank Moore MD [address] [facility] [address] [place] [address] documented as of this encounter Visit Diagnoses Not on filedocumented in this encounter Additional Health Concerns Infection Onset Date Last Indicated Resolved Time R/O COVID-19 11/06/2019 11/06/2019 11/06/2019 8:56 AM CDT R/O COVID-19 12/29/2020 12/29/2020 12/29/2020 1:27 PM LINE SERVICE PERSON COVID-19 12/29/2020 12/29/2020 01/18/2021 1:16 AM LINE SERVICE PERSON documented as of this encounter Care Teams Retail Pharmacist Relationship Specialty [place] [address] [facility] [address] [place] [address] PCP - General 07/29/00 documented as of this encounter
--- OUTSIDE RECORDS SUMMARY | 2024-09-28 17:11 | XMS_ITS | Encounter Summary ---
Author Organization [facility] Address [address] [place] [address] Care Team Providers Care Bar Machine Operator Name Role Phone Uriel Mott MD Primary Care Provider [phone] Encounter Details Date Type Department Care Team (Late Contact Info) Description 04/26/2007 Outpatient Historical [facility] Medicine Christine Piña [address] [facility] [address] [place] [address] [place] [address] [place] [address] Social History Tobacco Use Types Packs/Day Years Used Date Smoking Tobacco: Never Assessed Comments Unknown Sex and Gender Information Value Date Recorded Sex Assigned at Not on file Legal Sex Female 3:07 AM NURSES' ASSOCIATION COUNSELOR Gender Identity Not on file Sexual Orientation Not on file documented as of this encounter Plan of Treatment Upcoming Encounters Date Type Department Care Team (Late st Contact Info) Description 10/15/2024 8:[address] [facility] Christine Piña [address] [facility] [address] [place] [address] [place] [address] [facility] [place] [address] 12/07/2024 8:00 AM CDT Procedure visit [facility] Neurology [address] [facility] [address] [place] [address] Shashank Moore MD [address] [facility] [address] [place] [address] 01/17/2025 8:20 AM NURSES' ASSOCIATION COUNSELOR Appointment [facility] Medicine Christine Piña [address] [facility] [address] [place] [address] [place] [address] [facility] [place] [address] 03/08/2025 8:00 AM NURSES' ASSOCIATION COUNSELOR Procedure visit [facility] Neurology [address] [facility] [address] [place] [address] Shashank Moore MD [address] [facility] [address] [place] [address] documented as of this encounter Visit Diagnoses Not on filedocumented in this encounter Additional Health Concerns Infection Onset Date Last Indicated Resolved Time R/O COVID-19 11/06/2019 11/06/2019 11/06/2019 8:56 AM CDT R/O COVID-19 12/29/2020 12/29/2020 12/29/2020 1:27 PM NURSES' ASSOCIATION COUNSELOR COVID-19 12/29/2020 12/29/2020 01/18/2021 1:16 AM NURSES' ASSOCIATION COUNSELOR documented as of this encounter Care Teams Bar Machine Operator Relationship Specialty [place] [address] [facility] [place] [address] PCP - General 07/29/00 documented as of this encounter
--- OUTSIDE RECORDS SUMMARY | 2024-09-28 17:11 | XMS_ITS | Encounter Summary ---
Author Organization [facility] Address [address] [place] [address] Care Team Providers Care Debate Director Name Role Phone Uriel Mott MD Primary Care Provider [phone] Encounter Details Date Type Department Care Team (Late st Contact Info) Description 10/05/2005 Outpatient Historical [facility] Fran Corley MD [address] [place] [address] Abdominal Pain, Unspecified Site (Primary Dx) Social History Tobacco Use Types Packs/Day Years Used Date Smoking Tobacco: Never Assessed Comments Unknown Sex and Gender Information Value Date Recorded Sex Assigned at Not on file Legal Sex Female 3:07 AM BAG MACHINE ADJUSTER Gender Identity Not on file Sexual Orientation Not on file documented as of this encounter Plan of Treatment Upcoming Encounters Date Type Department Care Team (Late st Contact Info) Description 10/15/2024 8:00 AM CDT Appointment [facility] Family Medicine Christine Piña [address] [facility] [address] [place] [address] [place] [address] [facility] [place] [address] 12/07/2024 8:00 AM CDT Procedure visit [facility] Neurology [address] [facility] [address] [place] [address] Shashank Moore MD [address] [facility] [address] [place] [address] 01/17/2025 8:20 AM BAG MACHINE ADJUSTER Appointment [facility] Medicine Christine Piña [address] [facility] [address] [place] [address] [place] [address] [facility] [place] [address] 03/08/2025 8:00 AM BAG MACHINE ADJUSTER Procedure visit [facility] Neurology [address] [facility] [address] [place] [address] Shashank Moore MD [address] [facility] [address] [place] [address] documented as of this encounter Visit Diagnoses Diagnosis Abdominal pain, unspecified site- Primary documented in this encounter Additional Health Concerns Infection Onset Date Last Indicated Resolved Time R/O COVID-19 11/06/2019 11/06/2019 11/06/2019 8:56 AM CDT R/O COVID-19 12/29/2020 12/29/2020 12/29/2020 1:27 PM BAG MACHINE ADJUSTER COVID-19 12/29/2020 12/29/2020 01/18/2021 1:16 AM BAG MACHINE ADJUSTER documented as of this encounter Care Teams Debate Director Relationship Specialty [place] [address] [facility] [place] [address] PCP - General 07/29/00 documented as of this encounter
--- OUTSIDE RECORDS SUMMARY | 2024-09-28 17:11 | XMS_ITS | Encounter Summary ---
Author Organization [facility] Address [address] [place] [address] Care Team Providers Care Acid Tank Cleaner Name Role Phone Uriel Mott MD Primary Care Provider [phone] Encounter Details Date Type Department Care Team (Late st Contact Info) Description 01/15/1999 Outpatient Historical [facility] DEPT [place] [address] [facility] [place] [address] Social History Tobacco Use Types Packs/Day Years Used Date Smoking Tobacco: Never Assessed Comments Unknown Sex and Gender Information Value Date Recorded Sex Assigned at Not on file Legal Sex Female 3:07 AM JUDGE CLERK Gender Identity Not on file Sexual Orientation Not on file documented as of this encounter Plan of Treatment Upcoming Encounters Date Type Department Care Team (Late st Contact Info) Description 10/15/2024 8:00 AM CDT Appointment [facility] Family Medicine Christine Piña [address] [facility] [address] [place] [address] [place] [address] [facility] [place] [address] 12/07/2024 8:00 AM CDT Procedure visit [facility] Neurology [address] [facility] [address] [place] [address] Shashank Moore MD [address] [facility] [address] [place] [address] 01/17/2025 8:20 AM JUDGE CLERK Appointment [facility] Medicine Christine Piña [address] [facility] [address] [place] [address] [place] [address] [facility] [place] [address] 03/08/2025 8:00 AM JUDGE CLERK Procedure visit [facility] Neurology [address] [facility] [address] [place] [address] Shashank Moore MD [address] [facility] [address] [place] [address] documented as of this encounter Visit Diagnoses Not on filedocumented in this encounter Additional Health Concerns Infection Onset Date Last Indicated Resolved Time R/O COVID-19 11/06/2019 11/06/2019 11/06/2019 8:56 AM CDT R/O COVID-19 12/29/2020 12/29/2020 12/29/2020 1:27 PM JUDGE CLERK COVID-19 12/29/2020 12/29/2020 01/18/2021 1:16 AM JUDGE CLERK documented as of this encounter Care Teams Acid Tank Cleaner Relationship Specialty [place] [address] [facility] [place] [address] PCP - General 07/29/00 documented as of this encounter
--- OUTSIDE RECORDS SUMMARY | 2024-09-28 17:11 | XMS_ITS | Encounter Summary ---
Author Organization [facility] Address [address] [place] [address] Care Team Providers Care Forepart Rounder Name Role Phone Uriel Mott MD Primary Care Provider [phone] Encounter Details Date Type Department Care Team (Late st Contact Info) Description 01/02/1999 Outpatient Historical [facility] DEPT OF FAMILY MEDICINE Alex Carmichael MD [address] [place] [address] Social History Tobacco Use Types Packs/Day Years Used Date Smoking Tobacco: Never Assessed Comments Unknown Sex and Gender Information Value Date Recorded Sex Assigned at Not on file Legal Sex Female 3:07 AM FIXTURE BUILDER Gender Identity Not on file Sexual Orientation Not on file documented as of this encounter Plan of Treatment Upcoming Encounters Date Type Department Care Team (Late st Contact Info) Description 10/15/2024 8:00 AM CDT Appointment [facility] Family Medicine Christine Wang [address] [facility] [address] [place] [address] [place] [address] [facility] [place] [address] 12/07/2024 8:00 AM CDT Procedure visit [facility] Neurology [address] [facility] [address] [place] [address] Shashank Moore MD [address] [facility] [address] [place] [address] 01/17/2025 8:20 AM FIXTURE BUILDER Appointment [facility] Medicine Christine Piña [address] [facility] [address] [place] [address] [place] [address] [facility] [place] [address] 03/08/2025 8:00 AM FIXTURE BUILDER Procedure visit [facility] Neurology [address] [facility] [address] [place] [address] Shashank Moore MD [address] [facility] [address] [place] [address] documented as of this encounter Visit Diagnoses Not on filedocumented in this encounter Additional Health Concerns Infection Onset Date Last Indicated Resolved Time R/O COVID-19 11/06/2019 11/06/2019 11/06/2019 8:56 AM CDT R/O COVID-19 12/29/2020 12/29/2020 12/29/2020 1:27 PM FIXTURE BUILDER COVID-19 12/29/2020 12/29/2020 01/18/2021 1:16 AM FIXTURE BUILDER documented as of this encounter Care Teams Forepart Rounder Relationship Specialty [place] [address] [facility] [place] [address] PCP - General 07/29/00 documented as of this encounter
--- OUTSIDE RECORDS SUMMARY | 2024-09-28 17:11 | XMS_ITS | Encounter Summary ---
Author Organization [facility] Address [address] [place] [address] Care Team Providers Care Health Club Manager Name Role Phone Uriel Mott MD Primary Care Provider [phone] Encounter Details Date Type Department Care Team (Late st Contact Info) Description 12/27/2006 Outpatient Historical [facility] Medicine Christine Piña [address] [facility] [address] [place] [address] [place] [address] [address] Social History Tobacco Use Types Packs/Day Years Used Date Smoking Tobacco: Never Assessed Comments Unknown Sex and Gender Information Value Date Recorded Sex Assigned at Not on file Legal Sex Female 3:07 AM RAILROAD DINING CAR STEWARD/STEWARDESS Gender Identity Not on file Sexual Orientation Not on file documented as of this encounter Plan of Treatment Upcoming Encounters Date Type Department Care Team (Late st Contact Info) Description 10/15/2024 8:[address] [facility] [place] Christine Wang [address] [place] [facility] [address] [place] [address] [place] [address] [facility] [place] [address] 12/07/2024 8:00 AM CDT Procedure visit [facility] Neurology [address] [facility] [address] [place] [address] Shashank Moore MD [address] [facility] [address] [place] [address] 01/17/2025 8:20 AM RAILROAD DINING CAR STEWARD/STEWARDESS Appointment [facility] Medicine Christine Piña [address] [facility] [address] [place] [address] [place] [address] [facility] [address] [place] [address] 03/08/2025 8:00 AM RAILROAD DINING CAR STEWARD/STEWARDESS Procedure visit [facility] Neurology [address] [facility] [address] [place] [address] Shashank Moore MD [address] [address] documented as of this encounter Visit Diagnoses Not on filedocumented in this encounter Additional Health Concerns Infection Onset Date Last Indicated Resolved Time R/O COVID-19 11/06/2019 11/06/2019 11/06/2019 8:56 AM CDT R/O COVID-19 12/29/2020 12/29/2020 12/29/2020 1:27 PM RAILROAD DINING CAR STEWARD/STEWARDESS COVID-19 12/29/2020 12/29/2020 01/18/2021 1:16 AM RAILROAD DINING CAR STEWARD/STEWARDESS documented as of this encounter Care Teams Health Club Manager Relationship Specialty [place] [address] [facility] [address] [place] [address] PCP - General 07/29/00 documented as of this encounter
--- OUTSIDE RECORDS SUMMARY | 2024-09-28 17:11 | XMS_ITS | Encounter Summary ---
Author Organization [facility] Address [address] [place] [address] Care Team Providers Care Concrete Wall Grinder Operator Name Role Phone Uriel Mott MD Primary Care Provider [phone] Encounter Details Date Type Department Care Team (Latest Contact Info) Description 07/15/2006 Outpatient Historical [facility] Ruy Ornelas MD Other Specified Complications (Primary Dx) Social History Tobacco Use Types Packs/Day Years Used Date Smoking Tobacco: Never Assessed Comments Unknown Sex and Gender Information Value Date Recorded Sex Assigned at Not on file Legal Sex Female 3:07 AM BILLET HEADER Gender Identity Not on file Sexual Orientation Not on file documented as of this encounter Plan of Treatment Upcoming Encounters Date Type Department Care Team (Late st Contact Info) Description 10/15/2024 8:00 AM CDT Appointment [facility] Medicine Christine Piña [address] [facility] [address] [place] [address] [place] [address] [facility] [place] [address] 12/07/2024 8:00 AM CDT Procedure visit [facility] Neurology [address] [facility] [address] [place] [address] Shashank Moore MD [address] [facility] [address] [place] [address] 01/17/2025 8:20 AM BILLET HEADER Appointment [facility] Medicine [place] Wang [address] [facility] [address] [place] [address] [place] [address] [facility] [place] [address] 03/08/2025 8:00 AM BILLET HEADER Procedure visit [facility] Neurology [address] [facility] [address] [place] [address] Shashank Moore MD [address] [facility] [address] [place] [address] documented as of this encounter [...] and non- Americans is available on the [facility] Red e Appet at: [email or web address] Select: Lab Policies and Procedures Select: Reference [...] R/O COVID-19 12/29/2020 12/29/2020 12/29/2020 1:27 PM BILLET HEADER COVID-19 12/29/2020 12/29/2020 01/18/2021 1:16 AM BILLET HEADER documented as of this encounter Care Teams Concrete Wall Grinder Operator Relationship Specialty [place] [address] [facility] [address] [place] [address] PCP - General 07/29/00 documented as of this encounter
--- OUTSIDE RECORDS SUMMARY | 2024-09-28 17:11 | XMS_ITS | Encounter Summary ---
Author Organization [facility] Address [address] [place] [address] Care Team Providers Care Quality Control Analyst Name Role Phone Uriel Mott MD Primary Care Provider [phone] Encounter Details Date Type Department Care Team (Late st Contact Info) Description 05/04/[address] [facility] Family Medicine [facility] [address] [facility] [address] [place] [address] Joby Oneal DO [address] [address] Social History Tobacco Use Types Packs/Day Years Used Date Smoking Tobacco: Never Assessed Comments Unknown Sex and Gender Information Value Date Recorded Sex Assigned at Not on file Legal Sex Female 3:07 AM SKI GUIDE Gender Identity Not on file Sexual [...] + Sick contacts in [facility] over [facility]. cold all the time. + facial pain [...] Info) Description 10/15/2024 8:00 AM CDT Appointment [facility] Christine Piña [address] [facility] [address] [place] [address] [place] [address] [facility] [place] [address] 12/07/2024 8:00 AM CDT Procedure visit [facility] Neurology [address] [facility] [address] [place] [address] Shashank Moore MD [address] [address] 01/17/2025 8:20 AM SKI GUIDE Appointment [facility] Christine Piña [address] [facility] [address] [place] [address] [place] [address] [facility] [place] [address] 03/08/2025 8:00 AM SKI GUIDE Procedure visit [facility] Neurology [address] [facility] [address] [place] [address] Shashank Moore MD [address] [address] documented as of this encounter Visit Diagnoses Not on filedocumented in this encounter Additional Health Concerns Infection Onset Date Last Indicated Resolved Time R/O COVID-19 11/06/2019 11/06/2019 11/06/2019 8:56 AM CDT R/O COVID-12/29/2020 12/29/2020 12/29/2020 1:27 PM SKI GUIDE COVID-19 12/29/2020 12/29/2020 01/18/2021 1:16 AM SKI GUIDE documented as of this encounter Care Teams Quality Control Analyst Relationship Specialty [place] [address] [facility] [place] [address] PCP - General 07/29/00 documented as of this encounter
--- OUTSIDE RECORDS SUMMARY | 2024-09-28 17:11 | XMS_ITS | Encounter Summary ---
Author Organization [facility] Address [address] [place] [address] Care Team Providers Care Diesel Technology Instructor Name Role Phone Uriel Mott MD Primary Care Provider [phone] Encounter Details Date Type Department Care Team (Late st Contact Info) Description 04/18/2007 Orders Only [facility] [place] Medicine Christine Wang [address] [employer] [facility] [address] [place] [address] [place] [address] [employer] [facility] [place] [address] Social History Tobacco Use Types Packs/Day Years Used Date Smoking Tobacco: Never Assessed Comments Unknown Sex and Gender Information Value Date Recorded Sex Assigned at Not on file Legal Sex Female 3:07 AM PROFESSIONAL FEE CODER Gender Identity Not on file Sexual Orientation Not on file documented as of this encounter Plan of Treatment Upcoming Encounters Date Type Department Care Team (Late st Contact Info) Description 10/15/2024 8:00 AM CDT Appointment [facility] Christine Wang [address] [employer] [facility] [address] [place] [address] [place] [address] [facility]. [address] [place] [address] 12/07/2024 8:00 AM CDT Procedure visit [facility] Neurology [address] [facility] [address] [place] [address] Shashank Moore MD [address] [facility] [address] [place] [address] 01/17/2025 8:20 AM PROFESSIONAL FEE CODER Appointment [facility] Family Medicine Christine Piña [address] [facility] [address] [place] [address] [place] [address] [facility]. [address] [place] [address] 03/08/2025 8:00 AM PROFESSIONAL FEE CODER Procedure visit [facility] [address] [facility] [address] [place] [address] Shashank Moore MD [address] [facility] [address] [place] [address] documented as of this encounter Visit Diagnoses Not on filedocumented in this encounter Additional Health Concerns Infection Onset Date Last Indicated Resolved Time R/O COVID-19 11/06/2019 11/06/2019 11/06/2019 8:56 AM CDT R/O COVID-19 12/29/2020 12/29/2020 12/29/2020 1:27 PM PROFESSIONAL FEE CODER COVID-19 12/29/2020 12/29/2020 01/18/2021 1:16 AM PROFESSIONAL FEE CODER documented as of this encounter Care Teams Diesel Technology Instructor Relationship Specialty [place] [address] [facility] [address] [place] [address] PCP - General 07/29/00 documented as of this encounter
--- OUTSIDE RECORDS SUMMARY | 2024-09-28 17:11 | XMS_ITS | Encounter Summary ---
Author Organization [facility] Address [address] [place] [address] Care Team Providers Care Fixed Wing Pilot Name Role Phone Uriel Mott MD Primary Care Provider [phone] Encounter Details Date Type Department Care Team (Late Contact Info) Description 09/28/2024 Emergency [facility] Emergency Department [address] [place] [address] Social History Tobacco Use Types Packs/Day Years [...] file Legal Sex Female 3:07 AM SENIOR CHEMICAL PROCESS ENGINEER Gender Identity Not on file Sexual Orientation Not on file documented as of this encounter Plan of Treatment Upcoming Encounters Date Type Department Care Team (Late st Contact Info) Description 10/15/2024 8:00 AM CDT Appointment [facility] Family Medicine Christine Piña [address] [employer] [facility] [address] [place] [address] [place] [address] [employer] [facility]. [address] [place] [address] 12/07/2024 8:00 AM CDT Procedure visit [facility] Neurology [address] [facility] [address] [place] [address] Shashank Moore MD [address] [facility][Note 2] [address] [place] [address] 01/17/2025 8:20 AM SENIOR CHEMICAL PROCESS ENGINEER Appointment [facility] Medicine Christine Piña [address] [place] [facility] [address] [place] [address] [place] [address] [facility]. [address] [address] 03/08/2025 8:00 AM SENIOR CHEMICAL PROCESS ENGINEER Procedure visit [facility] Neurology [address] [facility] [address] [place] [address] Shashank Moore MD [address] [facility][Note 2] [address] [place] [address] documented as of this encounter Visit Diagnoses Not on filedocumented in this encounter Care Teams Fixed Wing Pilot Relationship Specialty [place] [address] [place] [address] PCP - General 07/29/00 documented as of this encounter
--- OUTSIDE RECORDS SUMMARY | 2024-09-28 17:11 | XMS_ITS | Encounter Summary ---
Author Organization [facility] Address [address] [place] [address] Care Team Providers Care Setter Off Name Role Phone Uriel Mott MD Primary Care Provider [phone] Encounter Details Date Type Department Care Team (Late Contact Info) Description 01/05/2007 Outpatient Historical [facility] Medicine Christine Wang [address] [email or web address] [facility] [address] [place] [address] [place] [address] [employer] [facility]. [address] [place] [address] Social History Tobacco Use Types Packs/Day Years Used Date Smoking Tobacco: Never Assessed Comments Unknown Sex and Gender Information Value Date Recorded Sex Assigned at Not on file Legal Sex Female 3:07 AM ORACLE BRM DEVELOPER Gender Identity Not on file Sexual Orientation Not on file documented as of this encounter Plan of Treatment Upcoming Encounters Date Type Department Care Team (Late st Contact Info) Description 10/15/2024 8:00 AM CDT Appointment [facility] Medicine Christine Wang [address] [email or web address] [facility] [address] [place] [address] [place] [address] [facility]. [address] [place] [address] 12/07/2024 8:00 AM CDT Procedure visit [facility] Neurology [address] [facility] [address] [place] [address] Shashank Mooer MD [address] [facility] [address] [place] [address] 01/17/2025 8:20 AM ORACLE BRM DEVELOPER Appointment [facility] Family Medicine Christine Piña [address] [facility] [address] [place] [address] [place] [address] [facility]. [address] [place] [address] 03/08/2025 8:00 AM ORACLE BRM DEVELOPER Procedure visit [facility] [address] [facility] [address] [place] [address] Shashank Moore MD [address] [facility] [address] [place] [address] documented as of this encounter Visit Diagnoses Not on filedocumented in this encounter Additional Health Concerns Infection Onset Date Last Indicated Resolved Time R/O COVID-19 11/06/2019 11/06/2019 11/06/2019 8:56 AM CDT R/O COVID-19 12/29/2020 12/29/2020 12/29/2020 1:27 PM ORACLE BRM DEVELOPER COVID-19 12/29/2020 12/29/2020 01/18/2021 1:16 AM ORACLE BRM DEVELOPER documented as of this encounter Care Teams Setter Off Relationship Specialty [place] [address] [facility] [address] [place] [address] PCP - General 07/29/00 documented as of this encounter
--- OUTSIDE RECORDS SUMMARY | 2024-09-28 17:11 | XMS_ITS | Encounter Summary ---
Author Organization [facility] Address [address] [place] [address] Care Team Providers Care Sde Name Role Phone Uriel Mott MD Primary Care Provider [phone] Encounter Details Date Type Department Care Team (Late st Contact Info) Description 03/05/2007 Orders Only [facility] Family Medicine [place] Wang [address] [address] [address] [place] [address] [place] [address] [employer] [address] [place] [address] Social History Tobacco Use Types Packs/Day Years Used Date Smoking Tobacco: Never Assessed Comments Unknown Sex and Gender Information Value Date Recorded Sex Assigned at Not on file Legal Sex Female 3:07 AM HEEL SEAT FILLER Gender Identity Not on file Sexual Orientation Not on file documented as of this encounter Progress Notes * Mesha Hutchins DO - 06/21/2007 8:30 PM CDT TIME:08:23 am PATIENT`S HOME PHONE: PATIENT`S WORK PHONE: PATIENT`S INSURANCE: [facility] Note created by: Mesha Hutchins M Calls [...] Info) Description 10/15/2024 8:00 AM CDT Appointment [facility] Medicine Christine Piña [address] [facility] [address] [place] [address] [place] [address] [facility]. [address] [place] [address] 12/07/2024 8:00 AM CDT Procedure visit [facility] Neurology [address] [facility] [address] [place] [address] Shashank Moore MD [address] [address] 01/17/2025 8:20 AM HEEL SEAT FILLER Appointment [facility] Christine Piña [address] [facility] [address] [place] [address] [place] [address] [facility]. [address] [address] 03/08/2025 8:00 AM HEEL SEAT FILLER Procedure visit [facility] Neurology [address] [facility] [address] [place] [address] Shashank Moore MD [address] [address] documented as of this encounter Visit Diagnoses Not on filedocumented in this encounter Additional Health Concerns Infection Onset Date Last Indicated Resolved Time R/O COVID-19 11/06/2019 11/06/2019 11/06/2019 8:56 AM CDT R/O COVID-19 12/29/2020 12/29/2020 12/29/2020 1:27 PM HEEL SEAT FILLER COVID-19 12/29/2020 12/29/2020 01/18/2021 1:16 AM HEEL SEAT FILLER documented as of this encounter Care Teams Sde Relationship Specialty [place] [address] [facility]. [address] [place] [address] PCP - General 07/29/00 documented as of this encounter
--- OUTSIDE RECORDS SUMMARY | 2024-09-28 17:11 | XMS_ITS | Encounter Summary ---
Author Organization [facility] Address [address] [facility] Attn: Epic Prelude ADT [place] [address] Care Team Providers Care Stock Repairer Name Role Phone Uriel Mott MD Primary Care Provider [phone] Encounter Details Date Type Department Care Team (Latest Contact Info) Description 10/25/2006 Orders Only Mesha Escobar MD NO ADDRESS ON FILE Social History Tobacco Use Types Packs/Day Years Used Date Smoking Tobacco: Never Assessed Comments Unknown Sex and Gender Information Value Date Recorded Sex Assigned at Not on file Legal Sex Female 3:07 AM CONTINUOUS IMPROVEMENT MANAGER Gender Identity Not on file Sexual [...] refills on xanax. LAB ORDERS: Order number: [id number] Test Ordered: TSH (REFLEX FREE T4/FREE T3) 1727 Order number: [id number] Test Ordered: GLUCOSE LEVEL, FASTING 1098 RETURN [...] CDT Appointment [facility] [address] [place] [address] [facility] [address] [place] [address] [place] [address] [facility]. [address] [place] [address] 12/07/2024 8:00 AM CDT Procedure visit [facility] [place] [facility] Neurology [address] [facility] [address] [place] [address] Shashank Moore MD [address] [address] 01/17/2025 8:20 AM CONTINUOUS IMPROVEMENT MANAGER Appointment [facility] Medicine Christine Piña [address] [address] [place] [address] [facility] [address] 03/08/2025 8:00 AM CONTINUOUS IMPROVEMENT MANAGER Procedure visit [facility] [place] [facility] Neurology [address] [place] [address] Shashank Moore MD [address] [place] [address] documented as of this encounter Visit Diagnoses Not on filedocumented in this encounter Additional Health Concerns Infection Onset Date Last Indicated Resolved Time R/O COVID-19 11/06/2019 11/06/2019 11/06/2019 8:56 AM CDT R/O COVID-19 12/29/2020 12/29/2020 12/29/2020 1:27 PM CONTINUOUS IMPROVEMENT MANAGER COVID-19 12/29/2020 12/29/2020 01/18/2021 1:16 AM CONTINUOUS IMPROVEMENT MANAGER documented as of this encounter Care Teams Stock Repairer Relationship Specialty [place] [address] [facility]. [address] [place] [address] PCP - General 07/29/00 documented as of this encounter
--- OUTSIDE RECORDS SUMMARY | 2024-09-28 17:11 | XMS_ITS | Encounter Summary ---
Author Organization [facility] Address [address] [place] [address] Care Team Providers Care Basket Mender Name Role Phone Uriel Mott MD Primary Care Provider [phone] Encounter Details Date Type Department Care Team (Late st Contact Info) Description 12/27/2006 Outpatient Historical [facility] Medicine Christine Piña [address] [facility] [address] [place] [address] [place] [address] [address] Social History Tobacco Use Types Packs/Day Years Used Date Smoking Tobacco: Never Assessed Comments Unknown Sex and Gender Information Value Date Recorded Sex Assigned at Not on file Legal Sex Female 3:07 AM IMPREGNATOR [employer] Gender Identity Not on file Sexual Orientation Not on file documented as of this encounter Plan of Treatment Upcoming Encounters Date Type Department Care Team (Late st Contact Info) Description 10/15/2024 8:00 AM CDT Appointment [facility] Christine Wang [address] [place] [facility] [address] [place] [address] [place] [address] [facility]. [address] [place] [address] 12/07/2024 8:00 AM CDT Procedure visit [facility] Neurology [address] [facility] [address] [place] [address] Shashank Moore MD [address] [facility] [address] [place] [address] 01/17/2025 8:20 AM IMPREGNATOR [employer] Appointment [facility] Medicine Christine Piña [address] [facility] [address] [place] [address] [place] [address] [facility] [address] [place] [address] 03/08/2025 8:00 AM IMPREGNATOR [employer] Procedure visit [facility] Neurology [address] [facility] [address] [place] [address] Shashank Moore MD [address] [address] documented as of this encounter Visit Diagnoses Not on filedocumented in this encounter Additional Health Concerns Infection Onset Date Last Indicated Resolved Time R/O COVID-19 11/06/2019 11/06/2019 11/06/2019 8:56 AM CDT R/O COVID-19 12/29/2020 12/29/2020 12/29/2020 1:27 PM IMPREGNATOR [employer] COVID-19 12/29/2020 12/29/2020 01/18/2021 1:16 AM IMPREGNATOR [employer] documented as of this encounter Care Teams Basket Mender Relationship Specialty [place] [address] [facility] [address] [place] [address] PCP - General 07/29/00 documented as of this encounter
--- OUTSIDE RECORDS SUMMARY | 2024-09-28 17:11 | XMS_ITS | Encounter Summary ---
Author Organization [facility] Address [address] [place] [address] Care Team Providers Care Mathematician Research Name Role Phone Uriel Mott MD Primary Care Provider [phone] Encounter Details Date Type Department Care Team (Latest Contact Info) Description 12/27/2006 Outpatient Historical [facility] Medicine Christine Wang [address] [employer] [facility] [address] [place] [address] [place] [address] [facility] [address] [place] [address] Acute Pyelonephritis without Lesion of Renal Medullary Necrosis (Primary Dx) Social History Tobacco Use Types Packs/Day Years Used Date Smoking Tobacco: Never Assessed Comments Unknown Sex and Gender Information Value Date Recorded Sex Assigned at Not on file Legal Sex Female 3:07 AM PROFESSOR OF BUSINESS ADMINISTRATION Gender Identity Not on file Sexual Orientation Not on file documented as of this encounter Plan of Treatment Upcoming Encounters Date Type Department Care Team (Late st Contact Info) Description 10/15/2024 8:00 AM CDT Appointment [facility] Medicine [place] Wang [address] [place] [facility] [address] [place] [address] [place] [address] [facility]. [address] [place] [address] 12/07/2024 8:00 AM CDT Procedure visit [facility] Neurology [address] [facility] [address] [place] [address] Shashank Moore MD [address] [place] [place] [address] 01/17/2025 8:20 AM PROFESSOR OF BUSINESS ADMINISTRATION Appointment [facility] Medicine Christine Piña [address] [facility] [address] [place] [address] [place] [address] [facility]. [address] [address] 03/08/2025 8:00 AM PROFESSOR OF BUSINESS ADMINISTRATION Procedure visit [facility] [address] [facility] [address] [place] [address] Shashank Moore MD [address] [place] [address] documented as of this encounter Visit Diagnoses Diagnosis Acute pyelonephritis without lesion of renal medullary necrosis- Primary documented in this encounter Additional Health Concerns Infection Onset Date Last Indicated Resolved Time R/O COVID-19 11/06/2019 11/06/2019 11/06/2019 8:56 AM CDT R/O COVID-19 12/29/2020 12/29/2020 12/29/2020 1:27 PM PROFESSOR OF BUSINESS ADMINISTRATION COVID-19 12/29/2020 12/29/2020 01/18/2021 1:16 AM PROFESSOR OF BUSINESS ADMINISTRATION documented as of this encounter Care Teams Mathematician Research Relationship Specialty [place] [address] [facility] [address] [place] [address] PCP - General 07/29/00 documented as of this encounter
--- OUTSIDE RECORDS SUMMARY | 2024-09-28 17:11 | XMS_ITS | Encounter Summary ---
Author Organization [facility] Address [address] [place] [address] Care Team Providers Care Malter Operator Name Role Phone Uriel Mott MD Primary Care Provider [phone] Encounter Details Date Type Department Care Team (Late Contact Info) Description 01/05/[address] [facility] Medicine Christine Wang [address] [employer] [facility] [address] [place] [address] [place] [address] [place] [facility]. [address] [place] [address] Social History Tobacco Use Types Packs/Day Years Used Date Smoking Tobacco: Never Assessed Comments Unknown Sex and Gender Information Value Date Recorded Sex Assigned at Not on file Legal Sex Female 3:07 AM MANAGER CONTRACTING Gender Identity Not on file Sexual Orientation Not on file documented as of this encounter Plan of Treatment Upcoming Encounters Date Type Department Care Team (Late st Contact Info) Description 10/15/2024 8:[address] [facility] Medicine Christine Wang [address] [employer] [facility] [address] [place] [address] [place] [address] [facility] [place] [address] 12/07/2024 8:00 AM CDT Procedure visit [facility] Neurology [address] [facility] [address] [place] [address] Shashank Moore MD [address] [facility] [address] [place] [address] 01/17/2025 8:20 AM MANAGER CONTRACTING Appointment [facility] Family Medicine Christine Piña [address] [facility] [address] [place] [address] [place] [address] [facility] [place] [address] 03/08/2025 8:00 AM MANAGER CONTRACTING Procedure visit [facility] [address] [facility] [address] [place] [address] Shashank Moore MD [address] [facility] [address] [place] [address] documented as of this encounter Visit Diagnoses Not on filedocumented in this encounter Additional Health Concerns Infection Onset Date Last Indicated Resolved Time R/O COVID-19 11/06/2019 11/06/2019 11/06/2019 8:56 AM CDT R/O COVID-19 12/29/2020 12/29/2020 12/29/2020 1:27 PM MANAGER CONTRACTING COVID-19 12/29/2020 12/29/2020 01/18/2021 1:16 AM MANAGER CONTRACTING documented as of this encounter Care Teams Malter Operator Relationship Specialty [place] [address] [facility] [address] [place] [address] PCP - General 07/29/00 documented as of this encounter
--- OUTSIDE RECORDS SUMMARY | 2024-09-28 17:11 | XMS_ITS | Encounter Summary ---
Author Organization [facility] Address [address] [place] [address] Care Team Providers Care Financial Reporting Director Name Role Phone Uriel Mott MD Primary Care Provider [phone] Encounter Details Date Type Department Care Team (Latest Contact Info) Description 05/10/2008 [place]patient [place] [address] [facility]. [address] [place] [address] Unspecified Disorder of Sweat Glands Social History Tobacco Use Types Packs/Day Years Used Date Smoking Tobacco: Never Alcohol Use Standard Drinks/Week Comments No 0 (1 standard drink = 0.6 oz pur e alcohol) Comments No Sex and Gender Information Value Date Recorded Sex Assigned at Not on file Legal Sex Female 3:07 AM MACHINES TECHNICIAN Gender Identity Not on file Sexual Orientation Not on file documented as of this encounter Plan of Treatment Upcoming Encounters Date Type Department Care Team (Late st Contact Info) Description 10/15/2024 8:00 AM CDT Appointment [facility] Family Medicine Christine Piña [address] [facility] [address] [place] [address] [place] [address] [facility]. [address] [place] [address] 12/07/2024 8:00 AM CDT Procedure visit [facility] Neurology [address] [facility] [address] [place] [address] Shashank Moore MD [address] [facility] [address] [place] [address] 01/17/2025 8:20 AM MACHINES TECHNICIAN Appointment [facility] Medicine Christine Piña [address] [facility] [address] [place] [address] [place] [address] [facility]. [address] [place] [address] 03/08/2025 8:00 AM MACHINES TECHNICIAN Procedure visit [facility] [address] [facility] [address] [place] [address] Shashank Moore MD [address] [facility] [address] [place] [address] documented as of this encounter Visit Diagnoses Diagnosis Unspecified disorder of sweat glands documented in this encounter Additional Health Concerns Infection Onset Date Last Indicated Resolved Time R/O COVID-19 11/06/2019 11/06/2019 11/06/2019 8:56 AM CDT R/O COVID-19 12/29/2020 12/29/2020 12/29/2020 1:27 PM MACHINES TECHNICIAN COVID-19 12/29/2020 12/29/2020 01/18/2021 1:16 AM MACHINES TECHNICIAN documented as of this encounter Care Teams Financial Reporting Director Relationship Specialty [place] [address] [facility]. [address] [place] [address] PCP - General 07/29/00 documented as of this encounter
--- OUTSIDE RECORDS SUMMARY | 2024-09-28 17:11 | XMS_ITS | Encounter Summary ---
Author Organization [facility] Address [address] [place] [address] Care Team Providers Care Repairer Shoe Sticks Name Role Phone Uriel Mott MD Primary Care Provider [phone] Encounter Details Date Type Department Care Team (Late st Contact Info) Description 12/08/1998 Outpatient Historical HIS [facility] DEPT OF FAMILY MEDICINE Alex Carmichael MD [address] [place] [address] Social History Tobacco Use Types Packs/Day Years Used Date Smoking Tobacco: Never Assessed Comments Unknown Sex and Gender Information Value Date Recorded Sex Assigned at Not on file Legal Sex Female 3:07 AM HUMANITIES DEPARTMENT CHAIR Gender Identity Not on file Sexual Orientation Not on file documented as of this encounter Plan of Treatment Upcoming Encounters Date Type Department Care Team (Late st Contact Info) Description 10/15/2024 8:00 AM CDT Appointment [facility] Family Medicine Christine Wang [address] [facility] [address] [place] [address] [place] [address] [facility] [place] [address] 12/07/2024 8:00 AM CDT Procedure visit [facility] Neurology [address] [facility] [address] [place] [address] Shashank Moore MD [address] [facility] [address] [place] [address] 01/17/2025 8:20 AM HUMANITIES DEPARTMENT CHAIR Appointment [facility] Medicine Christine Piña [address] [facility] [address] [place] [address] [place] [address] [facility] [place] [address] 03/08/2025 8:00 AM HUMANITIES DEPARTMENT CHAIR Procedure visit [facility] Neurology [address] [facility] [address] [place] [address] Shashank Moore MD [address] [facility] [address] [place] [address] documented as of this encounter Visit Diagnoses Not on filedocumented in this encounter Additional Health Concerns Infection Onset Date Last Indicated Resolved Time R/O COVID-19 11/06/2019 11/06/2019 11/06/2019 8:56 AM CDT R/O COVID-19 12/29/2020 12/29/2020 12/29/2020 1:27 PM HUMANITIES DEPARTMENT CHAIR COVID-19 12/29/2020 12/29/2020 01/18/2021 1:16 AM HUMANITIES DEPARTMENT CHAIR documented as of this encounter Care Teams Repairer Shoe Sticks Relationship Specialty [place] [address] [facility] [place] [address] PCP - General 07/29/00 documented as of this encounter
--- OUTSIDE RECORDS SUMMARY | 2024-09-28 17:11 | XMS_ITS | Encounter Summary ---
Author Organization [facility] Address [address] [place] [address] Care Team Providers Care Admitting Counselor Name Role Phone Uriel Mott MD Primary Care Provider [phone] Encounter Details Date Type Department Care Team (Late st Contact Info) Description 02/03/1999 Outpatient Historical HIS [facility] DEPT [place] [address] [facility] [place] [address] Social History Tobacco Use Types Packs/Day Years Used Date Smoking Tobacco: Never Assessed Comments Unknown Sex and Gender Information Value Date Recorded Sex Assigned at Not on file Legal Sex Female 3:07 AM HOSE SEAMER Gender Identity Not on file Sexual Orientation Not on file documented as of this encounter Plan of Treatment Upcoming Encounters Date Type Department Care Team (Late st Contact Info) Description 10/15/2024 8:00 AM CDT Appointment [facility] Family Medicine Christine Wang [address] [facility] [address] [place] [address] [place] [address] [facility] [place] [address] 12/07/2024 8:00 AM CDT Procedure visit [facility] Neurology [address] [facility] [address] [place] [address] Shashank Moore MD [address] [facility] [address] [place] [address] 01/17/2025 8:20 AM HOSE SEAMER Appointment [facility] Medicine Christine Piña [address] [facility] [address] [place] [address] [place] [address] [facility] [place] [address] 03/08/2025 8:00 AM HOSE SEAMER Procedure visit [facility] Neurology [address] [facility] [address] [place] [address] Shashank Moore MD [address] [facility] [address] [place] [address] documented as of this encounter Visit Diagnoses Not on filedocumented in this encounter Additional Health Concerns Infection Onset Date Last Indicated Resolved Time R/O COVID-19 11/06/2019 11/06/2019 11/06/2019 8:56 AM CDT R/O COVID-19 12/29/2020 12/29/2020 12/29/2020 1:27 PM HOSE SEAMER COVID-19 12/29/2020 12/29/2020 01/18/2021 1:16 AM HOSE SEAMER documented as of this encounter Care Teams Admitting Counselor Relationship Specialty [place] [address] [facility] [place] [address] PCP - General 07/29/00 documented as of this encounter
--- OUTSIDE RECORDS SUMMARY | 2024-09-28 17:11 | XMS_ITS | Encounter Summary ---
Author Organization [facility] Address [address] [place] [address] Care Team Providers Care Hotel Maid Name Role Phone Uriel Mott MD Primary Care Provider [phone] Encounter Details Date Type Department Care Team (Late st Contact Info) Description 04/26/2007 Outpatient Historical [facility] Medicine Christine Piña [address] [facility] [address] [place] [address] [place] [address] [place] [address] Social History Tobacco Use Types Packs/Day Years Used Date Smoking Tobacco: Never Assessed Comments Unknown Sex and Gender Information Value Date Recorded Sex Assigned at Not on file Legal Sex Female 3:07 AM FINISHER MACHINE Gender Identity Not on file Sexual Orientation Not on file documented as of this encounter Plan of Treatment Upcoming Encounters Date Type Department Care Team (Late st Contact Info) Description 10/15/2024 8:00 AM CDT Appointment [facility] Medicine Christine Piña [address] [facility] [address] [place] [address] [place] [address] [facility] [place] [address] 12/07/2024 8:00 AM CDT Procedure visit [facility] Neurology [address] [facility] [address] [place] [address] Shashank Moore MD [address] [facility] [address] [place] [address] 01/17/2025 8:20 AM FINISHER MACHINE Appointment [facility] Family Medicine Christine Piña [address] [facility] [address] [place] [address] [place] [address] [facility] [place] [address] 03/08/2025 8:00 AM FINISHER MACHINE Procedure visit [facility] [address] [facility] [address] [place] [address] Shashank Moore MD [address] [facility] [address] [place] [address] documented as of this encounter Visit Diagnoses Not on filedocumented in this encounter Additional Health Concerns Infection Onset Date Last Indicated Resolved Time R/O COVID-19 11/06/2019 11/06/2019 11/06/2019 8:56 AM CDT R/O COVID-19 12/29/2020 12/29/2020 12/29/2020 1:27 PM FINISHER MACHINE COVID-19 12/29/2020 12/29/2020 01/18/2021 1:16 AM FINISHER MACHINE documented as of this encounter Care Teams Hotel Maid Relationship Specialty [place] [address] [facility] [address] [place] [address] PCP - General 07/29/00 documented as of this encounter
--- OUTSIDE RECORDS SUMMARY | 2024-09-28 17:12 | XMS_ITS | Encounter Summary ---
Author Organization [facility] Address [address] [place] [address] Care Team Providers Care Dispatch Machine Runner Name Role Phone Uriel Mott MD Primary Care Provider [phone] Encounter Details Date Type Department Care Team (Late st Contact Info) Description 07/29/2000 Outpatient Historical HIS [facility] DEPT [place] [address] [facility]. [address] [place] [address] Social History Tobacco Use Types Packs/Day Years Used Date Smoking Tobacco: Never Assessed Comments Unknown Sex and Gender Information Value Date Recorded Sex Assigned at Not on file Legal Sex Female 3:07 AM CORE INSERTER Gender Identity Not on file Sexual Orientation Not on file documented as of this encounter Plan of Treatment Upcoming Encounters Date Type Department Care Team (Late st Contact Info) Description 10/15/2024 8:00 AM CDT Appointment [facility] Family Medicine Christine Piña [address] [facility] [address] [place] [address] [place] [address] [facility] [place] [address] 12/07/2024 8:00 AM CDT Procedure visit [facility] Neurology [address] [facility] [address] [place] [address] Shashank Moore MD [address] [facility] [address] [place] [address] 01/17/2025 8:20 AM CORE INSERTER Appointment [facility] Medicine Christine Piña [address] [facility] [address] [place] [address] [place] [address] [facility] [place] [address] 03/08/2025 8:00 AM CORE INSERTER Procedure visit [facility] Neurology [address] [facility] [address] [place] [address] Shashank Moore MD [address] [facility] [address] [place] [address] documented as of this encounter Visit Diagnoses Not on filedocumented in this encounter Additional Health Concerns Infection Onset Date Last Indicated Resolved Time R/O COVID-19 11/06/2019 11/06/2019 11/06/2019 8:56 AM CDT R/O COVID-19 12/29/2020 12/29/2020 12/29/2020 1:27 PM CORE INSERTER COVID-19 12/29/2020 12/29/2020 01/18/2021 1:16 AM CORE INSERTER documented as of this encounter Care Teams Dispatch Machine Runner Relationship Specialty [place] [address] [facility] [place] [address] PCP - General 07/29/00 documented as of this encounter
--- OUTSIDE RECORDS SUMMARY | 2024-09-28 17:12 | XMS_ITS | Encounter Summary ---
Author Organization [facility] Address [address] [place] [address] Care Team Providers Care Circus Supervisor Name Role Phone Uriel Mott MD Primary Care Provider [phone] Encounter Details Date Type Department Care Team (Late st Contact Info) Description 09/27/2000 Outpatient Historical HIS [facility] DEPT OF FAMILY MEDICINE Alex Carmichael MD [address] [place] [address] Social History Tobacco Use Types Packs/Day Years Used Date Smoking Tobacco: Never Assessed Comments Unknown Sex and Gender Information Value Date Recorded Sex Assigned at Not on file Legal Sex Female 3:07 AM COMPOSITION MIXER Gender Identity Not on file Sexual Orientation Not on file documented as of this encounter Plan of Treatment Upcoming Encounters Date Type Department Care Team (Late st Contact Info) Description 10/15/2024 8:00 AM CDT Appointment [facility] Family Medicine Christine Wang [address] [facility] [address] [place] [address] [place] [address] [facility] [place] [address] 12/07/2024 8:00 AM CDT Procedure visit [facility] Neurology [address] [facility] [address] [place] [address] Shashank Moore MD [address] [facility] [address] [place] [address] 01/17/2025 8:20 AM COMPOSITION MIXER Appointment [facility] Medicine Christine Piña [address] [facility] [address] [place] [address] [place] [address] [facility] [place] [address] 03/08/2025 8:00 AM COMPOSITION MIXER Procedure visit [facility] Neurology [address] [facility] [address] [place] [address] Shashank Moore MD [address] [facility] [address] [place] [address] documented as of this encounter Visit Diagnoses Not on filedocumented in this encounter Additional Health Concerns Infection Onset Date Last Indicated Resolved Time R/O COVID-19 11/06/2019 11/06/2019 11/06/2019 8:56 AM CDT R/O COVID-19 12/29/2020 12/29/2020 12/29/2020 1:27 PM COMPOSITION MIXER COVID-19 12/29/2020 12/29/2020 01/18/2021 1:16 AM COMPOSITION MIXER documented as of this encounter Care Teams Circus Supervisor Relationship Specialty [place] [address] [facility]. [address] [place] [address] PCP - General 07/29/00 documented as of this encounter
--- OUTSIDE RECORDS SUMMARY | 2024-09-28 17:12 | XMS_ITS | Encounter Summary ---
Author Organization [facility] Address [address] [place] [address] Care Team Providers Care Mate Ship Name Role Phone Uriel Mott MD Primary Care Provider [phone] Encounter Details Date Type Department Care Team (Late st Contact Info) Description 11/29/2000 Outpatient Historical HIS [facility] DEPT [place] [address] [facility]. [address] [place] [address] Social History Tobacco Use Types Packs/Day Years Used Date Smoking Tobacco: Never Assessed Comments Unknown Sex and Gender Information Value Date Recorded Sex Assigned at Not on file Legal Sex Female 3:07 AM LABORATORY MECHANICAL TECHNICIAN Gender Identity Not on file Sexual Orientation Not on file documented as of this encounter Plan of Treatment Upcoming Encounters Date Type Department Care Team (Late st Contact Info) Description 10/15/2024 8:00 AM CDT Appointment [facility] Family Medicine Christine Wang [address] [facility] [address] [place] [address] [place] [address] [facility] [place] [address] 12/07/2024 8:00 AM CDT Procedure visit [facility] Neurology [address] [facility] [address] [place] [address] Shashank Moore MD [address] [facility] [address] [place] [address] 01/17/2025 8:20 AM LABORATORY MECHANICAL TECHNICIAN Appointment [facility] Medicine Christine Piña [address] [facility] [address] [place] [address] [place] [address] [facility] [place] [address] 03/08/2025 8:00 AM LABORATORY MECHANICAL TECHNICIAN Procedure visit [facility] Neurology [address] [facility] [address] [place] [address] Shashank Moore MD [address] [facility] [address] [place] [address] documented as of this encounter Visit Diagnoses Not on filedocumented in this encounter Additional Health Concerns Infection Onset Date Last Indicated Resolved Time R/O COVID-19 11/06/2019 11/06/2019 11/06/2019 8:56 AM CDT R/O COVID-19 12/29/2020 12/29/2020 12/29/2020 1:27 PM LABORATORY MECHANICAL TECHNICIAN COVID-19 12/29/2020 12/29/2020 01/18/2021 1:16 AM LABORATORY MECHANICAL TECHNICIAN documented as of this encounter Care Teams Mate Ship Relationship Specialty [place] [address] [facility] [place] [address] PCP - General 07/29/00 documented as of this encounter
--- OUTSIDE RECORDS SUMMARY | 2024-09-28 17:12 | XMS_ITS | Encounter Summary ---
Author Organization [facility] Address [address] [place] [address] Care Team Providers Care Art Teacher Name Role Phone Uriel Mott MD Primary Care Provider [phone] Encounter Details Date Type Department Care Team (Late st Contact Info) Description 04/21/1998 Outpatient Historical HIS [facility] DEPT [place] [address] [facility]. [address] [place] [address] Social History Tobacco Use Types Packs/Day Years Used Date Smoking Tobacco: Never Assessed Comments Unknown Sex and Gender Information Value Date Recorded Sex Assigned at Not on file Legal Sex Female 3:07 AM SURVEY WORKERS SUPERVISOR Gender Identity Not on file Sexual Orientation Not on file documented as of this encounter Plan of Treatment Upcoming Encounters Date Type Department Care Team (Late st Contact Info) Description 10/15/2024 8:00 AM CDT Appointment [facility] Family Medicine Christine Piña [address] [facility] [address] [place] [address] [place] [address] [facility]. [address] [place] [address] 12/07/2024 8:00 AM CDT Procedure visit [facility] Neurology [address] [facility] [address] [place] [address] Shashank Moore MD [address] [facility] [address] [place] [address] 01/17/2025 8:20 AM SURVEY WORKERS SUPERVISOR Appointment [facility] Medicine Christine Piña [address] [facility] [address] [place] [address] [place] [address] [facility]. [address] [place] [address] 03/08/2025 8:00 AM SURVEY WORKERS SUPERVISOR Procedure visit [facility] Neurology [address] [facility] [address] [place] [address] Shashank Moore MD [address] [facility] [address] [place] [address] documented as of this encounter Visit Diagnoses Not on filedocumented in this encounter Additional Health Concerns Infection Onset Date Last Indicated Resolved Time R/O COVID-19 11/06/2019 11/06/2019 11/06/2019 8:56 AM CDT R/O COVID-19 12/29/2020 12/29/2020 12/29/2020 1:27 PM SURVEY WORKERS SUPERVISOR COVID-19 12/29/2020 12/29/2020 01/18/2021 1:16 AM SURVEY WORKERS SUPERVISOR documented as of this encounter Care Teams Art Teacher Relationship Specialty [place] [address] [facility]. [address] [place] [address] PCP - General 07/29/00 documented as of this encounter
--- OUTSIDE RECORDS SUMMARY | 2024-09-28 17:12 | XMS_ITS | Encounter Summary ---
Author Organization [facility] Address [address] [place] [address] Care Team Providers Care Merchandising Specialist Name Role Phone Uriel Mott MD Primary Care Provider [phone] Encounter Details Date Type Department Care Team (Late st Contact Info) Description 07/01/2000 Outpatient Historical HIS [facility] DEPT OF [place] [address] [place] [address] Social History Tobacco Use Types Packs/Day Years Used Date Smoking Tobacco: Never Assessed Comments Unknown Sex and Gender Information Value Date Recorded Sex Assigned at Not on file Legal Sex Female 3:07 AM FAST FOOD ATTENDANT Gender Identity Not on file Sexual Orientation Not on file documented as of this encounter Plan of Treatment Upcoming Encounters Date Type Department Care Team (Late st Contact Info) Description 10/15/2024 8:00 AM CDT Appointment [facility] Medicine Christine Piña [address] [facility] [address] [place] [address] [place] [address] [facility]. [address] [place] [address] 12/07/2024 8:00 AM CDT Procedure visit [facility] Neurology [address] [facility] [address] [place] [address] Shashank Moore MD [address] [facility] [address] [place] [address] 01/17/2025 8:20 AM FAST FOOD ATTENDANT Appointment [facility] Medicine Christine Piña [address] [facility] [address] [place] [address] [place] [address] [facility] [place] [address] 03/08/2025 8:00 AM FAST FOOD ATTENDANT Procedure visit [facility] Neurology [address] [facility] [address] [place] [address] Shashank Moore MD [address] [facility] [address] [place] [address] documented as of this encounter Visit Diagnoses Not on filedocumented in this encounter Additional Health Concerns Infection Onset Date Last Indicated Resolved Time R/O COVID-19 11/06/2019 11/06/2019 11/06/2019 8:56 AM CDT R/O COVID-19 12/29/2020 12/29/2020 12/29/2020 1:27 PM FAST FOOD ATTENDANT COVID-19 12/29/2020 12/29/2020 01/18/2021 1:16 AM FAST FOOD ATTENDANT documented as of this encounter Care Teams Merchandising Specialist Relationship Specialty [place] [address] [facility] [place] [address] PCP - General 07/29/00 documented as of this encounter
--- OUTSIDE RECORDS SUMMARY | 2024-09-28 17:12 | XMS_ITS | Encounter Summary ---
Author Organization [facility] Address [address] [place] [address] Care Team Providers Care Leathersmith Name Role Phone Uriel Mott MD Primary Care Provider [phone] Reason for Visit * Reason Comments Medication Refill Encounter Details Date Type Department Care Team (Late st Contact Info) Description 09/25/[address] [facility] Family Medicine Christine Amalia [address] [facility] [address] [place] [address] [place] [address] [facility] [place] [address] Rheumatoid arthritis involving both knees [...] on file Legal Sex Female 3:07 AM OPERATIONS MANAGER/COORDINATOR Gender Identity Not on file Sexual Orientation [...] M50.93, M05.761, M05.762 Current associated controlled meds: [facility] listed [facility] ([phone]) Current medication agreement date signed: 07/05/23 Associated Diagnosis: F41.1 Current associated controlled meds: X[facility]ax [facility] listed in agreement: [facility] ([phone]) Current medication agreement date signed: 08/08/24 Associated Diagnosis: F41.1 Current associated controlled meds: Ambien [facility] listed in agreement: [facility] ([phone]) Current medication agreement date signed: 08/08/24 Dystonia 06/08/2024 Atherosclerosis of aorta 03/28/2023 Overview Note: 12/19/22 CTA Chest/Abdomen/Pelvis: There is atherosclerotic calcification involving the thoracic aorta and coronary arteries. History of shingles 10/05/2021 Immunodeficiency due to treatment with immunosuppressive medication 04/23/2021 [facility] systemic steroid user 12/15/2020 Carpal tunnel syndrome of left wrist Small vessel disease, cerebrovascular 08/07/2020 Overview Note: On MRI - The 10-year ASCVD risk score ([place] PATRIC Jr., et al., 2013) is: 6% [...] Parkinson's disease with dyskinesia and fluctuating manifestations ([facility]) 03/20/2018 Spinal stenosis of lumbosacral region 03/23/2017 [...] positive rheumatoid factor ([facility]) 11/19/2003 (APT Adherence: Q 6MTH or Q 12MTH) Appt scheduled: yes Recent Visits Date Type Provider Dept 07/17/24 Office Visit Uriel Mott MD [facility] [place] 04/12/24 Office Visit Uriel Mott MD [facility] [place] 01/10/24 Office Visit Uriel Mott MD [facility] [place] 10/11/23 Office Visit Uriel Mott MD [facility] [place] 08/22/23 Video Visit Mesha Deras DO [facility] [place] 07/05/23 Office Visit Uriel Mott MD [facility] [place] Showing recent visits within past 540 days with a meds authorizing provider and meeting all other requirements Future Appointments Date Type Provider Dept 10/15/24 Appointment Uriel Mott MD [facility] [place] 01/17/25 Appointment Uriel Mott MD [facility] [place] Showing future appointments within next 150 [...] Dept 07/17/24 Office Visit Uriel Mott MD [facility] Christine Piña Showing recent visits within past 90 days and meeting all other requirements Future Appointments Date Type Provider Dept 10/15/24 Appointment Uriel Mott MD [facility] Christine Piña Showing future appointments within next 90 days and meeting all other requirements Appointments for Next 365 Days 09/27/2024 - 09/27/2025 Date Visit Type Length Department Provider 10/15/2024 8:00 AM OFFICE VISIT ESTABLISHED 20 min [facility] Uriel Johnston MD Appointment Notes: joints 12/07/2024 8:00 AM BOTOX INJECTION 30 min [facility] Neurology [address] Shashank Moore MD Appointment Notes: BOTOX JAW DYSTONIA 01/17/2025 8:20 AM OFFICE VISIT ESTABLISHED 20 min [facility] Uriel Johnston MD Appointment Notes: joints 03/08/2025 8:00 AM BOTOX INJECTION 30 min [facility] Neurology [address] Shashank Moore MD Appointment Notes: BOTOX Passed - Active opioid pain agreement [facility] Chronic Opioid Guideline Passed - Concurrent benzodiazepine [...] Dept 07/17/24 Office Visit Uriel Mott MD [facility] Christine Piña Showing recent visits within past 90 days and meeting all other requirements Future Appointments Date Type Provider Dept 10/15/24 Appointment Uriel Mott MD [facility] Christine Amalia Showing future appointments within next 90 days and meeting all other requirements Appointments for Next 365 Days 09/27/2024 - 09/27/2025 Date Visit Type Length Department Provider 10/15/2024 8:00 AM OFFICE VISIT ESTABLISHED 20 min [facility] Uriel Johnston MD Appointment Notes: joints 12/07/2024 8:00 AM BOTOX INJECTION 30 min [facility] Neurology [address] Shashank Moore MD Appointment Notes: BOTOX JAW DYSTONIA 01/17/2025 8:20 AM OFFICE VISIT ESTABLISHED 20 min [facility] Uriel Johnston MD Appointment Notes: joints 03/08/2025 8:00 AM BOTOX INJECTION 30 min [facility] Neurology [address] Shashank Moore MD Appointment Notes: BOTOX predniSONE 5 mg tablet (DELTASONE) 180 Tablet 1 Sig: Take 1 Tablet (5 mg) by mouth 2 times daily with meals. There is no refill protocol information for this order Last Refill Date: 09/05/24 # of Days: 30 # of Refills: 0 Pharmacy Retail/Mail Order: [facility] Patient call back number: documented in this encounter Plan of Treatment Upcoming Encounters Date Type Department Care Team (Late st Contact Info) Description 10/15/2024 8:00 AM CDT Appointment [facility] Christine Piña [address] [facility] [address] [place] [address] [place] [address] [facility] [place] [address] 12/07/2024 8:00 AM CDT Procedure visit [facility] Neurology [address] [facility] [address] [place] [address] Shashank Moore MD [address] [facility] [address] [place] [address] 01/17/2025 8:20 AM OPERATIONS MANAGER/COORDINATOR Appointment [facility] Medicine Christine Piña [address] [facility] [address] [place] [address] [place] [address] [facility] [place] [address] 03/08/2025 8:00 AM OPERATIONS MANAGER/COORDINATOR Procedure visit [facility] Neurology [address] [facility] [address] [place] [address] Shashank Moore MD [address] [facility] [address] [place] [address] documented as of this encounter Visit Diagnoses Diagnosis 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 ([facility]) Cervical disc disorder of cervicothoracic region Other and unspecified disc disorder of cervical region Generalized anxiety disorder documented in this encounter Care Teams Leathersmith Relationship Specialty [place] [address] [facility] [place] [address] PCP - General 07/29/00 documented as of this encounter
--- OUTSIDE RECORDS SUMMARY | 2024-09-28 17:12 | XMS_ITS | Encounter Summary ---
Author Organization [facility] Address [address] [place] [address] Care Team Providers Care Automotive Parts Person Name Role Phone Uriel Mott MD Primary Care Provider [phone] Encounter Details Date Type Department Care Team (Late st Contact Info) Description 08/22/2000 Outpatient Historical HIS [facility] DEPT [place] [address] [facility]. [address] [place] [address] Social History Tobacco Use Types Packs/Day Years Used Date Smoking Tobacco: Never Assessed Comments Unknown Sex and Gender Information Value Date Recorded Sex Assigned at Not on file Legal Sex Female 3:07 AM COMPLIANCE VICE PRESIDENT Gender Identity Not on file Sexual Orientation Not on file documented as of this encounter Plan of Treatment Upcoming Encounters Date Type Department Care Team (Late st Contact Info) Description 10/15/2024 8:00 AM CDT Appointment [facility] Family Medicine Christine Piña [address] [facility] [address] [place] [address] [place] [address] [facility] [place] [address] 12/07/2024 8:00 AM CDT Procedure visit [facility] Neurology [address] [facility] [address] [place] [address] Shashank Moore MD [address] [facility] [address] [place] [address] 01/17/2025 8:20 AM COMPLIANCE VICE PRESIDENT Appointment [facility] Medicine Christine Pñia [address] [facility] [address] [place] [address] [place] [address] [facility] [place] [address] 03/08/2025 8:00 AM COMPLIANCE VICE PRESIDENT Procedure visit [facility] Neurology [address] [facility] [address] [place] [address] Shashank Moore MD [address] [facility] [address] [place] [address] documented as of this encounter Visit Diagnoses Not on filedocumented in this encounter Additional Health Concerns Infection Onset Date Last Indicated Resolved Time R/O COVID-19 11/06/2019 11/06/2019 11/06/2019 8:56 AM CDT R/O COVID-19 12/29/2020 12/29/2020 12/29/2020 1:27 PM COMPLIANCE VICE PRESIDENT COVID-19 12/29/2020 12/29/2020 01/18/2021 1:16 AM COMPLIANCE VICE PRESIDENT documented as of this encounter Care Teams Automotive Parts Person Relationship Specialty [place] [address] [facility] [place] [address] PCP - General 07/29/00 documented as of this encounter
--- OUTSIDE RECORDS SUMMARY | 2024-09-28 17:12 | XMS_ITS | Encounter Summary ---
Author Organization [facility] Address [address] [place] [address] Care Team Providers Care Assistant Basketball Coach Name Role Phone Uriel Mott MD Primary Care Provider [phone] Encounter Details Date Type Department Care Team (Latest Contact Info) Description 11/29/2000 Outpatient Historical HIS [facility] [place] [address] [facility] [place] [address] Encounter for long-term (current) use of other medications (Primary Dx) Social History Tobacco Use Types Packs/Day Years Used Date Smoking Tobacco: Never Assessed Comments Unknown Sex and Gender Information Value Date Recorded Sex Assigned at Not on file Legal Sex Female 3:07 AM SUPERVISOR SHIPFITTERS Gender Identity Not on file Sexual Orientation Not on file documented as of this encounter Plan of Treatment Upcoming Encounters Date Type Department Care Team (Late st Contact Info) Description 10/15/2024 8:00 AM CDT Appointment [facility] Family Medicine Christine Piña [address] [facility] [address] [place] [address] [place] [address] [facility] [place] [address] 12/07/2024 8:00 AM CDT Procedure visit [facility] Neurology [address] [facility] [address] [place] [address] Shashank Moore MD [address] [facility] [address] [place] [address] 01/17/2025 8:20 AM SUPERVISOR SHIPFITTERS Appointment [facility] Medicine Christine Piña [address] [facility] [address] [place] [address] [place] [address] [facility] [place] [address] 03/08/2025 8:00 AM SUPERVISOR SHIPFITTERS Procedure visit [facility] Neurology [address] [facility] [address] [place] [address] Shashank Moore MD [address] [facility] [address] [place] [address] documented as of this encounter Visit Diagnoses Diagnosis Encounter for long-term (current) use of other medications- Primary documented in this encounter Additional Health Concerns Infection Onset Date Last Indicated Resolved Time R/O COVID-19 11/06/2019 11/06/2019 11/06/2019 8:56 AM CDT R/O COVID-19 12/29/2020 12/29/2020 12/29/2020 1:27 PM SUPERVISOR SHIPFITTERS COVID-19 12/29/2020 12/29/2020 01/18/2021 1:16 AM SUPERVISOR SHIPFITTERS documented as of this encounter Care Teams Assistant Basketball Coach Relationship Specialty [place] [address] [facility] [place] [address] PCP - General 07/29/00 documented as of this encounter
--- OUTSIDE RECORDS SUMMARY | 2024-09-28 17:12 | XMS_ITS | Encounter Summary ---
Author Organization [facility] Address [address] [place] [address] Care Team Providers Care Liquefier Name Role Phone Uriel Mott MD Primary Care Provider [phone] Encounter Details Date Type Department Care Team (Latest Contact Info) Description 07/29/2000 Outpatient Historical HIS [place] [address] [facility] [place] [address] Chest pain, unspecified (Primary Dx) Social History Tobacco Use Types Packs/Day Years Used Date Smoking Tobacco: Never Assessed Comments Unknown Sex and Gender Information Value Date Recorded Sex Assigned at Not on file Legal Sex Female 3:07 AM FEED MILL MANAGER Gender Identity Not on file Sexual Orientation Not on file documented as of this encounter Plan of Treatment Upcoming Encounters Date Type Department Care Team (Late st Contact Info) Description 10/15/2024 8:00 AM CDT Appointment [facility] Family Medicine Christine Piña [address] [facility] [address] [place] [address] [place] [address] [facility] [place] [address] 12/07/2024 8:00 AM CDT Procedure visit [facility] Neurology [address] [facility] [address] [address] [place] [address] Shashank Moore MD [address] [facility] [address] [place] [address] 01/17/2025 8:20 AM FEED MILL MANAGER Appointment [facility] Medicine Christine Piña [address] [facility] [address] [place] [address] [place] [address] [facility] [place] [address] 03/08/2025 8:00 AM FEED MILL MANAGER Procedure visit [facility] Neurology [address] [facility] [address] [place] [address] Shashank Moore MD [address] [facility] [address] [place] [address] documented as of this encounter Visit Diagnoses Diagnosis Chest pain, unspecified- Primary documented in this encounter Additional Health Concerns Infection Onset Date Last Indicated Resolved Time R/O COVID-19 11/06/2019 11/06/2019 11/06/2019 8:56 AM CDT R/O COVID-19 12/29/2020 12/29/2020 12/29/2020 1:27 PM FEED MILL MANAGER COVID-19 12/29/2020 12/29/2020 01/18/2021 1:16 AM FEED MILL MANAGER documented as of this encounter Care Teams Liquefier Relationship Specialty [place] [address] [facility] [address] [place] [address] PCP - General 07/29/00 documented as of this encounter
--- OUTSIDE RECORDS SUMMARY | 2024-09-28 17:12 | XMS_ITS | Encounter Summary ---
Author Organization [facility] Address [address] [place] [address] Care Team Providers Care Inker Machine Name Role Phone Uriel Mott MD Primary Care Provider [phone] Encounter Details Date Type Department Care Team (Latest Contact Info) Description 04/15/[address] [facility] [address] [facility] [place] [address] Abdominal pain, unspecified site (Primary Dx) Social History Tobacco Use Types Packs/Day Years Used Date Smoking Tobacco: Never Assessed Comments Unknown Sex and Gender Information Value Date Recorded Sex Assigned at Not on file Legal Sex Female 3:07 AM SADDLE STITCHER Gender Identity Not on file Sexual Orientation Not on file documented as of this encounter Plan of Treatment Upcoming Encounters Date Type Department Care Team (Late st Contact Info) Description 10/15/2024 8:00 AM CDT Appointment [facility] Family Medicine Christine Pñia [address] [facility] [address] [place] [address] [place] [address] [facility] [place] [address] 12/07/2024 8:00 AM CDT Procedure visit [facility] Neurology [address] [facility] [place] [address] Shashank Moore MD [address] [facility] [address] [place] [address] 01/17/2025 8:20 AM SADDLE STITCHER Appointment [facility] Medicine Christine Piña [address] [facility] [address] [place] [address] [place] [address] [facility] [place] [address] 03/08/2025 8:00 AM SADDLE STITCHER Procedure visit [facility] [address] [facility] [address] [place] [address] Shashank Moore MD [address] [facility] [address] [place] [address] documented as of this encounter Visit Diagnoses Diagnosis Abdominal pain, unspecified site- Primary documented in this encounter Additional Health Concerns Infection Onset Date Last Indicated Resolved Time R/O COVID-19 11/06/2019 11/06/2019 11/06/2019 8:56 AM CDT R/O COVID-19 12/29/2020 12/29/2020 12/29/2020 1:27 PM SADDLE STITCHER COVID-19 12/29/2020 12/29/2020 01/18/2021 1:16 AM SADDLE STITCHER documented as of this encounter Care Teams Inker Machine Relationship Specialty [place] [address] [facility] [place] [address] PCP - General 07/29/00 documented as of this encounter
--- OUTSIDE RECORDS SUMMARY | 2024-09-28 17:12 | XMS_ITS | Encounter Summary ---
Author Organization [facility] Address [address] [place] [address] Care Team Providers Care Winder Hand Name Role Phone Uriel Mott MD Primary Care Provider [phone] Encounter Details Date Type Department Care Team (Late st Contact Info) Description 03/28/1998 Outpatient Historical HIS [facility] [place] [address] [facility] [place] [address] Social History Tobacco Use Types Packs/Day Years Used Date Smoking Tobacco: Never Assessed Comments Unknown Sex and Gender Information Value Date Recorded Sex Assigned at Not on file Legal Sex Female 3:07 AM NURSING ASSOCIATE Gender Identity Not on file Sexual Orientation Not on file documented as of this encounter Plan of Treatment Upcoming Encounters Date Type Department Care Team (Late st Contact Info) Description 10/15/2024 8:00 AM CDT Appointment [facility] Family Medicine Christine Piña [address] [facility] [address] [place] [address] [place] [address] [facility] [place] [address] 12/07/2024 8:00 AM CDT Procedure visit [facility] Neurology [address] [facility] [address] [place] [address] Shashank Moore MD [address] [facility] [address] [place] [address] 01/17/2025 8:20 AM NURSING ASSOCIATE Appointment [facility] Medicine Christine Piña [address] [facility] [address] [place] [address] [place] [address] [facility] [place] [address] 03/08/2025 8:00 AM NURSING ASSOCIATE Procedure visit [facility] Neurology [address] [facility] [address] [place] [address] Shashank Moore MD [address] [facility] [address] [place] [address] documented as of this encounter Visit Diagnoses Not on filedocumented in this encounter Additional Health Concerns Infection Onset Date Last Indicated Resolved Time R/O COVID-19 11/06/2019 11/06/2019 11/06/2019 8:56 AM CDT R/O COVID-19 12/29/2020 12/29/2020 12/29/2020 1:27 PM NURSING ASSOCIATE COVID-19 12/29/2020 12/29/2020 01/18/2021 1:16 AM NURSING ASSOCIATE documented as of this encounter Care Teams Winder Hand Relationship Specialty [place] [address] [facility] [place] [address] PCP - General 07/29/00 documented as of this encounter
--- OUTSIDE RECORDS SUMMARY | 2024-09-28 17:12 | XMS_ITS | Encounter Summary ---
Author Organization [facility] Address [address] [place] [address] Care Team Providers Care Watch Dial Stoner Name Role Phone Uriel Mott MD Primary Care Provider [phone] Reason for Visit * Reason Onset Date Comments Paperwork 08/08/2024 Controlled Subst ance Agreement Form Encounter Details Date Type Department Care Team (Late st Contact Info) Description 08/08/2024 Telephone [facility] Medicine Christine Wang [address] [place] [address] [place] [address] [employer] [place] [address] Paperwork (Controlled Substance Agreement Form) [...] on file Legal Sex Female 3:07 AM SILVERWARE CLEANER Gender Identity Not on file Sexual [...] 10/15/2024 8:00 AM CDT Appointment [facility] Medicine Christine Piña [address] [facility] [address] [place] [address] [place] [address] [facility]. [address] [place] [address] 12/07/2024 8:00 AM CDT Procedure visit [facility] Neurology [address] [address] Shashank Moore MD [address] [place] [address] 01/17/2025 8:20 AM SILVERWARE CLEANER Appointment [facility] Christine Piña [address] [facility] [address] [place] [address] [place] [address] [facility]. [address] [place] [address] 03/08/2025 8:00 AM SILVERWARE CLEANER Procedure visit [facility] Neurology [address] [facility] [address] [place] [address] Shashank Moore MD [address] [address] documented as of this encounter Visit Diagnoses Not on filedocumented in this encounter Care Teams Watch Dial Stoner Relationship Specialty [place] [address] [facility]. [address] [place] [address] PCP - General 07/29/00 documented as of this encounter
--- OUTSIDE RECORDS SUMMARY | 2024-09-28 17:12 | XMS_ITS | Encounter Summary ---
Author Organization [facility] Address 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 [place] [address] 12/07/2024 8:00 AM CDT Procedure visit [facility] Neurology [address] [facility] [address] [place] [address] Shashank Moore MD [address] [facility] [address] [place] [address] 01/17/2025 8:20 AM NEWS GATHERING TECHNICIAN Appointment [facility] Medicine Christine Piña [address] [facility] [address] [place] [address] [place] [address] [facility] [place] [address] 03/08/2025 8:00 AM NEWS GATHERING TECHNICIAN Procedure visit [facility] Neurology [address] [facility] [address] [place] [address] Shashank Moore MD [address] [facility] [address] [place] [address] documented as of this encounter Visit Diagnoses Diagnosis Laboratory examination- Primary documented in this encounter Additional Health Concerns Infection Onset Date Last Indicated Resolved Time R/O COVID-19 11/06/2019 11/06/2019 11/06/2019 8:56 AM CDT R/O COVID-19 12/29/2020 12/29/2020 12/29/2020 1:27 PM NEWS GATHERING TECHNICIAN COVID-19 12/29/2020 12/29/2020 01/18/2021 1:16 AM NEWS GATHERING TECHNICIAN documented as of this encounter Care Teams Financial Aid Administrator Relationship Specialty [place] [address] [address] [facility] [facility] [place] [address] PCP - General 07/29/00 documented as of this encounter
--- OUTSIDE RECORDS SUMMARY | 2024-09-28 17:12 | XMS_ITS | Encounter Summary ---
Author Organization [facility] Address 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 [place] [address] 12/07/2024 8:00 AM CDT Procedure visit [facility] Neurology [address] [facility] [address] [place] [address] Shashank Moore MD [address] [facility] [address] [place] [address] 01/17/2025 8:20 AM SEMICONDUCTOR WAFERS ETCHER STRIPPER Appointment [facility] Medicine Christine Piña [address] [facility] [address] [place] [address] [place] [address] [facility] [place] [address] 03/08/2025 8:00 AM SEMICONDUCTOR WAFERS ETCHER STRIPPER Procedure visit [facility] Neurology [address] [facility] [address] [place] [address] Shashank Moore MD [address] [facility] [address] [place] [address] documented as of this encounter Visit Diagnoses Not on filedocumented in this encounter Additional Health Concerns Infection Onset Date Last Indicated Resolved Time R/O COVID-19 11/06/2019 11/06/2019 11/06/2019 8:56 AM CDT R/O COVID-19 12/29/2020 12/29/2020 12/29/2020 1:27 PM SEMICONDUCTOR WAFERS ETCHER STRIPPER COVID-19 12/29/2020 12/29/2020 01/18/2021 1:16 AM SEMICONDUCTOR WAFERS ETCHER STRIPPER documented as of this encounter Care Teams Retail Sales Manager Relationship Specialty [place] [address] [facility] [place] [address] PCP - General 07/29/00 documented as of this encounter
--- OUTSIDE RECORDS SUMMARY | 2024-09-28 17:12 | XMS_ITS | Encounter Summary ---
Author Organization [facility] Address [address] [place] [address] Care Team Providers Care Cone Runner Name Role Phone Uriel Mott MD Primary Care Provider [phone] Encounter Details Date Type Department Care Team (Late st Contact Info) Description 12/17/1999 Outpatient Historical [facility]PT [place] [address] [facility] [place] [address] Social History Tobacco Use Types Packs/Day Years Used Date Smoking Tobacco: Never Assessed Comments Unknown Sex and Gender Information Value Date Recorded Sex Assigned at Not on file Legal Sex Female 3:07 AM WIRE STITCHER MACHINE Gender Identity Not on file Sexual Orientation Not on file documented as of this encounter Plan of Treatment Upcoming Encounters Date Type Department Care Team (Late st Contact Info) Description 10/15/2024 8:00 AM CDT Appointment [facility] Family Medicine Christine Piña [address] [facility] [address] [place] [address] [place] [address] [facility] [place] [address] 12/07/2024 8:00 AM CDT Procedure visit [facility] Neurology [address] [facility] [address] [place] [address] Shashank Moore MD [address] [facility] [address] [place] [address] 01/17/2025 8:20 AM WIRE STITCHER MACHINE Appointment [facility] Medicine Christine Piña [address] [facility] [address] [place] [address] [place] [address] [facility] [place] [address] 03/08/2025 8:00 AM WIRE STITCHER MACHINE Procedure visit [facility] Neurology [address] [facility] [address] [place] [address] Shashank Moore MD [address] [facility] [address] [place] [address] documented as of this encounter Visit Diagnoses Not on filedocumented in this encounter Additional Health Concerns Infection Onset Date Last Indicated Resolved Time R/O COVID-19 11/06/2019 11/06/2019 11/06/2019 8:56 AM CDT R/O COVID-19 12/29/2020 12/29/2020 12/29/2020 1:27 PM WIRE STITCHER MACHINE COVID-19 12/29/2020 12/29/2020 01/18/2021 1:16 AM WIRE STITCHER MACHINE documented as of this encounter Care Teams Cone Runner Relationship Specialty [place] [address] [facility] [place] [address] PCP - General 07/29/00 documented as of this encounter
[2024-09-28 17:14] LABS: Alanine Aminotransferase 10 U/L (6-35); Albumin Level 4.5 g/dL (3.5-5.1); Alkaline Phosphatase 61 U/L (38-126); Anion Gap 9 mmol/L (4-12); Aspartate Amino Transferase 33 U/L (14-36); Bilirubin,Total 0.5 mg/dL (0.2-1.3); Blood Urea Nitrogen 15 mg/dL (7-17); Calcium 9.8 mg/dL (8.4-10.2); Carbon Dioxide 27 mmol/L (22-30); Chloride 103 mmol/L (98-107); Estimated CRCL calculation 48 ml/min; Estimated Glomerular Filt Rate > 60; Glucose 111 mg/dL (65-110); Potassium 3.9 mmol/L (3.4-5.0); Sodium 139 mmol/L (137-145); Total Protein 7.3 g/dL (6.3-8.2)
== END 2024-09-28 18:40 | disposition short-term general hospital (02) ==
PROVIDERS: Emergency Provider Student in an Organized Health Care Education/Training Program
DX: S06.6X0A Traumatic subarachnoid hemorrhage without loss of consciousness, initial encounter (principal); S01.01XA Laceration without foreign body of scalp, initial encounter; Z23 Encounter for immunization; G20.A1 Parkinson's disease without dyskinesia, without mention of fluctuations; M06.9 Rheumatoid arthritis, unspecified; W01.190A Fall on same level from slipping, tripping and stumbling with subsequent striking against furniture, initial encounter; Y93.H2 Activity, gardening and landscaping; M48.02 Spinal stenosis, cervical region; I44.0 Atrioventricular block, first degree
CPT/HCPCS: 12002; 36415; 70450; 72125; 72170; 80053; 85025; 90471; 90715; 93005; 96374; 99285; J2270; L0140